=== PATIENT | male | born 1975 | race Caucasian/White ===

== ENCOUNTER → 2020-02-21 13:20 | Outpatient (BNVA) | payer SELFPAY | PROVIDERS: Family Provider Family Medicine; PCP Family Medicine; Visit Provider Nurse Practitioner Family | DX: J36 Peritonsillar abscess (principal); J02.9 Acute pharyngitis, unspecified; M79.10 Myalgia, unspecified site | CPT/HCPCS: 87071; 87400; 87880 ==

== ENCOUNTER → 2020-03-24 13:27 | Outpatient (BNVA) | payer SELFPAY | PROVIDERS: Family Provider Family Medicine; PCP Family Medicine; Visit Provider Nurse Practitioner Family | DX: L03.116 Cellulitis of left lower limb (principal); Z86.39 Personal history of other endocrine, nutritional and metabolic disease | CPT/HCPCS: 80053; 83036; 85025 ==

== ENCOUNTER 2020-03-29 05:48 | Inpatient (IN) | payer SELFPAY ==
[2020-03-29] VITALS (8 sets, daily range): BP systolic 144–188; BP diastolic 60–95; PULSE 56–95; RESP 16–22; TEMP 36.4–36.9; O2SAT 96–100; BMI 23.1
--- NOTE | 2020-03-29 06:32 | XR_ITS ---
WS: [id number] EXAM: LEFT FOOT: 3 VIEWS DATE OF EXAMINATION: 03/29/2020, 0703 hours COMPARISON: None. HISTORY: 44 years old with left foot pain. Blister to the top of the foot. Assess for abscess. FINDINGS: Bone density is normal in appearance. There are findings of hallux valgus deformity of the first ray with arthritis first metatarsal phalangeal joint and bunion formation off the medial first metatarsal head. Second through fifth metatarsophalangeal joints are normal in appearance. No fracture, lytic o r blastic process is seen. There is soft tissue prominence noted over the dorsal foot in the area of the second and third metatarsal phalangeal joints felt to represent the area of visible blister. A fo reign body within this blister is not seen. If there is concern for deep-seated abscess follow-up MRI of the foot with and without contrast would be recommended. Heel spur plantar aponeurosis insertion. XR/XR foot LT min 3V* [id number] IMPRESSION: Degenerative changes in the bones as described. Soft tissue prominence over the dorsal foot at the second and third metatarsal phalangeal joint region correlating with the site of reported blister. No forei gn body seen.
--- NOTE | 2020-03-29 06:32 | CTR_ITS ---
PROCEDURE INFORMATION: Exam: CT Left Lower Extremity With Contrast, Foot Exam date and time: 03/29/2020 6:52 AM Age: 44 years old Clinical indication: Other: Blister; Additional info: Pain/abscess foot TECHNIQUE: Imaging protocol: CT of the Left lower extremity with intravenous contrast was performed. Exam focused on the foot. Radiation optimization: All CT scans at this facility use at least one of these dose optimization techniques: automated exposure control; mA and/or kV adjustment per patient size (includes targeted exams where dose is matched to clinical indication); or iterative reconstruction. Contrast material: OMNI 300; Contrast volume: 95 ml; Contrast route: INTRAVENOUS (IV); COMPARISON: No relevant prior studies available. RADIATION DOSE METRICS: Total DLP (mGy-cm): 162.76 FINDINGS: Bones/joints: Fracture deformity of proximal phalanx 4th digit. No definite osseous bone destruction. 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 Calcaneal spur. Soft tissues: Superficial cutaneous curvilinear fluid collection at the superficial skin margin of the distal forefoot dorsally measures 2.9 by 1.1 cm. Diffuse soft tissue edema of the plantar subcutaneous soft tissues. Deep compartment and likely muscular soft tissue edema and ill-defined fluid. There is expansion and possible complex fluid and partial enhancement involving and surrounding medial muscular compartments of the hindfoot and midfoot involving abductor hallucis and flexor hallucis brevis muscular compartment and myotendinous junction which could reflect myositis/tenosynovitis which could be edema,, infectious or inflammatory. No evidence of soft tissue gas. Achilles tendon insertion site calcification. CT/CT foot LT w con [id number] IMPRESSION: 1. Superficial and deep compartment soft tissue and muscular edema or cellulitis. Exclusion of any component of necrotizing fasciitis requires clinical confirmation or exclusion. 2. Questionable enhancement hallucis brevis and abductor hallucis myotendinous compartment which could reflect more focal infectious myositis and tenosynovitis. Limited delineation of muscular compartment versus early phlegmonous formation. Consider MRI with gadolinium which would yield a higher level of diagnostic specificity and sensitivity for abscess. 3. Fracture proximal phalanx 4th digit with callus formation likely subacute or early chronic. 4. Focal loculated cutaneous complex fluid dorsum of the foot which could reflect complex fluid with no discrete enhancement to reflect thick-walled abscess. Infectious versus noninfectious etiology of fluid would be limited in distinction. Radiation Dose CTDIVOL = (mGy): DLP = 162.76 (mGy-cm)
--- NOTE | 2020-03-29 06:34 | ECG_ITS ---
[facility] Test Date: 2020-03-29 Pat Name: Stan Romero Department: Room: 277 Gender: Male [employer] Director: : 1975 Requested By: Thomas Cho Order Number: [id number] Johanna MD: Heath Wellington M.D. Measurements Intervals [place] Rate: 87 P: 34 MD: 143 QRS: 64 QRSD: 93 T: 62 QT: 325 QTc: 392 Interpretive Statements SINUS RHYTHM ST ELEVATION, PROBABLY EARLY REPOLARIZATION [ST ELEVATION WITH NORMALLY INFLECTED T WAVE] No previous ECG available for comparison Electronically Signed On 03-29-2020 19:20:56 CDT by Heath Wellington M.D. [email or web address] List/store/NU/[id number] f
--- NOTE | 2020-03-29 06:37 | USCV_ITS ---
Stan Romero Age: 44 Gender: M : 1975 Exam Date: 03/29/2020 07:37 Ordering Phys: Thomas Pena DO Technologist: Brinda Sidhu [place] [facility] [place]: Foot abscess Risk Factors: Previous Vascular Surgery: RIGHT LEFT BP: / BP: 148.0/ 0 Waveform Velocity (cm/s) Velocity (cm/s) Waveform Iliac Prox 95.9 Triphasic Iliac Mid 84.9 Triphasic Iliac Distal 88.2 Triphasic SOLDERER ASSEMBLER 81.6 Triphasic SFA Prox 83.8 Triphasic SFA Mid 113.1 Triphasic SFA Dist 94.7 Triphasic POP 74.9 Triphasic RAMP SERVICE EMPLOYEE 88.0 Triphasic DPA 96.3 Monophasic ANNITA 1.3 FINDINGS See measurements listed above. CONCLUSIONS Triphasic Doppler flow pattern is noted throughout the left lower extremity except there is monophasic waveform in the dorsalis pedis artery with spectral braodening and diastolic flow. Suggests some degree of narrowing /slight stenosis in the anterior tibial artery. Slight spectral braodening begins in the distal left superficial femoral artery and continues caudally suggesting slight plaque but without stenosis otherwise seen in the remaining arteries studied. Luiz Alfred (Electronically Signed) Final Date: 29 March 2020 08:16 S
--- NOTE | 2020-03-29 06:40 | W.ED.SKABFB ---
HPI - Skin/Abscess/Foreign Bdy General: Chief complaint: Skin/Abscess/Foreign Body Stated complaint: foot swollen/ abcess Time Seen by Provider: 03/29/20 06:08 History of Present Illness: HPI narrative: 44-year-old male presents the emergency room with a swelling of his left foot. 1 week ago after mowing he had a small cut on the plantar surface of the second toe. After several days it had become increasingly swollen he seen the nurse practitioner who started him on Bactrim he had noted at that point what sounds like both popliteal and inguinal lymphadenopathy he states both of these lumps have resolved or improved since he started the Bactrim. He is not had a fever. He is not had any drainage. He has been soaking the foot in Epsom salts. He has had increasing in swelling over the last week. Reviewing the old records in [facility], [place] his last hemoglobin A1c was 10.1 on 817 his last creatinine was 1.3. MD complaint: laceration and abscess/boil Onset (ago): week(s) (1) Tetanus up to date: yes Location: L foot Severity: severe Quality: aching Pain Consistency: constant Relieving factors: rest Exacerbating factors: movement Context: recent antibiotic Associated symptoms: Reports arthralgias and myalgias; Deny chills, cough, fever(s), nausea, short of breath or vomiting Treatments prior to arrival: antibiotic Review of Systems Const: Denies: fever(s) or chills ENMT: Denies: throat pain, ear or mastoid pain, nasal discharge or nasal congestion Card: Denies: chest pain, edema, dyspnea on exertion or orthopnea Resp: Denies: dyspnea, productive cough or non-productive cough GI: Denies: nausea or vomiting : Denies: flank pain, dysuria, urinary frequency or urinary urgency Skin/Breast: Denies: rash or pruritus PFSH ED PFSH: Medical History (Updated 03/29/20 @ 10:24 by Thomas Pena DO) Diabetes mellitus type 2, uncontrolled HTN (hypertension) Surgical History (Updated 03/29/20 @ 06:46 by Thomas Pena DO) No history of previous surgery Social History (Updated 03/29/20 @ 06:45 by Thomas Pena DO) Smoking and tobacco status: current every day smoker cigarettes Packs smoked per day: 1 Years cigarettes smoked: 30 Alcohol intake: current Alcohol intake frequency: few times a month Physical Exam Const: COMMON NORMALS: no acute distress GENERAL APPEARANCE: cooperative and comfortable ORIENTATION/CONSCIOUSNESS: Yes awake, Yes oriented to person, Yes oriented to place and Yes oriented to time HENMT: COMMON NORMALS: normocephalic, atraumatic and hearing grossly normal bilaterally HEAD & SCALP: normocephalic and atraumatic Eye: COMMON NORMALS: Equal, round and reactive pupils present, EOMs intact bilaterally, conjunctivae normal and no scleral icterus CONJUNCTIVA: Yes conjunctivae normal PUPIL: Yes Equal, round and reactive pupils present Neck/C-Spine: COMMON NORMALS: full ROM, no lymphadenopathy, supple and no JVD Lymph: LYMPHATIC: no lymphadenopathy noted and no lymphedema noted Resp: COMMON NORMALS: normal respiratory effort, No retractions, No use of accessory muscles and clear to auscultation bilaterally AUSCULTATION: clear to auscultation bilaterally Cardio: COMMON NORMALS: no JVD, regular rate, regular rhythm and No murmurs present (Cardio) RATE: regular rate RHYTHM: regular rhythm GI: COMMON NORMALS: Soft to palpation and No hepatosplenomegaly present AUSCULTATION: Yes normoactive bowel sounds PALPATION: Yes Soft to palpation, No Tenderness to palpation present (GI), No Guarding due to palpation present (GI) and Yes No hepatosplenomegaly present Extremity: NARRATIVE EXTREMITY EXAM: Left foot appears to have an abscess. It involves the first through fourth MP joints. There is a fluid bolus on the surface of the foot between the second and third metatarsals there is a 2 inch fluid bulla that is nondraining. Dorsalis pedis pulses easily palpable. There is no open draining wounds. There is a laceration on the plantar surface of the second digit on the level of the interphalangeal joint. The sole of the foot to the calcaneus is fluctuant to palpation with significant swelling. The swelling extends care home up the first through fourth metatarsals. There is a healing cut on the tip of the right great toe, there are no signs of infection at this point on the right foot. Neuro: SENSORIUM/ORIENTATION: Yes oriented to person, Yes oriented to place and Yes oriented to time Skin: COMMON NORMALS: no rashes or lesions noted GENERAL SKIN EXAM: no rashes or lesions noted Course Vital Signs: Vital signs: Vital Signs Temperature 98.0 F 03/29/20 10:14 Pulse Rate 83 03/29/20 10:14 Respiratory Rate 22 H 03/29/20 10:14 Blood Pressure 188/95 03/29/20 10:14 Pulse Oximetry 99 03/29/20 10:14 MDM - Skin/Abscess/Foreign Bdy MDM Narrative: Medical decision making narrative: Discussed with Dr. Tee. Dr. John consulted on surgery. Reviewed the CT findings and labs with the patient as well as a history. We will give him calcium gluconate and Kayexalate as well as fluids for his hyponatremia and hyperkalemia. He has been started on Zosyn and vancomycin surgical consult. Lab Data: Labs: Lab Results 03/29/20 03/29/20 03/29/20 Range/Units 07:05 07:05 07:05 WBC 17.2 H (4.0-10.0) 10^3/ uL RBC 3.68 L (4.1-5.3) 10^6/u L Hgb 11.4 L (11.7-16.6) g/dL Hct 34.4 L (42.0-52.0) % MCV 93.5 (80-94) fL MCH 31.0 (28.0-34.0) pg MCHC 33.1 (30.0-36.0) g/dL RDW 11.3 L (12.1-15.1) % Plt Count 193 (130-400) 10^3/c mm MPV 10.0 (7.4-10.4) fL Neut % (Auto) 76.9 % Lymph % (Auto) 15.9 % Russell % (Auto) 5.2 % Eos % (Auto) 0.9 % Baso % (Auto) 0.3 % Neut # (Auto) 13.20 H (1.8-7.7) 10^3/u L Lymph # (Auto) 2.7 (0.8-4.8) 10^3/u L Russell # (Auto) 0.9 (0.2-0.9) 10^3/u L Eos # (Auto) 0.2 (0.0-0.8) 10^3/u L Baso # (Auto) 0.1 (0.0-0.1) 10^3/u L Nucleated RBC % (a uto) 0 % Nucleated RBCs # 0.0 /100WBC ESR 115 H (0-10) mm/hr Sodium 128 L (136-145) mmol/L Potassium 5.6 H (3.5-5.1) mmol/L Chloride 93 L (98-107) mmol/L Carbon Dioxide 26 (22-29) mmol/L Anion Gap 14.6 (5-19) BUN 30 H (6-20) mg/dL Creatinine 1.4 H (0.7-1.2) mg/dL GFR Calculation 55.1 L (90-130) mL/min Glucose 421 H (65-115) mg/dL Calculated Osmolal ity 281 L (285-295) mOsm/k g Lactic Acid (0.5-2.2) mmol/L Calcium 9.2 (8.5-10.5) mg/dL Magnesium 2.0 (1.7-2.3) mg/dL Total Bilirubin 0.3 (0.15-1.2) mg/dL AST 9 (0-40) U/L ALT 23 (0-41) U/L Alkaline Phosphata se 164 H (40-130) IU/L Creatine Kinase 52 (39-308) U/L C-Reactive Protein 106.8 H (0.0-4.9) mg/L Total Protein 8.7 (6.6-8.7) g/dL Albumin 3.4 L (3.5-5.2) g/dL Globulin 5.3 H (1.3-4.6) g/dL TSH (0.27-4.20) uIU/ mL Urine Color (Yellow) Urine Appearance (CLEAR) Urine pH (5-7) Ur Specific Gravit y (1.005-1.030) Urine Protein (Negative) Urine Glucose (UA) (Normal) Urine Ketones (Negative) Urine Blood (Negative) Urine Nitrate (Negative) Urine Bilirubin (NEGATIVE) Urine Urobilinogen (Negative) mg/dL Ur Leukocyte Nita ase (Negative) Urine RBC (0-2) /hpf Urine WBC (0-5) /hpf Ur Squamous Epith Cells (0-5) Amorphous Sediment Urine Bacteria (NONE) 08/22/20 08/22/20 08/22/20 Range/Units 07:05 07:05 07:34 WBC (4.0-10.0) 10^3/ uL RBC (4.1-5.3) 10^6/u L Hgb (11.7-16.6) g/dL Hct (42.0-52.0) % MCV (80-94) fL MCH (28.0-34.0) pg MCHC (30.0-36.0) g/dL RDW (12.1-15.1) % Plt Count (130-400) 10^3/c mm MPV (7.4-10.4) fL Neut % (Auto) % Lymph % (Auto) % Russell % (Auto) % Eos % (Auto) % Baso % (Auto) % Neut # (Auto) (1.8-7.7) 10^3/u L Lymph # (Auto) (0.8-4.8) 10^3/u L Russell # (Auto) (0.2-0.9) 10^3/u L Eos # (Auto) (0.0-0.8) 10^3/u L Baso # (Auto) (0.0-0.1) 10^3/u L Nucleated RBC % (a uto) % Nucleated RBCs # /100WBC ESR (0-10) mm/hr Sodium (136-145) mmol/L Potassium (3.5-5.1) mmol/L Chloride (98-107) mmol/L Carbon Dioxide (22-29) mmol/L Anion Gap (5-19) BUN (6-20) mg/dL Creatinine (0.7-1.2) mg/dL GFR Calculation (90-130) mL/min Glucose (65-115) mg/dL Calculated Osmolal ity (285-295) mOsm/k g Lactic Acid 0.8 (0.5-2.2) mmol/L Calcium (8.5-10.5) mg/dL Magnesium (1.7-2.3) mg/dL Total Bilirubin (0.15-1.2) mg/dL AST (0-40) U/L ALT (0-41) U/L Alkaline Phosphata se (40-130) IU/L Creatine Kinase (39-308) U/L C-Reactive Protein (0.0-4.9) mg/L Total Protein (6.6-8.7) g/dL Albumin (3.5-5.2) g/dL Globulin (1.3-4.6) g/dL TSH 1.01 (0.27-4.20) uIU/ mL Urine Color Straw (Yellow) Urine Appearance Clear (CLEAR) Urine pH 5 (5-7) Ur Specific Gravit y 1.015 (1.005-1.030) Urine Protein 3+ H (Negative) Urine Glucose (UA) 4+ H (Normal) Urine Ketones Negative (Negative) Urine Blood 3+ H (Negative) Urine Nitrate Negative (Negative) Urine Bilirubin Neg (NEGATIVE) Urine Urobilinogen Norm (Negative) mg/dL Ur Leukocyte Nita ase Negative (Negative) Urine RBC 15-25 H (0-2) /hpf Urine WBC Rare (0-5) /hpf Ur Squamous Epith Cells None (0-5) Amorphous Sediment Not Reportable Urine Bacteria Trace (NONE) Discharge Plan Discharge Admit Provider: Cory Tee Clinical Impression: Cellulitis of left foot, Diabetes mellitus type 2, uncontrolled, Hyponatremia, Hyperkalemia, Acute kidney injury Condition: Stable Coding Level of Care Code ED Clinical Office Technician for Silviag Fwd Exam Comprehensive
[2020-03-29 07:20] LABS: Basophils # 0.1 10^3/uL (0.0-0.1); Basophils % 0.3 %; Eosinophils # 0.2 10^3/uL (0.0-0.8); Eosinophils % 0.9 %; Hematocrit 34.4 % (42.0-52.0); Hemoglobin 11.4 g/dL (11.7-16.6); Lymphocytes # 2.7 10^3/uL (0.8-4.8); Lymphocytes % 15.9 %; Mean Corpuscular HGB Conc 33.1 g/dL (30.0-36.0); Mean Corpuscular Volume 93.5 fL (80-94); Monocytes # 0.9 10^3/uL (0.2-0.9); Monocytes % 5.2 %; Neutrophils % 76.9 %; Nucleated Red Blood Cells % 0 %; Platelet Count 193 10^3/cmm (130-400); Red Blood Count 3.68 10^6/uL (4.1-5.3); Red Cell Distribution Width 11.3 % (12.1-15.1); White Blood Count 17.2 10^3/uL (4.0-10.0)
[2020-03-29] MEDS: iohexol 300 mg/mL 100 mL Btl IV (07:27)
[2020-03-29] MEDS: vancomycin 1,000 MG in sodium chloride 0.9% 250 ML 250 MG IV (07:33)
[2020-03-29 07:45] LABS: Lactic Sepsis W/Reflex 0.8 mmol/L (0.5-2.2)
[2020-03-29 07:46] LABS: Alanine Aminotransferase 23 U/L (0-41); Albumin Level 3.4 g/dL (3.5-5.2); Alkaline Phosphatase 164 IU/L (40-130); Anion Gap 14.6 (5-19); Aspartate Amino Transferase 9 U/L (0-40); Blood Urea Nitrogen 30 mg/dL (6-20); C Reactive Protein 106.8 mg/L (0.0-4.9); Calcium 9.2 mg/dL (8.5-10.5); Carbon Dioxide 26 mmol/L (22-29); Chloride 93 mmol/L (98-107); Creatine Phosphokinase 52 U/L (39-308); Globulin 5.3 g/dL (1.3-4.6); Glomerular Filtration Rate 55.1 mL/min (90-130); Glucose 421 mg/dL (65-115); Osmolality Calculated 281 mOsm/kg (285-295); Potassium 5.6 mmol/L (3.5-5.1); Sodium 128 mmol/L (136-145); Total Bilirubin 0.3 mg/dL (0.15-1.2); Total Protein 8.7 g/dL (6.6-8.7)
--- NOTE | 2020-03-29 08:45 | PC.NURSE ---
Taken to surgery via stretcher and mineral technologist
[2020-03-29 09:10] LABS: Erythrocyte Sedimentation Rate 115 mm/hr (0-10)
[2020-03-29] MEDS: sodium polystyrene sulfonate 15 gm/60 mL Btl PO (09:18)
[2020-03-29] MEDS: piperacillin-tazobactam 3.375 GM in sodium chloride 0.9% (plus) 50 ML IV (09:18)
[2020-03-29] MEDS: sodium chloride 0.9% 1,000 ML 999 ML IV (09:18)
[2020-03-29 09:40] LABS: Urine Appearance Clear (CLEAR); Urine Color Straw (Yellow)
[2020-03-29 09:41] LABS: Add Urine Microscopic? YES; Bilirubin Urine Neg (NEGATIVE); Blood Urine 3+ (Negative); Glucose Urine UA 4+ (Normal); Ketones Urine Negative (Negative); Leukocyte Esterase Urine Negative (Negative); Nitrate Urine Negative (Negative); Protein Urine 3+ (Negative); Specific Gravity, Urine 1.015 (1.005-1.030); Urobilinogen Urine Norm (Negative); pH Urine 5 (5-7)
[2020-03-29 09:42] LABS: Glucose Point of Care 368 mg/dL (70-110)
[2020-03-29 09:43] LABS: Add Urine Culture? Yes; Bacteria Urine TRACE; RBC Urine 15-25 /hpf (0-2); WBC Urine RARE /hpf (0-5)
[2020-03-29 09:48] LABS: Thyroid Stimulating Hormone 1.01 uIU/mL (0.27-4.20)
[2020-03-29] MEDS: sodium chloride 0.9% 1,000 ML 150 ML IV (10:44)
--- NOTE | 2020-03-29 11:25 | P.CONIM_ITS ---
Providers/Reason For Consult Consulting Physican/Specialty*: Blaze John MD Reason for Consult*: Diabetic foot infection Attending Physician: Cory Tee MD Primary Care Provider: Jeb Delgado DO History of Present Illness History of Present Illness Chief Complaint: My foot has a swelling History of present illness: Mr. Stan Romero is a 44 year old male with known history of type 2 diabetes presents to the emergency department with history of cut wound on the plantar aspect that he did experience last [place], apparently the patient started to develop swelling the following day and he was started on Bactrim by his primary care provider also the patient had noticed some swollen lymph nodes at the left groin but he did not have any fevers or chills that he is aware of. He reports a previous sore of the left great toe that did not heal. Patient reports that the swelling of the groin is better and gone away yet he did develop a blister this morning and he did come to the emergency department for further evaluation X-ray of the left foot showed: FINDINGS: Bone density is normal in appearance. There are findings of hallux valgus deformity of the first ray with arthritis first metatarsal phalangeal joint and bunion formation off the medial first metatarsal head. Second through fifth metatarsophalangeal joints are normal in appearance. No fracture, lytic or blastic process is seen. There is soft tissue prominence noted over the dorsal foot in the area of the second and third metatarsal phalangeal joints felt to represent the area of visible blister. A foreign body within this blister is not seen. If there is concern for deep-seated abscess follow-up MRI of the foot with and without contrast would be recommended. Heel spur plantar aponeurosis insertion. XR/XR foot LT min 3V* [id number] IMPRESSION: Degenerative changes in the bones as described. Soft tissue prominence over the dorsal foot at the second and third metatarsal phalangeal joint region correlating with the site of reported blister. No foreign body seen. CT scan of the foot FINDINGS: Bones/joints: Fracture deformity of proximal phalanx 4th digit. No definite osseous bone destruction. 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 Calcaneal spur. Soft tissues: Superficial cutaneous curvilinear fluid collection at the superficial skin margin of the distal forefoot dorsally measures 2.9 by 1.1 cm. Diffuse soft tissue edema of the plantar subcutaneous soft tissues. Deep compartment and likely muscular soft tissue edema and ill-defined fluid. There is expansion and possible complex fluid and partial enhancement involving and surrounding medial muscular compartments of the hindfoot and midfoot involving abductor hallucis and flexor hallucis brevis muscular compartment and myotendinous junction which could reflect myositis/tenosynovitis which could be edema,, infectious or inflammatory. No evidence of soft tissue gas. Achilles tendon insertion site calcification. CT/CT foot LT w con [id number] IMPRESSION: 1. Superficial and deep compartment soft tissue and muscular edema or cellulitis. Exclusion of any component of necrotizing fasciitis requires clinical confirmation or exclusion. 2. Questionable enhancement hallucis brevis and abductor hallucis myotendinous compartment which could reflect more focal infectious myositis and tenosynovitis. Limited delineation of muscular compartment versus early phlegmonous formation. Consider MRI with gadolinium which would yield a higher level of diagnostic specificity and sensitivity for abscess. 3. Fracture proximal phalanx 4th digit with callus formation likely subacute or early chronic. 4. Focal loculated cutaneous complex fluid dorsum of the foot which could reflect complex fluid with no discrete enhancement to reflect thick-walled abscess. Infectious versus noninfectious etiology of fluid would be limited in distinction. General surgery was consulted for further evaluation and potential intervention Review of Systems General: Reports: 10 or more systems reviewed and unremarkable except in HPI and below Meds/Allergies Home Medications and Allergies Home Medications Medication Instructions Recorded Confirmed Last Taken Type sulfamethoxazole 800 1 tab PO BID 10 Days #20 tab 03/24/20 03/29/20 03/28/20 Rx mg-trimethoprim 160 mg tablet Allergies Allergy/AdvReac Type Severity Reaction Status Date / Time acetaminophen Allergy ADR/ALGY-Pa Verified 03/29/20 13:39 lpitations Current Medications Current Medications Generic Name Dose Route Start Last Admin Trade Name Freq PRN Reason Stop Dose Admin Sodium Chloride 1,000 mls @ 150 mls/hr 03/29/20 10:10 03/29/20 10:44 Sodium Chloride 0.9% IV 150 mls/hr .[id number] [place] Administration PFSH Acute PFSH: Medical History Diabetes mellitus type 2, uncontrolled HTN (hypertension) Surgical History No history of previous surgery Family History Other Diabetes Hypertension Social History Smoking and tobacco status: current every day smoker cigarettes Packs smoked per day: 1 Years cigarettes smoked: 30 Alcohol intake: current Alcohol intake frequency: few times a month Substance/Drug Use: never Vitals/I&O/Wt Last Vital Signs Temp 97.6 F 03/29/20 10:23 Pulse 76 03/29/20 10:23 Resp 16 03/29/20 10:23 BP 152/60 03/29/20 10:23 Pulse Ox 96 03/29/20 10:23 Weight last 48 hrs Weight 175 lb Physical Exam Narrative: EXAM NARRATIVE: Patient is conscious alert oriented X3 BMI 23 Head and neck examination PERRLA no masses no cervical lymphadenopathy no jaundice Cardiac examination audible S1-S2 no murmurs no gallops no arrhythmias Chest is clear bilateral,abscence of Rhonchi or wheezes,no surgical emphysema Abdomen nontender nondistended soft no organomegaly guarding or rigidity/no signs of peritonitis Extremities no cyanosis no clubbing no edema except for swelling noticed on the dorsal aspect of the left foot with a blister like swelling showing 4 x 3 cm on the dorsal aspect of the junction of the left big toe and second toe. Fluctuant not much tenderness appreciated yet concerning for abscess formation. With surrounding cellulitic changes of the foot. Palpable left groin lymphadenopathy non-tender yet firm Cracks appreciated at the plantar aspect at the bases of the left big and second toes Data 2 Micro: Micro: Microbiology 03/29/20 09:08 Blood Culture - Pr eliminary Blood SPECIMEN [facility] DANIELLA 03/29/20 07:05 Blood Culture - Pr eliminary Blood SPECIMEN [facility] A&P Assessment and plan (1) Cellulitis of left foot: After history taking physical examination and reviewing the chart and images with my percent repetition I do recommend for an I&D of left diabetic foot infection including swelling likely concerning for an abscess formation. We will plan to perform surgery tomorrow in the OR after medical optimization Recommend to keep the patient n.p.o. after midnight for surgery tomorrow Further discussion with the patient did reveal that the patient is interested to be discharged today and come tomorrow for surgery and I did explain for him unfortunately he will require to have IV fluids and appropriate antimicrobial therapy with medical optimization and surgical intervention tomorrow. Also I did discuss with the patient about the potential complication of suboptimally treated diabetic foot infection may end up by amputation and limb loss. Discussed with the patient his options in the presence of his caring nurse Pinky Thank you for consulting general surgery to participate taking care Mr. Romero Status: Acute Consult Attestations Medical Necessity Statement: Per hospitalist service Time Spent in Patient Care: (>than 50% of time spent in counselling and/or direct pt care on unit) . Coding Level of Care Code Acute Cleaning Custodian for Donta Leigh Diagnoses Cellulitis of left foot L03.116
--- NOTE | 2020-03-29 12:33 | PM.HP ---
Providers/Chief Complaint Admitting Physician: Cory Tee MD Primary Care Provider: Jeb Delgado DO Chief Complaint: foot swollen/ abcess History of Present Illness Stan Romero is a 44 year old male who presents from home with concerns of infected left foot. He reports the problem is been going on for about 1 week. [place] and noticed some's foot swelling, pain. He felt as if he had swollen lymph nodes in his left groin. He did not have any fever or chills. He had had previously had a sore in his left great toe that had not healed. He went to his primary care provider's office 5 to 6 days ago and got a prescription of Bactrim. Since that time swelling in the groin is gone away. Foot improved some but then a significant blister appeared this morning. Again, he has had no fever and chills. He denies any past history of significant foot ulcerations. He denies taking any medication for his diabetes, or his hypertension which she reports he knows he has. Review of Systems General: Reports: 10 or more systems reviewed and unremarkable except in HPI and below Const: Denies: fever(s) or chills Eyes: Denies: change in vision ENMT: Denies: throat pain Card: Denies: chest pain Resp: Denies: dyspnea GI: Denies: abdominal pain : Denies: flank pain Musc: Reports: extremity pain and extremity swelling Skin/Breast: Denies: rash Neuro: Denies: headache(s) Psych: Denies: anxiety Endo: Denies: polyuria Rudy/Lymph: Denies: easy bruising All/Imm: Denies: urticaria Medications/Allergies Home Medications Medication Instructions Recorded Confirmed Last Taken Type sulfamethoxazole 800 1 tab PO BID 10 Days #20 tab 03/24/20 03/29/20 03/28/20 Rx mg-trimethoprim 160 mg tablet Allergies Allergy/AdvReac Type Severity Reaction Status Date / Time acetaminophen Allergy ADR/ALGY-Pa Verified 03/24/20 13:07 lpitations PFSH Acute PFSH: Medical History Diabetes mellitus type 2, uncontrolled HTN (hypertension) Surgical History (Updated 03/29/20 @ 06:46 by Thomas Pena DO) No history of previous surgery Family History (Updated 03/29/20 @ 12:35 by Cory Tee MD) Other Diabetes Hypertension Social History (Updated 03/29/20 @ 12:35 by Cory Tee MD) Smoking and tobacco status: current every day smoker cigarettes Packs smoked per day: 1 Years cigarettes smoked: 30 Alcohol intake: current Alcohol intake frequency: few times a month Substance/Drug Use: never Supplemental [facility] Information: Reports he uses marijuana for medicinal purposes and has a card. Vitals/I&O/Wt Last Vital Signs Temp 98.0 F 03/29/20 11:47 Pulse 76 03/29/20 11:47 Resp 18 03/29/20 11:47 BP 180/88 03/29/20 11:47 Pulse Ox 99 03/29/20 11:47 Weight last 48 hrs Weight 79.379 kg Physical Exam Narrative: EXAM NARRATIVE: General exam is a white male, in no apparent distress HEENT: Pupils equally round. Oropharynx clear. Neck is supple no lymphadenopathy or thyromegaly Cardiovascular regular rate and rhythm without murmur. No S3 or S4 Lungs clear no wheezing or crackles Abdomen is soft nontender with positive bowel sounds. No obvious organomegaly was deferred Extremities no cyanosis clubbing. Left foot with edema. Blister is present dorsal surface between great toe and second toe. It is hard to tell if this is fluctuant. Some edema, and blanching is noted on the plantar surface with bogginess. Cap refill is intact. Data : 03/29/20 07:05 03/29/20 07:05 Micro: Microbiology 03/29/20 09:08 Blood Culture - Preliminary Blood SPECIMEN COLLECTED 03/29/20 07:05 Blood Culture - Preliminary Blood SPECIMEN COLLECTED Other data: Sedimentation rate is 115. Alk phos slightly elevated at 164. CRP 106 Urinalysis 15-25 red 0 whites Arterial duplex indicates probable peripheral vascular disease, mild anterior tibial artery, dorsalis pedis artery CT foot demonstrates some loculated fluid dorsum, question early phlegmon Hemoglobin A1c 10.1 A&P Assessment and plan (1) Cellulitis of left foot: Continue vancomycin, Zosyn initiated in the emergency department Surgical consultation Blood culture Body fluid culture if obtained by surgery Status: Acute (2) Leukocytosis: Secondary to above Status: Acute (3) Hyperkalemia: Hydration Kayexalate Recheck Status: Acute (4) Hyponatremia: Secondary in part to significant hyperglycemia Status: Acute (5) Diabetes mellitus type 2, uncontrolled: Sliding scale insulin Check TSH blood in lab We will have to review what his home medicine regimen should be on discharge Diabetic diet Status: Acute (6) HTN (hypertension): Hydralazine as needed When renal function improves initiate lisinopril likely tomorrow Status: Acute (7) Acute kidney injury: Hydration, recheck tomorrow Status: Acute (8) Peripheral vascular disease: Check lipid profile Status: Acute Additional A&P Information Full code Heparin for DVT prophylaxis Attestations Medical Necessity Statement*: Will need greater than 2 midnight stay for treatment of cellulitis with IV antibiotics Coding Level of Care Code Acute Vp Cardiovascular Service Line for [facility] Fwd Diagnoses Cellulitis of left foot L03.116 Leukocytosis D72.829 Hyperkalemia E87.5 Hyponatremia E87.1 Diabetes mellitus type 2, uncontrolled E11.65 HTN (hypertension) I10 Acute kidney injury N17.9 Peripheral vascular disease I73.9
--- NOTE | 2020-03-29 13:54 | PC.NURSE ---
This nurse called to room to talk with pt because he was upset that his ex- is unable to visit. This nurse explained to pt our policy on visiting hours. Pt said he understood but that he needed to see her because he was having surgery. Dr. Tee and Dr. Gore explained to pt that he would not be having surgery today. Pt was explained his options by Dr. Gore at bedside at 1330. Pt approached pt care nurse Emeli and told her he was going down stairs pt was angry, he left the floor and went down stairs. Security was notified to stop pt because he still had IV access in place. This nurse met with pt at the ED entrance and explained to him risk of leaving against medical advice pt stated he didn't care and that he understands his options AMA paper was obtained and signed by pt, witnessed by this nurse and [facility] application security engineer. IV was discontinued and patient left with female who he stated to be his ex-. Dr. Tee and Dr. Gore notified.
--- NOTE | 2020-03-31 16:18 | PC.RESP ---
SMOKING CESSATION INFORMATION SENT TO PATIENT.
--- NOTE | 2020-03-31 16:33 | PC.RESP ---
SMOKING CESSATION INFORMATION SENT TO PATIENT.
== END 2020-03-29 13:44 | disposition left against medical advice (07) | DRG 638 ==
LOC: ER 06:58 → MEDSURG 09:34
PROVIDERS: Admitting Provider Internal Medicine; Emergency Provider Family Medicine; PCP Family Medicine; Visit Provider Internal Medicine
DX: E11.628 Type 2 diabetes mellitus with other skin complications (principal); L03.116 Cellulitis of left lower limb; E87.1 Hypo-osmolality and hyponatremia; E11.65 Type 2 diabetes mellitus with hyperglycemia; E11.51 Type 2 diabetes mellitus with diabetic peripheral angiopathy without gangrene; Z53.29 Procedure and treatment not carried out because of patient's decision for other reasons; I10 Essential (primary) hypertension; F17.210 Nicotine dependence, cigarettes, uncomplicated; Z79.899 Other long term (current) drug therapy; E87.5 Hyperkalemia; N17.9 Acute kidney failure, unspecified
CPT/HCPCS: 12345; 36416; 73630; 73701; 80053; 81001; 82550; 82962; 83605; 83735; 84443; 85025; 85651; 86140; 87040; 87086; 93005; 93926; 99283; J0610; J2543; J3370; J7030; J7050; Q9967

== ENCOUNTER → 2021-07-20 09:27 | Outpatient (BNVA) | payer MEDICAID, SELFPAY | PROVIDERS: PCP Family Medicine; Visit Provider Nurse Practitioner Family | DX: E87.5 Hyperkalemia (principal); D64.9 Anemia, unspecified; I10 Essential (primary) hypertension | CPT/HCPCS: 80048; 80061; 85025 ==

== ENCOUNTER → 2021-08-12 08:50 | Outpatient (BNVA) | payer MEDICAID, SELFPAY | PROVIDERS: PCP Family Medicine; Visit Provider Internal Medicine Nephrology | DX: N18.5 Chronic kidney disease, stage 5 (principal) | CPT/HCPCS: 80069; 83550; 85025 ==

== ENCOUNTER → 2021-10-09 17:09 | Outpatient (BNVA) | payer MEDICAID, SELFPAY | PROVIDERS: PCP Family Medicine; Visit Provider Nurse Practitioner Family | DX: E11.65 Type 2 diabetes mellitus with hyperglycemia (principal); R79.89 Other specified abnormal findings of blood chemistry | CPT/HCPCS: 80053; 83036 ==

== ENCOUNTER → 2021-11-13 10:04 | Outpatient (BNVA) | payer MEDICAID, SELFPAY | PROVIDERS: PCP Family Medicine; Visit Provider Internal Medicine Nephrology | DX: N18.5 Chronic kidney disease, stage 5 (principal); R79.9 Abnormal finding of blood chemistry, unspecified | CPT/HCPCS: 80053; 80069; 82043; 85025; 86705; 86706; 86803; 87340 ==

== ENCOUNTER → 2021-11-17 09:58 | Outpatient (BNVA) | payer MEDICAID, SELFPAY | PROVIDERS: PCP Family Medicine; Visit Provider Surgery | DX: N19 Unspecified kidney failure (principal); D64.9 Anemia, unspecified; F17.210 Nicotine dependence, cigarettes, uncomplicated | CPT/HCPCS: 99204 ==

== ENCOUNTER 2021-11-18 06:36 | Emergency (ER) | payer MEDICAID, SELFPAY ==
[2021-11-18 06:47] VITALS: BP 180/92; PULSE 84; RESP 18; TEMP 36.7; O2SAT 100; BMI 25.0
--- NOTE | 2021-11-18 07:14 | W.ED.GENADLT ---
HPI - General Adult General: Chief complaint: General Medical Stated complaint: blood transfusion per Dr. Koehler Time Seen by Provider: 11/18/21 06:45 Source: patient Mode of arrival: ambulatory Limitations: no limitations History of Present Illness: 46-year-old male presents emergency room complaining of anemia. He states he was advised by Dr. Koehler to come in for blood transfusion yesterday but was not able to make it so he came in this morning. He has evidently some lower GI bleed end-stage renal disease and cardiomyopathy. He reports his ejection fraction is down to 15%. He is not having any overt congestive heart failure now he is not noticed any recent hematochezia. He tells me that they are planning to get his hemoglobin up and then get a dialysis catheter on him and then proceed with colonoscopy and evaluation further evaluation of his heart with angiography. He has been very tired lately and more short of breath with exertion but has not had any chest pain. Relieving factors: rest Exacerbating factors: other (Activity/exertion) Associated symptoms: Deny chest pain, confusion, cough, diaphoresis, decreased appetite, dyspnea, fevers/chills, headache(s), malaise, nausea, rash, palpitations, seizures, short of breath, syncope, vomiting, weakness or other Review of Systems Const: Denies: malaise or diaphoresis Card: Denies: chest pain, palpitations or syncope Resp: Denies: dyspnea GI: Denies: nausea or vomiting Skin/Breast: Denies: rash Neuro: Denies: headache(s) or confusion [facility] ED PFSH: Medical History (Updated 11/18/21 @ 07:47 by Thomas Pena DO) Diabetes mellitus type 2, uncontrolled HTN (hypertension) Surgical History No history of previous surgery Family History Other Diabetes Hypertension Social History Smoking and tobacco status: current every day smoker cigarettes Packs smoked per day: 1 Years cigarettes smoked: 30 Quit status (tobacco): considering quitting Alcohol intake: current Alcohol intake frequency: few times a month Course Vital Signs: Vital signs: Vital Signs Temperature 98.1 F 11/18/21 06:47 Pulse Rate 84 11/18/21 06:47 Respiratory Rate 18 11/18/21 06:47 Blood Pressure 180/92 11/18/21 06:47 Pulse Oximetry 100 11/18/21 06:47 MDM - General Adult Medical Decision Making Patient is anemic but can be transfusion outpatients. I called Dr. Kilo Koehler he had been planning for him to be transfused there but he was not able to come yesterday. They were planning on him to come until next week but Dr. Koehler would like him to go home and go ahead and get some blood today. We will discharge her from the ER to outpatients Dr. Koehler's written orders for transfusion there. He is not taking his a.m. blood pressure medications. He wants to eat something before he does otherwise he will usually upset his stomach. We will give him a little something to eat here have him take his regular blood pressure medicines from home he has them with him. He will be discharged from the ER and brought to the GI lab for the transfusion Medical Records I reviewed the patient's medical records. Lab Data I reviewed the patient's lab results. : 11/18/21 06:55 11/18/21 06:55 Laboratory Results WBC 10.5 10^3/uL (4.0-10.0) H 11/18/21 06:55 RBC 2.23 10^6/uL (4.1-5.3) L 11/18/21 06:55 Hgb 6.8 g/dL (11.7-16.6) L 11/18/21 06:55 Hct 20.8 % (42.0-52.0) L* 11/18/21 06:55 MCV 93.3 fl (80-94) 11/18/21 06:55 MCH 30.5 pg (28.0-34.0) 11/18/21 06:55 MCHC 32.7 g/dL (30.0-36.0) 11/18/21 06:55 RDW 13.2 % (12.1-15.1) 11/18/21 06:55 Plt Count 162 10^3/cmm (130-400) 11/18/21 06:55 MPV 10.1 fL (7.4-10.4) 11/18/21 06:55 Neut % (Auto) 56.7 % 11/18/21 06:55 Lymph % (Auto) 32.1 % 11/18/21 06:55 [place] % (Auto) 5.3 % 11/18/21 06:55 Eos % (Auto) 4.7 % 11/18/21 06:55 Baso % (Auto) 0.9 % 11/18/21 06:55 Neut # (Auto) 5.95 10^3/uL (1.8-7.7) 11/18/21 06:55 Lymph # (Auto) 3.4 10^3/uL (0.8-4.8) 11/18/21 06:55 [place] # (Auto) 0.6 10^3/uL (0.2-0.9) 11/18/21 06:55 Eos # (Auto) 0.5 10^3/uL (0.0-0.8) 11/18/21 06:55 Baso # (Auto) 0.1 10^3/uL (0.0-0.1) 11/18/21 06:55 Nucleated RBC % (auto) 0 % 11/18/21 06:55 Nucleated RBCs # 0.0 /100WBC 11/18/21 06:55 Sodium 141 mmol/L (136-145) 11/18/21 06:55 Potassium 4.3 mmol/L (3.5-5.1) 11/18/21 06:55 Chloride 106 mmol/L (98-107) 11/18/21 06:55 Carbon Dioxide 19 mmol/L (22-29) L 11/18/21 06:55 Anion Gap 20.3 (5-19) H 11/18/21 06:55 BUN 75 mg/dL (6-20) H 11/18/21 06:55 Creatinine 6.0 mg/dL (0.7-1.2) H* 11/18/21 06:55 GFR Calculation 10.2 mL/min (90-130) L 11/18/21 06:55 Glucose 123 mg/dL (65-115) H 11/18/21 06:55 Calculated Osmolality 316 mOsm/kg (285-295) H 11/18/21 06:55 Calcium 8.4 mg/dL (8.5-10.5) L 11/18/21 06:55 Blood Type O Positive 11/18/21 06:55 Rho(D) Type Positive 11/18/21 06:55 Discharge Plan Discharge Patient Disposition: Home Clinical Impression: Anemia, HTN (hypertension), ESRD (end stage renal disease) Condition: Stable Prescriptions: No Action aspirin [Adult Aspirin Regimen] 81 mg tablet,delayed release (DR/EC) 81 mg PO DAILY 0RF metolazone 5 mg tablet 5 mg PO DAILY 0RF Rx Instructions: take 1 tab every other day. (DME) blood-glucose meter Misc See Rx Instructions .ROUTE .MEDSUPPLY Qty: 1 0RF Rx Instructions: As directed to test blood sugar BID (DME) Blood Glucose Test Strip See Rx Instructions .Route Qty: 200 3RF Rx Instructions: As directed to test blood sugar BID (DME) lancets [BD Microtainer Lancet] 30 gauge misc See Rx Instructions .Route Qty: 200 3RF Rx Instructions: As directed to test blood sugar BID carvedilol 25 mg tablet See Rx Instructions .ROUTE .COMPLEX Qty: 60 0RF Dose Instruction: TAKE ONE TABLET BY MOUTH TWICE A DAY WITH FOOD/MEALS Rx Instructions: TAKE ONE TABLET BY MOUTH TWICE A DAY WITH FOOD/MEALS isosorbide dinitrate 20 mg tablet See Rx Instructions .ROUTE .COMPLEX Qty: 90 0RF Dose Instruction: TAKE ONE TABLET BY MOUTH THREE (3) TIMES DAILY ALLOW NITRATE-FREE INTERVAL OF 12-14 HOURS PER 24 HOURS Rx Instructions: TAKE ONE TABLET BY MOUTH THREE (3) TIMES DAILY ALLOW NITRATE-FREE INTERVAL OF 12-14 HOURS PER 24 HOURS hydralazine 50 mg tablet See Rx Instructions .ROUTE .COMPLEX Qty: 90 0RF Dose Instruction: TAKE ONE TABLET BY MOUTH THREE (3) TIMES DAILY Rx Instructions: TAKE ONE TABLET BY MOUTH THREE (3) TIMES DAILY Discharge Orders: Discharge ED (Routine); Ordered 11/18/21 Ordered By: Thomas Pena Referrals: Jeb Delgado DO [Primary Care Provider] - Patient Instructions: Opioid Safety Activity Restrictions/Additional Instructions: Discharge from the ER to outpatients for blood transfusions. Dr. Koehler has ordered transfusion in the outpatient/GI lab. Coding Level of Care Code ED Imcu Nurse for Donta Leigh
[2021-11-18 07:20] LABS: Eosinophils # 0.5 10^3/uL (0.0-0.8); Eosinophils % 4.7 %; Nucleated Red Blood Cells % 0 %; Red Cell Distribution Width 13.2 % (12.1-15.1)
[2021-11-18 07:23] LABS: Basophils # 0.1 10^3/uL (0.0-0.1); Basophils % 0.9 %; Hemoglobin 6.8 g/dL (11.7-16.6); Lymphocytes # 3.4 10^3/uL (0.8-4.8); Lymphocytes % 32.1 %; Mean Corpuscular HGB Conc 32.7 g/dL (30.0-36.0); Mean Corpuscular Hemoglobin 30.5 pg (28.0-34.0); Mean Corpuscular Volume 93.3 fl (80-94); Mean Platelet Volume 10.1 fL (7.4-10.4); Monocytes # 0.6 10^3/uL (0.2-0.9); Monocytes % 5.3 %; Neutrophils # 5.95 10^3/uL (1.8-7.7); Neutrophils % 56.7 %; Platelet Count 162 10^3/cmm (130-400); Red Blood Count 2.23 10^6/uL (4.1-5.3); White Blood Count 10.5 10^3/uL (4.0-10.0)
[2021-11-18 07:33] LABS: Hematocrit 20.8 % (42.0-52.0)
--- NOTE | 2021-11-18 07:35 | PC.NURSE ---
Notified by lab of critical values: Hemoglobin 6.[address] Pena notified.
[2021-11-18 07:36] LABS: Anion Gap 20.3 (5-19); Blood Urea Nitrogen 75 mg/dL (6-20); Calcium 8.4 mg/dL (8.5-10.5); Carbon Dioxide 19 mmol/L (22-29); Chloride 106 mmol/L (98-107); Glomerular Filtration Rate 10.2 mL/min (90-130); Glucose 123 mg/dL (65-115); Osmolality Calculated 316 mOsm/kg (285-295); Potassium 4.3 mmol/L (3.5-5.1); Sodium 141 mmol/L (136-145)
[2021-11-18 07:52] VITALS: BP 180/88; PULSE 83; RESP 13; O2SAT 99
[2021-11-18 08:10] VITALS: BP 170/95; PULSE 98; RESP 13; O2SAT 98
== END 2021-11-18 08:01 | disposition home or self-care (01) ==
PROVIDERS: Emergency Provider Family Medicine; PCP Family Medicine
DX: D64.9 Anemia, unspecified (principal); K92.2 Gastrointestinal hemorrhage, unspecified; N18.6 End stage renal disease; I42.9 Cardiomyopathy, unspecified; E11.22 Type 2 diabetes mellitus with diabetic chronic kidney disease; I12.0 Hypertensive chronic kidney disease with stage 5 chronic kidney disease or end stage renal disease; F17.210 Nicotine dependence, cigarettes, uncomplicated; Z79.82 Long term (current) use of aspirin
CPT/HCPCS: 80048; 85025; 99283

== ENCOUNTER → 2021-11-18 08:06 | Day surgery (SDC) | payer MEDICAID, SELFPAY ==
[2021-11-18 08:29] VITALS: BP 153/45; PULSE 86; RESP 18; TEMP 36.7; O2SAT 99
[2021-11-18 08:34] VITALS: BP 153/95; PULSE 86; RESP 18; TEMP 36.7; O2SAT 99
[2021-11-18] MEDS: sodium chloride 0.9% (100 ml) 100 ML 10 ML (08:42)
[2021-11-18 08:50] VITALS: BP 148/80; PULSE 87; RESP 18; TEMP 36.9; O2SAT 98
[2021-11-18 09:05] VITALS: BP 139/82; PULSE 86; RESP 18; TEMP 36.9; O2SAT 99
[2021-11-18 10:00] VITALS: BP 159/88; PULSE 86; RESP 18; TEMP 36.8; O2SAT 98
== END ==
PROVIDERS: PCP Family Medicine; Visit Provider Surgery
DX: D64.9 Anemia, unspecified (principal)
CPT/HCPCS: 36430; 86850; 86900; 86920; P9016

== ENCOUNTER 2022-10-09 17:45 | Inpatient (IN) | payer MEDICAID, SELFPAY ==
[2022-10-09] VITALS (15 sets, daily range): BP systolic 114–170; BP diastolic 60–88; PULSE 75–83; RESP 9–18; TEMP 36.6–36.9; O2SAT 99–100; BMI 21.9
--- NOTE | 2022-10-09 18:41 | CTR_ITS ---
PROCEDURE INFORMATION: Exam: CT Abdomen And Pelvis Without Contrast Exam date and time: 10/09/2022 6:52 PM Age: 47 years old Clinical indication: Abdominal pain; Other: Upper abd pain w/n/v; Additional info: Abd pain, vomiting, weight loss TECHNIQUE: Imaging protocol: Computed tomography of the abdomen and pelvis without contrast. Axial, coronal and sagittal reformatted images were created and reviewed. Radiation optimization: All CT scans at this facility use at least one of these dose optimization techniques: automated exposure control; mA and/or kV adjustment per patient size (includes targeted exams where dose is matched to clinical indication); or iterative reconstruction. REPORTING DATA: Count of CT and Cardiac NM exams in prior 12 months: This patient has received 0 known CTs and 0 known cardiac nuclear medicine studies in the 12 months prior to the current study. COMPARISON: No relevant prior studies available. RADIATION DOSE METRICS: Total DLP (mGy-cm): 481.33 FINDINGS: Heart: Moderate pericardial effusion. Liver: Mild hepatomegaly. Gallbladder and bile ducts: No radiodense gallstones. No biliary ductal dilatation. Pancreas: Unremarkable. Spleen: Unremarkable. Adrenal glands: Normal. No mass. Kidneys and ureters: Nonspecific bilateral perinephric stranding, likely related to renal insufficiency.. No radiodense calculi. No hydronephrosis. Stomach and bowel: Questionable mild, diffuse small bowel wall thickening. No obstruction. No pneumatosis. Appendix: Normal. Intraperitoneal space: No free fluid. No organized fluid collection. No free air. Vasculature: Mild to moderate atherosclerotic disease. No aneurysm. Lymph nodes: No pathologically enlarged lymph nodes. Urinary bladder: Unremarkable as visualized. Reproductive: Unremarkable. Bones/joints: No acute osseous abnormality. Osteopenia. Mild degenerative changes. Soft tissues: Unremarkable. CT/CT abdomen pelvis wo con [id number] IMPRESSION: 1. Limited noncontrast examination. 2. Questionable mild, diffuse small bowel wall thickening, possibly secondary to nonspecific enteritis. 3. Moderate pericardial effusion. 4. Additional findings, as above.
--- NOTE | 2022-10-09 18:42 | ECG_ITS ---
[facility] Test Date: 2022-10-09 Pat Name: Stan Romero Department: Room: Gender: Male Die Keeper: : 1975 Requested By: Delmar Brito Order Number: [id number] Johanna MD: Heath Wellington M.D. Measurements Intervals Council Rate: 75 P: 34 AR: 165 QRS: 52 QRSD: 105 T: 105 QT: 435 QTc: 487 Interpretive Statements SINUS RHYTHM NONSPECIFIC ST & T-WAVE ABNORMALITY PROLONGED QT INTERVAL Compared to ECG 03/29/2020 08:10:46 T-wave abnormality now present Prolonged QT interval now present ST (T wave) deviation no longer present Early repolarization no longer present Electronically Signed On 10-09-2022 21:10:53 [employer] TE[employer] by Heath Wellington M.D. [email or web address]
--- NOTE | 2022-10-09 19:18 | W.ED.ABDPA2 ---
HPI - Abdominal Pain General: Chief Complaint: Abdominal Pain Stated Complaint: N/V, Time Seen by Provider: 10/09/22 18:19 Source: patient History of Present Illness: 47-year-old male. He complains of chronic weight loss since May. He has a history of heart failure and renal failure. He was told at 1 point he needed dialysis. He presents with generalized belly pain, vomiting, and decreased appetite for the last couple of weeks at least. He has vomited multiple times per day. He is vomiting most of the solid food he eats essentially. He is making urine to some degree. MD elicited complaint: abdominal pain and other Pertinent past history: other Onset (ago): week(s) Location: Diffuse Severity: moderate Quality: aching Radiation: none Migration to: no migration Exacerbating factors: nothing Associated Symptoms: Reports anorexia, change in bowel habits, chills, loose stools, nausea, poor appetite and vomiting; Denies bloating, fever(s), hematochezia, hematemesis and melena Review of Systems Const: Reports: chills; Denies: fever(s) ENMT: Denies: throat pain Card: Denies: chest pain or palpitations Resp: Reports: dyspnea; Denies: productive cough or non-productive cough GI: Reports: abdominal pain, nausea, vomiting and change in bowel habits; Denies: hematemesis, bloating, hematochezia or melena Neuro: Denies: headache(s) [facility] ED PFSH: Medical History (Updated 10/10/22 @ 00:04 by Uriel Osorio MD) Anemia Diabetes mellitus type 2, uncontrolled Diabetic ulcer of left foot HFrEF (heart failure with reduced ejection fraction) HTN (hypertension) Peripheral vascular disease Peritonsillar cellulitis Vitamin D deficiency Surgical History No history of previous surgery Family History Other Diabetes Hypertension Social History (Updated 10/10/22 @ 00:04 by Uriel Osorio MD) Smoking and tobacco status: current every day smoker cigarettes Packs smoked per day: 1 Years cigarettes smoked: 30 Quit status (tobacco): considering quitting Alcohol intake: current Alcohol intake frequency: few times a month Substance/Drug Use: never Lives independently: Yes Household members: none Housing: House Physical Exam Const: GENERAL APPEARANCE: cooperative, ill appearing and frail appearing NUTRITIONAL APPEARANCE: thin HENMT: COMMON NORMALS: normocephalic, atraumatic and Normal external nose present HEAD & SCALP: normocephalic and atraumatic FACE & SINUS: normal facial exam NOSE: Normal external nose present Eye: COMMON NORMALS: Equal, round and reactive pupils present and EOMs intact bilaterally CONJUNCTIVA: Yes conjunctival abnormal positive bilateral pallor PUPIL: Yes Equal, round and reactive pupils present Neck/C-Spine: GENERAL: Yes trachea midline Chest: CHEST: Yes Symmetrical chest wall rise Resp: COMMON NORMALS: normal respiratory effort, No use of accessory muscles and clear to auscultation bilaterally AUSCULTATION: clear to auscultation bilaterally Cardio: COMMON NORMALS: regular rate and regular rhythm RATE: regular rate RHYTHM: regular rhythm GI: COMMON NORMALS: Normal to inspection, nondistended, normoactive bowel sounds present and Soft to palpation PALPATION: Yes Soft to palpation and Yes Tenderness to palpation present (GI) (Generalized) Extremity: GENERAL: No edema Neuro: MICHAEL COMA SCALE: document GCS findings Michael coma scale eye opening: Spontaneous Michael coma scale verbal response: Orientated Pearson coma scale motor response: Obey commands Pearson coma scale total score: 15 Course Vital Signs: Vital signs: Vital Signs Temperature 97.9 F 10/10/22 00:14 Pulse Rate 79 10/10/22 00:14 Respiratory Rate 12 10/10/22 00:14 Blood Pressure 161/95 10/10/22 00:14 Pulse Oximetry 99 10/10/22 00:14 Oxygen Delivery Id thod 10/09/22 23:06 MDM - Abdominal Pain Medical Decision Making The patient's vital signs are stable at this point. He is nontachycardic. Blood pressure is 153/67, saturations 99% on room air. However, his hemoglobin is 5. Platelet count of 76. BUN is 200 creatinine is 23, phosphorus was quite high, bicarbonate is 12. Somehow with a BUN, the patient is still awake and talking. Abdominal CT shows some mild diffuse bowel thickening of the small bowel. He has a moderate pericardial effusion as well possibly related to the anemia. We have a call out to the hospitalist... Spoke with our hospitalist. The patient is amenable to dialysis. Nephrology will be consulted from the ER. Patient will need dialysis catheter placement, as well as packed red cell transfusion. He will be admitted. Lab Data 10/09/22 19:10 10/09/22 19:10 Labs/Radiology: Radiology Impressions Abdomen/Pelvis CT 10/09/22 18:41 IMPRESSION: 1. Limited noncontrast examination. 2. Questionable mild, diffuse small bowel wall thickening, possibly secondary to nonspecific enteritis. 3. Moderate pericardial effusion. 4. Additional findings, as above. Laboratory Results WBC 5.1 10^3/uL (4.0-10.0) 10/09/22 19:10 RBC 1.64 10^6/uL (4.1-5.3) L 10/09/22 19:10 Hgb 5.2 g/dL (11.7-16.6) L* 10/09/22 19:10 Hct 15.5 % (42.0-52.0) L* 10/09/22 19:10 MCV 94.5 fl (80-94) H 10/09/22 19:10 MCH 31.7 pg (28.0-34.0) 10/09/22 19:10 MCHC 33.5 g/dL (30.0-36.0) 10/09/22 19:10 RDW 14.0 % (12.1-15.1) 10/09/22 19:10 Plt Count 76 10^3/cmm (130-400) L 10/09/22 19:10 MPV 12.8 fL (7.4-10.4) H 10/09/22 19:10 Neut % (Auto) 72.5 % 10/09/22 19:10 Lymph % (Auto) 17.7 % 10/09/22 19:10 [place] % (Auto) 5.3 % 10/09/22 19:10 Eos % (Auto) 3.7 % 10/09/22 19:10 Baso % (Auto) 0.4 % 10/09/22 19:10 Neut # (Auto) 3.69 10^3/uL (1.8-7.7) 10/09/22 19:10 Lymph # (Auto) 0.9 10^3/uL (0.8-4.8) 10/09/22 19:10 [place] # (Auto) 0.3 10^3/uL (0.2-0.9) 10/09/22 19:10 Eos # (Auto) 0.2 10^3/uL (0.0-0.8) 10/09/22 19:10 Baso # (Auto) 0.0 10^3/uL (0.0-0.1) 10/09/22 19:10 Nucleated RBC % (auto) 0 % 10/09/22 19:10 Nucleated RBCs # 0.0 /100WBC 10/09/22 19:10 PT 14.40 SECONDS (12.1-14.9) 10/09/22 19:10 INR 1.09 (0.8-1.2) 10/09/22 19:10 APTT 28.2 SECONDS (23.9-36.7) 10/09/22 19:10 Sodium 139 mmol/L (136-145) 10/09/22 19:10 Potassium 4.5 mmol/L (3.5-5.1) 10/09/22 19:10 Chloride 97 mmol/L (98-107) L 10/09/22 19:10 Carbon Dioxide 12 mmol/L (22-29) L 10/09/22 19:10 Anion Gap 34.5 (5-19) H 10/09/22 19:10 BUN 200 mg/dL (6-20) H* D 10/09/22 19:10 Creatinine 23.0 mg/dL (0.7-1.2) H* 10/09/22 19:10 GFR Calculation 2.1 mL/min (90-130) L 10/09/22 19:10 Glucose 123 mg/dL (65-115) H 10/09/22 19:10 Calculated Osmolality 356 mOsm/kg (285-295) H 10/09/22 19:10 Lactate 0.9 mmol/L (0.5-2.2) 10/09/22 19:10 Calcium 7.1 mg/dL (8.5-10.5) L 10/09/22 19:10 Phosphorus 13.7 mg/dL (2.5-4.5) H* 10/09/22 19:10 Magnesium 2.4 mg/dL (1.7-2.3) H 10/09/22 19:10 Total Bilirubin 0.4 mg/dL (0.15-1.2) 10/09/22 19:10 AST 6 U/L (0-40) 10/09/22 19:10 ALT < 5 U/L (0-41) 10/09/22 19:10 Alkaline Phosphatase 60 U/L (40-130) 10/09/22 19:10 C-Reactive Protein 3.0 mg/L (0.0-4.9) 10/09/22 19:10 Total Protein 6.3 g/dL (6.6-8.7) L 10/09/22 19:10 Albumin 3.5 g/dL (3.5-5.2) 10/09/22 19:10 Globulin 2.8 g/dL (1.3-4.6) 10/09/22 19:10 Blood Type O Positive 10/09/22 19:10 Rho(D) Type Positive 10/09/22 19:10 Antibody Screen Negative 10/09/22 19:10 Crossmatch See Detail 10/09/22 19:10 Discharge Plan Discharge Patient Disposition: Admitted As Inpatient Admit Provider: Uriel Osorio Clinical Impression: Renal failure, Severe anemia, Thrombocytopenia Condition: Stable Coding Level of Care Code ED Solutions Development Analyst for Donta Leigh
[2022-10-09 19:26] LABS: Basophils % 0.4 %; Eosinophils # 0.2 10^3/uL (0.0-0.8); Eosinophils % 3.7 %; Lymphocytes # 0.9 10^3/uL (0.8-4.8); Lymphocytes % 17.7 %; Mean Corpuscular HGB Conc 33.5 g/dL (30.0-36.0); Mean Corpuscular Hemoglobin 31.7 pg (28.0-34.0); Mean Corpuscular Volume 94.5 fl (80-94); Mean Platelet Volume 12.8 fL (7.4-10.4); Monocytes # 0.3 10^3/uL (0.2-0.9); Monocytes % 5.3 %; Neutrophils # 3.69 10^3/uL (1.8-7.7); Neutrophils % 72.5 %; Nucleated Red Blood Cells % 0 %; Platelet Count 76 10^3/cmm (130-400); Red Blood Count 1.64 10^6/uL (4.1-5.3); White Blood Count 5.1 10^3/uL (4.0-10.0)
[2022-10-09 19:58] LABS: Alanine Aminotransferase < 5 U/L (0-41); Albumin Level 3.5 g/dL (3.5-5.2); Alkaline Phosphatase 60 U/L (40-130); Anion Gap 34.5 (5-19); Aspartate Amino Transferase 6 U/L (0-40); Calcium 7.1 mg/dL (8.5-10.5); Carbon Dioxide 12 mmol/L (22-29); Chloride 97 mmol/L (98-107); Globulin 2.8 g/dL (1.3-4.6); Glomerular Filtration Rate 2.1 mL/min (90-130); Glucose 123 mg/dL (65-115); Magnesium 2.4 mg/dL (1.7-2.3); Potassium 4.5 mmol/L (3.5-5.1); Sodium 139 mmol/L (136-145); Total Bilirubin 0.4 mg/dL (0.15-1.2); Total Protein 6.3 g/dL (6.6-8.7)
[2022-10-09 20:00] LABS: Hemoglobin 5.2 g/dL (11.7-16.6)
[2022-10-09 20:01] LABS: Hematocrit 15.5 % (42.0-52.0)
[2022-10-09 20:07] LABS: INR 1.09 (0.8-1.2); Partial Thromboplastin Time 28.2 SECONDS (23.9-36.7)
[2022-10-09 20:08] LABS: Osmolality Calculated 356 mOsm/kg (285-295)
[2022-10-09 20:11] LABS: Blood Urea Nitrogen 200 mg/dL (6-20); Phosphorus 13.7 mg/dL (2.5-4.5)
[2022-10-09 20:43] LABS: Lactate (Lactic Acid level) 0.9 mmol/L (0.5-2.2)
--- NOTE | 2022-10-09 21:50 | P.HP_ITS ---
Providers/Chief Complaint Admitting Physician: Uriel Osorio MD Primary Care Provider: Jeb Delgado DO Chief Complaint: N/V, History of Present Illness Stan Romero is a 47 year old male with past medical history of CKD stage V related to dialysis in the past, congestive heart failure with EF of around 15%, anemia, type 2 diabetes mellitus with history of diabetic foot ulcer in the past presented to the ER today because of worsening difficulty in breathing both at rest and exertion more acutely for last 2 to 3 weeks along with nausea and vomiting, multiple episodes of diarrhea, decreased oral intake which has been gradually worsening since May 2022 but more acutely within last 2 to 3 weeks. States he checks his blood sugar daily at home and within last 48 hours has been ranging from 110s to 130. Checks blood pressure randomly and has mostly been stable. Takes medications regularly. States in past has been reluctant to go for dialysis as he lives by himself and will be difficult for him to travel frequently to dialysis center but is open to dialysis both short-term and long- term now. Blood work in the ER showed a white blood 5, hemoglobin of 5.2, platelet count of 76, chemistry showing a sodium 139, potassium of 4.5, bicarb of 12, BUN of 200, creatinine of 23, anion gap of 30, calcium 7.1, phosphorus 13.7, magnesium of 2.4. Review of Systems General: Reports: 10 or more systems reviewed and unremarkable except in HPI and below Const: Denies: fever(s), chills, body aches, change in appetite, change in weight, malaise, night sweats, diaphoresis, change in sleep pattern, daytime sleepiness or snoring Eyes: Denies: change in vision, blurry vision, photophobia, eye discomfort or eye discharge ENMT: Denies: throat pain, enlarged tonsils, hoarseness, mouth pain, oral sores, dry mouth, tinnitus, nasal congestion or post nasal drip Card: Denies: chest pain, palpitations, irregular heart rhythm, edema, swelling of feet/ankles, lightheadedness, syncope, pre-syncope, dyspnea on exertion, orthopnea, leg pain with exertion or acrocyanosis Resp: Denies: dyspnea, productive cough, non-productive cough, wheezing, stridor, pain on inspiration, change in phlegm color, hemoptysis or chest congestion GI: Denies: abdominal pain, nausea, vomiting, hematemesis, coffee ground emesis, dysphagia, heartburn, diarrhea, constipation, bloating, GI cramping, change in bowel habits, pain on defecation, hematochezia or melena : Denies: flank pain, difficulty urinating, dysuria, urinary frequency, urinary urgency, urinary hesitancy, urinary dribbling, difficulty starting urination, change in urine stream, nocturia or hematuria Musc: Denies: neck pain, back pain, extremity pain, joint pain, joint swelling, joint redness, joint stiffness or limited range of motion Neuro: Denies: headache(s), numbness in extremities, weakness in extremities, sensory changes, lack of coordination, difficulty walking, frequent falls, dizziness, vertigo, confusion, Slurred speech present, difficulty communicating thoughts or seizure-like activity Psych: Denies: anxiety, depression, mood swings, panic attacks, hopelessness or irritability Endo: Denies: polyuria, polydipsia, tired all the time, cold intolerance, excessive sweating, flushing or heat intolerance Rudy/Lymph: Denies: easy bruising or easy bleeding All/Imm: Denies: tongue swelling, facial swelling or acute wheezing Medications/Allergies Home Medications Medication Instructions Recorded Confirmed Last Taken Type blood-glucose meter #1 ea 07/16/21 06/01/22 Unknown Rx aspirin 81 mg tablet,delayed 81 mg PO DAILY 07/20/21 06/01/22 11/18/21 History release (Adult Aspirin Regimen) metolazone 5 mg tablet 5 mg PO DAILY 08/05/21 06/01/22 11/18/21 History blood sugar diagnostic (Blood #200 ea 11/24/21 06/01/22 Unknown Rx Glucose Test strips) bumetanide 2 mg tablet 2 mg PO BID #180 tabs 06/01/22 06/01/22 Unknown Rx carvedilol 25 mg tablet 25 mg PO BID #180 tabs 06/01/22 06/01/22 Unknown Rx hydralazine 50 mg tablet See Rx Instructions .Route 06/01/22 06/01/22 Unknown Rx .COMPLEX #270 tabs isosorbide dinitrate 20 mg tablet See Rx Instructions .Route 06/01/22 06/01/22 Unknown Rx .COMPLEX #270 tabs lancets 30 gauge (enMarkitTouch Delica ##200 10/05/22 Unknown Rx Plus Lancet) Allergies Allergy/AdvReac Type Severity Reaction Status Date / Time acetaminophen Allergy ADR/ALGY-Pa Verified 10/09/22 17:53 lpitations PFSH Acute PFSH: Medical History (Updated 10/10/22 @ 00:04 by Uriel Osorio MD) Anemia Diabetes mellitus type 2, uncontrolled Diabetic ulcer of left foot HFrEF (heart failure with reduced ejection fraction) HTN (hypertension) Peripheral vascular disease Peritonsillar cellulitis Vitamin D deficiency Surgical History No history of previous surgery Family History Other Diabetes Hypertension Social History (Updated 10/10/22 @ 00:04 by Uriel Osorio MD) Smoking and tobacco status: current every day smoker cigarettes Packs smoked per day: 1 Years cigarettes smoked: 30 Quit status (tobacco): considering quitting Alcohol intake: current Alcohol intake frequency: few times a month Substance/Drug Use: never Lives independently: Yes Household members: none Housing: House Vitals/I&O/Wt Last Vital Signs Temp 98.5 F 10/09/22 17:48 Pulse 77 10/09/22 21:10 Resp 14 10/09/22 17:48 BP 158/79 10/09/22 21:10 Pulse Ox 99 10/09/22 21:10 O2 Del Method 10/09/22 21:10 Weight last 48 hrs Weight 77.111 kg Physical Exam Narrative: General: No acute distress, AO x3, chronically sick appearing, sev ere pallor, pleasant HEENT: PERRLA, pupils bilaterally equal and reactive Chest: Normal vesicular breath sounds, no added sounds, equal good air entry bilaterally CVS: S1-S2 regular, no murmurs, no tachycardia, no gallops, no rubs Abdomen: Soft, nontender, no organomegaly, bowel sounds present Neuro: No focal deficits, no facial deformity, AO x3, power 5/5 in all limbs Data 10/09/22 19:10 10/09/22 19:10 Other Labs: Radiology Impressions Abdomen/Pelvis CT 10/09/22 18:41 IMPRESSION: 1. Limited noncontrast examination. 2. Questionable mild, diffuse small bowel wall thickening, possibly secondary to nonspecific enteritis. 3. Moderate pericardial effusion. 4. Additional findings, as above. Laboratory Results WBC 5.1 10^3/uL (4.0-10.0) 10/09/22 19:10 RBC 1.64 10^6/uL (4.1-5.3) L 10/09/22 19:10 Hgb 5.2 g/dL (11.7-16.6) L* 10/09/22 19:10 Hct 15.5 % (42.0-52.0) L* 10/09/22 19:10 MCV 94.5 fl (80-94) H 10/09/22 19:10 MCH 31.7 pg (28.0-34.0) 10/09/22 19:10 MCHC 33.5 g/dL (30.0-36.0) 10/09/22 19:10 RDW 14.0 % (12.1-15.1) 10/09/22 19:10 Plt Count 76 10^3/cmm (130-400) L 10/09/22 19:10 MPV 12.8 fL (7.4-10.4) H 10/09/22 19:10 Neut % (Auto) 72.5 % 10/09/22 19:10 Lymph % (Auto) 17.7 % 10/09/22 19:10 [place] % (Auto) 5.3 % 10/09/22 19:10 Eos % (Auto) 3.7 % 10/09/22 19:10 Baso % (Auto) 0.4 % 10/09/22 19:10 Neut # (Auto) 3.69 10^3/uL (1.8-7.7) 10/09/22 19:10 Lymph # (Auto) 0.9 10^3/uL (0.8-4.8) 10/09/22 19:10 [place] # (Auto) 0.3 10^3/uL (0.2-0.9) 10/09/22 19:10 Eos # (Auto) 0.2 10^3/uL (0.0-0.8) 10/09/22 19:10 Baso # (Auto) 0.0 10^3/uL (0.0-0.1) 10/09/22 19:10 Nucleated RBC % (auto) 0 % 10/09/22 19:10 Nucleated RBCs # 0.0 /100WBC 10/09/22 19:10 PT 14.40 SECONDS (12.1-14.9) 10/09/22 19:10 INR 1.09 (0.8-1.2) 10/09/22 19:10 APTT 28.2 SECONDS (23.9-36.7) 10/09/22 19:10 Sodium 139 mmol/L (136-145) 10/09/22 19:10 Potassium 4.5 mmol/L (3.5-5.1) 10/09/22 19:10 Chloride 97 mmol/L (98-107) L 10/09/22 19:10 Carbon Dioxide 12 mmol/L (22-29) L 10/09/22 19:10 Anion Gap 34.5 (5-19) H 10/09/22 19:10 BUN 200 mg/dL (6-20) H* D 10/09/22 19:10 Creatinine 23.0 mg/dL (0.7-1.2) H* 10/09/22 19:10 GFR Calculation 2.1 mL/min (90-130) L 10/09/22 19:10 Glucose 123 mg/dL (65-115) H 10/09/22 19:10 Calculated Osmolality 356 mOsm/kg (285-295) H 10/09/22 19:10 Lactate 0.9 mmol/L (0.5-2.2) 10/09/22 19:10 Calcium 7.1 mg/dL (8.5-10.5) L 10/09/22 19:10 Phosphorus 13.7 mg/dL (2.5-4.5) H* 10/09/22 19:10 Magnesium 2.4 mg/dL (1.7-2.3) H 10/09/22 19:10 Iron 65 ug/dL (59-158) 10/09/22 22:20 TIBC 196 mcg/dl 10/09/22 22:20 % Saturation 33.1 % (20-50) 10/09/22 22:20 Unsat Iron Binding 131 ug/dL (112-347) 10/09/22 22:20 Total Bilirubin 0.4 mg/dL (0.15-1.2) 10/09/22 19:10 AST 6 U/L (0-40) 10/09/22 19:10 ALT < 5 U/L (0-41) 10/09/22 19:10 Alkaline Phosphatase 60 U/L (40-130) 10/09/22 19:10 C-Reactive Protein 3.0 mg/L (0.0-4.9) 10/09/22 19:10 NT-Pro-B Natriuret Pep > 18850 pg/mL (0-125) H 10/09/22 22:20 Total Protein 6.3 g/dL (6.6-8.7) L 10/09/22 19:10 Albumin 3.5 g/dL (3.5-5.2) 10/09/22 19:10 Globulin 2.8 g/dL (1.3-4.6) 10/09/22 19:10 Vitamin B12 807 pg/mL (232-1245) 10/09/22 22:20 Folate 5.5 ng/mL (4.5-32.2) 10/09/22 22:20 TSH 1.44 uIU/mL (0.27-4.20) 10/09/22 22:20 Ur Random Sodium 55 mmol/L 10/09/22 23:25 Ur Random Potassium 19 mmol/L 10/09/22 23:25 Ur Random Chloride 43 mmol/L 10/09/22 23:25 Urine Creatinine 107 mg/dL (39-259) 10/09/22 23:25 Blood Type O Positive 10/09/22 19:10 Rho(D) Type Positive 10/09/22 19:10 Antibody Screen Negative 10/09/22 19:10 Crossmatch See Detail 10/09/22 19:10 A&P Assessment and plan (1) Kidney failure: (2) High anion gap metabolic acidosis: (3) Severe anemia: (4) Thrombocytopenia: (5) HFrEF (heart failure with reduced ejection fraction): (6) HTN (hypertension): (7) Diabetes mellitus type 2, uncontrolled: (8) Elevated BUN: (9) Pericardial effusion: Plan 47-year-old male with past medical history of congestive heart failure with reduced ejection fraction of 15%, CKD stage V, anemia presented to the ER with complaints of worsening symptoms for last 4 months acutely for last 2 to 3 weeks of nausea, vomiting, decreased oral intake, difficulty in breathing both at rest and exertion found to be in acute renal failure with severe anemia. Renal failure: History of CKD stage V. Currently on high anion gap metabolic acidosis. Electrolytes within normal limits. Severely elevated BUN and creatinine. CT abdomen pelvis negative for obstructive nephropathy. Patient in no acute need for dialysis currently. But will need dialysis during this hospitalization. Patient is agreeable for both short-term and long-term dialysis. Nixon catheterization. Check urine lites, urine creatinine, urine eosinophils. Hepatitis panel in past negative. Check urine drug screen, HIV. We will consult nephrology. And if patient agreeable for dialysis we will consult surgery for temporary dialysis catheter placement. Sodium bicarbonate 150 mg stat followed by start on Bicitra 60 mg twice daily. PhosLo 3 times daily. Monitor BMP, magnesium, phosphorus daily. Anemia: Most likely secondary to renal failure. Cannot rule out slow GI bleed secondary to platelet dysfunction in setting of severe uremia. Transfused 2 unit of PRBC. Check iron panel, vitamin B12, folate level. Check erythropoietin level. Pericardial effusion: Could be secondary to severe uremia. Check echocardiogram. No concerns for tamponade hemodynamically currently. History of congestive heart failure. Check echocardiogram. No concerns for severe congestive heart failure currently. Monitor for fluid overload. Hypertension: Goal blood pressure less than 140 over 90 mmHg. For now continue with home dose of hydralazine and carvedilol along with Imdur. Will uptitrate as per goal blood pressures. CODE STATUS: Discussed in detail. Full code. Patient is agreeable for short- term and long-term dialysis going forward. We discussed given the worsening of renal functions now she would need to be on dialysis long-term for prolonged life. Patient is agreeable for the same. Protonix 40 mg twice daily. SCDs for DVT prophylaxis. Hold off on therapeutic prophylaxis given severe anemia and possible platelet dysfunction in setting of severe uremia. Admit to ICU. Attestations Medical Necessity Statement*: Admission for more than 2 midnights for management of acute renal failure, high anion gap metabolic acidosis and severe anemia in a patient requiring new hemodialysis Coding Level of Care Code Critical Care >/= 30 minutes Critical care time (in minutes): 80 The high probability of a clinically significant, sudden or life threatening deterioration, as referenced in this documentation, required my full and direct attention, intervention and personal management. The critical care time shown is in addition to time spent performing any reported separately billable procedures and includes the following: [x] Data and vital sign review and interpretation [x ] Patient assessment, examination and intervention [x] Medication orders and management [x] Patient/Family updates as able [x] Care Coordination and Documentation. Diagnoses Kidney failure N19 High anion gap metabolic acidosis E87.29 Severe anemia D64.9 Thrombocytopenia D69.6 HFrEF (heart failure with reduced ejection fraction) I50.20 HTN (hypertension) I10 Diabetes mellitus type 2, uncontrolled E11.65 Elevated BUN R79.9 Pericardial effusion I31.39
[2022-10-09] MEDS: famotidine 20 mg/2 mL INJ IVP (22:50)
[2022-10-09] MEDS: ondansetron 2 mg/ML SDV 2 mL 4 MG IVP (22:52)
[2022-10-09] MEDS: sodium bicarbonate 8.4% 1 mEq/mL 50mL Syr 150 MEQ IVP (22:53)
[2022-10-09] MEDS: calcium acetate 667 mg Capsule 1334 MG PO (22:53)
[2022-10-09] MEDS: diphenhydrAMINE 50 mg/mL SDV 1mL 12.5 MG IVP (22:59)
[2022-10-09 23:06] LABS: Iron 65 ug/dL (59-158); Percent Saturation 33.1 % (20-50); Total Iron Binding Capacity 196 mcg/dl; Unsaturated Iron Binding 131 ug/dL (112-347)
[2022-10-09 23:14] LABS: Thyroid Stimulating Hormone 1.44 uIU/mL (0.27-4.20); Vitamin B12 807 pg/mL (232-1245)
[2022-10-09 23:24] LABS: Folate Level 5.5 ng/mL (4.5-32.2)
[2022-10-10] VITALS (108 sets, daily range): BP systolic 149–193; BP diastolic 57–110; PULSE 72–84; RESP 9–20; TEMP 36.5–37.3; O2SAT 91–100; BMI 21.9
[2022-10-10 00:08] LABS: Potassium, Radom Urine 19 mmol/L; Urine Creatinine 107 mg/dL (39-259); Urine Random Chloride 43 mmol/L; Urine Random Sodium 55 mmol/L
[2022-10-10 00:08] LABS: NT Pro B Type Natriuretic Pept > 70000 pg/mL (0-125)
[2022-10-10 00:50] LABS: Add Urine Microscopic? YES; Bilirubin Urine Neg (Negative); Blood Urine Neg (Negative); Glucose Urine UA Trace (Normal); Ketones Urine Negative (Negative); Leukocyte Esterase Urine Negative (Negative); Nitrate Urine Negative (Negative); Protein Urine 3+ (Negative); Urine Appearance Clear (CLEAR); Urine Color Yellow (Yellow); Urobilinogen Urine Neg (Negative); pH Urine 5 (5-7)
[2022-10-10 00:51] LABS: Add Urine Culture? No; Amorphous Sediment Urine 2+ /hpf; Bacteria Urine TRACE /hpf; Mucus Urine 1+ /hpf; RBC Urine 0-4 /hpf (0-2); Squamous Epithelial Cell Urine 0-4 /hpf (0-5); WBC Urine 0-4 /hpf (0-5)
--- NOTE | 2022-10-10 01:23 | PC.NURSE ---
Patient arrived on unit from ED @ 2234. He is AOx4 and well mannered. Nixon was inserted with 100mls output upon insertion. Patient had one loose bowel movement. Zofran admin to help with nausea and assist in oral medications. Patient's significant other is staying the night with him. Hospitalist spoke with patient about possible dialysis cath tomorrow. 2 units of packed RBCs admin now. Patient has tolerated all interventions well.
[2022-10-10 02:10] LABS: Amphetamines Screen Urine Negative (Negative); Barbiturates Screen Urine Negative (Negative); Benzodiazepines Screen Urine Negative (Negative); Cocaine Screen Urine Negative (Negative); Opiate Screen Urine Negative (Negative); PCP Screen Urine Negative (Negative); THC Screen Urine Negative (Negative)
[2022-10-10 03:37] LABS: Eosinophil Urine No Eosinophils Seen; Urine Eosinophil Count 0 (0-0)
[2022-10-10 05:35] LABS: Alanine Aminotransferase < 5 U/L (0-41); Albumin Level 3.1 g/dL (3.5-5.2); Alkaline Phosphatase 48 U/L (40-130); Aspartate Amino Transferase 5 U/L (0-40); Calcium 6.9 mg/dL (8.5-10.5); Carbon Dioxide 13 mmol/L (22-29); Chloride 96 mmol/L (98-107); Cholesterol 126 mg/dL (0-200); Globulin 2.6 g/dL (1.3-4.6); Glomerular Filtration Rate 2.1 mL/min (90-130); Glucose 88 mg/dL (65-115); HDL Cholesterol 28 mg/dL (60-100); LDL Cholesterol Calculated 66 mg/dL (50-129); Magnesium 2.3 mg/dL (1.7-2.3); Sodium 138 mmol/L (136-145); Total Bilirubin 0.6 mg/dL (0.15-1.2); Total Protein 5.7 g/dL (6.6-8.7); Triglycerides 161 mg/dL (0-150); VLDL Cholestrol Calculation 32 mg/dL (0-30)
[2022-10-10 05:37] LABS: Complement C3 80 mg/dL (90-180)
[2022-10-10 05:58] LABS: HIV 1 & 2 Antibody Non-Reactive (Non-Reactiv); HIV 1 & 2 Antigen Non-Reactive (Non-Reactiv)
--- NOTE | 2022-10-10 06:54 | PM.CONSULT ---
Providers/Reason For Consult Consulting Physician/Specialty*: kommana/Nephrology Reason for Consult*: esrd Attending Physician: Uriel Osorio MD Primary Care Provider: Jeb Delgado DO History of Present Illness History of Present Illness Stan Romero is a 47 year old male with past medical history of CKD stage V, CHF with low EF of around 15%, diabetes, hypertension, chronic anemia presented with shortness of breath and generalized weakness along with nausea vomiting decreased appetite. Patient has lost follow-up with his nurse informatics educator recently. Patient aware of having advanced renal failure and ended to start dialysis in the past but patient was reluctant due to transportation issues. In the emergency department noted to have hemoglobin of 5.2, low platelets of 6, bicarb was low at BUN was 200 and creatinine was 23. Patient received 2 units of blood transfusion. Review of Systems Narrative: Other ROS negative Medications/Allergies Home Medications Medication Instructions Recorded Confirmed Last Taken Type blood-glucose meter #1 ea 07/16/21 06/01/22 Unknown Rx aspirin 81 mg tablet,delayed 81 mg PO DAILY 07/20/21 06/01/22 11/18/21 History release (Adult Aspirin Regimen) metolazone 5 mg tablet 5 mg PO DAILY 08/05/21 06/01/22 11/18/21 History blood sugar diagnostic (Blood #200 ea 11/24/21 06/01/22 Unknown Rx Glucose Test strips) bumetanide 2 mg tablet 2 mg PO BID #180 tabs 06/01/22 06/01/22 Unknown Rx carvedilol 25 mg tablet 25 mg PO BID #180 tabs 06/01/22 06/01/22 Unknown Rx hydralazine 50 mg tablet See Rx Instructions .Route 06/01/22 06/01/22 Unknown Rx .COMPLEX #270 tabs isosorbide dinitrate 20 mg tablet See Rx Instructions .Route 06/01/22 06/01/22 Unknown Rx .COMPLEX #270 tabs lancets 30 gauge (OneTouch Delica ##200 10/05/22 Unknown Rx Plus Lancet) Allergies Allergy/AdvReac Type Severity Reaction Status Date / Time acetaminophen Allergy ADR/ALGY-Pa Verified 10/09/22 17:53 lpitations Current Medications Generic Name Dose Route Start Last Admin Trade Name Freq PRN Reason Stop Dose Admin Calcium Acetate 1,334 mg 10/09/22 21:49 10/09/22 22:53 Calcium Acetate 667 Mg Capsule PO 1,334 mg TIDWM [place] Administration Famotidine 20 mg 10/09/22 22:32 10/09/22 22:50 Famotidine 20 Mg/2 Ml Inj IVP 20 mg Q12H [place] Administration Ondansetron HCl 4 mg 10/09/22 22:32 10/09/22 22:52 Ondansetron 2 Mg/Ml Sdv 2 Ml IVP 4 mg Q8H PRN Administration vomiting, or N/V if npo PFSH Acute PFSH: Medical History (Updated 10/10/22 @ 07:22 by Samreen Us MD) Anemia Diabetes mellitus type 2, uncontrolled Diabetic ulcer of left foot HFrEF (heart failure with reduced ejection fraction) HTN (hypertension) Peripheral vascular disease Peritonsillar cellulitis Vitamin D deficiency Surgical History No history of previous surgery Family History Other Diabetes Hypertension Social History (Updated 10/10/22 @ 00:04 by Uriel Osorio MD) Smoking and tobacco status: current every day smoker cigarettes Packs smoked per day: 1 Years cigarettes smoked: 30 Quit status (tobacco): considering quitting Alcohol intake: current Alcohol intake frequency: few times a month Substance/Drug Use: never Lives independently: Yes Household members: none Housing: House Vitals/I&O/Wt Last Vital Signs Temp 97.7 F 10/10/22 04:19 Pulse 78 10/10/22 06:00 Resp 13 10/10/22 04:19 BP 174/91 10/10/22 04:25 Pulse Ox 98 10/10/22 04:25 O2 Del Method 10/09/22 23:06 10/09/22 10/09/22 10/10/22 14:59 22:59 06:59 Intake Total 1310 / 1310 Output Total 550 / 550 Balance 760 / 760 Weight last 48 hrs Weight 75.296 kg Weight 75.478 kg Weight 77.111 kg Physical Exam Narrative: awake , alert , no new complaints PEERLA S1 S2 RRR per eport Clear leila per report No edema Urinary Catheter Management: Nixon: Cath Placed During This Visit: yes Reason for Continuing Indwelling Catheter: Accurate Measurement of Urinary Output in Critically Ill Patients Urinary Catheter Date of Insertion: 10/09/22 Urinary Catheter Time of Insertion: 23:00 Data 10/09/22 19:10 10/10/22 04:27 Micro: Microbiology 10/09/22 22:20 Blood Culture - Preliminary Blood SPECIMEN COLLECTED 10/09/22 22:20 Blood Culture - Preliminary Blood SPECIMEN COLLECTED A&P Assessment and plan (1) ESRD (end stage renal disease): Plan 1. ESRD : CKD 5 likely from Diabetic Nephropathy and Hypertensive Nephrosclerosis . Pt aware of having CKD and has lost follow with Nephrology and had been reluctant to start dialysis in the past. Patient now presents with volume overload, severe metabolic acidosis, uremic symptoms. -Patient agreeable for initiating dialysis now, requested tunneled catheter placement by general surgery and plan to initiate dialysis today. -2 g sodium restriction and 1500 mill fluid restriction -home health care social worker to arrange outpatient HD 2. Hypertension: Blood pressure elevated on presentation, so likely from advanced CKD with volume overload, should improve after dialysis 3. Severe anemia: Secondary to advanced renal failure, status post blood transfusion, will start Epogen, 4. MBD: Noted high phosphorus. Will check PTH and vitamin D levels 5. CHF: With low ejection fraction, 6. Moderate pericardial effusion: Secondary to uremia likely, monitor closely with dialysis Patient evaluated using audiovisual cart. Time spent 45 minutes. Consult Attestations Medical Necessity Statement: Per hospitalist service Coding Level of Care Code Acute Code for Chg Fwd Diagnoses ESRD (end stage renal disease) N18.6
[2022-10-10 07:14] LABS: Osmolality Calculated 348 mOsm/kg (285-295)
[2022-10-10 07:16] LABS: Blood Urea Nitrogen 187 mg/dL (6-20); Phosphorus 12.7 mg/dL (2.5-4.5)
[2022-10-10 07:42] LABS: Glucose Point of Care 94 mg/dL (70-110)
[2022-10-10 07:53] LABS: Basophils % 0.7 %; Eosinophils # 0.4 10^3/uL (0.0-0.8); Eosinophils % 6.4 %; Lymphocytes # 0.9 10^3/uL (0.8-4.8); Lymphocytes % 14.9 %; Mean Corpuscular Hemoglobin 30.4 pg (28.0-34.0); Mean Corpuscular Volume 92.1 fl (80-94); Mean Platelet Volume 12.5 fL (7.4-10.4); Monocytes # 0.3 10^3/uL (0.2-0.9); Monocytes % 5.5 %; Neutrophils # 4.38 10^3/uL (1.8-7.7); Neutrophils % 72.3 %; Nucleated Red Blood Cells % 0 %; Platelet Count 62 10^3/cmm (130-400); Red Blood Count 2.14 10^6/uL (4.1-5.3); Red Cell Distribution Width 13.9 % (12.1-15.1); White Blood Count 6.1 10^3/uL (4.0-10.0)
[2022-10-10] MEDS: carvedilol 25 mg Tablet PO ×2 (08:09→18:02)
[2022-10-10] MEDS: ferrous gluconate 324 mg Tablet PO ×2 (08:09→18:03)
[2022-10-10] MEDS: aspirin 81 mg EC Tablet PO (08:09)
[2022-10-10] MEDS: calcium acetate 667 mg Capsule 1334 MG PO ×3 (08:09→18:03)
[2022-10-10] MEDS: hyDRALAzine 50 mg Tablet PO ×3 (08:10→21:34)
[2022-10-10] MEDS: citric acid-sodium citrate 30 mL UDC 60 ML PO ×2 (08:11→18:03)
[2022-10-10] MEDS: isosorbide dinitrate 20 mg Tablet PO ×3 (08:36→21:34)
[2022-10-10 08:52] LABS: Estmated Average Glucose 108; Hemoglobin A1C 5.4 % (4.0-6.0)
[2022-10-10 09:04] LABS: Hematocrit 19.7 % (42.0-52.0); Hemoglobin 6.5 g/dL (11.7-16.6)
--- NOTE | 2022-10-10 09:30 | PC.NURSE ---
Dr. Romano notified of the h/h levels. orders given to administer blood. Will wait until confirming with dr grant possible dialysis catheter insertion plans prior to administering blood. will closely monitor.
[2022-10-10] MEDS: famotidine 20 mg/2 mL INJ IVP ×2 (10:30→22:38)
[2022-10-10 10:52] LABS: Glucose Point of Care 146 mg/dL (70-110)
--- NOTE | 2022-10-10 11:41 | PM.PN ---
Subjective Subjective: seen this am will be getting dialyzed today awaiting dialysis catheter placement Vitals/I&O/Wt Last Vital Signs Temp 98.7 F 10/10/22 08:00 Pulse 78 10/10/22 10:19 Resp 18 10/10/22 10:19 BP 181/96 10/10/22 08:30 Pulse Ox 99 10/10/22 10:19 O2 Del Method 10/10/22 10:19 10/09/22 10/10/22 10/10/22 22:59 06:59 14:59 Intake Total 1660 / 1660 240 / 240 Output Total 550 / 550 Balance 1110 / 1110 240 / 240 Weight last 48 hrs Weight 75.296 kg Weight 75.478 kg Weight 77.111 kg Physical Exam Narrative: General: No acute distress, AO x3, chronically sick appearing, severe pallor, pleasant HEENT: EOMI, pupils bilaterally equal and reactive Chest: Normal vesicular breath sounds, no added sounds, equal good air entry bilaterally CVS: S1-S2 regular, no murmurs, no tachycardia, no gallops, no rubs Abdomen: Soft, nontender, no organomegaly, bowel sounds present Neuro: No focal deficits, no facial deformity, AO x3, Urinary Catheter Management: Flanagan: Cath Placed During This Visit: yes Reason for Continuing Indwelling Catheter: Accurate Measurement of Urinary Output in Critically Ill Patients Urinary Catheter Date of Insertion: 10/09/22 Urinary Catheter Time of Insertion: 23:00 Data 10/10/22 07:45 10/10/22 04:27 Micro: Microbiology 10/09/22 22:20 Blood Culture - Preliminary Blood SPECIMEN COLLECTED 10/09/22 22:20 Blood Culture - Preliminary Blood SPECIMEN COLLECTED A&P Assessment and plan (1) Kidney failure: (2) High anion gap metabolic acidosis: (3) Severe anemia: (4) Thrombocytopenia: (5) HFrEF (heart failure with reduced ejection fraction): (6) HTN (hypertension): (7) Diabetes mellitus type 2, uncontrolled: (8) Elevated BUN: (9) Pericardial effusion: Plan 47-year-old male with past medical history of congestive heart failure with reduced ejection fraction of 15%, CKD stage V, anemia presented to the ER with complaints of worsening symptoms for last 4 months acutely for last 2 to 3 weeks of nausea, vomiting, decreased oral intake, difficulty in breathing both at rest and exertion found to be in acute renal failure with severe anemia. Renal failure: History of CKD stage V. Currently on high anion gap metabolic acidosis. Electrolytes within normal limits. Severely elevated BUN and creatinine. CT abdomen pelvis negative for obstructive nephropathy. Nephrology consulted. Continue flangaan. Check urine lites, urine creatinine, urine eosinophils. Hepatitis panel in past negative. Check urine drug screen, HIV. Continue on Bicitra 60 mg twice daily. PhosLo 3 times daily. Monitor BMP, magnesium, phosphorus daily. Anemia: Most likely secondary to renal failure. Cannot rule out slow GI bleed secondary to platelet dysfunction in setting of severe uremia. Transfused 2 unit of PRBC. Check iron panel, vitamin B12, folate level. Check erythropoietin level. Pericardial effusion: Could be secondary to severe uremia. Check echocardiogram. No concerns for tamponade hemodynamically currently. History of congestive heart failure. Check echocardiogram. No concerns for severe congestive heart failure currently. Monitor for fluid overload. Hypertension: Goal blood pressure less than 140 over 90 mmHg. For now continue with home dose of hydralazine and carvedilol along with Imdur. Will uptitrate as per goal blood pressures. CODE STATUS: Full Code Protonix 40 mg twice daily. SCDs for DVT prophylaxis. Hold off on therapeutic prophylaxis given severe anemia and possible platelet dysfunction in setting of severe uremia. He would like to have dialysis setup at [facility] but has [place] medicaid. We will discuss with case management Attestations Medical Necessity Statement*: Admission for more than 2 midnights for management of acute renal failure, high anion gap metabolic acidosis and severe anemia in a patient requiring new hemodialysis Diagnoses Kidney failure N19 High anion gap metabolic acidosis E87.29 Severe anemia D64.9 Thrombocytopenia D69.6 HFrEF (heart failure with reduced ejection fraction) I50.20 HTN (hypertension) I10 Diabetes mellitus type 2, uncontrolled E11.65 Elevated BUN R79.9 Pericardial effusion I31.39
[2022-10-10] MEDS: insulin lispro 100 unit/1 mL SUBCUT ×2 (12:23→21:47)
--- NOTE | 2022-10-10 16:00 | PC.NURSE ---
no confirmation of dialysis catheter insertion time or plan from dr. grant at this time after discussion with dr. field the decision was made to administer the blood
[2022-10-10 16:50] LABS: Glucose Point of Care 110 mg/dL (70-110)
--- NOTE | 2022-10-10 17:01 | PC.NURSE ---
dr grant at bedside for dialysis catheter insertion.
--- NOTE | 2022-10-10 18:13 | PM.CONSULT ---
Providers/Reason For Consult Consulting Physician/Specialty*: Dr. Castro Martinez DO Reason for Consult*: Hemodialysis access Attending Physician: Meeta Romano MD Primary Care Provider: Jeb Delgado DO History of Present Illness History of Present Illness Stan Romero is a 47 year old male with end-stage renal disease who presented to the hospital with weakness and shortness of breath. Nephrology has requested dialysis access placement. Review of Systems General: Reports: 10 or more systems reviewed and unremarkable except in HPI and below Medications/Allergies Home Medications Medication Instructions Recorded Confirmed Last Taken Type blood-glucose meter #1 ea 07/16/21 10/10/22 Unknown Rx aspirin 81 mg tablet,delayed 81 mg PO DAILY 07/20/21 10/10/22 11/18/21 History release (Adult Aspirin Regimen) blood sugar diagnostic (Blood #200 ea 11/24/21 10/10/22 Unknown Rx Glucose Test strips) bumetanide 2 mg tablet 2 mg PO BID #180 tabs 06/01/22 10/10/22 Unknown Rx carvedilol 25 mg tablet 25 mg PO BID #180 tabs 06/01/22 10/10/22 Unknown Rx hydralazine 50 mg tablet See Rx Instructions .Route 06/01/22 10/10/22 Unknown Rx .COMPLEX #270 tabs isosorbide dinitrate 20 mg tablet See Rx Instructions .Route 06/01/22 10/10/22 Unknown Rx .COMPLEX #270 tabs lancets 30 gauge (OneTouch Delica ##200 10/05/22 10/10/22 Unknown Rx Plus Lancet) Allergies Allergy/AdvReac Type Severity Reaction Status Date / Time acetaminophen Allergy ADR/ALGY-Pa Verified 10/09/22 17:53 lpitations Current Medications Generic Name Dose Route Start Last Admin Trade Name Freq PRN Reason Stop Dose Admin Aspirin 81 mg 10/10/22 09:00 10/10/22 08:09 Aspirin 81 Mg Ec Tablet PO 81 mg DAILY [place] Administration Calcium Acetate 1,334 mg 10/09/22 21:49 10/10/22 18:03 Calcium Acetate 667 Mg Capsule PO 1,334 mg TIDWM [place] Administration Carvedilol 25 mg 10/10/22 09:00 10/10/22 18:02 Carvedilol 25 Mg Tablet PO 25 mg BID [place] Administration Citric Acid/Sodium Citrate 60 ml 10/10/22 09:00 10/10/22 18:03 Citric Acid-Sodium Citrate 30 Ml Udc PO 60 ml BID [place] Administration Docusate Sodium 100 mg 10/10/22 09:00 10/10/22 17:51 Docusate Sodium 100 Mg Capsule PO Not Given BID [facility]INA Famotidine 20 mg 10/09/22 22:32 10/10/22 10:30 Famotidine 20 Mg/2 Ml Inj IVP 20 mg Q12H [place] Administration Ferrous Gluconate 324 mg 10/10/22 08:00 10/10/22 18:03 Ferrous Gluconate 324 Mg Tablet PO 324 mg BIDWM [place] Administration Hydralazine HCl 50 mg 10/10/22 09:00 10/10/22 16:28 Hydralazine 50 Mg Tablet PO 50 mg TID [place] Administration Insulin Human Lispro 0 unit 10/10/22 08:00 10/10/22 17:50 Insulin Lispro 100 Unit/1 Ml SUBCUT Not Given WM&BEDTIME [place] Protocol Isosorbide Dinitrate 20 mg 10/10/22 09:00 10/10/22 16:28 Isosorbide Dinitrate 20 Mg Tablet PO 20 mg TID [place] Administration Ondansetron HCl 4 mg 10/09/22 22:32 10/09/22 22:52 Ondansetron 2 Mg/Ml Sdv 2 Ml IVP 4 mg Q8H PRN Administration vomiting, or N/V if npo PFSH Acute PFSH: Medical History Anemia Diabetes mellitus type 2, uncontrolled Diabetic ulcer of left foot HFrEF (heart failure with reduced ejection fraction) HTN (hypertension) Peripheral vascular disease Peritonsillar cellulitis Vitamin D deficiency Surgical History No history of previous surgery Family History Other Diabetes Hypertension Social History Smoking and tobacco status: current every day smoker cigarettes Packs smoked per day: 1 Years cigarettes smoked: 30 Quit status (tobacco): considering quitting Alcohol intake: current Alcohol intake frequency: few times a month Substance/Drug Use: never Lives independently: Yes Household members: none Housing: House Vitals/I&O/Wt Last Vital Signs Temp 98.3 F 10/10/22 16:16 Pulse 78 10/10/22 16:33 Resp 16 10/10/22 16:33 BP 158/97 10/10/22 16:33 Pulse Ox 99 10/10/22 16:33 O2 Del Method 10/10/22 16:33 10/10/22 10/10/22 10/10/22 06:59 14:59 22:59 Intake Total 1660 / 1660 240 / 240 0 / 240 Output Total 550 / 550 Balance 1110 / 1110 240 / 240 0 / 240 Weight last 48 hrs Weight 166 lb Weight 166 lb 6.4 oz Weight 170 lb Physical Exam Narrative: General : Patient is well developed , no acute distress, oriented x3 Head : Normal cephalic, a-traumatic. Ears : Pinnae and external canal are normal. Hearing is normal. Eyes : PERRLA, Sclera and injection are normal. No conjunctival discharge. Nose : Mucous membranes are without erythema. Throat : buccal mucosa is normal, gums are without significant recession or hypertrophy. Lungs : Equal chest rise bilaterally, no use of accessory muscles, trachea is midline. Cor : Rate and rhythm are normal. Abdomen : Soft, ND, NT, no g/r/m Extremities : No edema, no cyanosis or clubbing, dorsalis pedis pulses are present bilaterally, non-tender to palpation of calves. Upper extremities are normal bilaterally. Back : non-tender to palpation, no CVA tenderness. Neuro : CN II - XII intact, Upper and lower extremities have equal and full strength Urinary Catheter Management: Nixon: Cath Placed During This Visit: yes Reason for Continuing Indwelling Catheter: Accurate Measurement of Urinary Output in Critically Ill Patients Urinary Catheter Date of Insertion: 10/09/22 Urinary Catheter Time of Insertion: 23:00 Data 10/10/22 07:45 10/10/22 04:27 Micro: Microbiology 10/09/22 22:20 Blood Culture - Preliminary Blood SPECIMEN COLLECTED 10/09/22 22:20 Blood Culture - Preliminary Blood SPECIMEN COLLECTED A&P Assessment and plan (1) ESRD (end stage renal disease): (2) Thrombocytopenia: Plan Temporary hemodialysis catheter placement today followed by permacath placement tomorrow as long as platelets are at least 50,000 The risks and benefits of the procedure, including but not limited to, bleeding, infection, infection requiring Mediport removal antibiotic therapy and repeat surgery, damage to surrounding structures, scar, numbness, pain, pneumothorax requiring thoracostomy tube, were explained to the patient. He/She is understanding of the risks and wishes to proceed. Coding Level of Care Code Acute Code for Chg Fwd Diagnoses ESRD (end stage renal disease) N18.6 Thrombocytopenia D69.6
--- NOTE | 2022-10-10 18:14 | PM.DIACAT ---
Procedure Note: Date of procedure: 10/10/22 Pre-op diagnosis: End-stage renal disease Post-op diagnosis: same Procedure Performed: femoral dialysis catheter Procedure: Preoperative diagnosis: Acute renal failure requiring emergent dialysis Postoperative diagnosis: Same Procedure: Placement of Mahurkar catheter in the right femoral vein Surgeon: Dr. Castro Martinez DO Anesthesia: Local Description of procedure: The patient's right groin was prepped and draped in a sterile manner. 5 mL of 1% lidocaine was infiltrated at the site of planned entry, an introducer needle was used to access the right femoral vein. Guidewire was passed through the introducer needle and the introducer needle was removed. Serial dilators were passed over the guidewire after the skin incision was extended using 11 blade and Mahurkar catheter was then passed over the guidewire and the guidewire was removed. The catheter was sutured to the skin using 2-0 Ethilon suture. Sterile dressings were applied. Coding Level of Care Code Acute Code for Chg Fwd
[2022-10-10] MEDS: heparin, porcine 1,000 unit/mL INJ 10 mL 10000 UNIT HE (19:56)
[2022-10-10] MEDS: ondansetron 2 mg/ML SDV 2 mL 4 MG IVP (21:47)
--- NOTE | 2022-10-10 21:50 | USCV_ITS ---
Stan Romero Age: 47 Gender: M : 1975 Exam Date: 10/10/2022 10:16 Ordering Phys: Uriel Osorio MD Technologist: MAMTA [place] [facility] [place]: pericardial effusion BP: / HR: 77 Rhythm: Sinus Technical Quality: Adequate MEASUREMENTS (Male / Female) Normal Values 2D ECHO LV Diastolic Diameter PLAX 6.2 cm 4.2 - 5.9 / 3.9 - 5.3 cm LV Systolic Diameter PLAX 4.6 cm IVS Diastolic Thickness 0.9 cm 0.6 - 1.0 / 0.6 - 0.9 cm IVS Systolic Thickness 1.3 cm LVPW Diastolic Thickness 1.1 cm 0.6 - 1.0 / 0.6 - 0.9 cm LVPW Systolic Thickness 1.8 cm LVOT Diameter 2.0 cm LV Ejection Fraction 2D Teich 47.8 % LV Ejection Fraction MOD 2C 54.1 % LV Ejection Fraction 2C AL 53.3 % LA Diameter 5.2 cm IVC Diameter 3.1 cm M-MODE Aortic Annulus Diameter 3.1 cm LA Ao Ratio MM 1.6 MV E Point Septal Separation 0.9 cm DOPPLER AV Peak Velocity 136.0 cm/s LVOT Peak Velocity 126.0 cm/s AV Area Cont Eq vti 2.5 cm squared AV Area Cont Eq pk 2.8 cm squared MV Area PHT 5.0 cm squared Mitral E to A Ratio 1.9 MV E' Velocity 74.5 cm/s Mitral E to MV E' Ratio 17.2 Mitral E to LV E' Lateral Ratio 14.3 Mitral E to LV E' Septal Ratio 21.4 TR Peak Velocity 248.0 cm/s TR Peak Gradient 24.6 mmHg TV Peak E Velocity 64.0 cm/s Right Atrial Pressure 3.0 mmHg Pulmonary Artery Systolic Pressu 27.6 mmHg PV Peak Velocity 104.0 cm/s FINDINGS Left Ventricle Left ventricle is dilated. LV systolic function is normal with EF of 55 to 60%. No regional wall motion abnormalities are seen. Right Ventricle Normal in size and function Right Atrium Dilated Left Atrium Dilated Mitral Valve Structurally normal mitral valve. Mild mitral regurgitation. Aortic Valve Sturcturally normal aortic valve. No significant stenosis or regurgitation. Tricuspid Valve Mild tricuspid regurgitation. Pulmonary artery systolic pressure is normal Pulmonic Valve Not well visualized. Trace pulmonic regurgitation. Pericardium Small sized pericardial effusion noted Aorta Normal in size IVC Dilated CONCLUSIONS Left ventricle is dilated. LV systolic function is normal with EF of 55 to 60% Biatrial dilation Mild mitral regurgitation Mild tricuspid regurgitation Trace pulmonic regurgitation Small sized pericardial effusion is seen. IVC is dilated No comparison studies are available. Heath Wellington MD (Electronically Signed) Final Date: 10 October 2022 13:01 S
[2022-10-10 21:57] LABS: Glucose Point of Care 157 mg/dL (70-110)
[2022-10-10 22:34] LABS: Hepatitis A Antibody IgM Non-Reactive (Nonreactive); Hepatitis B Core AB, Total Non-Reactive (Nonreactive); Hepatitis B Surface AB 3.5 (11.5-1000); Hepatitis C Virus Antibody Non-Reactive (Nonreactive)
--- NOTE | 2022-10-10 22:39 | PC.HD ---
Pt had right femoral cath inserted at bedside this afternoon. Occlusive dressing intact with gauze to site, small amt ss olvin noted, ports not capped. Cleaned ports well with alcohol before use. Ports draw and flush easily. BUN 187 prior to treatment. Tx duration 2 hours with BFR 250, dialysate rate 500. Pt tolerated initial treatment well. Hypertension through treatment in spite of increased machine temp. Post treatment pt c/o occipital headache, rates 3 to 4/10. Dr Abeba gilmore via text. Report given to Steven RASHEED with discussion of disequilibrium syndrome.
[2022-10-10 23:15] LABS: Hepatitis B Surface Antigen Non-Reactive (Nonreactive)
--- NOTE | 2022-10-10 23:42 | PC.NURSE ---
Bedside shift report obtained from KATHYA Harris. Assumed care. Patient resting quietly. Alert, oriented, and able to participate in care.
[2022-10-11] VITALS (58 sets, daily range): BP systolic 137–189; BP diastolic 78–114; PULSE 69–85; RESP 0–22; TEMP 36.6–37.6; O2SAT 95–99
[2022-10-11] MEDS: hyDRALAzine 20 mg/mL INJ 1 mL 5 MG IVP (02:51)
[2022-10-11 05:12] LABS: Basophils % 0.4 %; Eosinophils # 0.2 10^3/uL (0.0-0.8); Eosinophils % 2.9 %; Hemoglobin 7.1 g/dL (11.7-16.6); Lymphocytes # 0.6 10^3/uL (0.8-4.8); Lymphocytes % 12.4 %; Mean Corpuscular HGB Conc 34.5 g/dL (30.0-36.0); Mean Corpuscular Hemoglobin 30.6 pg (28.0-34.0); Mean Corpuscular Volume 88.8 fl (80-94); Mean Platelet Volume 11.3 fL (7.4-10.4); Monocytes # 0.3 10^3/uL (0.2-0.9); Monocytes % 6.4 %; Neutrophils # 4.01 10^3/uL (1.8-7.7); Neutrophils % 77.3 %; Nucleated Red Blood Cells % 0 %; Platelet Count 50 10^3/cmm (130-400); Red Blood Count 2.32 10^6/uL (4.1-5.3); Red Cell Distribution Width 14.4 % (12.1-15.1); White Blood Count 5.2 10^3/uL (4.0-10.0)
[2022-10-11 05:25] LABS: Hematocrit 20.6 % (42.0-52.0)
[2022-10-11 05:27] LABS: Alanine Aminotransferase < 5 U/L (0-41); Alkaline Phosphatase 50 U/L (40-130); Anion Gap 22.3 (5-19); Aspartate Amino Transferase 6 U/L (0-40); Calcium 7.2 mg/dL (8.5-10.5); Carbon Dioxide 20 mmol/L (22-29); Chloride 97 mmol/L (98-107); Globulin 2.5 g/dL (1.3-4.6); Glomerular Filtration Rate 3.2 mL/min (90-130); Glucose 108 mg/dL (65-115); Magnesium 2.1 mg/dL (1.7-2.3); Potassium 3.3 mmol/L (3.5-5.1); Sodium 136 mmol/L (136-145); Total Bilirubin 0.7 mg/dL (0.15-1.2); Total Protein 5.5 g/dL (6.6-8.7)
[2022-10-11 05:43] LABS: Blood Urea Nitrogen 136 mg/dL (6-20); Osmolality Calculated 327 mOsm/kg (285-295)
--- NOTE | 2022-10-11 06:06 | PM.PN ---
Subjective Subjective: s/p HD YESTERDAY Medications: Reviewed: Yes Vitals/I&O/Wt Last Vital Signs Temp 98.3 F 10/11/22 04:00 Pulse 77 10/11/22 04:00 Resp 14 10/11/22 04:00 BP 176/85 10/11/22 04:00 Pulse Ox 96 10/11/22 04:00 O2 Del Method 10/11/22 04:00 10/10/22 10/10/22 10/11/22 14:59 22:59 06:59 Intake Total 240 / 240 1330 / 1570 Output Total 1967 250 / 2218 Balance 240 / 240 -638 / -398 -250 / -648 Weight last 48 hrs Weight 84.1 kg Weight 75.296 kg Weight 75.478 kg Weight 77.111 kg Physical Exam Narrative: awake , alert , no new complaints PEERLA S1 S2 RRR per eport Clear leila per report No edema Urinary Catheter Management: Nixon: Cath Placed During This Visit: yes Reason for Continuing Indwelling Catheter: Accurate Measurement of Urinary Output in Critically Ill Patients Urinary Catheter Date of Insertion: 10/09/22 Urinary Catheter Time of Insertion: 23:00 Data 10/11/22 04:53 10/11/22 04:53 Micro: Microbiology 10/09/22 22:20 Blood Culture - Preliminary Blood NEGATIVE TO DATE 10/09/22 22:20 Blood Culture - Preliminary Blood NEGATIVE TO DATE A&P Assessment and plan (1) ESRD (end stage renal disease): Plan 1. ESRD : CKD 5 likely from Diabetic Nephropathy and Hypertensive Nephrosclerosis . Pt aware of having CKD and has lost follow with Nephrology and had been reluctant to start dialysis in the past. Patient now presents with volume overload, severe metabolic acidosis, uremic symptoms. -Patient agreeable for initiating dialysis now, s/p tunneled catheter placement by general surgery and initiated dialysis , HD # 2 today -2 g sodium restriction and 1500 mill fluid restriction -dope maintenance worker to arrange outpatient HD 2. Hypertension: Blood pressure elevated on presentation, so likely from advanced CKD with volume overload, should improve after dialysis 3. Severe anemia: Secondary to advanced renal failure, status post blood transfusion, will start Epogen, 4. MBD: Noted high phosphorus. Will check PTH and vitamin D levels 5. CHF 6. Small pericardial effusion: Secondary to uremia likely, monitor closely with dialysis Patient evaluated using audiovisual cart. Time spent 45 minutes. Attestations Medical Necessity Statement*: Admission for more than 2 midnights for management of acute renal failure, high anion gap metabolic acidosis and severe anemia in a patient requiring new hemodialysis Coding Level of Care Code Acute Code for Chg Fwd Diagnoses ESRD (end stage renal disease) N18.6
[2022-10-11 07:00] LABS: Glucose Point of Care 134 mg/dL (70-110)
--- NOTE | 2022-10-11 07:04 | W.PM.OPSUD ---
Surgery/Procedure H&P Update DATE OF PROCEDURE: October 11, 2022 DATE H&P PERFORMED: 10/10/22 H&P UPDATE INFORMATION: I have reviewed H&P completed within last 30 days, I have examined patient prior to procedure and No changes to prior documentation PLANNED PROCEDURE: Operation Date: 10/11/22 07:20 Proposed Procedures p Dialysis Catheter Insertion(Not Applicable) - Castro Martinez DO
--- NOTE | 2022-10-11 07:07 | SC_ITS ---
WS: [id number] INTRAOPERATIVE TECHNIQUE: 1 Spot fluoroscopic images for intraoperative purposes. FLUOROSCOPY TIME: 6.7 seconds CLINICAL INFORMATION: Permacath placement COMPARISON: None. FINDINGS: Partially visualized RIGHT dual-lumen central venous catheter with tips in the distal SVC SC/C-arm FL for CVA [id number] IMPRESSION: Images obtained for intraoperative purposes.
[2022-10-11] MEDS: ceFAZolin 2,000 MG in sodium chloride 0.9% (plus) 50 ML 100 MG IV (07:32)
[2022-10-11] MEDS: heparin, porcine 1,000 unit/mL INJ 10 mL 10000 UNIT IRRIGATION (07:42)
[2022-10-11] MEDS: lidocaine-epi 2% 20 mL INJ INJECTION (07:42)
--- NOTE | 2022-10-11 07:47 | ANES.PREANE2 ---
Pre-Anesthetic Assessment Height/Weight: Height 1.85 m Weight 75.75 kg Temp Pulse Resp BP Pulse Ox O2 Del Method 98.3 F 77 14 176/85 96 10/11/22 04:00 10/11/22 06:00 10/11/22 04:00 10/11/22 04:00 10/11/22 04:00 10/11/22 04:00 Operation Date: 10/11/22 07:20 Proposed Procedures p Dialysis Catheter Insertion(Not Applicable) - Castro Martinez DO Familial anesthetic complications: None Was Beta Sherita taken within 24 hours: Yes Was Clonidine taken within 24 hours: N/A Last intake: > 8 hrs, but vomiting yellow stomach acid and nauseated Social No alcohol and No tobacco Exam alert, oriented x 3, clear to auscultation bilaterally and regular rate & rhythm Airway Mallampati: Class II Dentition: chipped CV/HEM Anemia and Hypertension hx CHF with ? [place] last year, EF now 55% Chronic Renal Failure Metabolic Diabetes Mellitus Anesthetic Plan ASA status: 4 Anesthesia: General Other: Nausea and vomiting Risk of > 500 ml blood loss (7ml/kg in children): No Medications/Allergies Home Medications Medication Instructions Recorded Confirmed Last Taken Type blood-glucose meter #1 ea 07/16/21 10/10/22 Unknown Rx aspirin 81 mg tablet,delayed 81 mg PO DAILY 07/20/21 10/10/22 11/18/21 History release (Adult Aspirin Regimen) blood sugar diagnostic (Blood #200 ea 11/24/21 10/10/22 Unknown Rx Glucose Test strips) bumetanide 2 mg tablet 2 mg PO BID #180 tabs 06/01/22 10/10/22 Unknown Rx carvedilol 25 mg tablet 25 mg PO BID #180 tabs 06/01/22 10/10/22 Unknown Rx hydralazine 50 mg tablet See Rx Instructions .Route 06/01/22 10/10/22 Unknown Rx .COMPLEX #270 tabs isosorbide dinitrate 20 mg tablet See Rx Instructions .Route 06/01/22 10/10/22 Unknown Rx .COMPLEX #270 tabs lancets 30 gauge (OneTouch Delica ##200 10/05/22 10/10/22 Unknown Rx Plus Lancet) Allergies Allergy/AdvReac Type Severity Reaction Status Date / Time acetaminophen Allergy ADR/ALGY-Pa Verified 10/09/22 17:53 lpitations Current Medications Generic Name Dose Route Start Last Admin Trade Name Freq PRN Reason Stop Dose Admin Aspirin 81 mg 10/10/22 09:00 10/10/22 08:09 Aspirin 81 Mg Ec Tablet PO 81 mg DAILY [place] Administration Calcium Acetate 1,334 mg 10/09/22 21:49 10/10/22 18:03 Calcium Acetate 667 Mg Capsule PO 1,334 mg TIDWM [place] Administration Carvedilol 25 mg 10/10/22 09:00 10/10/22 18:02 Carvedilol 25 Mg Tablet PO 25 mg BID [place] Administration Citric Acid/Sodium Citrate 60 ml 10/10/22 09:00 10/10/22 18:03 Citric Acid-Sodium Citrate 30 Ml Udc PO 60 ml BID [facility] Administration Docusate Sodium 100 mg 10/10/22 09:00 10/10/22 17:51 Docusate Sodium 100 Mg Capsule PO Not Given BID [facility] Famotidine 20 mg 10/09/22 22:32 10/10/22 22:38 Famotidine 20 Mg/2 Ml Inj IVP 20 mg Q12H [place] Administration Ferrous Gluconate 324 mg 10/10/22 08:00 10/10/22 18:03 Ferrous Gluconate 324 Mg Tablet PO 324 mg BIDWM [place] Administration Heparin Sodium (Porcine) 10,000 unit 10/10/22 19:13 10/10/22 19:56 Heparin, Porcine 1,000 Unit/Ml Inj 10 Ml HE 10,000 unit PRN PRN Administration Dialysis Hydralazine HCl 50 mg 10/10/22 09:00 10/10/22 21:34 Hydralazine 50 Mg Tablet PO 50 mg TID [place] Administration Hydralazine HCl 5 mg 10/11/22 02:42 10/11/22 02:51 Hydralazine 20 Mg/Ml Inj 1 Ml IVP 5 mg Q6H PRN Administration SYSTOLIC BLOOD PRESSURE Insulin Human Lispro 0 unit 10/10/22 08:00 10/10/22 21:47 Insulin Lispro 100 Unit/1 Ml SUBCUT 2 unit WM&BEDTIME [place] Administration Protocol Isosorbide Dinitrate 20 mg 10/10/22 09:00 10/10/22 21:34 Isosorbide Dinitrate 20 Mg Tablet PO 20 mg TID [place] Administration Ondansetron HCl 4 mg 10/09/22 22:32 10/10/22 21:47 Ondansetron 2 Mg/Ml Sdv 2 Ml IVP 4 mg Q8H PRN Administration vomiting, or N/V if npo PFSH Anesthesia Medical History Anemia Diabetes mellitus type 2, uncontrolled Diabetic ulcer of left foot HFrEF (heart failure with reduced ejection fraction) HTN (hypertension) Peripheral vascular disease Peritonsillar cellulitis Vitamin D deficiency Surgical History No history of previous surgery Family History Other Diabetes Hypertension Social History Smoking and tobacco status: current every day smoker cigarettes Packs smoked per day: 1 Years cigarettes smoked: 30 Quit status (tobacco): considering quitting Alcohol intake: current Alcohol intake frequency: few times a month Substance/Drug Use: never Lives independently: Yes Household members: none Housing: House Data Anesthesia 10/11/22 04:53 10/11/22 04:53 Short CBC 10/09/22 10/10/22 10/11/22 Range/Units 19:10 07:45 04:53 WBC 5.1 6.1 5.2 (4.0-10.0) 10^3/uL Hgb 5.2 L* 6.5 L* 7.1 L (11.7-16.6) g/dL Hct 15.5 L* 19.7 L* 20.6 L* (42.0-52.0) % MCV 94.5 H 92.1 88.8 (80-94) fl Plt Count 76 L 62 L 50 L (130-400) 10^3/cmm Neut % (Auto) 72.5 72.3 77.3 % Neut # (Auto) 3.69 4.38 4.01 (1.8-7.7) 10^3/uL BMP 10/09/22 10/10/22 10/11/22 19:10 04:27 04:53 Sodium 139 138 136 Potassium 4.5 4.0 3.3 L Chloride 97 L 96 L 97 L Carbon Dioxide 12 L 13 L 20 L BUN 200 H* D 187 H* 136 H* Creatinine 23.0 H* 23.3 H* 16.5 H* Glucose 123 H 88 108 Calcium 7.1 L 6.9 L 7.2 L Cardiac Enzymes 10/09/22 Range/Units 22:20 NT-Pro-B Natriuret Pep > 28529 H (0-125) pg/mL Liver Function 10/09/22 10/10/22 10/11/22 Range/Units 19:10 04:27 04:53 Total Bilirubin 0.4 0.6 0.7 (0.15-1.2) mg/dL AST 6 5 6 (0-40) U/L ALT < 5 < 5 < 5 (0-41) U/L Alkaline Phosphatase 60 48 50 (40-130) U/L Albumin 3.5 3.1 L 3.0 L (3.5-5.2) g/dL Urine 10/09/22 Range/Units 23:25 Urine Color Yellow (Yellow) Urine Appearance Clear (CLEAR) Urine pH 5 (5-7) Ur Specific [place] 1.020 (1.005-1.030) Urine Protein 3+ H (Negative) Urine Glucose (UA) Trace H (Normal) Urine Ketones Negative (Negative) Urine Nitrate Negative (Negative) Urine Bilirubin Neg (Negative) Ur Leukocyte Esterase Negative (Negative) Urine RBC 0-4 H (0-2) /hpf Urine WBC 0-4 H (0-5) /hpf Blood Bank 10/09/22 19:10 Blood Type O Positive Rho(D) Type Positive Antibody Screen Negative Coags 10/09/22 10/09/22 10/09/22 19:10 19:10 22:20 PT 14.40 15.50 H INR 1.09 1.20 APTT 28.2 C-Reactive Protein 3.0 Microbiology 10/09/22 22:20 Blood Culture - Preliminary Blood NEGATIVE TO DATE 10/09/22 22:20 Blood Culture - Preliminary Blood NEGATIVE TO DATE Cardiac Studies: Echocardiogram 10/10/22
--- NOTE | 2022-10-11 08:18 | PM.OP ---
Operative Report Date of procedure: October 11, 2022 Pre-op diagnosis: End-stage renal disease Post-op diagnosis: same Procedure done: Permacath insertion Implants: Permacath Surgeon: Dr. Castro Martinez DO Anesthesia: General Estimated blood loss (mL): 5 Complications: None apparent Brief History: This is a 47-year-old gentleman with end-stage renal disease. PermCath insertion is indicated for hemodialysis access. The risk and benefits were explained and documented. Procedure: Patient was taken to the operating room and placed supine on the operating room table. All bony prominences were padded. General endotracheal intubation was achieved, and he was monitored throughout the case by the anesthesia personnel. SCDs were placed and turned on. The arms were tucked to the side. Patient received Ancef preoperatively IV. The bilateral chest wall was prepped and draped in usual sterile fashion using chlorhexidine base prep. Sterile drapes were applied. We did procedure pause prior to beginning. An 18 gauge needle was placed in the right internal jugular vein under ultrasound guidance. Dark, nonpulsatile blood was aspirated. A guidewire was placed through the needle centrally toward the atrial/vena caval junction. Fluoroscopy visualized good placement. The needle was removed and the guidewire was clipped to the drape with a hemostat. Further local anesthetic was infiltrated in the soft tissues of the right chest wall and a #15 blade was used to make a vertical skin incision. A #15 blade was used to make a small skin ivis around the guidewire insertion area. The permacath tubing was tunneled through the subcutaneous tissues up to the needle insertion location. Serial dilators were used to serially dilate over the guidewire . A dilator with a peel-away sheath was placed over the guidewire and placed centrally. The guidewire was removed as well as the dilator and the permacath was fed into the split sheath. The split sheath was removed. Both ports were aspirated to reveal dark blood and were flushed with saline only as the patient has a heparin allergy. final fluoroscopy visualization showed no kink in the catheter and the tip of the permacath tubing near the atrial/vena caval junction. Both skin incisions were thoroughly irrigated and suctioned dry. Meticulous hemostasis noted. The incision at the permacath insertion site was closed at the dermis with 3-0 Vicryl in an interrupted fashion. The internal jugular access site was closed with Dermabond. The skin overlying the permacath was closed in a similar manner. The permacath was then sutured into place using 2-0 nylon in a simple interrupted fashion. Patient was awakened from anesthesia and transferred via her cart to the recovery room in stable condition. All needle, sponge, and instrument counts were correct per the operating personnel x2 counts.
[2022-10-11] MEDS: ondansetron 2 mg/ML SDV 2 mL 4 MG IVP (08:57)
[2022-10-11] MEDS: calcium acetate 667 mg Capsule 1334 MG PO ×3 (09:07→17:26)
[2022-10-11] MEDS: aspirin 81 mg EC Tablet PO (09:07)
[2022-10-11] MEDS: carvedilol 25 mg Tablet PO ×2 (09:08→17:18)
[2022-10-11] MEDS: ferrous gluconate 324 mg Tablet PO ×2 (09:08→17:18)
[2022-10-11] MEDS: hyDRALAzine 50 mg Tablet PO ×3 (09:10→20:30)
[2022-10-11] MEDS: citric acid-sodium citrate 30 mL UDC 60 ML PO ×2 (09:10→17:26)
[2022-10-11] MEDS: isosorbide dinitrate 20 mg Tablet PO ×3 (09:18→20:30)
[2022-10-11 10:57] LABS: Glucose Point of Care 186 mg/dL (70-110)
[2022-10-11] MEDS: insulin lispro 100 unit/1 mL SUBCUT ×3 (10:58→20:39)
[2022-10-11] MEDS: famotidine 20 mg/2 mL INJ IVP ×2 (11:00→21:36)
--- NOTE | 2022-10-11 13:03 | ANE.PACU2 ---
Inpatient post-anesthesia follow up: Airway intact: Yes Vital signs: Temperature 98.3 F Pulse Rate 72 Respiratory Rate 14 Blood Pressure 171/89 Pulse Oximetry 98 Oxygen Delivery Me thod Room Air Oxygen Flow Rate Fraction of Inspir ed Oxygen Hydration adequate: Yes Nausea and vomiting: No Pain level: 1 Mental status: Baseline
--- NOTE | 2022-10-11 13:53 | P.PN_ITS ---
Subjective Subjective: This morning patient is complaining of recurrent nausea vomiting He has enteritis diagnosed on fourth when he came in Tunnel catheter placed by Dr. Martinez today Patient lives alone, there is a friend who is visiting him today I will let him have bland diet Once blood pressure slightly better we can transfer him out of ICU Patient will need chair time before we discharge him from the hospital He will need a new PCP, chair time Vitals/I&O/Wt Last Vital Signs Temp 98.2 F 10/11/22 13:49 Pulse 76 10/11/22 13:30 Resp 16 10/11/22 13:30 BP 181/99 10/11/22 13:30 Pulse Ox 99 10/11/22 13:30 O2 Del Method 10/11/22 04:00 10/10/22 10/11/22 10/11/22 22:59 06:59 14:59 Intake Total 1330 / 1570 0 / 1570 50 / 50 Output Total 1967 / 1967 250 / 2218 Balance -638 / -398 -250 / -648 50 / 50 Weight last 48 hrs Weight 75.75 kg Weight 84.1 kg Weight 75.296 kg Weight 75.478 kg Weight 77.111 kg Physical Exam Narrative: Euvolemic Temporary dialysis catheter right groin, tunneled catheter right Abdomen soft Euvolemic Abdomen soft S1, S2 Hypertensive On room air Afebrile Urinary Catheter Management: Nixon: Cath Placed During This Visit: yes Reason for Continuing Indwelling Catheter: Accurate Measurement of Urinary Output in Critically Ill Patients Urinary Catheter Date of Insertion: 10/09/22 Urinary Catheter Time of Insertion: 23:00 Data 10/11/22 04:53 10/11/22 04:53 Micro: Microbiology 10/09/22 22:20 Blood Culture - Preliminary Blood NEGATIVE TO DATE 10/09/22 22:20 Blood Culture - Preliminary Blood NEGATIVE TO DATE A&P Assessment and plan (1) ESRD (end stage renal disease): (2) Anemia: (3) HFrEF (heart failure with reduced ejection fraction): (4) Severe anemia: (5) Thrombocytopenia: (6) Kidney failure: (7) History of diabetes mellitus: Plan Enteritis related cyclical vomiting Will request C. difficile panel [place] diet Check drug screen Type 2 diabetes hemoglobin A1c 5.4 does not need insulin at discharge Tunnel catheter placed by Dr. Martinez 10/11 Hypertension urgency: Added losartan, currently on Coreg, hydralazine, amlodipine Patient will need PCP, chair time Full code He will need renal dialysis diet once he is able to tolerate Hematemesis:-Likely after endotracheal tube removal from mild mucosal injury, gabo lópez note he has been having recurrent emesis, watch for any worsening of signs that would indicate EGD I would hold off on DVT prophylaxis for now Full code Can be transferred out of ICU once blood pressure is stable Attestations Medical Necessity Statement*: Can be transferred out of ICU today Diagnoses ESRD (end stage renal disease) N18.6 Anemia D64.9 HFrEF (heart failure with reduced ejection fraction) I50.20 Severe anemia D64.9 Thrombocytopenia D69.6 Kidney failure N19 History of diabetes mellitus Z86.39
[2022-10-11] MEDS: losartan 50 mg Tablet 100 MG PO (14:50)
[2022-10-11] MEDS: scopolamine 1.5 Patch 1 PATCH TRANSDERMA (14:51)
--- NOTE | 2022-10-11 15:00 | XRR_ITS ---
PROCEDURE INFORMATION: Exam: XR Chest Exam date and time: 10/12/2022 3:15 AM Age: 47 years old Clinical indication: Device placement; Other: Mediport placement; Prior surgery; Surgery date: Post-operative (0-2 days); Additional info: Postop cxr was never done TECHNIQUE: Imaging protocol: Radiologic exam of the chest. Views: 1 view. COMPARISON: CT abdomen pelvis wo con [id number] 10/09/2022 6:52 PM FINDINGS: Tubes, catheters and devices: Right-sided central venous catheter tip over the right atrium. Lungs: See Heart/Mediastinum finding. Pleural spaces: Unremarkable. No pleural effusion. No pneumothorax. Heart/Mediastinum: Cardiomegaly and pulmonary vascular congestion. Bones/joints: Unremarkable. XR/XR chest 1V portable [id number] IMPRESSION: 1. Right-sided central venous catheter tip over the right atrium. 2. Cardiomegaly and pulmonary vascular congestion.
[2022-10-11] MEDS: piperacillin-tazobactam 3.375 GM in sodium chloride 0.9% (plus) 50 ML IV (15:02)
[2022-10-11 17:18] LABS: Glucose Point of Care 155 mg/dL (70-110)
[2022-10-11 18:00] LABS: Hepatitis B Core AB, Total Non-Reactive (Nonreactive); Hepatitis B Surface AB 3.5 (11.5-1000); Hepatitis B Surface Antigen Non-Reactive (Nonreactive)
[2022-10-11 21:09] LABS: Amphetamines Screen Urine Negative (Negative); Barbiturates Screen Urine Negative (Negative); Benzodiazepines Screen Urine Negative (Negative); Cocaine Screen Urine Negative (Negative); Opiate Screen Urine Negative (Negative); PCP Screen Urine Negative (Negative); THC Screen Urine Negative (Negative)
[2022-10-11 21:09] LABS: Glucose Point of Care 142 mg/dL (70-110)
[2022-10-11] MEDS: heparin, porcine 1,000 unit/mL INJ 10 mL 10000 UNIT HE (21:35)
[2022-10-11] MEDS: metoclopramide 5 mg/mL SDV 2 mL IVP (21:37)
--- NOTE | 2022-10-11 22:54 | PC.HD ---
Pt had RIJ tunneled cath inserted this morning per Dr Martinez. Upon pre HD assessment, cath site was noted to be uncovered, no dressing applied post insertion. Dried blood noted to insertion site as well as a small scab appx 1.5cm above insertion site, no overt redness visible beyond dried blood though area is pink and tender, no active drainage. Site cleaned thoroughly with CHG, scabs left intact (don't want to cause bleeding, pt with worsening thrombocytopenia) and VERONIKA /Covaderm dressing applied. Pt's 2nd dialysis treatment completed without complications, patient tolerated very well. Pt hypertensive throughout treatment with BP increasing as next dose of BP meds randall nearer, no other issues.
[2022-10-12] VITALS (39 sets, daily range): BP systolic 115–183; BP diastolic 72–111; PULSE 74–81; RESP 0–24; TEMP 36.6–37.3; O2SAT 98–99; BMI 22.6
[2022-10-12] MEDS: hyDRALAzine 20 mg/mL INJ 1 mL 5 MG IVP (00:04)
[2022-10-12] MEDS: piperacillin-tazobactam 3.375 GM in sodium chloride 0.9% (plus) 50 ML IV ×2 (02:24→19:07)
[2022-10-12 04:14] LABS: Basophils % 0.2 %; Eosinophils % 0.4 %; Hematocrit 22.2 % (42.0-52.0); Hemoglobin 7.6 g/dL (11.7-16.6); Lymphocytes # 0.7 10^3/uL (0.8-4.8); Lymphocytes % 13.1 %; Mean Corpuscular HGB Conc 34.2 g/dL (30.0-36.0); Mean Corpuscular Hemoglobin 30.9 pg (28.0-34.0); Mean Corpuscular Volume 90.2 fl (80-94); Mean Platelet Volume 12.1 fL (7.4-10.4); Monocytes # 0.5 10^3/uL (0.2-0.9); Monocytes % 8.6 %; Neutrophils # 4.12 10^3/uL (1.8-7.7); Neutrophils % 77.3 %; Nucleated Red Blood Cells % 0 %; Platelet Count 52 10^3/cmm (130-400); Red Blood Count 2.46 10^6/uL (4.1-5.3); Red Cell Distribution Width 14.2 % (12.1-15.1); White Blood Count 5.3 10^3/uL (4.0-10.0)
[2022-10-12 04:29] LABS: Anion Gap 16.5 (5-19); Blood Urea Nitrogen 63 mg/dL (6-20); Calcium 7.5 mg/dL (8.5-10.5); Carbon Dioxide 25 mmol/L (22-29); Chloride 97 mmol/L (98-107); Glomerular Filtration Rate 5.5 mL/min (90-130); Glucose 124 mg/dL (65-115); Magnesium 1.8 mg/dL (1.7-2.3); Osmolality Calculated 299 mOsm/kg (285-295); Phosphorus 4.7 mg/dL (2.5-4.5); Potassium 3.5 mmol/L (3.5-5.1); Sodium 135 mmol/L (136-145)
--- NOTE | 2022-10-12 08:03 | P.PN_ITS ---
Subjective Subjective: no new complaints Medications: Reviewed: Yes Vitals/I&O/Wt Last Vital Signs Temp 98.3 F 10/12/22 04:00 Pulse 77 10/12/22 06:00 Resp 13 10/12/22 06:00 BP 159/84 10/12/22 06:00 Pulse Ox 99 10/12/22 04:00 O2 Del Method 10/12/22 04:00 10/11/22 10/12/22 10/12/22 22:59 06:59 14:59 Intake Total 830 / 880 400 / 1280 Output Total 3320 / 3320 200 / 3520 Balance -2490 / -2440 200 / -2240 Weight last 48 hrs Weight 77.819 kg Weight 79.6 kg Weight 75.75 kg Weight 84.1 kg Physical Exam Narrative: awake , alert , no new complaints PEERLA S1 S2 RRR per eport Clear leila per report No edema Urinary Catheter Management: Nixon: Cath Placed During This Visit: yes Reason for Continuing Indwelling Catheter: Accurate Measurement of Urinary Output in Critically Ill Patients Urinary Catheter Date of Insertion: 10/09/22 Urinary Catheter Time of Insertion: 23:00 Data 10/12/22 03:39 10/12/22 03:39 A&P Assessment and plan (1) ESRD (end stage renal disease): Plan 1. ESRD : CKD 5 likely from Diabetic Nephropathy and Hypertensive Nephrosclerosis . Pt aware of having CKD and has lost follow with Nephrology and had been reluctant to start dialysis in the past. Patient now presents with volume overload, severe metabolic acidosis, uremic symptoms. -Patient agreeable for initiating dialysis now, s/p tunneled catheter placement by general surgery and initiated dialysis , HD # 3 today -2 g sodium restriction and 1500 ml fluid restriction -case management social worker to arrange outpatient HD 2. Hypertension: Blood pressure elevated on presentation, so likely from advanced CKD with volume overload, should improve after dialysis 3. Severe anemia: Secondary to advanced renal failure, status post blood transfusion, will start Epogen, 4. MBD: Noted high phosphorus. Will check PTH and vitamin D levels 5. CHF 6. Small pericardial effusion: Secondary to uremia likely, monitor closely with dialysis Patient evaluated using audiovisual cart. Time spent 45 minutes. Attestations Medical Necessity Statement*: can be discharged once out pt HD arranged Coding Level of Care Code Acute Code for Chg Fwd Diagnoses ESRD (end stage renal disease) N18.6
[2022-10-12] MEDS: calcium acetate 667 mg Capsule 1334 MG PO ×3 (09:51→17:14)
[2022-10-12] MEDS: ferrous gluconate 324 mg Tablet PO ×2 (09:51→17:15)
[2022-10-12] MEDS: hyDRALAzine 50 mg Tablet PO ×3 (09:52→20:18)
[2022-10-12] MEDS: carvedilol 25 mg Tablet PO ×2 (09:52→17:14)
[2022-10-12] MEDS: losartan 50 mg Tablet 100 MG PO (09:53)
[2022-10-12] MEDS: isosorbide dinitrate 20 mg Tablet PO ×3 (09:53→20:18)
--- NOTE | 2022-10-12 10:00 | PC.NURSE ---
New Orders Received Received telephone orders from Dr. Arnold to remove flanagan catheter and temporary dialysis catheter in right groin.
[2022-10-12 10:55] LABS: Glucose Point of Care 133 mg/dL (70-110)
--- NOTE | 2022-10-12 11:51 | P.PN_ITS ---
Subjective Subjective: We can remove his Nixon catheter and temporary dialysis catheter ICU nurse updated He can be transferred out of ICU consulting services project manager updated we are looking for chair time Blood pressure is still high, nausea vomiting improved with brat diet Vitals/I&O/Wt Last Vital Signs Temp 99.1 F 10/12/22 10:00 Pulse 81 10/12/22 10:00 Resp 14 10/12/22 10:00 BP 183/106 10/12/22 10:00 Pulse Ox 99 10/12/22 04:00 O2 Del Method 10/12/22 04:00 10/11/22 10/12/22 10/12/22 22:59 06:59 14:59 Intake Total 830 / 880 400 / 1280 340 / 340 Output Total 3320 / 3320 200 / 3520 Balance -2490 / -2440 200 / -2240 340 / 340 Weight last 48 hrs Weight 77.819 kg Weight 79.6 kg Weight 75.75 kg Weight 84.1 kg Physical Exam Narrative: Patient clinically is euvolemic Tunneled catheter Nixon catheter in place Abdomen soft Awake and alert Energy has improved Nonfocal neuro exam S1, S2 Currently on room air Urinary Catheter Management: Nixon: Cath Placed During This Visit: yes, but has since been removed by the nurse Reason for Continuing Indwelling Catheter: Accurate Measurement of Urinary Output in Critically Ill Patients Urinary Catheter Date of Insertion: 10/09/22 Urinary Catheter Time of Insertion: 23:00 Date Urinary Catheter Removed: 10/12/22 Time Urinary Catheter Discontinued: 10:15 Data 10/12/22 03:39 10/12/22 03:39 A&P Assessment and plan (1) ESRD (end stage renal disease): (2) Pericardial effusion: (3) Anemia: (4) HFrEF (heart failure with reduced ejection fraction): (5) Diabetes mellitus type 2, uncontrolled: (6) Enteritis: (7) Recurrent vomiting: Plan End-stage renal disease patient is awaiting chair time Patient has a tunneled catheter Temporary dialysis catheter will be removed today Remove Nixon catheter Transfer out of ICU to [facility] [place] [place] Hypertensive: He has been getting hydralazine, Coreg losartan, will add amlodipine Recurrent vomiting: Improved Enteritis currently on Zosyn Patient is awaiting chair time Once blood pressure is improved and patient not vomiting will be able to discharge him home with outpatient nephro follow-up consulting services project manager updated Spoke with ICU nurse Electrolyte abnormality: Improved Weakness and fatigue improving Patient lives alone, Attestations Medical Necessity Statement*: Transfer out of ICU Diagnoses ESRD (end stage renal disease) N18.6 Pericardial effusion I31.39 Anemia D64.9 HFrEF (heart failure with reduced ejection fraction) I50.20 Diabetes mellitus type 2, uncontrolled E11.65 Enteritis K52.9 Recurrent vomiting R11.10
--- NOTE | 2022-10-12 11:55 | PC.NURSE ---
Remove Temp. Dialysis Catheter Removed temporary right groin dialysis catheter per Dr. Arnold order. No bleeding/bruising noted to right groin, catheter tip intact upon removal. Transparent dressing with gauze applied over insertion site.
[2022-10-12 11:58] LABS: Glucose Point of Care 184 mg/dL (70-110)
[2022-10-12] MEDS: insulin lispro 100 unit/1 mL SUBCUT ×2 (12:19→20:22)
[2022-10-12 16:26] LABS: Erythropoietin 5.6 mIU/mL (2.6-18.5)
[2022-10-12 17:22] LABS: Glucose Point of Care 116 mg/dL (70-110)
[2022-10-12] MEDS: amlodipine 10 mg Tablet PO (19:52)
[2022-10-12 20:24] LABS: Glucose Point of Care 158 mg/dL (70-110)
[2022-10-12] MEDS: famotidine 20 mg/2 mL INJ IVP (22:47)
[2022-10-13] VITALS: BP 134/84; PULSE 78; RESP 12; TEMP 37.8
[2022-10-13 03:50] LABS: Basophils % 0.5 %; Eosinophils # 0.3 10^3/uL (0.0-0.8); Eosinophils % 4.3 %; Hematocrit 21.5 % (42.0-52.0); Hemoglobin 7.1 g/dL (11.7-16.6); Lymphocytes # 1.2 10^3/uL (0.8-4.8); Mean Corpuscular Hemoglobin 30.2 pg (28.0-34.0); Mean Corpuscular Volume 91.5 fl (80-94); Mean Platelet Volume 11.7 fL (7.4-10.4); Monocytes # 0.4 10^3/uL (0.2-0.9); Nucleated Red Blood Cells % 0 %; Platelet Count 53 10^3/cmm (130-400); Red Blood Count 2.35 10^6/uL (4.1-5.3); Red Cell Distribution Width 14.2 % (12.1-15.1); White Blood Count 5.8 10^3/uL (4.0-10.0)
[2022-10-13 04:00] VITALS: BP 140/80; PULSE 78; RESP 17; TEMP 36.9
[2022-10-13 04:05] LABS: Anion Gap 11.1 (5-19); Blood Urea Nitrogen 39 mg/dL (6-20); Calcium 7.4 mg/dL (8.5-10.5); Carbon Dioxide 29 mmol/L (22-29); Chloride 98 mmol/L (98-107); Glomerular Filtration Rate 8.3 mL/min (90-130); Glucose 144 mg/dL (65-115); Osmolality Calculated 290 mOsm/kg (285-295); Potassium 4.1 mmol/L (3.5-5.1); Sodium 134 mmol/L (136-145)
[2022-10-13 05:56] VITALS: PULSE 77
[2022-10-13] MEDS: piperacillin-tazobactam 3.375 GM in sodium chloride 0.9% (plus) 50 ML IV (06:36)
--- NOTE | 2022-10-13 06:36 | PC.NURSE ---
Report given to Sanjana, transferred to [facility] - 2 via wheelchair.
[2022-10-13 08:00] VITALS: BP 167/88; PULSE 76; RESP 18; TEMP 36.7; O2SAT 99
[2022-10-13 08:09] VITALS: BP 166/74
[2022-10-13] MEDS: losartan 50 mg Tablet 100 MG PO (08:09)
[2022-10-13] MEDS: hyDRALAzine 50 mg Tablet PO (08:09)
[2022-10-13] MEDS: amlodipine 10 mg Tablet PO (08:09)
[2022-10-13] MEDS: docusate sodium 100 mg Capsule PO (08:09)
[2022-10-13] MEDS: isosorbide dinitrate 20 mg Tablet PO (08:09)
[2022-10-13] MEDS: ferrous gluconate 324 mg Tablet PO (08:09)
[2022-10-13] MEDS: carvedilol 25 mg Tablet PO (08:10)
[2022-10-13] MEDS: citric acid-sodium citrate 30 mL UDC 60 ML PO (08:11)
[2022-10-13] MEDS: calcium acetate 667 mg Capsule 1334 MG PO ×2 (08:11→12:28)
[2022-10-13 08:19] LABS: Glucose Point of Care 131 mg/dL (70-110)
[2022-10-13 10:13] VITALS: BP 166/74; PULSE 75; RESP 18; TEMP 36.6; O2SAT 98
--- NOTE | 2022-10-13 10:14 | P.DS_ITS ---
Discharge Providers Date of Admission: 10/09/22 21:01 Date of Discharge: October 13, 2022 Attending Provider at Admission: Uriel Osorio MD Attending Provider at Discharge: Danica Arnold MD Primary Care Provider: Jeb Delgado DO Diagnoses at Discharge Discharge Diagnosis (1) ESRD (end stage renal disease): Status: Acute Reason for Visit Reason for Visit: N/V, Hospital Course Hospital Course 47-year-old male with past medical history of congestive heart failure with reduced ejection fraction of 15% in the past, CKD stage V, anemia presented to the ER with complaints of worsening symptoms for last 4 months acutely for last 2 to 3 weeks of nausea, vomiting, decreased oral intake, difficulty in breathing both at rest and exertion found to be in acute renal failure with severe anemia. He was diagnosed with end-stage renal disease, tunneled dialysis catheter was placed by Dr. Martinez, his antihypertensive regimen was optimized before discharge, he has anemia of chronic disease, 2 session of dialysis completed during hospitalization, he will continue dialysis Tuesday//Tuesday with bicarb tablets, iron tablets, antihypertensive regimen. He was experiencing cyclical vomiting as well related to enteritis which improved with use of anti emetics and Zosyn. Cultures remain negative. He remained afebrile. He is able to tolerate diet. Echo during this visit showed EF 55 to 60% with biatrial enlargement left ventricle is dilated as well he seems to have component of diastolic heart failure, his EF has improved significantly. He has not undergone coronary angiogram because of his worsening of kidney function follows up with Dr. Wellington outpatient. bar examiner have however asked to establish care type with [facility] Physical Exam Narrative: Patient clinicall y is euvolemic Wilmer neled catheter rig ht IJ Abdomen soft Awake and alert E nergy has improved Nonfocal neuro ex am S1, S2 Currentl y on room ai Urinary Catheter Management: Nixon: Cath Placed During This Visit: yes, but has since been removed by the nurse Reason for Continuing Indwelling Catheter: Accurate Measurement of Urinary Output in Critically Ill Patients Urinary Catheter Date of Insertion: 10/09/22 Urinary Catheter Time of Insertion: 23:00 Date Urinary Catheter Removed: 10/12/22 Time Urinary Catheter Discontinued: 10:15 Discharge Data Studies Completed and Pending Completed Studies During Hospitalization Category Date Time Status CT abdomen pelvis wo con [id number] Stat Cat Scan 10/09/22 18:41 Completed CXRP [XR chest 1V portable [id number]] Routine Exams 10/11/22 15:00 Completed CV. echo complete* [id number] Routine Ultrasound 10/10/22 21:50 Completed Pending at discharge Category Date Time Status Blood Culture Stat Lab 10/09/22 22:20 Results CDIFF [Clostridioides Difficile PCR] Routine Lab 10/11/22 14:15 Uncollected Stool Culture, Bacterial [Enteric Bacterial Panel by Lab 10/11/22 14:15 Uncollected PCR] Routine Stool WBC [Lactoferrin] Routine Lab 10/11/22 14:15 Uncollected stool Ova and Parasite [Enteric Parasite Panel by PCR] Lab 10/11/22 14:15 Uncollected Routine Radiology Impressions Abdomen/Pelvis CT 10/09/22 18:41 IMPRESSION: 1. Limited noncontrast examination. 2. Questionable mild, diffuse small bowel wall thickening, possibly secondary to nonspecific enteritis. 3. Moderate pericardial effusion. 4. Additional findings, as above. C-Arm Fluoroscopy 10/11/22 07:07 IMPRESSION: Images obtained for intraoperative purposes. Chest X-Ray 10/11/22 15:00 IMPRESSION: 1. Right-sided central venous catheter tip over the right atrium. 2. Cardiomegaly and pulmonary vascular congestion. Laboratory Results WBC 5.8 10^3/uL (4.0-10.0) 10/13/22 03:27 RBC 2.35 10^6/uL (4.1-5.3) L 10/13/22 03:27 Hgb 7.1 g/dL (11.7-16.6) L 10/13/22 03:27 Hct 21.5 % (42.0-52.0) L 10/13/22 03:27 MCV 91.5 fl (80-94) 10/13/22 03:27 MCH 30.2 pg (28.0-34.0) 10/13/22 03:27 MCHC 33.0 g/dL (30.0-36.0) 10/13/22 03:27 RDW 14.2 % (12.1-15.1) 10/13/22 03:27 Plt Count 53 10^3/cmm (130-400) L 10/13/22 03:27 MPV 11.7 fL (7.4-10.4) H 10/13/22 03:27 Neut % (Auto) 67.0 % 10/13/22 03:27 Lymph % (Auto) 21.0 % 10/13/22 03:27 [place] % (Auto) 7.0 % 10/13/22 03:27 Eos % (Auto) 4.3 % 10/13/22 03:27 Baso % (Auto) 0.5 % 10/13/22 03:27 Neut # (Auto) 3.90 10^3/uL (1.8-7.7) 10/13/22 03:27 Lymph # (Auto) 1.2 10^3/uL (0.8-4.8) 10/13/22 03:27 [place] # (Auto) 0.4 10^3/uL (0.2-0.9) 10/13/22 03:27 Eos # (Auto) 0.3 10^3/uL (0.0-0.8) 10/13/22 03: Baso # (Auto) 0.0 10^3/uL (0.0-0.1) 10/13/22 03:27 Nucleated RBC % (auto) 0 % 10/13/22 03: Nucleated RBCs # 0.0 /100WBC 10/13/22 03: PT 15.50 SECONDS (12.1-14.9) H 10/09/22 22:20 INR 1.20 (0.8-1.2) 10/09/22 22:20 APTT 28.2 SECONDS (23.9-36.7) 10/09/22 19:10 Sodium 134 mmol/L (136-145) L 10/13/22 03:27 Potassium 4.1 mmol/L (3.5-5.1) 10/13/22 03: Chloride 98 mmol/L (98-107) 10/13/22 03:27 Carbon Dioxide 29 mmol/L (22-29) 10/13/22 03:27 Anion Gap 11.1 (5-19) 10/13/22 03:27 BUN 39 mg/dL (6-20) H 10/13/22 03:27 Creatinine 7.1 mg/dL (0.7-1.2) H* 10/13/22 03:27 GFR Calculation 8.3 mL/min (90-130) L 10/13/22 03:27 Glucose 144 mg/dL (65-115) H 10/13/22 03:27 POC Glucose 131 mg/dL (70-110) H 10/13/22 08:15 Estimat Average Glucose 108 10/10/22 07:45 Hemoglobin A1c 5.4 % (4.0-6.0) 10/10/22 07:45 Calculated Osmolality 290 mOsm/kg (285-295) 10/13/22 03:27 Lactate 0.9 mmol/L (0.5-2.2) 10/09/22 19:10 Calcium 7.4 mg/dL (8.5-10.5) L 10/13/22 03:27 Phosphorus 4.7 mg/dL (2.5-4.5) H 10/12/22 03:39 Magnesium 1.8 mg/dL (1.7-2.3) 10/12/22 03:39 Iron 65 ug/dL (59-158) 10/09/22 22:20 TIBC 196 mcg/dl 10/09/22 22:20 % Saturation 33.1 % (20-50) 10/09/22 22:20 Unsat Iron Binding 131 ug/dL (112-347) 10/09/22 22:20 Erythropoietin 5.6 mIU/mL (2.6-18.5) 10/09/22 22:20 Total Bilirubin 0.7 mg/dL (0.15-1.2) 10/11/22 04:53 AST 6 U/L (0-40) 10/11/22 04:53 ALT < 5 U/L (0-41) 10/11/22 04:53 Alkaline Phosphatase 50 U/L (40-130) 10/11/22 04:53 C-Reactive Protein 3.0 mg/L (0.0-4.9) 10/09/22 19:10 NT-Pro-B Natriuret Pep > 35157 pg/mL (0-125) H 10/09/22 22:20 Total Protein 5.5 g/dL (6.6-8.7) L 10/11/22 04:53 Albumin 3.0 g/dL (3.5-5.2) L 10/11/22 04:53 Globulin 2.5 g/dL (1.3-4.6) 10/11/22 04:53 Triglycerides 161 mg/dL (0-150) H 10/10/22 04:27 Cholesterol 126 mg/dL (0-200) 10/10/22 04:27 LDL Cholesterol, Calc 66 mg/dL (50-129) 10/10/22 04:27 Total VLDL Cholesterol 32 mg/dL (0-30) H 10/10/22 04:27 HDL Cholesterol 28 mg/dL (60-100) L 10/10/22 04:27 Cholesterol/HDL Ratio 4.50 mg/dL (1.0-5.00) 10/10/22 04: Vitamin B12 807 pg/mL (232-1245) 10/09/22 22:20 Folate 5.5 ng/mL (4.5-32.2) 10/09/22 22:20 TSH 1.44 uIU/mL (0.27-4.20) 10/09/22 22:20 Urine Color Yellow (Yellow) 10/09/22 23:25 Urine Appearance Clear (CLEAR) 10/09/22 23:25 Urine pH 5 (5-7) 10/09/22 23:25 Ur Specific [place] 1.020 (1.005-1.030) 10/09/22 23:25 Urine Protein 3+ (Negative) H 10/09/22 23:25 Urine Glucose (UA) Trace (Normal) H 10/09/22 23:25 Urine Ketones Negative (Negative) 10/09/22 23:25 Urine Blood Neg (Negative) 10/09/22 23:25 Urine Nitrate Negative (Negative) 10/09/22 23:25 Urine Bilirubin Neg (Negative) 10/09/22 23:25 Urine Urobilinogen Neg mg/dL (Negative) 10/09/22 23:25 Ur Leukocyte Esterase Negative (Negative) 10/09/22 23:25 Urine RBC 0-4 /hpf (0-2) H 10/09/22 23:25 Urine WBC 0-4 /hpf (0-5) H 10/09/22 23:25 Ur Eosinophil Smear 0 (0-0) 10/09/22 23:25 Ur Squamous Epith Cells 0-4 /hpf (0-5) H 10/09/22 23:25 Amorphous Sediment 2+ /hpf 10/09/22 23:25 Urine Bacteria Trace /hpf (NONE) 10/09/22 23:25 Urine Mucus 1+ /hpf 10/09/22 23:25 Urine Eosinophils No eosinophils seen 10/09/22 23:25 Ur Random Sodium 55 mmol/L 10/09/22 23:25 Ur Random Potassium 19 mmol/L 10/09/22 23:25 Ur Random Chloride 43 mmol/L 10/09/22 23:25 Urine Creatinine 107 mg/dL (39-259) 10/09/22 23:25 Urine Opiates Screen Negative ng/mL (Negative) 10/11/22 20:52 Ur Barbiturates Screen Negative ng/mL (Negative) 10/11/22 20:52 Ur Phencyclidine Scrn Negative ng/mL (Negative) 10/11/22 20:52 Ur Amphetamines Screen Negative ng/mL (Negative) 10/11/22 20:52 U Benzodiazepines Scrn Negative ng/mL (Negative) 10/11/22 20:52 Urine Cocaine Screen Negative ng/mL (Negative) 10/11/22 20:52 U Marijuana (THC) Screen Negative ng/mL (Negative) 10/11/22 20:52 Complement C3 80 mg/dL (90-180) L 10/10/22 04:27 Complement C4 29 mg/dL (10-40) 10/10/22 04:27 Hepatitis A IgM Ab Non-reactive (Nonreactive) 10/09/22 22:20 Hep Bs Antigen Non-reactive (Nonreactive) 10/11/22 16:56 Hep Bs Antibody 3.5 (11.5-1000) L 10/11/22 16:56 Hep B Core Total Ab Non-reactive (Nonreactive) 10/11/22 16:56 Hepatitis C Antibody Non-reactive (Nonreactive) 10/09/22 22:20 HIV 1&2 Ab & HIV 1 Ag Non-reactive (Non-Reactiv) 10/10/22 04:27 HIV 1&2 Antibody Non-reactive (Non-Reactiv) 10/10/22 04:27 Blood Type O Positive 10/09/22 19:10 Rho(D) Type Positive 10/09/22 19:10 Antibody Screen Negative 10/09/22 19:10 Crossmatch See Detail 10/09/22 19:10 Vitals Last Vital Signs Temp 98.0 F 10/13/22 08:00 Pulse 76 10/13/22 08:00 Resp 18 10/13/22 08:00 BP 166/74 10/13/22 08:09 Pulse Ox 99 10/13/22 08:00 O2 Del Method 10/13/22 08:00 Discharge Plan Discharge Patient Disposition: Home Condition: Stable Prescriptions: New amlodipine 10 mg Tablet 10 mg PO DAILY Qty: 60 1RF sodium bicarbonate 325 mg tablet 325 mg PO BID Qty: 60 0RF hydralazine 100 mg tablet 100 mg PO TID Qty: 90 2RF calcium acetate [Calphron] 667 mg Tablet 1,334 mg PO TIDWM Qty: 90 1RF ferrous gluconate 324 mg (37.5 mg iron) Tablet 324 mg PO BEDTIME Qty: 90 0RF losartan 50 mg Tablet 100 mg PO DAILY Qty: 60 1RF amoxicillin-pot clavulanate 875-125 mg tablet 1 tab PO BID Qty: 6 0RF Continued aspirin [Adult Aspirin Regimen] 81 mg tablet,delayed release (DR/EC) 81 mg PO DAILY (DME) Blood Glucose Test Strip See Rx Instructions .Route Qty: 200 3RF Rx Instructions: As directed to test blood sugar BID isosorbide dinitrate 20 mg tablet See Rx Instructions .ROUTE .COMPLEX Qty: 270 0RF Dose Instruction: TAKE ONE TABLET BY MOUTH 3 TIMES DAILY ALLOW NITRATE-FREE INTERVAL OF 12 TO 14 HOURS PER 24 HOURS Rx Instructions: TAKE ONE TABLET BY MOUTH 3 TIMES DAILY ALLOW NITRATE-FREE INTERVAL OF 12 TO 14 HOURS PER 24 HOURS (DME) blood-glucose meter [facility] [place] See Rx Instructions .ROUTE .MEDSUPPLY Qty: 1 0RF Rx Instructions: As directed to test blood sugar BID (DME) lancets [OneTouch Delica Plus Lancet] 30 gauge [facility] See Rx Instructions .ROUTE .COMPLEX Qty: 200 3RF Dose Instruction: USE TO TEST BLOOD SUGAR TWICE A DAY Rx Instructions: USE TO TEST BLOOD SUGAR TWICE A DAY carvedilol 25 mg tablet 25 mg PO BID Qty: 60 0RF Discontinued bumetanide 2 mg tablet 2 mg PO BID Qty: 180 0RF hydralazine 50 mg tablet See Rx Instructions .ROUTE .COMPLEX Qty: 270 0RF Dose Instruction: TAKE ONE TABLET BY MOUTH 3 TIMES DAILY Rx Instructions: TAKE ONE TABLET BY MOUTH 3 TIMES DAILY Discharge Orders: Discharge Order (Routine); Ordered 10/13/22 Ordered By: Danica Arnold Referrals: Jeb Delgado DO [Primary Care Provider] - 10/18/22 11:20 am Discharge Diet: Low Salt Discharge Activity: Limit activity as instructed Patient Instructions: Opioid Safety Discharge Attestations Time Spent in Discharge Care*: less than 30 min Quality Metrics Clinical Quality Measures [ No reported AMI, CVA or VTE this stay] Coding Level of Care Code Acute Code for Chg Fwd Diagnoses ESRD (end stage renal disease) N18.6
--- NOTE | 2022-10-13 11:44 | PC.NURSE ---
Addendum entered by Nupur Avalos RN 10/13/22 13:26: Patient awaiting meds to beds for additional medication and equipment. Addendum entered by Nupur Avalos RN 10/13/22 12:35: Patient requesting doctor for to get his diabetes meds they discussed ordered. Just sent message to Dr. Arnold. Original Note: Patient waiting on meds to beds and ride. Discharge plan reviewed with patient and no questions at this time.
[2022-10-13] MEDS: insulin lispro 100 unit/1 mL SUBCUT (12:30)
[2022-10-13 12:31] LABS: Glucose Point of Care 173 mg/dL (70-110)
== END 2022-10-13 15:02 | disposition home or self-care (01) | DRG 674 ==
LOC: ER 20:20 → MEDSURG 21:17 → ICU 21:35 → MEDSURG 10-13 06:53
PROVIDERS: Hospitalist; Internal Medicine; Surgery; Admitting Provider Student in an Organized Health Care Education/Training Program; Emergency Provider Emergency Medicine; PCP Family Medicine; Visit Provider Internal Medicine
PROC: 02H633Z Insertion of Infusion Device into Right Atrium, Percutaneous Approach (ICD-10-PCS; principal; 2022-10-11 07:00)
DX: N17.9 Acute kidney failure, unspecified (principal); E87.20 Acidosis, unspecified; I13.2 Hypertensive heart and chronic kidney disease with heart failure and with stage 5 chronic kidney disease, or end stage renal disease; I50.22 Chronic systolic (congestive) heart failure; I31.39 Other pericardial effusion (noninflammatory); E11.22 Type 2 diabetes mellitus with diabetic chronic kidney disease; E11.65 Type 2 diabetes mellitus with hyperglycemia; N18.6 End stage renal disease; E11.51 Type 2 diabetes mellitus with diabetic peripheral angiopathy without gangrene; D63.1 Anemia in chronic kidney disease; Z79.82 Long term (current) use of aspirin; F17.210 Nicotine dependence, cigarettes, uncomplicated; I16.0 Hypertensive urgency; K52.9 Noninfective gastroenteritis and colitis, unspecified; D69.6 Thrombocytopenia, unspecified
CPT/HCPCS: 12345; 36415; 36416; 36430; 51702; 71045; 74176; 77001; 80048; 80053; 80061; 80306; 81001; 81003; 82436; 82570; 82607; 82668; 82746; 82962; 83036; 83540; 83550; 83605; 83735; 83880; 84100; 84133; 84300; 84443; 85025; 85610; 85730; 85999; 86140; 86160; 86705; 86706; 86709; 86803; 86850; 86900; 86920; 87040; 87340; 87806; 90935; 93005; 93306; 94664; 96372; 99285; C1750; J0360; J0690; J1100; J1200; J1644; J1815; J2370; J2405; J2543; J2704; J2710; J2765; J3010; J3490; P9016; Q3014

== ENCOUNTER 2022-10-24 10:40 | Emergency (ER) | payer MEDICAID, SELFPAY ==
[2022-10-24 10:57] VITALS: BP 137/53; PULSE 98; RESP 17; TEMP 36.9; O2SAT 98; BMI 24.0
--- NOTE | 2022-10-24 11:24 | W.ED.RECABL ---
HPI - Recheck/Abnormal Lab/Rx General: Chief Complaint: Recheck/Abnormal Lab/Rx Stated Complaint: Abnormal Labs Time Seen by Provider: 10/24/22 11:24 History of Present Illness: Mr. Romero is a 47-year-old gentleman with complex past medical history including heart failure with reduced ejection fraction, diabetes, end-stage renal disease on hemodialysis with recent hospitalization and tunneled dialysis catheter placement presenting to the emergency department for abnormal lab. He reports seeing PCP recently and having a two-point drop in hemoglobin over the short period of time. He himself feels well without signs of hypovolemia or acute blood loss, denies hematuria, bruising, blood in stool or dark black stool. No other specific changes in health, exacerbating, or alleviating factors identified. Initial visit (ago): day(s) Initial visit for: other Description of abnormal result: Low hemoglobin Review of Systems General: Reports: 10 or more systems reviewed and unremarkable except in HPI and below PFSH ED PFSH: Medical History Anemia Diabetes mellitus type 2, uncontrolled Diabetic ulcer of left foot Elevated BUN HFrEF (heart failure with reduced ejection fraction) History of diabetes mellitus HTN (hypertension) Kidney failure Pericardial effusion Peripheral vascular disease Peritonsillar cellulitis Severe anemia Thrombocytopenia Vitamin D deficiency Surgical History No history of previous surgery Family History Other CAD (coronary artery disease) Diabetes Hypertension Lung disease Denies family history of Clotting disorder Dementia Hyperlipidemia Psychiatric illness Chronic kidney disease (CKD) Anesthesia complication Bleeding disorder Cancer Stroke Social History Smoking and tobacco status: current every day smoker cigarettes Packs smoked per day: 1 Years cigarettes smoked: 30 Quit status (tobacco): considering quitting Alcohol intake: former Lives independently: Yes Household members: none Housing: House Current occupational status: unemployed Special manuel needs: No Agree to transfusion: Yes Physical Exam Const: COMMON NORMALS: alert GENERAL APPEARANCE: cooperative and well developed HENMT: COMMON NORMALS: normocephalic and atraumatic HEAD & SCALP: normocephalic and atraumatic Eye: COMMON NORMALS: conjunctivae normal CONJUNCTIVA: Yes conjunctivae normal SCLERA: sclerae normal Neck/C-Spine: COMMON NORMALS: supple GENERAL: Yes trachea midline Chest: OTHER: Tunnel catheter appears appropriate, clean dry without evidence of infection Resp: COMMON NORMALS: clear to auscultation bilaterally EFFORT & INSPECTION: Yes able to speak in complete sentences AUSCULTATION: clear to auscultation bilaterally Cardio: COMMON NORMALS: regular rate and regular rhythm RATE: regular rate RHYTHM: regular rhythm GI: COMMON NORMALS: Soft to palpation PALPATION: Yes Soft to palpation and No Tenderness to palpation present (GI) RECTAL EXAM: Yes heme negative stool Extremity: GENERAL: Yes normal exam except as noted and No edema Neuro: COMMON NORMALS: moves all extremities SENSORIUM/ORIENTATION: Yes alert and No Orientation impaired Psych: COMMON NORMALS: mental status grossly normal and Normal thought process present THOUGHT PROCESS: Normal thought process present Course Vital Signs: Vital signs: Vital Signs Temperature 98.4 F 10/24/22 10:57 Pulse Rate 74 10/24/22 12:50 Respiratory Rate 16 10/24/22 12:50 Blood Pressure 182/90 10/24/22 12:50 Pulse Oximetry 98 10/24/22 12:50 Oxygen Delivery Me thod 10/24/22 10:57 MDM - Recheck/Abnormal Lab/Rx Medical Decision Making 47-year-old gentleman presenting to the emergency department for abnormal labs. The patient himself feels well. He is nontoxic on clinical exam. Exam otherwise as above. No evidence of active bleeding. Labs with no leukocytosis, hemoglobin of 8.2, thrombocytopenia is actually improved from prior. On metabolic panel there is no immediate indication for dialysis. Based on clinical history provided as well as exam of repeat blood labs patient does not require transfusion at this time. Most likely etiology of laboratory findings is anemia of chronic disease. The results of ED evaluation were discussed with the patient including prescriptions and/or symptomatic cares (if applicable) including appropriate and responsible use, followup plan, and return precautions. The patient verbalized understanding and felt safe for discharge. Medical Records I reviewed the patient's medical records. Lab Data I reviewed the patient's lab results. 10/24/22 11:30 10/24/22 11:30 Laboratory Results WBC 4.8 10^3/uL (4.0-10.0) 10/24/22 11:30 RBC 2.70 10^6/uL (4.1-5.3) L 10/24/22 11:30 Hgb 8.2 g/dL (11.7-16.6) L 10/24/22 11:30 Hct 26.8 % (42.0-52.0) L 10/24/22 11:30 MCV 99.3 fl (80-94) H 10/24/22 11: MCH 30.4 pg (28.0-34.0) 10/24/22 11: MCHC 30.6 g/dL (30.0-36.0) 10/24/22 11:30 RDW 13.6 % (12.1-15.1) 10/24/22 11:30 Plt Count 125 10^3/cmm (130-400) L 10/24/22 11:30 MPV 9.6 fL (7.4-10.4) 10/24/22 11:30 Neut % (Auto) 59.3 % 10/24/22 11:30 Lymph % (Auto) 29.6 % 10/24/22 11:30 Power % (Auto) 6.4 % 10/24/22 11:30 Eos % (Auto) 3.5 % 10/24/22 11:30 Baso % (Auto) 1.0 % 10/24/22 11: Neut # (Auto) 2.86 10^3/uL (1.8-7.7) 10/24/22 11:30 Lymph # (Auto) 1.4 10^3/uL (0.8-4.8) 10/24/22 11:30 Power # (Auto) 0.3 10^3/uL (0.2-0.9) 10/24/22 11:30 Eos # (Auto) 0.2 10^3/uL (0.0-0.8) 10/24/22 11:30 Baso # (Auto) 0.1 10^3/uL (0.0-0.1) 10/24/22 11:30 Nucleated RBC % (auto) 0 % 10/24/22 11:30 Nucleated RBCs # 0.0 /100WBC 10/24/22 11:30 Sodium 140 mmol/L (136-145) 10/24/22 11:30 Potassium 4.9 mmol/L (3.5-5.1) 10/24/22 11:30 Chloride 97 mmol/L (98-107) L 10/24/22 11:30 Carbon Dioxide 34 mmol/L (22-29) H 10/24/22 11:30 Anion Gap 13.9 (5-19) 10/24/22 11:30 BUN 27 mg/dL (6-20) H 10/24/22 11:30 Creatinine 4.9 mg/dL (0.7-1.2) H 10/24/22 11:30 GFR Calculation 12.8 mL/min (90-130) L 10/24/22 11:30 Glucose 139 mg/dL (65-115) H 10/24/22 11:30 Calculated Osmolality 297 mOsm/kg (285-295) H 10/24/22 11:30 Calcium 9.5 mg/dL (8.5-10.5) 10/24/22 11:30 Total Bilirubin 0.3 mg/dL (0.15-1.2) 10/24/22 11:30 AST 15 U/L (0-40) 10/24/22 11:30 ALT 10 U/L (0-41) 10/24/22 11:30 Alkaline Phosphatase 102 U/L (40-130) 10/24/22 11:30 Total Protein 7.9 g/dL (6.6-8.7) 10/24/22 11:30 Albumin 4.2 g/dL (3.5-5.2) 10/24/22 11:30 Globulin 3.7 g/dL (1.3-4.6) 10/24/22 11:30 Discharge Plan Discharge Patient Disposition: Home Clinical Impression: Anemia in chronic kidney disease, ESRD on dialysis, Thrombocytopenia Condition: Stable Prescriptions: No Action (DME) Blood Glucose Test Strip See Rx Instructions .Route Qty: 200 3RF Rx Instructions: As directed to test blood sugar BID carvedilol 25 mg tablet 25 mg PO BID Qty: 180 1RF (DME) blood-glucose meter Misc See Rx Instructions .ROUTE .MEDSUPPLY Qty: 1 0RF Rx Instructions: As directed to test blood sugar BID (DME) lancets [OneTouch Delica Plus Lancet] 30 gauge misc See Rx Instructions .ROUTE .COMPLEX Qty: 200 3RF Dose Instruction: USE TO TEST BLOOD SUGAR TWICE A DAY Rx Instructions: USE TO TEST BLOOD SUGAR TWICE A DAY losartan 50 mg Tablet 100 mg PO DAILY Qty: 60 1RF amlodipine 10 mg Tablet 10 mg PO DAILY Qty: 60 1RF ferrous gluconate 324 mg (37.5 mg iron) Tablet 324 mg PO BEDTIME Qty: 90 0RF Calphron 667 mg Tablet 1,334 mg PO TIDWM Qty: 90 1RF sodium bicarbonate 325 mg tablet 325 mg PO BID Qty: 60 0RF hydralazine 100 mg tablet 100 mg PO TID Qty: 90 2RF Discharge Orders: Discharge ED (Routine); Ordered 10/24/22 Ordered By: Caleb Diane Referrals: Enoch Borrero MD [Primary Care Provider] - Discharge Diet: As Directed Discharge Activity: Limit activity as instructed Patient Instructions: Chronic Kidney Disease Diet (DC), Anemia (ED), End Stage Kidney Disease (ED), Opioid Safety, Pain Management Activity Restrictions/Additional Instructions: Thank you for visiting the emergency department. You are seen appropriate for reassessment of abnormal labs. Your repeated hemoglobin here was 8.2 and you do not require transfusion. There is some variability throughout the day as well as lab testing variability which likely explains the change. Please continue your previously given instructions and medications. Please continue your dialysis regimen. Follow-up with your primary care provider. Return to the emergency department for bleeding, lightheaded or dizziness, chest pain, shortness of breath, or anything else that you are concerned about and feel needs emergency department evaluation. Coding Level of Care Code ED Production Maintenance Technician for Donta Leigh
[2022-10-24 11:48] LABS: Basophils # 0.1 10^3/uL (0.0-0.1); Eosinophils # 0.2 10^3/uL (0.0-0.8); Eosinophils % 3.5 %; Hematocrit 26.8 % (42.0-52.0); Hemoglobin 8.2 g/dL (11.7-16.6); Lymphocytes # 1.4 10^3/uL (0.8-4.8); Lymphocytes % 29.6 %; Mean Corpuscular HGB Conc 30.6 g/dL (30.0-36.0); Mean Corpuscular Hemoglobin 30.4 pg (28.0-34.0); Mean Corpuscular Volume 99.3 fl (80-94); Mean Platelet Volume 9.6 fL (7.4-10.4); Monocytes # 0.3 10^3/uL (0.2-0.9); Monocytes % 6.4 %; Neutrophils # 2.86 10^3/uL (1.8-7.7); Neutrophils % 59.3 %; Nucleated Red Blood Cells % 0 %; Platelet Count 125 10^3/cmm (130-400); Red Cell Distribution Width 13.6 % (12.1-15.1); White Blood Count 4.8 10^3/uL (4.0-10.0)
[2022-10-24 12:26] LABS: Alanine Aminotransferase 10 U/L (0-41); Albumin Level 4.2 g/dL (3.5-5.2); Alkaline Phosphatase 102 U/L (40-130); Anion Gap 13.9 (5-19); Aspartate Amino Transferase 15 U/L (0-40); Blood Urea Nitrogen 27 mg/dL (6-20); Calcium 9.5 mg/dL (8.5-10.5); Carbon Dioxide 34 mmol/L (22-29); Chloride 97 mmol/L (98-107); Globulin 3.7 g/dL (1.3-4.6); Glomerular Filtration Rate 12.8 mL/min (90-130); Glucose 139 mg/dL (65-115); Osmolality Calculated 297 mOsm/kg (285-295); Potassium 4.9 mmol/L (3.5-5.1); Sodium 140 mmol/L (136-145); Total Bilirubin 0.3 mg/dL (0.15-1.2); Total Protein 7.9 g/dL (6.6-8.7)
[2022-10-24 12:50] VITALS: BP 182/90; PULSE 74; RESP 16; O2SAT 98
== END 2022-10-24 12:51 | disposition home or self-care (01) ==
PROVIDERS: Emergency Medicine; Emergency Provider Emergency Medicine; PCP Family Medicine
DX: E11.22 Type 2 diabetes mellitus with diabetic chronic kidney disease (principal); I13.2 Hypertensive heart and chronic kidney disease with heart failure and with stage 5 chronic kidney disease, or end stage renal disease; N18.6 End stage renal disease; I50.20 Unspecified systolic (congestive) heart failure; D63.1 Anemia in chronic kidney disease; Z99.2 Dependence on renal dialysis; F17.210 Nicotine dependence, cigarettes, uncomplicated
CPT/HCPCS: 80053; 85025; 99283

== ENCOUNTER 2022-12-22 13:14 | Emergency (ER) | payer MEDICAID, SELFPAY ==
[2022-12-22 13:22] VITALS: BP 195/95; PULSE 80; RESP 16; TEMP 36.7; O2SAT 99; BMI 25.3
--- NOTE | 2022-12-22 13:50 | ED_ITS ---
HPI - Skin/Abscess/Foreign Bdy General: Chief complaint: Skin/Abscess/Foreign Body Stated complaint: lump on right side of back, pain Time Seen by Provider: 12/22/22 13:35 History of Present Illness: Patient is a 47-year-old male who comes to the ED with back pain. Patient states that for the past several days he has been having back muscle pain. Pain is located in specific spot of muscular tenderness on the right side of thoracic back region just between shoulder blades. Denies any injury or trauma to cause pain. Patient says pain radiates up and down his back. He has been taking Tylenol at home and that has not been helping his pain. Associated symptoms: Deny chills, fever(s), nausea or vomiting Review of Systems Const: Denies: fever(s), chills or fatigue Eyes: Denies: change in vision or eye discomfort ENMT: Denies: throat pain, odynophagia, nasal discharge or nasal congestion Card: Denies: chest pain, palpitations, edema, swelling of feet/ankles, dyspnea on exertion or orthopnea Resp: Denies: dyspnea, productive cough or non-productive cough GI: Denies: abdominal pain, nausea, vomiting, diarrhea, constipation or hematochezia : Denies: flank pain, difficulty urinating, dysuria or hematuria Musc: Reports: back pain; Denies: neck pain or extremity swelling Skin/Breast: Denies: rash or new lesions Neuro: Denies: headache(s), numbness in extremities or weakness in extremities PFS ED PFSH: Medical History Anemia Diabetes mellitus type 2, uncontrolled Diabetic ulcer of left foot Elevated BUN HFrEF (heart failure with reduced ejection fraction) History of diabetes mellitus HTN (hypertension) Kidney failure Pericardial effusion Peripheral vascular disease Peritonsillar cellulitis Severe anemia Thrombocytopenia Vitamin D deficiency Surgical History No history of previous surgery Family History Other CAD (coronary artery disease) Diabetes Hypertension Lung disease Denies family history of Clotting disorder Dementia Hyperlipidemia Psychiatric illness Chronic kidney disease (CKD) Anesthesia complication Bleeding disorder Cancer Stroke Social History (Updated 11/19/22 @ 11:22 by FORTINO Mukherjee Smoking and tobacco status: current every day smoker cigarettes Years cigarettes smoked: 30 Quit status (tobacco): considering quitting Alcohol intake: former Substance/Drug Use: never Lives independently: Yes Household members: none Housing: House Current occupational status: unemployed Special manuel needs: No Agree to transfusion: Yes Physical Exam Const: COMMON NORMALS: patient oriented x3 HENMT: COMMON NORMALS: normocephalic HEAD & SCALP: normocephalic MOUTH: Normal oral and palatal mucosa present THROAT: posterior oropharynx normal and uvula midline Neck/C-Spine: COMMON NORMALS: supple GENERAL: Yes normal visual inspection Resp: COMMON NORMALS: normal respiratory effort, No retractions, No use of accessory muscles and clear to auscultation bilaterally AUSCULTATION: clear to auscultation bilaterally Cardio: COMMON NORMALS: regular rate, regular rhythm, S1 normal heart sound present, S2 normal heart sound present, No gallops present (Cardio), No clicks present (Cardio), No murmurs present (Cardio) and Peripheral pulses 2+ throughout RATE: regular rate RHYTHM: regular rhythm HEART SOUNDS: S1 normal heart sound present and S2 normal heart sound present PERIPHERAL PULSES: Peripheral pulses 2+ throughout GI: COMMON NORMALS: Normal to inspection, nondistended, normoactive bowel sounds present, Soft to palpation, non-tender and no masses PALPATION: Yes Soft to palpation : COMMON NORMALS: Yes no CVA tenderness BLADDER/KIDNEY EXAM: Yes no CVA tenderness Back/Pelvis: COMMON NORMALS: no CVA tenderness THORACIC SPINE/UPPER BACK: Yes normal to inspection, Yes thoracic ROM normal, No thoracic spinal tenderness and Yes paraspinal muscle tenderness Thoracic paraspinal muscle tenderness: right Extremity: COMMON NORMALS: normal to inspection Neuro: COMMON NORMALS: patient oriented x3 GAIT: Yes Normal gait present Skin: GENERAL SKIN EXAM: dry skin Course Vital Signs: Vital signs: Vital Signs Temperature 98.1 F 12/22/22 13:22 Pulse Rate 80 12/22/22 13:22 Respiratory Rate 16 12/22/22 13:22 Blood Pressure 195/95 12/22/22 13:22 Pulse Oximetry 99 12/22/22 13:22 Oxygen Delivery Me thod Room Air 12/22/22 13:22 MDM - Skin/Abscess/Foreign Bdy Medicial Decision Making Patient is a 47-year-old male who comes to the ED with back pain. Patient states that for the past several days he has been having back muscle pain. Pain is located in specific spot of muscular tenderness on the right side of thoracic back region just between shoulder blades. Denies any injury or trauma to cause pain. Patient says pain radiates up and down his back. He has been taking Tylenol at home and that has not been helping his pain. Vitals are stable. Patient has some right thoracic paraspinal muscle tenderness but no spinal tenderness upon exam. Rest of exam is benign. Patient was given a dose of ibuprofen and a muscle relaxer here in the ED. He was stable for discharge home and diagnosed with right-sided thoracic back pain and discharged home with a prescription for muscle relaxer. Follow-up with PCP in the next week for reevaluation. Return to ED precautions given. Patient understood and agreed with plan. Discharge Plan Discharge Patient Disposition: Home Clinical Impression: Right-sided thoracic back pain Qualifiers: Chronicity: acute Qualified Code(s): M54.6 - Pain in thoracic spine Condition: Stable Prescriptions: New methocarbamol 750 mg tablet 750 mg PO Q8H Qty: 20 0RF No Action RenaPlex 800 mcg- 12.5 mg tablet 1 tab PO DAILY ergocalciferol (vitamin D2) 50,000 unit tablet 50,000 unit PO .weekly Rx Instructions: Take once weekly for 12 weeks Originally prescribed on 10/19/22 isosorbide dinitrate 20 mg tablet 20 mg PO TID Qty: 270 1RF Rx Instructions: allow nitrate-free interval of 12-14 hrs per 24-hr period hydralazine 100 mg tablet 100 mg PO TID Qty: 270 1RF carvedilol 25 mg tablet 25 mg PO BID Qty: 180 1RF amlodipine 10 mg tablet 10 mg PO DAILY Qty: 90 1RF Calphron 667 mg tablet 1,334 mg PO TIDWM 90 Days Qty: 540 1RF sodium bicarbonate 325 mg tablet 325 mg PO BID Qty: 180 1RF (DME) lancets [OneTouch Delica Plus Lancet] 30 gauge misc See Rx Instructions .ROUTE .COMPLEX Qty: 200 3RF Dose Instruction: USE TO TEST BLOOD SUGAR TWICE A DAY Rx Instructions: USE TO TEST BLOOD SUGAR TWICE A DAY (DME) Blood Glucose Test Strip See Rx Instructions .Route Qty: 200 3RF Rx Instructions: As directed to test blood sugar BID (DME) blood-glucose meter Mis See Rx Instructions .ROUTE .MEDSUPPLY Qty: 1 0RF Rx Instructions: As directed to test blood sugar BID losartan 50 mg tablet 100 mg PO DAILY Qty: 90 0RF Discharge Orders: Discharge ED (Routine); Ordered 12/22/22 Ordered By: Daryl Urbina Referrals: Enoch Borrero MD [Primary Care Provider] - Discharge Diet: Regular Discharge Activity: Increase activity as tolerated Patient Instructions: Back Pain (ED), Opioid Safety Activity Restrictions/Additional Instructions: Follow-up with medical provider as directed. Take medications as prescribed. Return to the ER or your medical provider if condition worsens. Please read and understand discharge instructions. Thank you for choosing [facility] for your healthcare needs today. Please realize this is an emergency room and that we are providing you with a medical screening exam and this may not be complete and all inclusive of all the testing and or work up that you may need to determine your ailment or severity of your illness. It is very important that you follow up as instructed or that you return to the Emergency Department should you have concerns or if your condition changes or worsens in any way. Coding Level of Care Code ED Feeder Catcher for Donta Leigh
[2022-12-22] MEDS: orphenadrine 30 mg/mL Inj 2 mL 60 MG IM (14:02)
== END 2022-12-22 14:10 | disposition home or self-care (01) ==
PROVIDERS: Emergency Provider Physician Assistant; PCP Family Medicine
DX: M54.6 Pain in thoracic spine (principal)
CPT/HCPCS: 96372; 99284; J2360

== ENCOUNTER 2022-12-22 23:59 | Emergency (ER) | payer MEDICAID, SELFPAY ==
[2022-12-23 00:03] VITALS: BP 196/86; PULSE 76; RESP 16; TEMP 36.8; O2SAT 98; BMI 26.4
--- NOTE | 2022-12-23 00:10 | ED_ITS ---
HPI - Back Pain/Injury General: Chief Complaint: Back Pain/Injury Stated Complaint: back pain Time Seen by Provider: 12/23/22 00:04 History of Present Illness: 47-year-old male patient comes in today for complaints of mid back pain. On exam patient appears nontoxic. Patient denies any injury. Patient reports point tenderness to the right thoracic paraspinous region. Patient has a history of dialysis with port in place. Patient reports no fever. Patient was unable to get comfortable in bed. Patient was seen today it started on muscle relaxer and hydrocodone for discomfort. Associated symptoms: Deny fever(s) or vomiting Review of Systems General: Reports: 10 or more systems reviewed and unremarkable except in HPI and below Const: Denies: fever(s) Eyes: Denies: change in vision ENMT: Denies: throat pain Card: Denies: chest pain Resp: Denies: dyspnea GI: Denies: vomiting : Denies: difficulty urinating Musc: Reports: back pain Skin/Breast: Denies: rash Neuro: Denies: headache(s) Psych: Denies: depression PFSH ED PFSH: Medical History Anemia Diabetes mellitus type 2, uncontrolled Diabetic ulcer of left foot Elevated BUN HFrEF (heart failure with reduced ejection fraction) History of diabetes mellitus HTN (hypertension) Kidney failure Pericardial effusion Peripheral vascular disease Peritonsillar cellulitis Severe anemia Thrombocytopenia Vitamin D deficiency Surgical History No history of previous surgery Family History Other CAD (coronary artery disease) Diabetes Hypertension Lung disease Denies family history of Clotting disorder Dementia Hyperlipidemia Psychiatric illness Chronic kidney disease (CKD) Anesthesia complication Bleeding disorder Cancer Stroke Social History (Updated 11/19/22 @ 11:22 by Ashwini Kerns LPN) Smoking and tobacco status: current every day smoker cigarettes Years cigarettes smoked: 30 Quit status (tobacco): considering quitting Alcohol intake: former Substance/Drug Use: never Lives independently: Yes Household members: none Housing: House Current occupational status: unemployed Special manuel needs: No Agree to transfusion: Yes Physical Exam Const: COMMON NORMALS: alert HENMT: COMMON NORMALS: normocephalic HEAD & SCALP: normocephalic Neck/C-Spine: COMMON NORMALS: full ROM Chest: CHEST: No tenderness Resp: COMMON NORMALS: normal respiratory effort Cardio: COMMON NORMALS: regular rate RATE: regular rate GI: COMMON NORMALS: non-tender Back/Pelvis: COMMON NORMALS: thoracic and lumbar spine normal to inspection BACK IMAGE (MALE): 1. Point tenderness Neuro: SENSORIUM/ORIENTATION: Yes alert Skin: COMMON NORMALS: turgor normal GENERAL SKIN EXAM: turgor normal Course Vital Signs: Vital signs: Vital Signs Temperature 98.3 F 12/23/22 00:03 Pulse Rate 76 12/23/22 00:03 Respiratory Rate 16 12/23/22 00:19 Blood Pressure 196/86 12/23/22 00:03 Pulse Oximetry 98 12/23/22 00:19 Oxygen Delivery Me thod Room Air 12/23/22 00:03 MDM - Back Pain/Injury Medical Decision Making 47-year-old male patient comes in today for complaints of point tenderness to the mid right side of his back. On exam there is a area of tenderness just medial to the scapula. Normal range of motion of extremities. Distal pulses are intact. Respirations are even lungs are clear to auscultation. Differential diagnosis includes but not limited to muscle strain, intervertebral disc disease, facet arthritis, neuralgia. X-ray of the thoracic spine and chest x-ray was unremarkable. Patient was given 4 mg of morphine and 15 mg of ketorolac for his pain with good results. I also performed a trigger point injection into the rhomboid muscle of the right shoulder with further relief of pain and discomfort. Trigger point consisted of for mL of lidocaine and 4 mg of dexamethasone. Patient reported understanding of care plan and need for follow- up or return to the ER. Discharge Plan Discharge Patient Disposition: Home Clinical Impression: Interscapular pain Condition: Stable Prescriptions: No Action RenaPlex 800 mcg- 12.5 mg tablet 1 tab PO DAILY ergocalciferol (vitamin D2) 50,000 unit tablet 50,000 unit PO .weekly Rx Instructions: Take once weekly for 12 weeks Originally prescribed on 10/19/22 isosorbide dinitrate 20 mg tablet 20 mg PO TID Qty: 270 1RF Rx Instructions: allow nitrate-free interval of 12-14 hrs per 24-hr period hydralazine 100 mg tablet 100 mg PO TID Qty: 270 1RF carvedilol 25 mg tablet 25 mg PO BID Qty: 180 1RF amlodipine 10 mg tablet 10 mg PO DAILY Qty: 90 1RF Calphron 667 mg tablet 1,334 mg PO TIDWM 90 Days Qty: 540 1RF sodium bicarbonate 325 mg tablet 325 mg PO BID Qty: 180 1RF (DME) lancets [OneTouch Delica Plus Lancet] 30 gauge misc See Rx Instructions .ROUTE .COMPLEX Qty: 200 3RF Dose Instruction: USE TO TEST BLOOD SUGAR TWICE A DAY Rx Instructions: USE TO TEST BLOOD SUGAR TWICE A DAY (DME) Blood Glucose Test Strip See Rx Instructions .Route Qty: 200 3RF Rx Instructions: As directed to test blood sugar BID (DME) blood-glucose meter Misc See Rx Instructions .ROUTE .MEDSUPPLY Qty: 1 0RF Rx Instructions: As directed to test blood sugar BID losartan 50 mg tablet 100 mg PO DAILY Qty: 90 0RF methocarbamol 750 mg tablet 750 mg PO Q8H Qty: 20 0RF Discharge Orders: Discharge ED (Routine); Ordered 12/23/22 Ordered By: Brett Parks Referrals: Enoch Borrero MD [Primary Care Provider] - Discharge Diet: Usual diet Discharge Activity: Resume usual activity Patient Instructions: Opioid Safety, Pain Management Activity Restrictions/Additional Instructions: Activity as tolerated. Use ice or heat for further pain relief. Drink plenty of water with medications. Follow-up with primary care. Coding Level of Care Code ED Social Sciences Research Scientist for Donta Leigh
[2022-12-23 00:19] VITALS: RESP 16; O2SAT 98
[2022-12-23] MEDS: morphine 4 mg/mL SDV 1 mL IM (00:19)
[2022-12-23] MEDS: ketorolac 30 mg/mL INJ IM (00:22)
--- NOTE | 2022-12-23 00:37 | XRR_ITS ---
PROCEDURE INFORMATION: Exam: XR Thoracic Spine Exam date and time: 12/23/2022 12:40 AM Age: 47 years old Clinical indication: Pain in thoracic spine; Prior surgery; Surgery date: 6+ months; Surgery type: Dialysis cath; Patient HX: C/O RT sided upper back pain. No recent injury. TECHNIQUE: Imaging protocol: Radiologic exam of the thoracic spine. Views: 3 views. COMPARISON: CR XR chest 1V portable [id number] 10/12/2022 3:15 AM FINDINGS: Tubes, catheters and devices: Dialysis catheter terminates at the cavoatrial junction. Bones/joints: Mild thoracic kyphosis. Negative for malalignment. No fracture. Soft tissues: Unremarkable. XR/XR thoracic spine 3V* [id number] IMPRESSION: Negative for acute thoracic spine abnormality.
--- NOTE | 2022-12-23 00:38 | XRR_ITS ---
PROCEDURE INFORMATION: Exam: XR Chest Exam date and time: 12/23/2022 12:40 AM Age: 47 years old Clinical indication: Prior surgery; Surgery date: 6+ months; Surgery type: Dialysis cath; Patient HX: C/O RT sided upper back pain. No recent injury. ; Additional info: Posterior back pain TECHNIQUE: Imaging protocol: Radiologic exam of the chest. Views: 1 view. COMPARISON: CR XR chest 1V portable [id number] 10/12/2022 3:15 AM FINDINGS: Tubes, catheters and devices: Dialysis catheter terminates near cavoatrial junction unchanged in position from comparison imaging. Lungs: Unremarkable. No consolidation. Pleural spaces: Unremarkable. No pleural effusion. No pneumothorax. Heart/Mediastinum: Moderate cardiac enlargement. Bones/joints: Unremarkable. XR/XR chest 1V portable [id number] IMPRESSION: Negative for acute chest abnormality.
[2022-12-23] MEDS: dexamethasone 10 mg/mL INJ 4 MG IM (01:27)
[2022-12-23] MEDS: lidocaine 1% INJ 10 mL (per mL) INJECTION (01:28)
[2022-12-23 01:47] VITALS: BP 192/104; PULSE 79; RESP 16; O2SAT 96
== END 2022-12-23 01:50 | disposition home or self-care (01) ==
PROVIDERS: Emergency Provider Nurse Practitioner Family; PCP Family Medicine
DX: M54.6 Pain in thoracic spine (principal); F17.210 Nicotine dependence, cigarettes, uncomplicated; E11.9 Type 2 diabetes mellitus without complications; I11.0 Hypertensive heart disease with heart failure; I50.9 Heart failure, unspecified
CPT/HCPCS: 71045; 72072; 96372; 99284; J1100; J1885; J2270

== ENCOUNTER 2023-01-06 17:27 | Emergency (ER) | payer MEDICARE, MEDICAID, SELFPAY ==
[2023-01-06 17:43] VITALS: BP 169/84; PULSE 84; RESP 16; TEMP 36.8; O2SAT 98
--- NOTE | 2023-01-06 18:03 | USR_ITS ---
PROCEDURE INFORMATION: Exam: US Duplex Left Lower Extremity Veins, Limited Exam date and time: 01/06/2023 6:59 PM Age: 47 years old Clinical indication: Other: Left posterior calf and distal thigh knotting and itching x 3 days. No history of dvt per patient. ; Additional info: Pain, complains of knotting TECHNIQUE: Imaging protocol: Real-time duplex ultrasound of the left extremity with 2-D suarez scale, color Doppler flow and spectral waveform analysis including responses to compression and other maneuvers (when performed) with image documentation. Limited exam focused on the left lower extremity veins. COMPARISON: No relevant prior studies available. FINDINGS: Left deep veins: Unremarkable. The common femoral, femoral, proximal profunda femoral and popliteal veins are patent without thrombus. Normal Doppler waveforms. Normal compressibility and/or augmentation response. Left superficial veins: Unremarkable. Saphenofemoral junction is patent without thrombus. Right deep veins: Unremarkable. The common femoral, femoral, proximal profunda femoral, popliteal, and visualized calf veins are patent without thrombus. Normal Doppler waveforms. Normal compressibility and/or augmentation response. Soft tissues: Moderate subcutaneous edema at the left calf. US/[place] [id number] IMPRESSION: 1. No evidence for deep venous thrombosis in the left lower extremity. 2. Moderate subcutaneous edema at the left calf.
--- NOTE | 2023-01-06 18:03 | ED_ITS ---
HPI - Skin/Abscess/Foreign Bdy General: Chief complaint: Skin/Abscess/Foreign Body Stated complaint: Spot on Left Leg and itching everywhere Time Seen by Provider: 01/06/23 17:43 Source: patient Mode of arrival: ambulatory Limitations: no limitations History of Present Illness: Patient is a 47-year-old male with a history of end-stage renal disease on peritoneal dialysis here for complaints of generalized pruritus as well as a complaint of left leg pain. He states pruritus has been present over the past several days. He states he noticed a small lesion to the lateral aspect of his left leg and then feels like there is a knot to his posterior thigh. Patient has not noticed any notable rash to explain the itchiness. He has not had any recent outdoor exposures. MD complaint: other (itching, lesion to L lateral leg) Onset (ago): day(s) Tetanus up to date: yes Location: generalized and LLE Severity: moderate Relieving factors: none Exacerbating factors: none Context: none and other (dialysis patient) Associated symptoms: Reports no associated symptoms; Deny chills, fever(s), nausea or vomiting Treatments prior to arrival: none Review of Systems Const: Denies: fever(s), chills, body aches, fatigue or malaise Eyes: Denies: change in vision or blurry vision Card: Denies: chest pain, palpitations, irregular heart rhythm, lightheadedness, syncope or dyspnea on exertion Resp: Denies: dyspnea, productive cough or pain on inspiration GI: Denies: abdominal pain, nausea, vomiting, heartburn or diarrhea : Denies: difficulty urinating or dysuria Musc: Reports: extremity pain; Denies: neck pain, back pain, extremity swelling, joint pain, joint swelling, joint redness, joint warmth, joint stiffness or limited range of motion Skin/Breast: Reports: pruritus; Denies: rash, erythema, sores or changes in skin color Neuro: Denies: headache(s), numbness in extremities, weakness in extremities, sensory changes or dizziness PFSH ED PFSH: Medical History Anemia Diabetes mellitus type 2, uncontrolled Diabetic ulcer of left foot Elevated BUN HFrEF (heart failure with reduced ejection fraction) History of diabetes mellitus HTN (hypertension) Kidney failure Pericardial effusion Peripheral vascular disease Peritonsillar cellulitis Severe anemia Thrombocytopenia Vitamin D deficiency Surgical History No history of previous surgery Family History Other CAD (coronary artery disease) Diabetes Hypertension Lung disease Denies family history of Clotting disorder Dementia Hyperlipidemia Psychiatric illness Chronic kidney disease (CKD) Anesthesia complication Bleeding disorder Cancer Stroke Social History Smoking and tobacco status: current every day smoker cigarettes Years cigarettes smoked: 30 Quit status (tobacco): considering quitting Alcohol intake: former Substance/Drug Use: never Lives independently: Yes Household members: none Housing: House Current occupational status: unemployed Special manuel needs: No Agree to transfusion: Yes Physical Exam Const: COMMON NORMALS: no acute distress, average body habitus, patient oriented x3, no limitations, healthy appearing, alert and well nourished ORIENTATION/CONSCIOUSNESS: Yes awake, Yes oriented to person, Yes oriented to place and Yes oriented to time HENMT: COMMON NORMALS: normocephalic and atraumatic HEAD & SCALP: normal to inspection, normocephalic and atraumatic Resp: COMMON NORMALS: normal respiratory effort and clear to auscultation bilaterally AUSCULTATION: clear to auscultation bilaterally Cardio: COMMON NORMALS: regular rate and regular rhythm RATE: regular rate RHYTHM: regular rhythm Extremity: COMMON NORMALS: normal to inspection, full ROM, capillary refill normal, no joint enlargement, no clubbing, cyanosis or edema, no calf tenderness and no pedal edema GENERAL: Yes normal exam except as noted OTHER: small lesion that appears slightly hemorrhagic located to left lateral lower leg; there appears to be a small bite-like center; there is no underlying fluctuance or skin necrosis; no drainage; no surrounding redness/warmth Neuro: COMMON NORMALS: patient oriented x3, moves all extremities, no focal motor deficits, no sensory deficits noted and gait normal SENSORIUM/O RIENTATION: Yes alert, Yes oriented to person, Yes oriented to place and Yes oriented to time Skin: COMMON NORMALS: no rashes or lesions noted GENERAL SKIN EXAM: no rashes or lesions noted Course Vital Signs: Vital signs: Vital Signs Temperature 98.3 F 01/06/23 17:43 Pulse Rate 84 01/06/23 17:43 Respiratory Rate 16 01/06/23 17:43 Blood Pressure 169/84 01/06/23 17:43 Pulse Oximetry 98 01/06/23 17:43 Oxygen Delivery Me thod Room Air 01/06/23 17:43 MDM - Skin/Abscess/Foreign Bdy Medicial Decision Making Patient's generalized pruritus in the absence of abnormal skin findings/rash most likely secondary to uremic pruritus given his history of ESRD. Labs were checked and patient's magnesium and phosphorus are normal. His BUN/Cr seem to be at baseline. He received dialysis yesterday and scheduled for dialysis on Tuesday. We discussed symptomatic treatment for this starting with topical emollient/ointments. We also discussed antihistamine such as Benadryl. If these are unsuccessful he can speak to his traffic controller cable/PCP for other treatment options. Left leg was ultrasounded due to the complaint of pain and feeling like there was a knot behind his posterior thigh. This was negative for DVT. They did see some edema surrounding his presumed bite. Discussed conservative therapies at home for this. Monitor for secondary infection. Return ED precautions given. Lab Data 01/06/23 18:15 01/06/23 18:15 Radiology Impressions Venous Duplex 01/06/23 18:03 IMPRESSION: 1. No evidence for deep venous thrombosis in the left lower extremity. 2. Moderate subcutaneous edema at the left calf. Laboratory Results WBC 12.9 10^3/uL (4.0-10.0) H 01/06/23 18:15 RBC 3.29 10^6/uL (4.1-5.3) L 01/06/23 18:15 Hgb 11.1 g/dL (11.7-16.6) L 01/06/23 18:15 Hct 33.8 % (42.0-52.0) L 01/06/23 18:15 MCV 102.7 fl (80-94) H 01/06/23 18:15 MCH 33.7 pg (28.0-34.0) 01/06/23 18:15 MCHC 32.8 g/dL (30.0-36.0) 01/06/23 18:15 RDW 14.9 % (12.1-15.1) 01/06/23 18:15 Plt Count 121 10^3/cmm (130-400) L 01/06/23 18:15 MPV 9.1 fL (7.4-10.4) 01/06/23 18:15 Neut % (Auto) 76.0 % 01/06/23 18:15 Lymph % (Auto) 11.7 % 01/06/23 18:15 Ware % (Auto) 5.5 % 01/06/23 18:15 Eos % (Auto) 6.1 % 01/06/23 18:15 Baso % (Auto) 0.3 % 01/06/23 18:15 Neut # (Auto) 9.78 10^3/uL (1.8-7.7) H 01/06/23 18:15 Lymph # (Auto) 1.5 10^3/uL (0.8-4.8) 01/06/23 18:15 Ware # (Auto) 0.7 10^3/uL (0.2-0.9) 01/06/23 18:15 Eos # (Auto) 0.8 10^3/uL (0.0-0.8) 01/06/23 18:15 Baso # (Auto) 0.0 10^3/uL (0.0-0.1) 01/06/23 18:15 Nucleated RBC % (auto) 0 % 01/06/23 18:15 Nucleated RBCs # 0.0 /100WBC 01/06/23 18:15 Sodium 138 mmol/L (136-145) 01/06/23 18:15 Potassium 4.2 mmol/L (3.5-5.1) 01/06/23 18:15 Chloride 94 mmol/L (98-107) L 01/06/23 18:15 Carbon Dioxide 32 mmol/L (22-29) H 01/06/23 18:15 Anion Gap 16.2 (5-19) 01/06/23 18:15 BUN 26 mg/dL (6-20) H 01/06/23 18:15 Creatinine 6.4 mg/dL (0.7-1.2) H* 01/06/23 18:15 GFR Calculation 9.4 mL/min (90-130) L 01/06/23 18:15 Glucose 128 mg/dL (65-115) H 01/06/23 18:15 Calculated Osmolality 292 mOsm/kg (285-295) 01/06/23 18:15 Calcium 9.7 mg/dL (8.5-10.5) 01/06/23 18:15 Phosphorus 4.0 mg/dL (2.5-4.5) 01/06/23 18:15 Magnesium 2.3 mg/dL (1.7-2.3) 01/06/23 18:15 Total Bilirubin 0.6 mg/dL (0.15-1.2) 01/06/23 18:15 AST 14 U/L (0-40) 01/06/23 18:15 ALT 11 U/L (0-41) 01/06/23 18:15 Alkaline Phosphatase 89 U/L (40-130) 01/06/23 18:15 Total Protein 8.3 g/dL (6.6-8.7) 01/06/23 18:15 Albumin 4.8 g/dL (3.5-5.2) 01/06/23 18:15 Globulin 3.5 g/dL (1.3-4.6) 01/06/23 18:15 Discharge Plan Discharge Patient Disposition: Home Clinical Impression: Uremic pruritus Condition: Stable Prescriptions: No Action RenaPlex 800 mcg- 12.5 mg tablet 1 tab PO DAILY ergocalciferol (vitamin D2) 50,000 unit tablet 50,000 unit PO .weekly Rx Instructions: Take once weekly for 12 weeks Originally prescribed on 10/19/22 isosorbide dinitrate 20 mg tablet 20 mg PO TID Qty: 270 1RF Rx Instructions: allow nitrate-free interval of 12-14 hrs per 24-hr period hydralazine 100 mg tablet 100 mg PO TID Qty: 270 1RF carvedilol 25 mg tablet 25 mg PO BID Qty: 180 1RF amlodipine 10 mg tablet 10 mg PO DAILY Qty: 90 1RF Calphron 667 mg tablet 1,334 mg PO TIDWM 90 Days Qty: 540 1RF sodium bicarbonate 325 mg tablet 325 mg PO BID Qty: 180 1RF (DME) lancets [OneTouch Delica Plus Lancet] 30 gauge misc See Rx Instructions .ROUTE .COMPLEX Qty: 200 3RF Dose Instruction: USE TO TEST BLOOD SUGAR TWICE A DAY Rx Instructions: USE TO TEST BLOOD SUGAR TWICE A DAY (DME) Blood Glucose Test Strip See Rx Instructions .Route Qty: 200 3RF Rx Instructions: As directed to test blood sugar BID (DME) blood-glucose meter Misc See Rx Instructions .ROUTE .MEDSUPPLY Qty: 1 0RF Rx Instructions: As directed to test blood sugar BID losartan 50 mg tablet 100 mg PO DAILY Qty: 90 0RF methocarbamol 750 mg tablet 750 mg PO Q8H Qty: 20 0RF Discharge Orders: Discharge ED (Routine); Ordered 01/06/23 Ordered By: Zoila Sparks Referrals: Enoch Borrero MD [Primary Care Provider] - Activity Restrictions/Additional Instructions: As we discussed I would begin applying a lotion/emollient to your skin to try to help with your itching. We also discussed possibly taking antihistamines such as Benadryl. Some [id number] options include Calaclear, Caldyphen, or Cerave Itch Relief. Coding Level of Care Code ED Binder Stripper Hand for Donta Leigh
[2023-01-06 18:30] LABS: Basophils % 0.3 %; Eosinophils # 0.8 10^3/uL (0.0-0.8); Eosinophils % 6.1 %; Hematocrit 33.8 % (42.0-52.0); Hemoglobin 11.1 g/dL (11.7-16.6); Lymphocytes # 1.5 10^3/uL (0.8-4.8); Lymphocytes % 11.7 %; Mean Corpuscular HGB Conc 32.8 g/dL (30.0-36.0); Mean Corpuscular Hemoglobin 33.7 pg (28.0-34.0); Mean Corpuscular Volume 102.7 fl (80-94); Mean Platelet Volume 9.1 fL (7.4-10.4); Monocytes # 0.7 10^3/uL (0.2-0.9); Monocytes % 5.5 %; Neutrophils # 9.78 10^3/uL (1.8-7.7); Nucleated Red Blood Cells % 0 %; Platelet Count 121 10^3/cmm (130-400); Red Blood Count 3.29 10^6/uL (4.1-5.3); Red Cell Distribution Width 14.9 % (12.1-15.1); White Blood Count 12.9 10^3/uL (4.0-10.0)
[2023-01-06 18:50] LABS: Alanine Aminotransferase 11 U/L (0-41); Albumin Level 4.8 g/dL (3.5-5.2); Alkaline Phosphatase 89 U/L (40-130); Anion Gap 16.2 (5-19); Aspartate Amino Transferase 14 U/L (0-40); Blood Urea Nitrogen 26 mg/dL (6-20); Calcium 9.7 mg/dL (8.5-10.5); Carbon Dioxide 32 mmol/L (22-29); Chloride 94 mmol/L (98-107); Globulin 3.5 g/dL (1.3-4.6); Glomerular Filtration Rate 9.4 mL/min (90-130); Glucose 128 mg/dL (65-115); Magnesium 2.3 mg/dL (1.7-2.3); Osmolality Calculated 292 mOsm/kg (285-295); Potassium 4.2 mmol/L (3.5-5.1); Sodium 138 mmol/L (136-145); Total Bilirubin 0.6 mg/dL (0.15-1.2); Total Protein 8.3 g/dL (6.6-8.7)
== END 2023-01-06 19:52 | disposition home or self-care (01) ==
PROVIDERS: Emergency Provider Physician Assistant; PCP Family Medicine
DX: L29.8 Other pruritus (principal); N19 Unspecified kidney failure; F17.210 Nicotine dependence, cigarettes, uncomplicated; E11.9 Type 2 diabetes mellitus without complications; I11.0 Hypertensive heart disease with heart failure; I50.9 Heart failure, unspecified
CPT/HCPCS: 36415; 80053; 83735; 84100; 85025; 93971; 99284

== ENCOUNTER 2023-01-24 14:20 | Emergency (ER) | payer MEDICARE, MEDICAID, SELFPAY ==
[2023-01-24 14:33] VITALS: BP 172/91; PULSE 81; RESP 14; TEMP 36.6; O2SAT 94; BMI 25.4
--- NOTE | 2023-01-24 15:53 | ED_ITS ---
HPI - Headache General: Chief Complaint: Headache Stated Complaint: Pain in head with brusing and blurry vision Time Seen by Provider: 01/24/23 15:53 History of Present Illness: Mr. Romero is a 47-year-old gentleman with significant past medical history of diabetes, heart failure, end-stage renal disease on hemodialysis through right tunneled catheter presenting to the emergency department for evaluation of blood pressure and headache with blurry vision. He notes being on dialysis for approximately 4 months and typically has had issues with extreme hypertension, systolic blood pressure 220s if not higher, postdialysis. He has seen PCP multiple times and is on numerous antihypertensives and despite this this continues. He reports lately having increased headache and also noticed a bruise on his head. He notes associated blurred vision. Denies other focal neurologic symptoms. No chest pain or shortness of breath. Intensity symptoms is moderate. Course has persisted. No other specific changes in health, exacerbating, or alleviating factors identified. Onset (ago): day(s) Quality & Timing: aching and throbbing Exacerbating factors: other Relieving factors: nothing Associated symptoms: Reports other Review of Systems General: Reports: 10 or more systems reviewed and unremarkable except in HPI and below PFSH ED PFSH: Medical History Anemia Diabetes mellitus type 2, uncontrolled Diabetic ulcer of left foot Elevated BUN HFrEF (heart failure with reduced ejection fraction) History of diabetes mellitus HTN (hypertension) Kidney failure Pericardial effusion Peripheral vascular disease Peritonsillar cellulitis Severe anemia Thrombocytopenia Vitamin D deficiency Surgical History No history of previous surgery Family History Other CAD (coronary artery disease) Diabetes Hypertension Lung disease Denies family history of Clotting disorder Dementia Hyperlipidemia Psychiatric illness Chronic kidney disease (CKD) Anesthesia complication Bleeding disorder Cancer Stroke Social History Smoking and tobacco status: current every day smoker cigarettes Packs smoked per day: 0.5 Years cigarettes smoked: 30 Quit status (tobacco): considering quitting Alcohol intake: former Substance/Drug Use: never Lives independently: Yes Household members: none Housing: House Current occupational status: unemployed Special manuel needs: No Agree to transfusion: Yes Physical Exam Const: COMMON NORMALS: alert GENERAL APPEARANCE: cooperative and well developed HENMT: COMMON NORMALS: normocephalic and atraumatic HEAD & SCALP: normocephalic and atraumatic Eye: COMMON NORMALS: conjunctivae normal CONJUNCTIVA: Yes conjunctivae nor mal SCLERA: sclerae normal Neck/C-Spine: COMMON NORMALS: supple GENERAL: Yes trachea midline Chest: OTHER: Right tunneled catheter clean dry and intact Resp: COMMON NORMALS: clear to auscultation bilaterally EFFORT & INSPECTION: Yes able to speak in complete sentences AUSCULTATION: clear to auscultation bilaterally Cardio: COMMON NORMALS: regular rate and regular rhythm RATE: regular rate RHYTHM: regular rhythm GI: COMMON NORMALS: Soft to palpation PALPATION: Yes Soft to palpation and No Tenderness to palpation present (GI) Extremity: GENERAL: Yes normal exam except as noted and No edema Neuro: COMMON NORMALS: moves all extremities SENSORIUM/ORIENTATION: Yes alert and No Orientation impaired Psych: COMMON NORMALS: mental status grossly normal and Normal thought process present THOUGHT PROCESS: Normal thought process present Course Vital Signs: Vital signs: Vital Signs Temperature 97.8 F 01/24/23 14:33 Pulse Rate 84 01/24/23 17:19 Respiratory Rate 16 01/24/23 17:19 Blood Pressure 179/87 01/24/23 18:51 Pulse Oximetry 97 01/24/23 17:19 Oxygen Delivery Me thod Room Air 01/24/23 17:19 MDM - Headache Medical Decision Making 47-year-old gentleman presenting with hypotension after dialysis. No focal neurologic deficits. Labs with no leukocytosis, mild anemia and thrombocytopenia which are similar to prior. Electrolyte panel with no emergent need for inpatient dialysis. Head CT negative for acute intracranial hemorrhage or mass. Patient feels improved with blood pressure control and analgesia. Likely contin ues to have adverse effects of dialysis. He has been prescribed additional medications in the outpatient setting which she has just picked up and has not been on for multiple days. As such I believe continued outpatient plan is appropriate. The results of ED evaluation were discussed with the patient including prescriptions and/or symptomatic cares (if applicable) including appropriate and responsible use, followup plan, and return precautions. The patient verbalized understanding and felt safe for discharge. Medical Records I reviewed the patient's medical records. Lab Data I reviewed the patient's lab results. 01/24/23 16:04 01/24/23 16:[address] 01/24/23 16:00 IMPRESSION: No acute intracranial abnormality. Laboratory Results WBC 9.5 10^3/uL (4.0-10.0) 01/24/23 16:04 RBC 3.54 10^6/uL (4.1-5.3) L 01/24/23 16:04 Hgb 11.6 g/dL (11.7-16.6) L 01/24/23 16:04 Hct 35.7 % (42.0-52.0) L 01/24/23 16:04 MCV 100.8 fl (80-94) H 01/24/23 16:04 MCH 32.8 pg (28.0-34.0) 01/24/23 16:04 MCHC 32.5 g/dL (30.0-36.0) 01/24/23 16:04 RDW 14.6 % (12.1-15.1) 01/24/23 16:04 Plt Count 112 10^3/cmm (130-400) L 01/24/23 16:04 MPV 9.0 fL (7.4-10.4) 01/24/23 16:04 Neut % (Auto) 61.8 % 01/24/23 16:04 Lymph % (Auto) 22.1 % 01/24/23 16:04 Vil[place] % (Auto) 6.1 % 01/24/23 16:04 Eos % (Auto) 8.8 % 01/24/23 16:04 Baso % (Auto) 0.9 % 01/24/23 16:04 Neut # (Auto) 5.88 10^3/uL (1.8-7.7) 01/24/23 16:04 Lymph # (Auto) 2.1 10^3/uL (0.8-4.8) 01/24/23 16:04 [place] # (Auto) 0.6 10^3/uL (0.2-0.9) 01/24/23 16:04 Eos # (Auto) 0.8 10^3/uL (0.0-0.8) 01/24/23 16:04 Baso # (Auto) 0.1 10^3/uL (0.0-0.1) 01/24/23 16:04 Nucleated RBC % (auto) 0 % 01/24/23 16:04 Nucleated RBCs # 0.0 /100WBC 01/24/23 16:04 Sodium 140 mmol/L (136-145) 01/24/23 16:04 Potassium 5.1 mmol/L (3.5-5.1) 01/24/23 16:04 Chloride 98 mmol/L (98-107) 01/24/23 16:04 Carbon Dioxide 28 mmol/L (22-29) 01/24/23 16:04 Anion Gap 19.1 (5-19) H 01/24/23 16:04 BUN 45 mg/dL (6-20) H 01/24/23 16:04 Creatinine 9.7 mg/dL (0.7-1.2) H* 01/24/23 16:04 GFR Calculation 5.8 mL/min (90-130) L 01/24/23 16:04 Glucose 90 mg/dL (65-115) 01/24/23 16:04 Calculated Osmolality 301 mOsm/kg (285-295) H 01/24/23 16:04 Calcium 9.6 mg/dL (8.5-10.5) 01/24/23 16:04 Discharge Plan Discharge Patient Disposition: Home Clinical Impression: Headache, HTN (hypertension), ESRD (end stage renal disease) Condition: Stable Prescriptions: No Action RenaPlex 800 mcg- 12.5 mg tablet 1 tab PO DAILY ergocalciferol (vitamin D2) 50,000 unit tablet 50,000 unit PO .weekly Rx Instructions: Take once weekly for 12 weeks Originally prescribed on 10/19/22 isosorbide dinitrate 20 mg tablet 20 mg PO TID Qty: 270 1RF Rx Instructions: allow nitrate-free interval of 12-14 hrs per 24-hr period hydralazine 100 mg tablet 100 mg PO TID Qty: 270 1RF carvedilol 25 mg tablet 25 mg PO BID Qty: 180 1RF amlodipine 10 mg tablet 10 mg PO DAILY Qty: 90 1RF Calphron 667 mg tablet 1,334 mg PO TIDWM 90 Days Qty: 540 1RF (DME) lancets [OneTouch Delica Plus Lancet] 30 gauge misc See Rx Instructions .ROUTE .COMPLEX Qty: 200 3RF Dose Instruction: USE TO TEST BLOOD SUGAR TWICE A DAY Rx Instructions: USE TO TEST BLOOD SUGAR TWICE A DAY (DME) Blood Glucose Test Strip See Rx Instructions .Route Qty: 200 3RF Rx Instructions: As directed to test blood sugar BID hydrochlorothiazide 12.5 mg tablet 12.5 mg PO QAM Qty: 30 1RF (DME) blood-glucose meter Misc See Rx Instructions .ROUTE .MEDSUPPLY Qty: 1 0RF Rx Instructions: As directed to test blood sugar BID losartan 50 mg tablet 100 mg PO DAILY Qty: 90 0RF sodium bicarbonate 325 mg tablet 325 mg PO BID Qty: 180 1RF clonidine HCl 0.1 mg tablet 0.1 mg PO TID Qty: 90 0RF methocarbamol 750 mg tablet 750 mg PO Q8H Qty: 20 0RF Discharge Orders: Discharge ED (Routine); Ordered 01/24/23 Ordered By: Caleb Diane Referrals: Enoch Borrero MD [Primary Care Provider] - Discharge Diet: Usual diet Discharge Activity: Resume usual activity Patient Instructions: Acute Headache (ED), Hypertension (ED) Activity Restrictions/Additional Instructions: Thank you for visiting the emergency department. You were seen and evaluated for headache and high blood pressure. The exact cause of your symptoms is unclear. As discussed I recommend continued follow-up and following the plan given by primary care with regards to addition of new blood pressure medications. Return to the emergency department for uncontrolled symptoms, any new neurologic symptoms, or anything else that you are concerned about and feel needs emergency department evaluation. Coding Level of Care Code ED Heating And Refrigeration Inspector for Donta Leigh
--- NOTE | 2023-01-24 15:59 | PC.NURSE ---
ASSUMED CARE AT 1559
--- NOTE | 2023-01-24 16:00 | CTR_ITS ---
PROCEDURE INFORMATION: Exam: CT Head Without Contrast Exam date and time: 01/24/2023 4:24 PM Age: 47 years old Clinical indication: Pain; Visual disturbance; Headache; Additional info: Headache, blurry vision, HTN TECHNIQUE: Imaging protocol: Computed tomography of the head without contrast. Radiation optimization: All CT scans at this facility use at least one of these dose optimization techniques: automated exposure control; mA and/or kV adjustment per patient size (includes targeted exams where dose is matched to clinical indication); or iterative reconstruction. REPORTING DATA: Count of CT and Cardiac NM exams in prior 12 months: This patient has received [address] and 0 known cardiac nuclear medicine studies in the 12 months prior to the current study. COMPARISON: No relevant prior studies available. RADIATION DOSE METRICS: Total DLP (mGy-cm): 1115.94 FINDINGS: Brain: Normal. No hemorrhage. Unremarkable white matter. No mass effect. Cerebral ventricles: No ventriculomegaly. Paranasal sinuses: Visualized sinuses are unremarkable. No fluid levels. Mastoid air cells: Visualized mastoid air cells are well aerated. Bones/joints: Bone windows of the skull show no acute skull abnormality. Soft tissues: Unremarkable. Vasculature: Mild calcification of the cavernous internal carotid arteries and vertebrobasilar system at the base of the brain. CT/CT head wo con* [id number] IMPRESSION: No acute intracranial abnormality.
[2023-01-24 16:15] LABS: Basophils # 0.1 10^3/uL (0.0-0.1); Basophils % 0.9 %; Eosinophils # 0.8 10^3/uL (0.0-0.8); Eosinophils % 8.8 %; Hematocrit 35.7 % (42.0-52.0); Hemoglobin 11.6 g/dL (11.7-16.6); Lymphocytes # 2.1 10^3/uL (0.8-4.8); Lymphocytes % 22.1 %; Mean Corpuscular HGB Conc 32.5 g/dL (30.0-36.0); Mean Corpuscular Hemoglobin 32.8 pg (28.0-34.0); Mean Corpuscular Volume 100.8 fl (80-94); Monocytes # 0.6 10^3/uL (0.2-0.9); Monocytes % 6.1 %; Neutrophils # 5.88 10^3/uL (1.8-7.7); Neutrophils % 61.8 %; Nucleated Red Blood Cells % 0 %; Platelet Count 112 10^3/cmm (130-400); Red Blood Count 3.54 10^6/uL (4.1-5.3); Red Cell Distribution Width 14.6 % (12.1-15.1); White Blood Count 9.5 10^3/uL (4.0-10.0)
[2023-01-24 16:33] LABS: Anion Gap 19.1 (5-19); Blood Urea Nitrogen 45 mg/dL (6-20); Calcium 9.6 mg/dL (8.5-10.5); Carbon Dioxide 28 mmol/L (22-29); Chloride 98 mmol/L (98-107); Glomerular Filtration Rate 5.8 mL/min (90-130); Glucose 90 mg/dL (65-115); Osmolality Calculated 301 mOsm/kg (285-295); Potassium 5.1 mmol/L (3.5-5.1); Sodium 140 mmol/L (136-145)
[2023-01-24 16:40] VITALS: BP 214/102; PULSE 80; RESP 16; O2SAT 97
[2023-01-24 16:43] VITALS: RESP 16; O2SAT 97
[2023-01-24] MEDS: morphine 4 mg/mL SDV 1 mL IVP (16:43)
[2023-01-24] MEDS: hyDRALAzine 25 mg Tablet PO (16:43)
[2023-01-24 17:19] VITALS: BP 200/101; PULSE 84; RESP 16; O2SAT 97
[2023-01-24 17:28] VITALS: BP 201/101
[2023-01-24] MEDS: cloNIDine 0.1 mg Tablet PO (17:28)
[2023-01-24 18:51] VITALS: BP 179/87
== END 2023-01-24 18:53 | disposition home or self-care (01) ==
PROVIDERS: Emergency Provider Emergency Medicine; PCP Family Medicine
DX: I13.2 Hypertensive heart and chronic kidney disease with heart failure and with stage 5 chronic kidney disease, or end stage renal disease (principal); E11.22 Type 2 diabetes mellitus with diabetic chronic kidney disease; N18.6 End stage renal disease; I50.22 Chronic systolic (congestive) heart failure; Z99.2 Dependence on renal dialysis; F17.210 Nicotine dependence, cigarettes, uncomplicated
CPT/HCPCS: 36415; 70450; 80048; 85025; 99284; J2270

== ENCOUNTER 2023-02-10 10:37 | Emergency (ER) | payer MEDICARE, MEDICAID, SELFPAY ==
[2023-02-10] VITALS (7 sets, daily range): BP systolic 176–196; BP diastolic 83–105; PULSE 85–87; RESP 18; TEMP 36.7; O2SAT 91–96; BMI 25.4
[2023-02-10] MEDS: morphine 4 mg/mL SDV 1 mL IVP ×2 (11:19→14:52)
[2023-02-10] MEDS: ondansetron 2 mg/ML SDV 2 mL 4 MG IVP (11:19)
--- NOTE | 2023-02-10 11:41 | W.ED.HA ---
HPI - Headache General: Chief Complaint: Headache Stated Complaint: headache x 2 days Time Seen by Provider: 02/10/23 11:03 History of Present Illness: This patient is a 47 year old presenting with headache and elevated BP. He has been on dialysis for about 5 months due to hypertension and diabetes. He says that every time he gets dialysis his BP skyrockets and he develops a severe headache. He takes his BP medicine in the mornings before he goes, and then takes his noon dose at about 9:30 due to the onset of the headache. His BP will get up to 250 or more sometimes. The headaches have been getting worse and lasting longer after dialysis with each treatment. Today he was unable to tolerate it and dialysis was stopped early and he was sent here. He has a dialysis catheter in the right upper chest - and this has been his access throughout his dialysis journey. He has been in the ED for this before and says that they gave him morphine which helped. There has been some discussion regarding peritoneal dialysis but the patient is not sure he could manage on his own. He also notes that he is no longer on anything for his diabetes, and that he gets drenshed in sweat every time he eats. That started since being on dialysis as well. [facility] ED PFSH: Medical History Anemia Diabetes mellitus type 2, uncontrolled Diabetic ulcer of left foot Elevated BUN HFrEF (heart failure with reduced ejection fraction) History of diabetes mellitus HTN (hypertension) Kidney failure Pericardial effusion Peripheral vascular disease Peritonsillar cellulitis Severe anemia Thrombocytopenia Vitamin D deficiency Surgical History No history of previous surgery Family History Other CAD (coronary artery disease) Diabetes Hypertension Lung disease Denies family history of Clotting disorder Dementia Hyperlipidemia Psychiatric illness Chronic kidney disease (CKD) Anesthesia complication Bleeding disorder Cancer Stroke Social History Smoking and tobacco status: current every day smoker cigarettes Packs smoked per day: 0.5 Years cigarettes smoked: 30 Quit status (tobacco): considering quitting Alcohol intake: former Substance/Drug Use: never Lives independently: Yes Household members: none Housing: House Current occupational status: unemployed Special manuel needs: No Agree to transfusion: Yes Physical Exam Const: COMMON NORMALS: no acute distress, patient oriented x3, no limitations and alert GENERAL APPEARANCE: cooperative and comfortable HENMT: HEAD & SCALP: normal to inspection FACE & SINUS: normal facial exam Eye: GENERAL EYE: appearance normal, both eyes and all related structures Neck/C-Spine: COMMON NORMALS: supple, no meningeal signs and no JVD Chest: COMMONS NORMALS: normal inspection of the chest OTHER: dialysis catheter in the right upper chest Resp: COMMON NORMALS: normal respiratory effort, No use of accessory muscles and clear to auscultation bilaterally AUSCULTATION: clear to auscultation bilaterally Cardio: COMMON NORMALS: no JVD, regular rate, regular rhythm and No murmurs present (Cardio) RATE: regular rate RHYTHM: regular rhythm GI: COMMON NORMALS: Normal to inspection, nondistended, normoactive bowel sounds present, Soft to palpation and non-tender INSPECTION: Yes normal to inspection AUSCULTATION: Yes normoactive bowel sounds PALPATION: Yes Soft to palpation Back/Pelvis: COMMON NORMALS: thoracic and lumbar spine normal to inspection Extremity: COMMON NORMALS: normal to inspection Neuro: COMMON NORMALS: patient oriented x3, moves all extremities, no focal motor deficits and no sensory deficits noted SENSORIUM/ORIENTATION: Yes alert MENINGEAL SIGNS: Yes no meningeal signs Psych: COMMON NORMALS: mental status grossly normal, cooperative and normal affect Skin: COMMON NORMALS: no rashes or lesions noted and turgor normal GENERAL SKIN EXAM: no rashes or lesions noted and turgor normal Course Vital Signs: Vital signs: Vital Signs Temperature 98.1 F 02/10/23 10:41 Pulse Rate 85 02/10/23 11:12 Respiratory Rate 18 02/10/23 11:12 Blood Pressure 181/89 02/10/23 14:52 Pulse Oximetry 96 02/10/23 11:12 Oxygen Delivery Me thod Room Air 02/10/23 11:12 MDM - Headache Medical Decision Making Elevated BP and severe headaches during dialysis - consistently since starting dialysis 5 months ago. No acute issues today other than pain control - but I did encourage him to discuss this further with his manager power and to consider peritoneal dialysis as this might be better tolerated, if it is even an option for him. Lab Data 02/10/23 11:05 02/10/23 11:05 Laboratory Results WBC 8.3 10^3/uL (4.0-10.0) 02/10/23 11:05 RBC 3.53 10^6/uL (4.1-5.3) L 02/10/23 11:05 Hgb 11.2 g/dL (11.7-16.6) L 02/10/23 11:05 Hct 35.1 % (42.0-52.0) L 02/10/23 11:05 MCV 99.4 fl (80-94) H 02/10/23 11:05 MCH 31.7 pg (28.0-34.0) 02/10/23 11:05 MCHC 31.9 g/dL (30.0-36.0) 02/10/23 11:05 RDW 15.1 % (12.1-15.1) 02/10/23 11:05 Plt Count 72 10^3/cmm (130-400) L 02/10/23 11:05 MPV 10.5 fL (7.4-10.4) H 02/10/23 11:05 Neut % (Auto) 67.5 % 02/10/23 11:05 Lymph % (Auto) 20.7 % 02/10/23 11:05 Collin % (Auto) 5.9 % 02/10/23 11:05 Eos % (Auto) 4.8 % 02/10/23 11:05 Baso % (Auto) 0.6 % 02/10/23 11:05 Neut # (Auto) 5.59 10^3/uL (1.8-7.7) 02/10/23 11:05 Lymph # (Auto) 1.7 10^3/uL (0.8-4.8) 02/10/23 11:05 Collin # (Auto) 0.5 10^3/uL (0.2-0.9) 02/10/23 11:05 Eos # (Auto) 0.4 10^3/uL (0.0-0.8) 02/10/23 11:05 Baso # (Auto) 0.1 10^3/uL (0.0-0.1) 02/10/23 11:05 Nucleated RBC % (auto) 0 % 02/10/23 11:05 Nucleated RBCs # 0.0 /100WBC 02/10/23 11:05 ESR 13 mm/hr (0-10) H 02/10/23 11:05 Sodium 138 mmol/L (136-145) 02/10/23 11:05 Potassium 4.2 mmol/L (3.5-5.1) 02/10/23 11:05 Chloride 98 mmol/L (98-107) 02/10/23 11:05 Carbon Dioxide 29 mmol/L (22-29) 02/10/23 11:05 Anion Gap 15.2 (5-19) 02/10/23 11:05 BUN 13 mg/dL (6-20) 02/10/23 11:05 Creatinine 5.2 mg/dL (0.7-1.2) H 02/10/23 11:05 GFR Calculation 11.9 mL/min (90-130) L 02/10/23 11:05 Glucose 94 mg/dL (65-115) 02/10/23 11:05 Calculated Osmolality 286 mOsm/kg (285-295) 02/10/23 11:05 Calcium 9.0 mg/dL (8.5-10.5) 02/10/23 11:05 Magnesium 1.9 mg/dL (1.7-2.3) 02/10/23 11:05 Total Bilirubin 1.0 mg/dL (0.15-1.2) 02/10/23 11:05 AST 10 U/L (0-40) 02/10/23 11:05 ALT 8 U/L (0-41) 02/10/23 11:05 Alkaline Phosphatase 65 U/L (40-130) 02/10/23 11:05 C-Reactive Protein 8.1 mg/L (0.0-4.9) H 02/10/23 11:05 NT-Pro-B Natriuret Pep > 69049 pg/mL (0-125) H 02/10/23 11:05 Total Protein 6.6 g/dL (6.6-8.7) 02/10/23 11:05 Albumin 3.8 g/dL (3.5-5.2) 02/10/23 11:05 Globulin 2.8 g/dL (1.3-4.6) 02/10/23 11:05 Discharge Plan Discharge Patient Disposition: Home Clinical Impression: HTN (hypertension), Headache, ESRD (end stage renal disease) Condition: Stable Prescriptions: No Action RenaPlex 800 mcg- 12.5 mg tablet 1 tab PO DAILY ergocalciferol (vitamin D2) 50,000 unit tablet 50,000 unit PO .weekly Rx Instructions: Take once weekly for 12 weeks Originally prescribed on 10/19/22 isosorbide dinitrate 20 mg tablet 20 mg PO TID Qty: 270 1RF Rx Instructions: allow nitrate-free interval of 12-14 hrs per 24-hr period hydralazine 100 mg tablet 100 mg PO TID Qty: 270 1RF carvedilol 25 mg tablet 25 mg PO BID Qty: 180 1RF amlodipine 10 mg tablet 10 mg PO DAILY Qty: 90 1RF Calphron 667 mg tablet 1,334 mg PO TIDWM 90 Days Qty: 540 1RF (DME) lancets [OneTouch Delica Plus Lancet] 30 gauge misc See Rx Instructions .ROUTE .COMPLEX Qty: 200 3RF Dose Instruction: USE TO TEST BLOOD SUGAR TWICE A DAY Rx Instructions: USE TO TEST BLOOD SUGAR TWICE A DAY (DME) Blood Glucose Test Strip See Rx Instructions .Route Qty: 200 3RF Rx Instructions: As directed to test blood sugar BID hydrochlorothiazide 12.5 mg tablet 12.5 mg PO QAM Qty: 30 1RF (DME) blood-glucose meter Misc See Rx Instructions .ROUTE .MEDSUPPLY Qty: 1 0RF Rx Instructions: As directed to test blood sugar BID losartan 50 mg tablet 100 mg PO DAILY Qty: 90 0RF sodium bicarbonate 325 mg tablet 325 mg PO BID Qty: 180 1RF clonidine HCl 0.1 mg tablet 0.1 mg PO TID Qty: 90 0RF methocarbamol 750 mg tablet 750 mg PO Q8H Qty: 20 0RF Iron (ferrous sulfate) 325 mg (65 mg iron) Tablet 325 mg PO DAILY diltiazem HCl 180 mg capsule,extended release 24 hr 180 mg PO DAILY hydrocodone-acetaminophen 5-325 mg tablet 1 tab PO Q6H PRN (Reason: Pain) Discharge Orders: Discharge ED (Routine); Ordered 02/10/23 Ordered By: Mariana Conteh Referrals: Enoch Borrero MD [Primary Care Provider] - Patient Instructions: Opioid Safety, Pain Management Activity Restrictions/Additional Instructions: Follow up with your manager power to discuss the severity of your symptoms associated with dialysis and to discuss option including peritoneal dialysis. Coding Level of Care Code ED Fiberglass Laminator for Donta Leigh
[2023-02-10 11:44] LABS: Basophils # 0.1 10^3/uL (0.0-0.1); Basophils % 0.6 %; Eosinophils # 0.4 10^3/uL (0.0-0.8); Eosinophils % 4.8 %; Hematocrit 35.1 % (42.0-52.0); Hemoglobin 11.2 g/dL (11.7-16.6); Lymphocytes # 1.7 10^3/uL (0.8-4.8); Lymphocytes % 20.7 %; Mean Corpuscular HGB Conc 31.9 g/dL (30.0-36.0); Mean Corpuscular Hemoglobin 31.7 pg (28.0-34.0); Mean Corpuscular Volume 99.4 fl (80-94); Mean Platelet Volume 10.5 fL (7.4-10.4); Monocytes # 0.5 10^3/uL (0.2-0.9); Monocytes % 5.9 %; Neutrophils # 5.59 10^3/uL (1.8-7.7); Neutrophils % 67.5 %; Nucleated Red Blood Cells % 0 %; Platelet Count 72 10^3/cmm (130-400); Red Blood Count 3.53 10^6/uL (4.1-5.3); Red Cell Distribution Width 15.1 % (12.1-15.1); White Blood Count 8.3 10^3/uL (4.0-10.0)
[2023-02-10 12:00] LABS: Erythrocyte Sedimentation Rate 13 mm/hr (0-10)
[2023-02-10 12:08] LABS: Alanine Aminotransferase 8 U/L (0-41); Albumin Level 3.8 g/dL (3.5-5.2); Alkaline Phosphatase 65 U/L (40-130); Anion Gap 15.2 (5-19); Aspartate Amino Transferase 10 U/L (0-40); Blood Urea Nitrogen 13 mg/dL (6-20); C Reactive Protein 8.1 mg/L (0.0-4.9); Carbon Dioxide 29 mmol/L (22-29); Chloride 98 mmol/L (98-107); Globulin 2.8 g/dL (1.3-4.6); Glomerular Filtration Rate 11.9 mL/min (90-130); Glucose 94 mg/dL (65-115); Magnesium 1.9 mg/dL (1.7-2.3); Osmolality Calculated 286 mOsm/kg (285-295); Potassium 4.2 mmol/L (3.5-5.1); Sodium 138 mmol/L (136-145); Total Protein 6.6 g/dL (6.6-8.7)
[2023-02-10 12:16] LABS: Creatinine Clr Calc Pharmacy 20.6064
[2023-02-10 12:30] LABS: NT Pro B Type Natriuretic Pept > 70000 pg/mL (0-125)
[2023-02-10] MEDS: cloNIDine 0.1 mg Tablet PO (14:52)
== END 2023-02-10 15:41 | disposition home or self-care (01) ==
PROVIDERS: Emergency Provider Emergency Medicine; PCP Family Medicine
DX: R51.9 Headache, unspecified (principal); I13.2 Hypertensive heart and chronic kidney disease with heart failure and with stage 5 chronic kidney disease, or end stage renal disease; E11.22 Type 2 diabetes mellitus with diabetic chronic kidney disease; N18.6 End stage renal disease; I50.9 Heart failure, unspecified; Z99.2 Dependence on renal dialysis; F17.210 Nicotine dependence, cigarettes, uncomplicated
CPT/HCPCS: 80053; 83735; 83880; 85025; 85651; 86140; 96374; 96375; 96376; 99284; J2270; J2405

== ENCOUNTER 2023-02-12 20:00 | Emergency (ER) | payer MEDICARE, MEDICAID, SELFPAY ==
[2023-02-12 20:02] VITALS: BP 217/94; PULSE 83; RESP 18; TEMP 28.3; O2SAT 96
--- NOTE | 2023-02-12 20:10 | ECG_ITS ---
[facility] Test Date: 2023-02-12 Pat Name: Stan Romero Department: Room: Gender: Male [employer] Developer: : 1975 Requested By: Delmar Brito Order Number: [id number] Johanna MD: Berny Trevino M.D. Measurements Intervals [place] Rate: 81 P: 40 KS: 146 QRS: 62 QRSD: 97 T: 86 QT: 386 QTc: 449 Interpretive Statements SINUS RHYTHM LEFT VENTRICULAR HYPERTROPHY AND ST-T CHANGE [VOLTAGE CRITERIA PLUS ST/T ABNORMALITY] Compared to ECG 10/09/2022 19:16:07 Left ventricular hypertrophy now present ST (T wave) deviation now present T-wave abnormality no longer present Prolonged QT interval no longer present Electronically Signed On 02-13-2023 9:43:20 CDT by Berny Trevino M.D. [email or web address]
--- NOTE | 2023-02-12 20:57 | XRR_ITS ---
PROCEDURE INFORMATION: Exam: XR Chest Exam date and time: 02/12/2023 9:14 PM Age: 47 years old Clinical indication: Dyspnea TECHNIQUE: Imaging protocol: Radiologic exam of the chest. Views: 2 views. COMPARISON: CR XR chest 1V portable [id number] 12/23/2022 12:40 AM FINDINGS: Tubes, catheters and devices: Right central dialysis line noted terminating in the right atrium. Lungs: Linear left basilar scarring noted. No consolidation. Pleural spaces: Unremarkable. No pleural effusion. No pneumothorax. Heart/Mediastinum: Similar cardiomegaly. Bones/joints: Unremarkable. XR/XR chest 2V* [id number] IMPRESSION: No acute findings.
--- NOTE | 2023-02-12 20:58 | ED_ITS ---
HPI - SOB/Dyspnea General: Chief Complaint: Shortness of Breath/Dyspnea Stated Complaint: sob/chest pain Time Seen by Provider: 02/12/23 20:57 History of Present Illness: HPI Narrative: 47-year-old male patient comes in today with complaints of shortness of breath when lying flat. Patient appears nontoxic. Patient appears in no acute distress. Patient feels like he is breathing through fluid as he reports. Patient appears nontoxic. Patient appears in no acute distress. Review of Systems General: Reports: 10 or more systems reviewed and unremarkable except in HPI a nd below Resp: Reports: dyspnea PFSH ED PFSH: Medical History Anemia Diabetes mellitus type 2, uncontrolled Diabetic ulcer of left foot Elevated BUN HFrEF (heart failure with reduced ejection fraction) History of diabetes mellitus HTN (hypertension) Kidney failure Pericardial effusion Peripheral vascular disease Peritonsillar cellulitis Severe anemia Thrombocytopenia Vitamin D deficiency Surgical History No history of previous surgery Family History Other CAD (coronary artery disease) Diabetes Hypertension Lung disease Denies family history of Clotting disorder Dementia Hyperlipidemia Psychiatric illness Chronic kidney disease (CKD) Anesthesia complication Bleeding disorder Cancer Stroke Social History Smoking and tobacco status: current every day smoker cigarettes Packs smoked per day: 0.5 Years cigarettes smoked: 30 Quit status (tobacco): considering quitting Alcohol intake: former Substance/Drug Use: never Lives independently: Yes Household members: none Housing: House Current occupational status: unemployed Special manuel needs: No Agree to transfusion: Yes Physical Exam Const: COMMON NORMALS: alert HENMT: COMMON NORMALS: normocephalic HEAD & SCALP: normocephalic THROAT: posterior oropharynx normal Neck/C-Spine: COMMON NORMALS: full ROM Resp: COMMON NORMALS: normal respiratory effort and clear to auscultation bilaterally AUSCULTATION: clear to auscultation bilaterally Cardio: COMMON NORMALS: regular rate and regular rhythm RATE: regular rate RHYTHM: regular rhythm GI: COMMON NORMALS: non-tender Extremity: COMMON NORMALS: no pedal edema Neuro: SENSORIUM/ORIENTATION: Yes alert Skin: COMMON NORMALS: turgor normal GENERAL SKIN EXAM: turgor normal Course Vital Signs: Vital signs: Vital Signs Temperature 83 F L 02/12/23 20:02 Pulse Rate 86 02/12/23 21:04 Respiratory Rate 18 02/12/23 20:02 Blood Pressure 208/107 02/12/23 21:04 Pulse Oximetry 97 02/12/23 21:04 Oxygen Delivery Me thod Room Air 02/12/23 21:04 MDM - SOB/Dyspnea Medical Decision Making 47-year-old male patient comes in today for complaints of shortness of breath when lying flat. Patient is a dialysis patient with chronic kidney disease. Patient appears nontoxic. Patient appears in no acute distress. Differential diagnosis includes congestive heart failure, anxiety about health, pneumonia, chronic kidney disease. Electrolytes were unremarkable for patient. Chest x- ray noted no acute findings. Reviewed exam and labs with patient with recommendations for further follow-up and treatment. Patient reported understanding and agreed to plan. Lab Data 02/12/23 21:00 02/12/23 21:00 Labs/Radiology: Radiology Impressions Chest X-Ray 02/12/23 20:57 IMPRESSION: No acute findings. Laboratory Results WBC 8.4 10^3/uL (4.0-10.0) 02/12/23 21:00 RBC 3.60 10^6/uL (4.1-5.3) L 02/12/23 21:00 Hgb 11.5 g/dL (11.7-16.6) L 02/12/23 21:00 Hct 35.1 % (42.0-52.0) L 02/12/23 21:00 MCV 97.5 fl (80-94) H 02/12/23 21:00 MCH 31.9 pg (28.0-34.0) 02/12/23 21:00 MCHC 32.8 g/dL (30.0-36.0) 02/12/23 21:00 RDW 14.6 % (12.1-15.1) 02/12/23 21:00 Plt Count 70 10^3/cmm (130-400) L 02/12/23 21:00 MPV 10.7 fL (7.4-10.4) H 02/12/23 21:00 Neut % (Auto) 66.0 % 02/12/23 21:00 Lymph % (Auto) 20.5 % 02/12/23 21:00 Alexander % (Auto) 7.6 % 02/12/23 21:00 Eos % (Auto) 4.8 % 02/12/23 21:00 Baso % (Auto) 0.7 % 02/12/23 21:00 Neut # (Auto) 5.54 10^3/uL (1.8-7.7) 02/12/23 21:00 Lymph # (Auto) 1.7 10^3/uL (0.8-4.8) 02/12/23 21:00 Alexander # (Auto) 0.6 10^3/uL (0.2-0.9) 02/12/23 21:00 Eos # (Auto) 0.4 10^3/uL (0.0-0.8) 02/12/23 21:00 Baso # (Auto) 0.1 10^3/uL (0.0-0.1) 02/12/23 21:00 Nucleated RBC % (auto) 0 % 02/12/23 21:00 Nucleated RBCs # 0.0 /100WBC 02/12/23 21:00 Sodium 132 mmol/L (136-145) L 02/12/23 21:00 Potassium 4.1 mmol/L (3.5-5.1) 02/12/23 21:00 Chloride 90 mmol/L (98-107) L 02/12/23 21:00 Carbon Dioxide 32 mmol/L (22-29) H 02/12/23 21:00 Anion Gap 14.1 (5-19) 02/12/23 21:00 BUN 13 mg/dL (6-20) 02/12/23 21:00 Creatinine 5.9 mg/dL (0.7-1.2) H* 02/12/23 21:00 GFR Calculation 10.3 mL/min (90-130) L 02/12/23 21:00 Glucose 103 mg/dL (65-115) 02/12/23 21:00 Calculated Osmolality 274 mOsm/kg (285-295) L 02/12/23 21:00 Calcium 9.2 mg/dL (8.5-10.5) 02/12/23 21:00 Total Bilirubin 1.2 mg/dL (0.15-1.2) 02/12/23 21:00 AST 13 U/L (0-40) 02/12/23 21:00 ALT 9 U/L (0-41) 02/12/23 21:00 Alkaline Phosphatase 68 U/L (40-130) 02/12/23 21:00 Total Protein 7.0 g/dL (6.6-8.7) 02/12/23 21:00 Albumin 4.1 g/dL (3.5-5.2) 02/12/23 21:00 Globulin 2.9 g/dL (1.3-4.6) 02/12/23 21:00 Discharge Plan Discharge Patient Disposition: Home Clinical Impression: ESRD (end stage renal disease), COLLINS (dyspnea on exertion) Condition: Stable Prescriptions: No Action RenaPlex 800 mcg- 12.5 mg tablet 1 tab PO DAILY ergocalciferol (vitamin D2) 50,000 unit tablet 50,000 unit PO .weekly Rx Instructions: Take once weekly for 12 weeks Originally prescribed on 10/19/22 isosorbide dinitrate 20 mg tablet 20 mg PO TID Qty: 270 1RF Rx Instructions: allow nitrate-free interval of 12-14 hrs per 24-hr period hydralazine 100 mg tablet 100 mg PO TID Qty: 270 1RF carvedilol 25 mg tablet 25 mg PO BID Qty: 180 1RF amlodipine 10 mg tablet 10 mg PO DAILY Qty: 90 1RF (DME) lancets [OneTouch Delica Plus Lancet] 30 gauge misc See Rx Instructions .ROUTE .COMPLEX Qty: 200 3RF Dose Instruction: USE TO TEST BLOOD SUGAR TWICE A DAY Rx Instructions: USE TO TEST BLOOD SUGAR TWICE A DAY (DME) Blood Glucose Test Strip See Rx Instructions .Route Qty: 200 3RF Rx Instructions: As directed to test blood sugar BID hydrochlorothiazide 12.5 mg tablet 12.5 mg PO QAM Qty: 30 1RF (DME) blood-glucose meter Misc See Rx Instructions .ROUTE .MEDSUPPLY Qty: 1 0RF Rx Instructions: As directed to test blood sugar BID losartan 50 mg tablet 100 mg PO DAILY Qty: 90 0RF sodium bicarbonate 325 mg tablet 325 mg PO BID Qty: 180 1RF clonidine HCl 0.1 mg tablet 0.1 mg PO TID Qty: 90 0RF Calphron 667 mg tablet 1,334 mg PO TIDWM 90 Days Qty: 540 1RF methocarbamol 750 mg tablet 750 mg PO Q8H Qty: 20 0RF Iron (ferrous sulfate) 325 mg (65 mg iron) Tablet 325 mg PO DAILY diltiazem HCl 180 mg capsule,extended release 24 hr 180 mg PO DAILY hydrocodone-acetaminophen 5-325 mg tablet 1 tab PO Q6H PRN (Reason: Pain) Discharge Orders: Discharge ED (Routine); Ordered 02/12/23 Ordered By: Brett Parks Referrals: Enoch Borrero MD [Primary Care Provider] - Discharge Diet: Usual diet Discharge Activity: Increase activity as tolerated Patient Instructions: Dyspnea (ED) Activity Restrictions/Additional Instructions: Maintain normal activity. Continue routine medications as directed. Follow-up with primary care or specialist for further treatment and consideration. Coding Level of Care Code ED Management Department Chair for Donta Leigh
[2023-02-12 21:04] VITALS: BP 208/107; PULSE 86; O2SAT 97
[2023-02-12 21:05] LABS: Basophils # 0.1 10^3/uL (0.0-0.1); Basophils % 0.7 %; Eosinophils # 0.4 10^3/uL (0.0-0.8); Eosinophils % 4.8 %; Hematocrit 35.1 % (42.0-52.0); Hemoglobin 11.5 g/dL (11.7-16.6); Lymphocytes # 1.7 10^3/uL (0.8-4.8); Lymphocytes % 20.5 %; Mean Corpuscular HGB Conc 32.8 g/dL (30.0-36.0); Mean Corpuscular Hemoglobin 31.9 pg (28.0-34.0); Mean Corpuscular Volume 97.5 fl (80-94); Mean Platelet Volume 10.7 fL (7.4-10.4); Monocytes # 0.6 10^3/uL (0.2-0.9); Monocytes % 7.6 %; Neutrophils # 5.54 10^3/uL (1.8-7.7); Nucleated Red Blood Cells % 0 %; Platelet Count 70 10^3/cmm (130-400); Red Cell Distribution Width 14.6 % (12.1-15.1); White Blood Count 8.4 10^3/uL (4.0-10.0)
[2023-02-12 21:26] LABS: Alanine Aminotransferase 9 U/L (0-41); Albumin Level 4.1 g/dL (3.5-5.2); Alkaline Phosphatase 68 U/L (40-130); Anion Gap 14.1 (5-19); Aspartate Amino Transferase 13 U/L (0-40); Blood Urea Nitrogen 13 mg/dL (6-20); Calcium 9.2 mg/dL (8.5-10.5); Carbon Dioxide 32 mmol/L (22-29); Chloride 90 mmol/L (98-107); Globulin 2.9 g/dL (1.3-4.6); Glomerular Filtration Rate 10.3 mL/min (90-130); Glucose 103 mg/dL (65-115); Osmolality Calculated 274 mOsm/kg (285-295); Potassium 4.1 mmol/L (3.5-5.1); Sodium 132 mmol/L (136-145); Total Bilirubin 1.2 mg/dL (0.15-1.2)
[2023-02-12 22:00] VITALS: BP 201/108; PULSE 82; O2SAT 94
[2023-02-12 22:39] VITALS: BP 211/108; PULSE 82; RESP 18; O2SAT 94
== END 2023-02-12 22:41 | disposition home or self-care (01) ==
PROVIDERS: Emergency Provider Nurse Practitioner Family; PCP Family Medicine
DX: R06.00 Dyspnea, unspecified (principal); E11.22 Type 2 diabetes mellitus with diabetic chronic kidney disease; I13.2 Hypertensive heart and chronic kidney disease with heart failure and with stage 5 chronic kidney disease, or end stage renal disease; I50.9 Heart failure, unspecified; N18.6 End stage renal disease; F17.210 Nicotine dependence, cigarettes, uncomplicated
CPT/HCPCS: 71046; 80053; 85025; 93005; 99285

== ENCOUNTER 2023-02-15 22:25 | Emergency (ER) | payer MEDICARE, MEDICAID, SELFPAY ==
[2023-02-15 22:29] VITALS: BMI 29.1
--- NOTE | 2023-02-15 22:29 | XRR_ITS ---
PROCEDURE INFORMATION: Exam: XR Chest Exam date and time: 02/15/2023 10:59 PM Age: 47 years old Clinical indication: Shortness of breath; Prior surgery; Surgery date: 6+ months; Surgery type: Dialysis catheter; Patient HX: PT here from home for eval of diarrhea and SOB that has been ongoing since this weekend. PT reports he is on dialysis and feels like he needs help breathing. PT reports sever nausea with diarrhea anytime he consumes anything. TECHNIQUE: Imaging protocol: Radiologic exam of the chest. Views: 1 view. COMPARISON: CR (CHEST, ) 02/12/2023 9:14 PM FINDINGS: Tubes, catheters and devices: Right dialysis catheter is stable in position with the distal tip in the right atrium. Lungs: Interval development of fullness in the pulmonary vasculature suggesting volume overload in the lungs. Pleural spaces: No pleural effusion. No pneumothorax. Heart/Mediastinum: Stable moderate enlargement of the cardiac silhouette. Mediastinal contours are unremarkable. Bones/joints: Unremarkable for age. XR/XR chest 1V portable [id number] IMPRESSION: 1. Interval development of fullness in the pulmonary vasculature suggesting volume overload in the lungs. 2. Incidental/nonacute findings are listed in the report.
[2023-02-15 22:32] VITALS: BP 218/113; PULSE 83; RESP 17; TEMP 37.2; O2SAT 97
--- NOTE | 2023-02-15 22:37 | W.ED.NAVMDI ---
HPI - Nausea/Vomiting/Diarrhea General: Chief complaint: Nausea/Vomiting/Diarrhea Stated complaint: N/D, SOB Time Seen by Provider: 02/15/23 22:28 Source: patient Mode of arrival: ambulatory Limitations: no limitations History of Present Illness: 47-year-old male who has history of end-stage renal disease he is on dialysis he receives dialysis Tuesday states that over the last 6 days been having nausea along with diarrhea along with some dyspnea is been seen here this is the third time he states he continues to have severe diarrhea denies any pain he is in no distress here denies any cough or fever. Associated nausea: Yes Associated symtoms: Reports nausea; Denies chest pain, dysuria or headache(s) Review of Systems Const: Denies: fever(s), chills, body aches or change in appetite Eyes: Denies: eye discomfort ENMT: Denies: throat pain or dental pain Card: Denies: chest pain Resp: Reports: dyspnea GI: Reports: nausea, vomiting and diarrhea; Denies: abdominal pain : Denies: dysuria Musc: Denies: neck pain or back pain Skin/Breast: Denies: rash Neuro: Denies: headache(s) PFSH ED PFSH: Medical History Anemia Diabetes mellitus type 2, uncontrolled Diabetic ulcer of left foot Elevated BUN HFrEF (heart failure with reduced ejection fraction) History of diabetes mellitus HTN (hypertension) Kidney failure Pericardial effusion Peripheral vascular disease Peritonsillar cellulitis Severe anemia Thrombocytopenia Vitamin D deficiency Surgical History No history of previous surgery Family History Other CAD (coronary artery disease) Diabetes Hypertension Lung disease Denies family history of Clotting disorder Dementia Hyperlipidemia Psychiatric illness Chronic kidney disease (CKD) Anesthesia complication Bleeding disorder Cancer Stroke Social History Smoking and tobacco status: current every day smoker cigarettes Packs smoked per day: 0.5 Years cigarettes smoked: 30 Quit status (tobacco): considering quitting Alcohol intake: former Substance/Drug Use: never Lives independently: Yes Household members: none Housing: House Current occupational status: unemployed Special manuel needs: No Agree to transfusion: Yes Physical Exam Const: COMMON NORMALS: no acute distress, patient oriented x3 and healthy appearing HENMT: COMMON NORMALS: normocephalic and atraumatic HEAD & SCALP: normocephalic and atraumatic Eye: COMMON NORMALS: Equal, round and reactive pupils present and EOMs intact bilaterally PUPIL: Yes Equal, round and reactive pupils present Neck/C-Spine: COMMON NORMALS: full ROM and supple Chest: COMMONS NORMALS: normal inspection of the chest and normal palpation of entire chest wall Resp: COMMON NORMALS: normal respiratory effort, No retractions, No use of accessory muscles and clear to auscultation bilaterally AUSCULTATION: clear to auscultation bilaterally Cardio: COMMON NORMALS: regular rate, regular rhythm and No murmurs present (Cardio) RATE: regular rate RHYTHM: regular rhythm GI: COMMON NORMALS: Normal to inspection, nondistended, normoactive bowel sounds present, Soft to palpation, non-tender and no masses PALPATION: Yes Soft to palpation Extremity: COMMON NORMALS: normal to inspection and full ROM Neuro: COMMON NORMALS: patient oriented x3, moves all extremities and no focal motor deficits Psych: COMMON NORMALS: mental status grossly normal, Normal thought process present and cooperative THOUGHT PROCESS: Normal thought process present Skin: COMMON NORMALS: no rashes or lesions noted and no wounds GENERAL SKIN EXAM: no rashes or lesions noted Course Vital Signs: Vital signs: Vital Signs Temperature 98.9 F 02/15/23 22:32 Pulse Rate 85 02/16/23 00:02 Respiratory Rate 18 02/16/23 00:02 Blood Pressure 204/102 02/16/23 00:02 Pulse Oximetry 95 02/16/23 00:02 Oxygen Delivery Me thod Room Air 02/15/23 22:32 MDM - Nausea/Vomiting/Diarrhea Medical Decision Making Patient presents with diarrhea I did give him Lomotil he is felt improved he is not able to give a stool sample here blood work here is all normal had some slight dyspnea he does have a history end-stage renal disease he had some slight congestion on his x-ray he is in no respiratory distress here his pulse ox 96% on room air I feel he stable for discharge she is to follow-up his PCP he is to get dialysis scheduled return if worsening understands agrees to plan. Lab Data 02/15/23 22:36 07/11/23 22:36 Radiology Impressions Chest X-Ray 02/15/23 22:29 IMPRESSION: 1. Interval development of fullness in the pulmonary vasculature suggesting volume overload in the lungs. 2. Incidental/nonacute findings are listed in the report. Laboratory Results WBC 9.5 10^3/uL (4.0-10.0) 02/15/23 22:36 RBC 3.53 10^6/uL (4.1-5.3) L 02/15/23 22:36 Hgb 11.1 g/dL (11.7-16.6) L 02/15/23 22:36 Hct 34.1 % (42.0-52.0) L 02/15/23 22:36 MCV 96.6 fl (80-94) H 02/15/23 22:36 MCH 31.4 pg (28.0-34.0) 02/15/23 22:36 MCHC 32.6 g/dL (30.0-36.0) 02/15/23 22:36 RDW 14.6 % (12.1-15.1) 02/15/23 22:36 Plt Count 69 10^3/cmm (130-400) L 02/15/23 22:36 MPV 9.3 fL (7.4-10.4) 02/15/23 22:36 Neut % (Auto) 69.5 % 02/15/23 22:36 Lymph % (Auto) 19.2 % 02/15/23 22:36 [place] % (Auto) 5.9 % 02/15/23 22:36 Eos % (Auto) 4.5 % 02/15/23 22:36 Baso % (Auto) 0.6 % 02/15/23 22:36 Neut # (Auto) 6.62 10^3/uL (1.8-7.7) 02/15/23 22:36 Lymph # (Auto) 1.8 10^3/uL (0.8-4.8) 02/15/23 22:36 [place] # (Auto) 0.6 10^3/uL (0.2-0.9) 02/15/23 22:36 Eos # (Auto) 0.4 10^3/uL (0.0-0.8) 02/15/23 22:36 Baso # (Auto) 0.1 10^3/uL (0.0-0.1) 02/15/23 22:36 Nucleated RBC % (auto) 0 % 02/15/23 22:36 Nucleated RBCs # 0.0 /100WBC 02/15/23 22:36 Sodium 138 mmol/L (136-145) 02/15/23 22:36 Potassium 5.1 mmol/L (3.5-5.1) 02/15/23 22:36 Chloride 97 mmol/L (98-107) L 02/15/23 22:36 Carbon Dioxide 32 mmol/L (22-29) H 02/15/23 22:36 Anion Gap 14.1 (5-19) 02/15/23 22:36 BUN 19 mg/dL (6-20) 02/15/23 22:36 Creatinine 6.6 mg/dL (0.7-1.2) H* 02/15/23 22:36 GFR Calculation 9.1 mL/min (90-130) L 02/15/23 22:36 Glucose 171 mg/dL (65-115) H 02/15/23 22:36 Calculated Osmolality 292 mOsm/kg (285-295) 02/15/23 22:36 Calcium 8.7 mg/dL (8.5-10.5) 02/15/23 22:36 Total Bilirubin 1.1 mg/dL (0.15-1.2) 02/15/23 22:36 AST 18 U/L (0-40) 02/15/23 22:36 ALT 16 U/L (0-41) 02/15/23 22:36 Alkaline Phosphatase 76 U/L (40-130) 02/15/23 22:36 NT-Pro-B Natriuret Pep > 98701 pg/mL (0-125) H 02/15/23 22:36 Total Protein 6.9 g/dL (6.6-8.7) 02/15/23 22:36 Albumin 4.1 g/dL (3.5-5.2) 02/15/23 22:36 Globulin 2.8 g/dL (1.3-4.6) 02/15/23 22:36 Lipase 39 U/L (13-60) 02/15/23 22:36 Discharge Plan Discharge Patient Disposition: Home Clinical Impression: Diarrhea, ESRD (end stage renal disease), Dyspnea Condition: Stable Prescriptions: No Action RenaPlex 800 mcg- 12.5 mg tablet 1 tab PO DAILY ergocalciferol (vitamin D2) 50,000 unit tablet 50,000 unit PO .weekly Rx Instructions: Take once weekly for 12 weeks Originally prescribed on 10/19/22 isosorbide dinitrate 20 mg tablet 20 mg PO TID Qty: 270 1RF Rx Instructions: allow nitrate-free interval of 12-14 hrs per 24-hr period hydralazine 100 mg tablet 100 mg PO TID Qty: 270 1RF carvedilol 25 mg tablet 25 mg PO BID Qty: 180 1RF amlodipine 10 mg tablet 10 mg PO DAILY Qty: 90 1RF (DME) lancets [OneTouch Delica Plus Lancet] 30 gauge misc See Rx Instructions .ROUTE .COMPLEX Qty: 200 3RF Dose Instruction: USE TO TEST BLOOD SUGAR TWICE A DAY Rx Instructions: USE TO TEST BLOOD SUGAR TWICE A DAY (DME) Blood Glucose Test Strip See Rx Instructions .Route Qty: 200 3RF Rx Instructions: As directed to test blood sugar BID hydrochlorothiazide 12.5 mg tablet 12.5 mg PO QAM Qty: 30 1RF (DME) blood-glucose meter Misc See Rx Instructions .ROUTE .MEDSUPPLY Qty: 1 0RF Rx Instructions: As directed to test blood sugar BID losartan 50 mg tablet 100 mg PO DAILY Qty: 90 0RF sodium bicarbonate 325 mg tablet 325 mg PO BID Qty: 180 1RF clonidine HCl 0.1 mg tablet 0.1 mg PO TID Qty: 90 0RF Calphron 667 mg tablet 1,334 mg PO TIDWM 90 Days Qty: 540 1RF methocarbamol 750 mg tablet 750 mg PO Q8H Qty: 20 0RF Iron (ferrous sulfate) 325 mg (65 mg iron) Tablet 325 mg PO DAILY diltiazem HCl 180 mg capsule,extended release 24 hr 180 mg PO DAILY hydrocodone-acetaminophen 5-325 mg tablet 1 tab PO Q6H PRN (Reason: Pain) Discharge Orders: Discharge ED (Routine); Ordered 02/15/23 Ordered By: Odalis Liu Referrals: Enoch Borrero MD [Primary Care Provider] - 1-3 days Discharge Diet: Advance as tolerated Discharge Activity: Resume usual activity Patient Instructions: Diarrhea - Adult, Dyspnea (ED) Coding Level of Care Code ED Manager Mental Health for Donta Leigh
--- NOTE | 2023-02-15 22:38 | ECG_ITS ---
[facility] Test Date: 2023-02-15 Pat Name: Stan Romero Department: Room: Gender: Male [employer] [employer]: : 1975 Requested By: Odalis Liu Order Number: [id number] Johanna MD: Eulogio Hsieh M.D. Measurements Intervals [place] Rate: 82 P: 33 WA: 156 QRS: 27 QRSD: 93 T: 102 QT: 380 QTc: 445 Interpretive Statements SINUS RHYTHM ST DEVIATION AND MODERATE T-WAVE ABNORMALITY, CONSIDER LATERAL ISCHEMIA [-0.1+ mV T-WAVE IN I/aVL/V5/V6] Compared to ECG 02/12/2023 20:17:06 T-wave abnormality now present Possible ischemia now present Left ventricular hypertrophy no longer present ST (T wave) deviation no longer present Electronically Signed On 02-16-2023 16:51:07 CDT by Eulogio Hsieh M.D. [id number]
[2023-02-15 22:42] LABS: Basophils # 0.1 10^3/uL (0.0-0.1); Basophils % 0.6 %; Eosinophils # 0.4 10^3/uL (0.0-0.8); Eosinophils % 4.5 %; Hematocrit 34.1 % (42.0-52.0); Hemoglobin 11.1 g/dL (11.7-16.6); Lymphocytes # 1.8 10^3/uL (0.8-4.8); Lymphocytes % 19.2 %; Mean Corpuscular HGB Conc 32.6 g/dL (30.0-36.0); Mean Corpuscular Hemoglobin 31.4 pg (28.0-34.0); Mean Corpuscular Volume 96.6 fl (80-94); Mean Platelet Volume 9.3 fL (7.4-10.4); Monocytes # 0.6 10^3/uL (0.2-0.9); Monocytes % 5.9 %; Neutrophils # 6.62 10^3/uL (1.8-7.7); Neutrophils % 69.5 %; Nucleated Red Blood Cells % 0 %; Platelet Count 69 10^3/cmm (130-400); Red Blood Count 3.53 10^6/uL (4.1-5.3); Red Cell Distribution Width 14.6 % (12.1-15.1); White Blood Count 9.5 10^3/uL (4.0-10.0)
[2023-02-15] MEDS: diphenoxylate/atropine Tablet 2 TAB PO (22:47)
[2023-02-15 23:00] VITALS: BP 207/109; PULSE 83; RESP 20; O2SAT 94
[2023-02-15 23:10] LABS: Alanine Aminotransferase 16 U/L (0-41); Albumin Level 4.1 g/dL (3.5-5.2); Alkaline Phosphatase 76 U/L (40-130); Anion Gap 14.1 (5-19); Aspartate Amino Transferase 18 U/L (0-40); Blood Urea Nitrogen 19 mg/dL (6-20); Calcium 8.7 mg/dL (8.5-10.5); Carbon Dioxide 32 mmol/L (22-29); Chloride 97 mmol/L (98-107); Globulin 2.8 g/dL (1.3-4.6); Glomerular Filtration Rate 9.1 mL/min (90-130); Glucose 171 mg/dL (65-115); Lipase 39 U/L (13-60); Osmolality Calculated 292 mOsm/kg (285-295); Potassium 5.1 mmol/L (3.5-5.1); Sodium 138 mmol/L (136-145); Total Bilirubin 1.1 mg/dL (0.15-1.2); Total Protein 6.9 g/dL (6.6-8.7)
[2023-02-15 23:30] VITALS: BP 191/94; PULSE 84; RESP 10; O2SAT 94
[2023-02-15 23:56] LABS: NT Pro B Type Natriuretic Pept > 70000 pg/mL (0-125)
[2023-02-16 00:02] VITALS: BP 204/102; PULSE 85; RESP 18; O2SAT 95
== END 2023-02-16 00:12 | disposition home or self-care (01) ==
PROVIDERS: Emergency Provider Emergency Medicine; PCP Family Medicine
DX: I13.2 Hypertensive heart and chronic kidney disease with heart failure and with stage 5 chronic kidney disease, or end stage renal disease (principal); R19.7 Diarrhea, unspecified; R06.00 Dyspnea, unspecified; E11.22 Type 2 diabetes mellitus with diabetic chronic kidney disease; N18.6 End stage renal disease; I50.20 Unspecified systolic (congestive) heart failure; D69.6 Thrombocytopenia, unspecified; F17.210 Nicotine dependence, cigarettes, uncomplicated; Z99.2 Dependence on renal dialysis
CPT/HCPCS: 71045; 80053; 83690; 83880; 85025; 93005; 99285

== ENCOUNTER 2023-05-20 08:07 | Outpatient (CLI) | payer MEDICARE, MEDICAID, SELFPAY ==
--- NOTE | 2023-05-20 08:15 | US_ITS ---
WS: [id number] US pelvic complete* [id number] HISTORY: UPPER LOWER ABDOMINAL PAIN COMPARISON: None available. Male pelvis. Urinary bladder is not distended. Mild bladder wall thickening due to under distention. No focal mass. Prostate is minimally enlarged measuring 2.9 x 3.3 x 2.6 cm. No free fluid in the pelv is. No adnexal masses. IMPRESSION: Mild prostate gland enlargement. Otherwise negative male pelvis.
--- NOTE | 2023-05-20 08:15 | US_ITS ---
WS: [id number] Complete ABDOMINAL ULTRASOUND HISTORY: ABD PAIN COMPARISON: None available. Liver: 19.2 cm in length. Moderately enlarged liver. No mass. No ductal dilatation. Portal Vein: Normal hepatopetal flow with monophasic waveform. Gallbladder: Numerous stones are shadowing in the gallbladder. There is also some sludge and shadowin g from the gallbladder. Comet tail artifacts are noted. CBD: 0.6 cm Pancreas: Normal size pancreas. There is a very tiny hypoechoic area near the pancreatic neck measuri ng 6 x 5 mm. Right kidney: 11.4 cm x 4.7 x 4.6 cm. Cortex:1.2 cm. Normal size and echogenicity. No hydronephrosis or mass. Left kidney: 11.4 cm x 4.7 cm x 6.0 cm. Cortex: 1.1 cm. Normal size and echogenicity. No hydronephrosis or mass. Spleen: Normal. Aorta and IVC: Unremarkable abdominal aorta and IVC. Impression: 1. Cholelithiasis without evidence for acute cholecystitis. 2. No bile duct dilatation. 3. Small hypoechoic 6 x 5 mm nodule in the pancreatic neck. Recommend dedicated pancreatic CT or MRI evaluation. Study will need to be performed with and without contrast. Differential includes IPMN, ps eudocyst or early neoplasm.
== END 2023-05-20 08:08 | disposition home or self-care (01) ==
PROVIDERS: PCP Family Medicine; Visit Provider Internal Medicine Nephrology
DX: R10.30 Lower abdominal pain, unspecified (principal); R10.10 Upper abdominal pain, unspecified; N40.0 Benign prostatic hyperplasia without lower urinary tract symptoms; K80.20 Calculus of gallbladder without cholecystitis without obstruction; K86.9 Disease of pancreas, unspecified
CPT/HCPCS: 76700; 76856

== ENCOUNTER 2023-06-17 15:14 | Outpatient (CLI) | payer MEDICARE, MEDICAID, SELFPAY ==
--- NOTE | 2023-06-17 15:18 | CTR_ITS ---
PROCEDURE INFORMATION: Exam: CT Abdomen Without And With Contrast Exam date and time: 06/17/2023 3:29 PM Age: 47 years old Clinical indication: Abdominal pain; Localized; Upper; Additional info: Abdominal pain. Abnormal US of pancreas done on 05/20. F/u. Pancreatic protocol TECHNIQUE: Imaging protocol: Computed tomography of the abdomen and pelvis without and with contrast. Radiation optimization: All CT scans at this facility use at least one of these dose optimization techniques: automated exposure control; mA and/or kV adjustment per patient size (includes targeted exams where dose is matched to clinical indication); or iterative reconstruction. Contrast material: OMNI 350; Contrast volume: 95 ml; Contrast route: INTRAVENOUS (IV); REPORTING DATA: Count of CT and Cardiac NM exams in prior 12 months: This patient has received 2 known CTs and 0 known cardiac nuclear medicine studies in the 12 months prior to the current study. COMPARISON: CT abdomen pelvis wo con [id number] 10/09/2022 6:52 PM RADIATION DOSE METRICS: Total DLP (mGy-cm): 1156.22 FINDINGS: Heart: Mild pericardial effusion. Liver: Anterior to posterior diameter of the right lobe of the liver is 19.5 cm, suggesting mild hepatomegaly. Liver is otherwise unremarkable. Gallbladder and bile ducts: Small amount of layering hyperdensity within the dependent gallbladder in the gallbladder appears well distended. Gallbladder is otherwise unremarkable. No biliary ductal dilatation. Pancreas: No significant pancreatic enlargement. Small tubular shaped hypodensity is seen within the pancreas consistent with pancreatic duct. This does not appear significantly dilated. Arterial phase axial images demonstrate approximately 6 x 4 mm subtle hypodensity at the distal pancreatic neck appearing eccentric or off midline regarding duct. This is seen on series 6 image 62. This is not readily appreciated on the axial precontrast images and not well seen on the delayed venous phase axial images. There is limited Hounsfield unit evaluation due to small size. Pancreas is otherwise unremarkable. Atherosclerotic vascular disease noted without significant aneurysmal dilatation of the abdominal aorta. Spleen: Normal. No splenomegaly. Adrenal glands: Normal. No mass. Kidneys and ureters: Pre IV contrast images demonstrate small amount of vascular calcification within both kidneys with inability to exclude nonobstructing tiny renal calculus of the kidneys. No findings of hydronephrosis or cyst/mass. Stomach and bowel: Gastric distention may be related to recent ingestion or indicate gastric stasis or gastric outlet abnormality. Visualized bowel within the abdomen is without dilatation otherwise. No focal inflammatory changes. Appendix: No evidence of appendicitis. Intraperitoneal space: No free fluid or ascites is seen within the abdomen. No free air. Vasculature: Minimal vascular crowding within the dependent lung bases, without infiltrate or effusion. Lymph nodes: Unremarkable. No enlarged lymph nodes. Urinary bladder: Unremarkable as visualized. Reproductive: Unremarkable as visualized. Bones/joints: No acute osseous abnormality. Soft tissues: Unremarkable. CT/CT abdomen wo/w con [id number] IMPRESSION: 1. Mild hepatomegaly. 2. Small amount of layering hyperdensity within the dependent gallbladder which appears well distended. Recent ultrasound demonstrated cholelithiasis without cholecystitis. 3. Pancreas shows no significant enlargement or peripancreatic stranding. The pancreatic duct is partially visualized and without dilatation. The arterial phase axial images demonstrates small 6 x 4 mm subtle hypodensity eccentric or off midline at the distal pancreatic neck on series 6, image number 62, not appreciated on any of the other images. This could represent small hypoechoic focus that was seen on ultrasound exam. No significant contrast enhancing mass is seen within the pancreas. Given the subtle findings, this can either be further evaluated with follow-up MRI of the pancreas or subsequent follow-up CT in 3 months. 4. Gastric distention which could be related to recent ingestion or indicate gastric stasis or gastric outlet abnormality.
[2023-06-17] MEDS: iohexol 350 mg/mL 500 mL Btl (per mL) IV (15:40)
== END 2023-06-17 15:15 | disposition home or self-care (01) ==
LOC: RAD 15:16
PROVIDERS: PCP Family Medicine; Visit Provider Internal Medicine Nephrology
DX: R10.10 Upper abdominal pain, unspecified (principal); R16.0 Hepatomegaly, not elsewhere classified; K80.20 Calculus of gallbladder without cholecystitis without obstruction
CPT/HCPCS: 74170; Q9967

== ENCOUNTER 2023-08-26 15:04 | Emergency (ER) | payer MEDICARE, MEDICAID, SELFPAY ==
[2023-08-26] VITALS (11 sets, daily range): BP systolic 167–194; BP diastolic 78–100; PULSE 77–89; RESP 12–19; TEMP 36.3–36.8; O2SAT 90–99
[2023-08-26 16:06] LABS: Basophils # 0.1 10^3/uL (0.0-0.1); Basophils % 1.2 %; Eosinophils # 0.5 10^3/uL (0.0-0.8); Eosinophils % 6.2 %; Hematocrit 22.6 % (37-53); Lymphocytes # 1.5 10^3/uL (0.8-4.8); Lymphocytes % 19.3 %; Mean Corpuscular HGB Conc 32.3 g/dL (30-55); Mean Corpuscular Hemoglobin 34.9 pg (27-33); Mean Corpuscular Volume 108.1 fl (82-101); Mean Platelet Volume 9.1 fL (7.4-10.4); Monocytes # 0.6 10^3/uL (0.2-0.9); Monocytes % 7.9 %; Neutrophils # 5.01 10^3/uL (1.8-7.7); Nucleated Red Blood Cells % 0 %; Platelet Count 141 10^3/cmm (157-399); Red Blood Count 2.09 10^6/uL (3.85-5.65); Red Cell Distribution Width 14.4 % (12.1-15.1); White Blood Count 7.71 10^3/uL (3.29-11.43)
[2023-08-26 16:27] LABS: Alanine Aminotransferase 9 U/L (0-41); Albumin Level 4.3 g/dL (3.5-5.2); Alkaline Phosphatase 75 U/L (40-130); Anion Gap 16.5 (5-19); Aspartate Amino Transferase 10 U/L (0-40); Blood Urea Nitrogen 26 mg/dL (6-20); Calcium 10.2 mg/dL (8.5-10.5); Carbon Dioxide 33 mmol/L (22-29); Chloride 95 mmol/L (98-107); Globulin 2.8 g/dL (1.3-4.6); Glomerular Filtration Rate 8.6 mL/min (90-130); Glucose 90 mg/dL (65-115); Osmolality Calculated 294 mOsm/kg (285-295); Potassium 4.5 mmol/L (3.5-5.1); Sodium 140 mmol/L (136-145); Total Bilirubin 0.6 mg/dL (0.15-1.2); Total Protein 7.1 g/dL (6.6-8.7)
--- NOTE | 2023-08-26 18:39 | PC.NURSE ---
CARE TRANSFERRED OVER TO KATHYA GONZALEZ AND PETER HERCULES.
--- NOTE | 2023-08-26 18:46 | W.ED.WEAKNES ---
HPI - Weakness General: Chief complaint: Weakness Stated complaint: sent over for low hemoglobin Time Seen by Provider: 08/26/23 15:41 History of Present Illness: 47-year-old male presents emergency department stating that he was called by his primary care provider and told that his hemoglobin was low at 7.6. He states he was told to come to the emergency department to receive a transfusion of blood. Patient is a hemodialysis patient and has access to his left anterior chest. He states he has been feeling more fatigued and rundown than usual and states that he feels like he is feeling more cold than he usually does. He denies chest pain or shortness of breath dizziness or lightheaded feeling. Review of Systems General: Reports: 10 or more systems reviewed and unremarkable except in HPI and below Const: Reports: fatigue and malaise [facility] ED PFSH: Medical History Pericardial effusion Thrombocytopenia Severe anemia Kidney failure HFrEF (heart failure with reduced ejection fraction) Elevated BUN Vitamin D deficiency Anemia Diabetic ulcer of left foot Peripheral vascular disease HTN (hypertension) Diabetes mellitus type 2, uncontrolled History of diabetes mellitus Peritonsillar cellulitis Surgical History No history of previous surgery Family History Other CAD (coronary artery disease) Diabetes Hypertension Lung disease Denies family history of Clotting disorder Dementia Hyperlipidemia Psychiatric illness Chronic kidney disease (CKD) Anesthesia complication Bleeding disorder Cancer Stroke Social History Smoking and tobacco/nicotine status: current every day tobacco/nicotine user cigarettes Packs smoked per day: 0.5 Years cigarettes smoked: 30 Quit status (tobacco/nicotine): considering quitting Alcohol intake: former Substance/Drug Use: never Lives independently: Yes Household members: none Housing: House Current occupational status: unemployed Special manuel needs: No Agree to transfusion: Yes Physical Exam Narrative: EXAM NARRATIVE: Constitutional: the patient appears well nourished and of normal development. Vital signs as documented. No acute distress at present. Alert and oriented-to person, place, time and situation. Head, eyes, ears, nose, mouth, throat: Normocephalic, atraumatic. Pupils-equal, round, reactive to light. No scleral icterus. Normal-appearing external ears. Normal appearing nasal turbinates, no drainage. No obvious oral lesions, posterior oropharynx without erythema or exudates. Neck: Supple, trachea is midline, no lymphadenopathy, no jugular venous distension, thyromegaly, or carotid bruits. Carotid upstrokes are brisk bilaterally. Lungs: clear to auscultation to all lung alonso. Symmetrical rise and fall of chest, no obvious signs of increased work of breathing at present. Cardiac: Regular rate and rhythm, positive S1, S2. No murmurs, rubs or gallops that I can appreciate Abdomen: Soft, non-tender to palpation, normal active bowel sounds to all quadrants. No palpable masses, no organomegaly and abdominal bruits. Extremities: 2+ pulses in the upper extremities that are equal bilaterally, 2+ pulses in the lower extremities that are equal bilaterally. Non-edematous. Moves all extremities well, sensation to all extremities are noted. Skin: Warm, dry, intact. Course Reevaluation(s): Reevaluation #1: Patient received a unit of packed red blood cells after reevaluation of his lab he states he feels much better and is scheduled for dialysis in the morning at 7 AM. I will discharge the patient home with recommended follow-up as previously noted. Time: 19:19 Vital Signs: Vital signs: Vital Signs Temperature 98.0 F 08/26/23 19:23 Pulse Rate 86 08/26/23 19:23 Respiratory Rate 12 08/26/23 19:23 Blood Pressure 170/88 08/26/23 19:23 Pulse Oximetry 93 08/26/23 19:23 Oxygen Delivery Me thod Room Air 08/26/23 18:00 MDM - Weakness Medical Decision Making Physical exam completed document I will obtain a CBC and CMP for evaluation and transfuse the patient a unit of packed red blood cells and have him follow-up with his primary care and nephrology physician. Medical Records I reviewed the patient's medical records. Lab Data I reviewed the patient's lab results. 08/26/23 15:50 08/26/23 15:50 Laboratory Results WBC 7.71 10^3/uL (3.29-11.43) 08/26/23 15:50 RBC 2.09 10^6/uL (3.85-5.65) L 08/26/23 15:50 Hgb 7.30 g/dL (11.27-16.99) L 08/26/23 15:50 Hct 22.6 % (37-53) L 08/26/23 15:50 MCV 108.1 fl (82-101) H 08/26/23 15:50 MCH 34.9 pg (27-33) H 08/26/23 15:50 MCHC 32.3 g/dL (30-55) 08/26/23 15:50 RDW 14.4 % (12.1-15.1) 08/26/23 15:50 Plt Count 141 10^3/cmm (157-399) L 08/26/23 15:50 MPV 9.1 fL (7.4-10.4) 08/26/23 15:50 Neut % (Auto) 65.0 % 08/26/23 15:50 Lymph % (Auto) 19.3 % 08/26/23 15:50 [place] % (Auto) 7.9 % 08/26/23 15:50 Eos % (Auto) 6.2 % 08/26/23 15:50 Baso % (Auto) 1.2 % 08/26/23 15:50 Neut # (Auto) 5.01 10^3/uL (1.8-7.7) 08/26/23 15:50 Lymph # (Auto) 1.5 10^3/uL (0.8-4.8) 08/26/23 15:50 [place] # (Auto) 0.6 10^3/uL (0.2-0.9) 08/26/23 15:50 Eos # (Auto) 0.5 10^3/uL (0.0-0.8) 08/26/23 15:50 Baso # (Auto) 0.1 10^3/uL (0.0-0.1) 08/26/23 15:50 Nucleated RBC % (auto) 0 % 08/26/23 15:50 Nucleated RBCs # 0.0 /100WBC 08/26/23 15:50 Sodium 140 mmol/L (136-145) 08/26/23 15:50 Potassium 4.5 mmol/L (3.5-5.1) 08/26/23 15:50 Chloride 95 mmol/L (98-107) L 08/26/23 15:50 Carbon Dioxide 33 mmol/L (22-29) H 08/26/23 15:50 Anion Gap 16.5 (5-19) 08/26/23 15:50 BUN 26 mg/dL (6-20) H 08/26/23 15:50 Creatinine 6.9 mg/dL (0.7-1.2) H* 08/26/23 15:50 GFR Calculation 8.6 mL/min (90-130) L 08/26/23 15:50 Glucose 90 mg/dL (65-115) 08/26/23 15:50 Calculated Osmolality 294 mOsm/kg (285-295) 08/26/23 15:50 Calcium 10.2 mg/dL (8.5-10.5) 08/26/23 15:50 Total Bilirubin 0.6 mg/dL (0.15-1.2) 08/26/23 15:50 AST 10 U/L (0-40) 08/26/23 15:50 ALT 9 U/L (0-41) 08/26/23 15:50 Alkaline Phosphatase 75 U/L (40-130) 08/26/23 15:50 Total Protein 7.1 g/dL (6.6-8.7) 08/26/23 15:50 Albumin 4.3 g/dL (3.5-5.2) 08/26/23 15:50 Globulin 2.8 g/dL (1.3-4.6) 08/26/23 15:50 Blood Type O Positive 08/26/23 17:17 Rho(D) Type Rh positive 08/26/23 17:17 Antibody Screen Negative 08/26/23 17:17 Crossmatch See Detail 08/26/23 17:17 No radiology studies performed this visit Discharge Plan Discharge Patient Disposition: Home Clinical Impression: Anemia, Malaise and fatigue Condition: Stable Prescriptions: No Action RenaPlex 800 mcg- 12.5 mg tablet 1 tab PO DAILY ergocalciferol (vitamin D2) 50,000 unit tablet 50,000 unit PO .weekly Rx Instructions: Take once weekly for 12 weeks Originally prescribed on 10/19/22 (DME) lancets [OneTouch Delica Plus Lancet] 30 gauge misc See Rx Instructions .ROUTE .COMPLEX Qty: 200 3RF Dose Instruction: USE TO TEST BLOOD SUGAR TWICE A DAY Rx Instructions: USE TO TEST BLOOD SUGAR TWICE A DAY (DME) Blood Glucose Test Strip See Rx Instructions .Route Qty: 200 3RF Rx Instructions: As directed to test blood sugar BID Veltassa 8.4 gram powder in packet 8.4 g PO .4 days/week doxycycline hyclate 100 mg tablet 100 mg PO BID 7 Days Qty: 14 0RF prednisone 20 mg tablet 40 mg PO DAILY 5 Days Qty: 10 0RF albuterol sulfate [Ventolin HFA] 90 mcg/actuation HFA aerosol inhaler 2 puff inhalation Q4H PRN (Reason: shortness of breath or wheezing) Qty: 8.5 0RF hydralazine 100 mg tablet 100 mg PO TID Qty: 270 1RF hydrochlorothiazide 12.5 mg tablet 12.5 mg PO QAM Qty: 30 1RF isosorbide dinitrate 20 mg tablet 20 mg PO TID Qty: 270 1RF Rx Instructions: allow nitrate-free interval of 12-14 hrs per 24-hr period methocarbamol 750 mg tablet 750 mg PO Q8H Qty: 20 0RF (DME) blood-glucose meter Misc See Rx Instructions .ROUTE .MEDSUPPLY Qty: 1 0RF Rx Instructions: As directed to test blood sugar BID ondansetron 4 mg tablet,disintegrating 4 mg PO Q8H PRN (Reason: nausea and vomiting) Qty: 60 0RF amlodipine 10 mg tablet 10 mg PO DAILY Qty: 90 1RF sodium bicarbonate 325 mg tablet 325 mg PO BID Qty: 180 1RF diltiazem HCl 180 mg capsule,extended release 24 hr See Rx Instructions .ROUTE .COMPLEX Qty: 30 0RF Dose Instruction: TAKE 1 CAPSULE BY MOUTH DAILY Rx Instructions: TAKE 1 CAPSULE BY MOUTH DAILY pantoprazole [Protonix] 40 mg tablet,delayed release (DR/EC) 40 mg PO DAILY Qty: 60 0RF escitalopram oxalate 10 mg tablet See Rx Instructions .ROUTE .COMPLEX Qty: 30 0RF Dose Instruction: TAKE 1 TABLET BY MOUTH DAILY Rx Instructions: TAKE 1 TABLET BY MOUTH DAILY clonidine HCl 0.1 mg tablet See Rx Instructions .ROUTE .COMPLEX Qty: 90 0RF Dose Instruction: TAKE 1 TABLET BY MOUTH THREE TIMES DAILY Rx Instructions: TAKE 1 TABLET BY MOUTH THREE TIMES DAILY losartan 100 mg tablet See Rx Instructions .ROUTE .COMPLEX Qty: 60 0RF Dose Instruction: TAKE 1 TABLET BY MOUTH EVERY DAY Rx Instructions: TAKE 1 TABLET BY MOUTH EVERY DAY carvedilol 25 mg tablet See Rx Instructions .ROUTE .COMPLEX Qty: 120 0RF Dose Instruction: TAKE 1 TABLET BY MOUTH TWICE DAILY Rx Instructions: TAKE 1 TABLET BY MOUTH TWICE DAILY Iron (ferrous sulfate) 325 mg (65 mg iron) Tablet 325 mg PO DAILY hydrocodone-acetaminophen 5-325 mg tablet 1 tab PO Q6H PRN (Reason: Pain) Discharge Orders: Discharge ED (Routine); Ordered 08/26/23 Ordered By: Tye Holloway Referrals: Enoch Borrero MD [Primary Care Provider] - Discharge Diet: Advance as tolerated Discharge Activity: Resume usual activity Patient Instructions: Opioid Safety, Pain Management Activity Restrictions/Additional Instructions: Activity Restrictions/Additional Instructions: Thank you for choosing [facility] for your healthcare needs today. Please realize that you were seen in the Emergency Department and that we are providing you with an emergency medical screening exam and this may not be a complete and all inclusive of all the testing and or medical work-up that you may need to determine your ailment or severity of your illness. It is very important that you follow-up as instructed with your Primary care provider or Specialist for additional evaluation and to discuss your medical treatment plan. You may return to the Emergency Department should you have concerns or if your condition changes or worsens in any way. Coding Level of Care Code ED Sustainability Project Manager for Donta Leigh
--- NOTE | 2023-08-26 19:20 | PC.NURSE ---
discharge delayed d/t pt receiving red blood cell transfusion at this time.
[2023-08-26] MEDS: cloNIDine 0.1 mg Tablet PO (20:38)
== END 2023-08-26 21:51 | disposition home or self-care (01) ==
PROVIDERS: Emergency Provider Internal Medicine; PCP Family Medicine
DX: D64.9 Anemia, unspecified (principal); R53.81 Other malaise; R53.83 Other fatigue; Z72.0 Tobacco use; I11.0 Hypertensive heart disease with heart failure; I50.20 Unspecified systolic (congestive) heart failure; E11.9 Type 2 diabetes mellitus without complications
CPT/HCPCS: 36415; 36430; 80053; 85025; 86850; 86900; 86920; 99284; P9016

== ENCOUNTER 2023-09-01 12:26 | Outpatient (CLI) | payer MEDICARE, MEDICAID, SELFPAY | END 2023-09-01 12:27 | disposition home or self-care (01) | LOC: LAB 12:30 | PROVIDERS: PCP Family Medicine; Visit Provider Registered Nurse | DX: N18.6 End stage renal disease (principal); D63.1 Anemia in chronic kidney disease | CPT/HCPCS: 36415; 85018 ==

== ENCOUNTER → 2023-12-14 13:19 | Outpatient (BNVA) | payer MEDICARE, MEDICAID, SELFPAY | PROVIDERS: PCP Family Medicine; Visit Provider Internal Medicine | DX: Z01.818 Encounter for other preprocedural examination (principal); I13.2 Hypertensive heart and chronic kidney disease with heart failure and with stage 5 chronic kidney disease, or end stage renal disease; E11.22 Type 2 diabetes mellitus with diabetic chronic kidney disease; I50.30 Unspecified diastolic (congestive) heart failure; E11.65 Type 2 diabetes mellitus with hyperglycemia; N18.6 End stage renal disease; F17.210 Nicotine dependence, cigarettes, uncomplicated | CPT/HCPCS: 99214 ==

== ENCOUNTER 2024-02-01 11:56 | Outpatient (CLI) | payer MEDICARE, MEDICAID, SELFPAY | END 2024-02-01 11:57 | disposition home or self-care (01) | LOC: RAD 11:56 | PROVIDERS: PCP Family Medicine; Visit Provider Internal Medicine | DX: R06.02 Shortness of breath (principal) | CPT/HCPCS: 93306 ==

== ENCOUNTER 2024-04-24 04:15 | Inpatient (IN) | payer MEDICARE, MEDICAID, SELFPAY ==
[2024-04-24] VITALS (79 sets, daily range): BP systolic 136–204; BP diastolic 87–120; PULSE 83–109; RESP 12–29; TEMP 35.4–37; O2SAT 82–100; BMI 28.4; BMI 293.5
--- NOTE | 2024-04-24 04:15 | ECG_ITS ---
[facility] Test Date: 2024-04-24 Pat Name: Stan Romero Department: Room: Gender: Male Patient Financial Rep: : 1975 Requested By: Eren Angelo Order Number: [id number] Johanna MD: Heath Wellington M.D. Measurements Intervals [place] Rate: 111 P: 53 MN: 163 QRS: 58 QRSD: 97 T: 73 QT: 330 QTc: 449 Interpretive Statements SINUS TACHYCARDIA MODERATE VOLTAGE CRITERIA FOR LVH, CONSIDER NORMAL VARIANT [MEETS CRITERIA IN ONE OF: R(aVL), S(V1), R(V5), R(V5/V6)+S(V1)] MODERATE ST DEPRESSION [0.05+ mV ST DEPRESSION] Compared to ECG 02/15/2023 22:38:35 ST (T wave) deviation now present Sinus rhythm no longer present T-wave abnormality no longer present Possible ischemia no longer present Electronically Signed On 04-24-2024 7:56:42 CDT by Heath Wellington M.D. [id number]
--- NOTE | 2024-04-24 04:19 | XRR_ITS ---
PROCEDURE INFORMATION: Exam: XR Chest Exam date and time: 04/24/2024 5:00 AM Age: 48 years old Clinical indication: Shortness of breath; Prior surgery; Surgery date: 6+ months; Surgery type: Dialysis cath; Additional info: Dyspnea TECHNIQUE: Imaging protocol: Radiologic exam of the chest. Views: 1 view. COMPARISON: CR (CHEST, ) 02/15/2023 10:59 PM FINDINGS: Tubes, catheters and devices: Dialysis catheter. Lungs: Vascular engorgement, interstitial edema, and consolidative infiltrates in each lower lobe (right greater than left) probably represents congestive heart failure/fluid overload with pulmonary edema. A pneumonia could be present. Pleural spaces: Unremarkable. No pleural effusion. No pneumothorax. Heart/Mediastinum: Mild cardiomegaly. Bones/joints: Unremarkable. XR/XR chest 1V portable [id number] IMPRESSION: CHF/fluid overload with pulmonary edema is probably present.
[2024-04-24] MEDS: albuterol 2.5 mg/3 mL Neb INHALATION ×2 (04:33→05:25)
[2024-04-24 04:47] LABS: Base Excess ABG 2.7 mmol/L (-2.0-2.0); Blood Gas Allen Test Pos; Blood Gas Operator Identificat CL; Blood Gas Sample Type Arterial; Ionized Calcium Level - ABG 1.2 mmol/L (1.1-1.4); Oxygen Device NC
--- NOTE | 2024-04-24 04:51 | ED_ITS ---
Documented by User: Eren Angelo DO 04/24/24 05:18 HPI - SOB/Dyspnea 2 General: Chief Complaint: Shortness of Breath/Dyspnea Stated Complaint: SOB Time Seen by Provider: 04/24/24 06:00 History of Present Illness: HPI Narrative: Patient presents to the ER from home by EMS with complaints of being short of breath. Patient said he felt better earlier today but tonight he started getting short of breath all of a sudden he called EMS his sats was down in the 70s at home on room air. Patient does not have oxygen at home. Patient is a hemodialysis patient receives dialysis on Tuesday and Saturdays and said he has not missed any days. Patient has been having some slight chest pressure on his left side. Patient is diaphoretic and anxious upon arrival. Patient received 1 DuoNeb by EMS. Related Data Home Medications Medication Instructions Recorded Confirmed vitamin B complex with vit C-folic 1 tab PO DAILY 11/19/22 04/24/24 acid 800 mcg-zinc 12.5 mg tablet (RenaPlex) patiromer calcium sorbitex 8.4 8.4 g PO .4 days/week 06/22/23 04/24/24 gram oral powder packet (Veltassa) carvedilol 25 mg tablet 25 mg PO BID 04/24/24 04/24/24 clonidine HCl 0.1 mg tablet 0.1 mg PO TID 04/24/24 04/24/24 diltiazem HCl 180 mg capsule,24 180 mg PO DAILY 04/24/24 04/24/24 hr,extended release ergocalciferol (vitamin D2) 1,250 50,000 unit PO Q7D 04/24/24 04/24/24 mcg (50,000 unit) capsule (Vitamin D2) hydralazine 100 mg tablet 100 mg PO TID 04/24/24 04/24/24 loratadine 10 mg tablet (Claritin) 10 mg PO BID 04/24/24 04/24/24 losartan 100 mg tablet 100 mg PO DAILY 04/24/24 04/24/24 methocarbamol 750 mg tablet 750 mg PO Q8H PRN muscle spasms 04/24/24 04/24/24 pantoprazole 40 mg tablet,delayed 40 mg PO DAILY 04/24/24 04/24/24 release Previous Rx's Medication Instructions Recorded blood-glucose meter #1 ea 12/09/21 blood sugar diagnostic (Blood #200 ea 11/19/22 Glucose Test strips) lancets 30 gauge (Infoniqa GroupTouch Delica ##200 11/19/22 Plus Lancet) isosorbide dinitrate 20 mg tablet 20 mg PO TID #270 tabs 04/18/23 albuterol sulfate 90 mcg/actuation 2 puff inhalation Q4H PRN 07/06/23 aerosol inhaler (Ventolin HFA) shortness of breath or wheezing #8.5 grams escitalopram oxalate 20 mg tablet 20 mg PO DAILY #30 tabs 04/10/24 amlodipine 10 mg tablet 10 mg PO DAILY #90 tabs 04/11/24 Allergies Allergy/AdvReac Type Severity Reaction Status Date / Time No Known Allergies Allergy Verified 01/30/24 08:17 PFSH ED 2 PFSH: Medical History Pericardial effusion Thrombocytopenia Severe anemia Kidney failure HFrEF (heart failure with reduced ejection fraction) Elevated BUN Vitamin D deficiency Anemia Diabetic ulcer of left foot Peripheral vascular disease HTN (hypertension) Diabetes mellitus type 2, uncontrolled History of diabetes mellitus Peritonsillar cellulitis Surgical History No history of previous surgery Family History Other CAD (coronary artery disease) Diabetes Hypertension Lung disease Denies family history of Clotting disorder Dementia Hyperlipidemia Psychiatric illness Chronic kidney disease (CKD) Anesthesia complication Bleeding disorder Cancer Stroke Social History Smoking and tobacco/nicotine status: current every day tobacco/nicotine user cigarettes Packs smoked per day: 0.5 Years cigarettes smoked: 30 Quit status (tobacco/nicotine): considering quitting Alcohol intake: former Substance/Drug Use: never Lives independently: Yes Household members: none Housing: House Current occupational status: unemployed Special manuel needs: No Agree to transfusion: Yes Physical Exam 2 Const: COMMON NORMALS: average body habitus, patient oriented x3, no limitations, alert and well nourished HENMT: COMMON NORMALS: normocephalic, atraumatic, hearing grossly normal bilaterally, external ears normal, Normal external nose present and moist oral mucous membranes HEAD & SCALP: normocephalic and atraumatic NOSE: Normal external nose present EXTERNAL EAR: Yes external ears normal Neck/C-Spine: COMMON NORMALS: full ROM, no lymphadenopathy, supple, no meningeal signs, no JVD and Thyroid normal THYROID: Thyroid normal Chest: COMMONS NORMALS: normal inspection of the chest and normal palpation of entire chest wall Resp: COMMON NORMALS: normal respiratory effort, No retractions and No use of accessory muscles; negative for clear to auscultation bilaterally (Nontender wheezing bilaterally) AUSCULTATION: not clear to auscultation bilaterally (Nontender wheezing bilaterally) Cardio: COMMON NORMALS: no JVD, regular rhythm, S1 normal heart sound present, S2 normal heart sound present, No gallops present (Cardio), No clicks present (Cardio), No murmurs present (Cardio) and No rub (Cardio); negative for regular rate (Mildly tachycardic) RATE: abnormal rate (Mildly tachycardic) RHYTHM: regular rhythm HEART SOUNDS: S1 normal heart sound present and S2 normal heart sound present GI: COMMON NORMALS: Normal to inspection, nondistended, normoactive bowel sounds present, Soft to palpation, non-tender, No hepatosplenomegaly present and no masses PALPATION: Yes Soft to palpation and Yes No hepatosplenomegaly present Neuro: COMMON NORMALS: patient oriented x3 SENSORIUM/ORIENTATION: Yes alert MENINGEAL SIGNS: Yes no meningeal signs Course 2 Vital Signs: Vital signs: Vital Signs Temperature 95.8 F L 04/24/24 04:15 Pulse Rate 91 04/24/24 08:16 Respiratory Rate 12 04/24/24 08:16 Blood Pressure 182/103 04/24/24 08:16 Pulse Oximetry 92 04/24/24 08:16 Oxygen Delivery Me thod Nasal Cannula 04/24/24 08:16 Oxygen Flow Rate 2 04/24/24 08:16 MDM - SOB/Dyspnea Medical Records I reviewed the patient's medical records. Lab Data I reviewed the patient's lab results. 04/24/24 04:57 04/24/24 04:57 Labs/Radiology: Radiology Impressions Chest X-Ray 04/24/24 04:19 IMPRESSION: CHF/fluid overload with pulmonary edema is probably present. Laboratory Results WBC 16.17 10^3/uL (3.29-11.43) H 04/24/24 04:57 RBC 2.26 10^6/uL (3.85-5.65) L 04/24/24 04:57 Hgb 7.70 g/dL (11.27-16.99) L 04/24/24 04:57 Hct 23.9 % (37-53) L 04/24/24 04:57 MCV 105.8 fl (82-101) H 04/24/24 04:57 MCH 34.1 pg (27-33) H 04/24/24 04:57 MCHC 32.2 g/dL (30-55) 04/24/24 04:57 RDW 14.7 % (12.1-15.1) 04/24/24 04:57 Plt Count 127 10^3/cmm (157-399) L 04/24/24 04:57 MPV 9.6 fL (7.4-10.4) 04/24/24 04:57 Neut % (Auto) 86.9 % 04/24/24 04:57 Lymph % (Auto) 5.9 % 04/24/24 04:57 [place] % (Auto) 4.0 % 04/24/24 04:57 Eos % (Auto) 1.9 % 04/24/24 04:57 Baso % (Auto) 0.6 % 04/24/24 04:57 Neut # (Auto) 14.06 10^3/uL (1.8-7.7) H 04/24/24 04:57 Lymph # (Auto) 1.0 10^3/uL (0.8-4.8) 04/24/24 04:57 [place] # (Auto) 0.7 10^3/uL (0.2-0.9) 04/24/24 04:57 Eos # (Auto) 0.3 10^3/uL (0.0-0.8) 04/24/24 04:57 Baso # (Auto) 0.1 10^3/uL (0.0-0.1) 04/24/24 04:57 Nucleated RBC % (auto) 0 % 04/24/24 04:57 Nucleated RBCs # 0.0 /100WBC 04/24/24 04:57 D-Dimer 2.22 ug/mLFEU (0-0.59) H 04/24/24 04:57 Specimen Type Arterial 04/24/24 04:40 Sample Site Radial, left 04/24/24 04:40 ABG pH 7.43 (7.35-7.45) 04/24/24 04:40 ABG pCO2 40.9 mmHg (35-45) 04/24/24 04:40 ABG pO2 54.4 mmHg (80.0-100.0) L 04/24/24 04:40 ABG HCO3 27.2 mmol/L (22-26) H 04/24/24 04:40 ABG O2 Saturation 88.1 04/24/24 04:40 ABG Base Excess 2.7 mmol/L (-2.0-2.0) H 04/24/24 04:40 Shaquille Test Pos 04/24/24 04:40 A-a O2 Gradient 5.9 mmHg (5-10) 04/24/24 04:40 Hematocrit 25.5 % (42-52) L 04/24/24 04:40 Hgb O2 Saturation 83.4 % (95-100) L 04/24/24 04:40 Carboxyhemoglobin 4.4 %THgb (0.4-20.1) 04/24/24 04:40 Methemoglobin 0.9 % (0.4-1.5) 04/24/24 04:40 Total Hemoglobin 8.3 g/dL (14-18) L 04/24/24 04:40 Sodium 140.0 mmol/L (131-143) 04/24/24 04:40 Potassium 5.3 mmol/L (3.5-5.0) H 04/24/24 04:40 Glucose 170.0 mg/dL (70-115) H 04/24/24 04:40 Ionized Calcium 1.2 mmol/L (1.1-1.4) 04/24/24 04:40 O2 Delivery Device Nc 04/24/24 04:40 O2 Liters/Min 8.0 % 04/24/24 04:40 Owner Consulting Engineer ID Cl 04/24/24 04:40 Sodium 139 mmol/L (136-145) 04/24/24 04:57 Potassium 5.5 mmol/L (3.5-5.1) H 04/24/24 04:57 Chloride 96 mmol/L (98-107) L 04/24/24 04:57 Carbon Dioxide 25 mmol/L (22-29) 04/24/24 04:57 Anion Gap 23.5 (5-19) H 04/24/24 04:57 BUN 64 mg/dL (6-20) H 04/24/24 04:57 Creatinine 11.1 mg/dL (0.7-1.2) H* 04/24/24 04:57 GFR Calculation 5.0 mL/min (90-130) L 04/24/24 04:57 Glucose 170 mg/dL (65-115) H 04/24/24 04:57 POC Glucose 174 mg/dL (70-110) H 04/24/24 06:47 Calculated Osmolality 310 mOsm/kg (285-295) H 04/24/24 04:57 Lactic Acid 1.1 mmol/L (0.5-2.2) 04/24/24 04:57 Calcium 9.7 mg/dL (8.5-10.5) 04/24/24 04:57 Phosphorus 4.1 mg/dL (2.5-4.5) 04/24/24 04:57 Magnesium 2.7 mg/dL (1.7-2.3) H 04/24/24 04:57 Total Bilirubin 1.0 mg/dL (0.15-1.2) 04/24/24 04:57 AST 12 U/L (0-40) 04/24/24 04:57 ALT 9 U/L (0-41) 04/24/24 04:57 Alkaline Phosphatase 109 U/L (40-130) 04/24/24 04:57 Troponin T Baseline 357 ng/L (0-15) H* 04/24/24 04:57 Troponin T 120 Minute 333.4 ng/L (0-15) H 04/24/24 06:54 Delta Troponin T -23.6 ABS# (0-10) L 04/24/24 06:54 Total Protein 7.7 g/dL (6.6-8.7) 04/24/24 04:57 Albumin 4.6 g/dL (3.5-5.2) 04/24/24 04:57 Globulin 3.1 g/dL (1.3-4.6) 04/24/24 04:57 Procalcitonin 0.25 ng/mL (0-0.5) 04/24/24 04:57 Coronavirus (PCR) Negative (Negative) 04/24/24 05:55 Influenza A (PCR) Negative (Negative) 04/24/24 05:55 Influenza Type B (PCR) Negative (Negative) 04/24/24 05:55 RSV (PCR) Negative (Negative) 04/24/24 05:55 All radiology interpretation(s) finalized by discharge Discharge Plan Discharge Condition: Stable Prescriptions: No Action RenaPlex 800 mcg- 12.5 mg tablet 1 tab PO DAILY (DME) lancets [OneTouch Delica Plus Lancet] 30 gauge misc See Rx Instructions .ROUTE .COMPLEX Qty: 200 3RF Dose Instruction: USE TO TEST BLOOD SUGAR TWICE A DAY Rx Instructions: USE TO TEST BLOOD SUGAR TWICE A DAY (DME) Blood Glucose Test Strip See Rx Instructions .Route Qty: 200 3RF Rx Instructions: As directed to test blood sugar BID Veltassa 8.4 gram powder in packet 8.4 g PO .4 days/week Rx Instructions: on non dialysis days Tue, Tue, and Tue albuterol sulfate [Ventolin HFA] 90 mcg/actuation HFA aerosol inhaler 2 puff inhalation Q4H PRN (Reason: shortness of breath or wheezing) Qty: 8.5 0RF isosorbide dinitrate 20 mg tablet 20 mg PO TID Qty: 270 1RF Rx Instructions: allow nitrate-free interval of 12-14 hrs per 24-hr period (DME) [facility] See Rx Instructions .ROUTE .MEDSUPPLY Qty: 1 0RF Rx Instructions: As directed to test blood sugar BID escitalopram oxalate 20 mg tablet 20 mg PO DAILY Qty: 30 1RF amlodipine 10 mg tablet 10 mg PO DAILY Qty: 90 1RF Vitamin D2 1,250 mcg (50,000 unit) capsule 50,000 unit PO Q7D Rx Instructions: on Tue. carvedilol 25 mg tablet 25 mg PO BID clonidine HCl 0.1 mg tablet 0.1 mg PO TID diltiazem HCl 180 mg capsule,extended release 24 hr 180 mg PO DAILY methocarbamol 750 mg tablet 750 mg PO Q8H PRN (Reason: muscle spasms) hydralazine 100 mg tablet 100 mg PO TID losartan 100 mg tablet 100 mg PO DAILY Claritin 10 mg Tablet 10 mg PO BID pantoprazole 40 mg tablet,delayed release (DR/EC) 40 mg PO DAILY Referrals: Enoch Borrero MD [Primary Care Provider] - Coding Level of Care Code ED Fire Alarm Operator for Chg Fwd Documented by User: Enid Morel MD 04/24/24 08:27 HPI - SOB/Dyspnea 2 General: Chief Complaint: Shortness of Breath/Dyspnea Stated Complaint: SOB Time Seen by Provider: 04/24/24 06:00 Related Data Home Medications Medication Instructions Recorded Confirmed vitamin B complex with vit C-folic 1 tab PO DAILY 11/19/22 04/24/24 acid 800 mcg-zinc 12.5 mg tablet (RenaPlex) patiromer calcium sorbitex 8.4 8.4 g PO .4 days/week 06/22/23 04/24/24 gram oral powder packet (Veltassa) carvedilol 25 mg tablet 25 mg PO BID 04/24/24 04/24/24 clonidine HCl 0.1 mg tablet 0.1 mg PO TID 04/24/24 04/24/24 diltiazem HCl 180 mg capsule,24 180 mg PO DAILY 04/24/24 04/24/24 hr,extended release ergocalciferol (vitamin D2) 1,250 50,000 unit PO Q7D 04/24/24 04/24/24 mcg (50,000 unit) capsule (Vitamin D2) hydralazine 100 mg tablet 100 mg PO TID 04/24/24 04/24/24 loratadine 10 mg tablet (Claritin) 10 mg PO BID 04/24/24 04/24/24 losartan 100 mg tablet 100 mg PO DAILY 04/24/24 04/24/24 methocarbamol 750 mg tablet 750 mg PO Q8H PRN muscle spasms 04/24/24 04/24/24 pantoprazole 40 mg tablet,delayed 40 mg PO DAILY 04/24/24 04/24/24 release Previous Rx's Medication Instructions Recorded blood-glucose meter #1 ea 07/16/21 blood sugar diagnostic (Blood #200 ea 11/19/22 Glucose Test strips) lancets 30 gauge (Infoniqa GroupTouch Delica ##200 11/19/22 Plus Lancet) isosorbide dinitrate 20 mg tablet 20 mg PO TID #270 tabs 04/18/23 albuterol sulfate 90 mcg/actuation 2 puff inhalation Q4H PRN 07/06/23 aerosol inhaler (Ventolin HFA) shortness of breath or wheezing #8.5 grams escitalopram oxalate 20 mg tablet 20 mg PO DAILY #30 tabs 04/10/24 amlodipine 10 mg tablet 10 mg PO DAILY #90 tabs 04/11/24 Allergies Allergy/AdvReac Type Severity Reaction Status Date / Time No Known Allergies Allergy Verified 01/30/24 08:17 PFS ED 2 PFSH: Medical History Pericardial effusion Thrombocytopenia Severe anemia Kidney failure HFrEF (heart failure with reduced ejection fraction) Elevated BUN Vitamin D deficiency Anemia Diabetic ulcer of left foot Peripheral vascular disease HTN (hypertension) Diabetes mellitus type 2, uncontrolled History of diabetes mellitus Peritonsillar cellulitis Surgical History No history of previous surgery Family History Other CAD (coronary artery disease) Diabetes Hypertension Lung disease Denies family history of Clotting disorder Dementia Hyperlipidemia Psychiatric illness Chronic kidney disease (CKD) Anesthesia complication Bleeding disorder Cancer Stroke Social History Smoking and tobacco/nicotine status: current every day tobacco/nicotine user cigarettes Packs smoked per day: 0.5 Years cigarettes smoked: 30 Quit status (tobacco/nicotine): considering quitting Alcohol intake: former Substance/Drug Use: never Lives independently: Yes Household members: none Housing: House Current occupational status: unemployed Special manuel needs: No Agree to transfusion: Yes Course 2 Vital Signs: Vital signs: Vital Signs Temperature 95.8 F L 04/24/24 04:15 Pulse Rate 91 04/24/24 08:16 Respiratory Rate 12 04/24/24 08:16 Blood Pressure 182/103 04/24/24 08:16 Pulse Oximetry 92 04/24/24 08:16 Oxygen Delivery Me thod Nasal Cannula 04/24/24 08:16 Oxygen Flow Rate 2 04/24/24 08:16 MDM - SOB/Dyspnea Medical Decision Making Patient care was transitioned to id at shift change. Chest x-ray: Fluid overload, pulmonary edema, right-sided dialysis catheter in place. This was reviewed and interpreted by myself the emergency room physician. I also reviewed the radiology report. Lab review: I personally reviewed and interpreted lab work. BUN/creatinine are 64 and 11 which is a bit high for this patient even on dialysis and states he does need dialysis today. Potassium slightly elevated at 5.5. He has a white count of 16,000. Hemoglobin is 7.7 which is a little lower than his usual but is likely delusional. He does not have any pneumonia type symptoms. Symptoms came on fairly rapidly which would indicate this is simple fluid overload in this dialysis patient. Reexamination: Patient is not in any distress at this point but he is still requiring 6 L nasal cannula to keep oxygen sats in the low 90s. At this point I do not think and get him to dialysis particularly given his oxygen requirement so he will need to be admitted for dialysis here and weaned off his oxygen. No altered mental status. No focal motor deficits. I discussed this plan with him and he agrees. Consultation: I spoke with Dr. Kebede who agrees to admission. Consultation: I am consulting nephrology for dialysis. I spoke with Dr. Schmidt nephrology and she will arrange for dialysis. Assessment and plan: Hypoxemic respiratory failure Pulmonary edema Fluid overload End-stage renal disease on dialysis -I discussed the patient with the hospitalist on-call who is admitting the patient. - Discussed findings and plan with patient. Answered any questions. - All laboratory values were reviewed and interpreted personally by myself, the ER physician - All imaging was reviewed and interpreted personally by myself, the ER physician. - Evaluation and treatment of this problem were appropriate in the emergency setting Lab Data 04/24/24 04:57 04/24/24 04:57 Labs/Radiology: Radiology Impressions Chest X-Ray 04/24/24 04:19 IMPRESSION: CHF/fluid overload with pulmonary edema is probably present. Laboratory Results WBC 16.17 10^3/uL (3.29-11.43) H 04/24/24 04:57 RBC 2.26 10^6/uL (3.85-5.65) L 04/24/24 04:57 Hgb 7.70 g/dL (11.27-16.99) L 04/24/24 04:57 Hct 23.9 % (37-53) L 04/24/24 04:57 MCV 105.8 fl (82-101) H 04/24/24 04:57 MCH 34.1 pg (27-33) H 04/24/24 04:57 MCHC 32.2 g/dL (30-55) 04/24/24 04:57 RDW 14.7 % (12.1-15.1) 04/24/24 04:57 Plt Count 127 10^3/cmm (157-399) L 04/24/24 04:57 MPV 9.6 fL (7.4-10.4) 04/24/24 04:57 Neut % (Auto) 86.9 % 04/24/24 04:57 Lymph % (Auto) 5.9 % 04/24/24 04:57 [place] % (Auto) 4.0 % 04/24/24 04:57 Eos % (Auto) 1.9 % 04/24/24 04:57 Baso % (Auto) 0.6 % 04/24/24 04:57 Neut # (Auto) 14.06 10^3/uL (1.8-7.7) H 04/24/24 04:57 Lymph # (Auto) 1.0 10^3/uL (0.8-4.8) 04/24/24 04:57 [place] # (Auto) 0.7 10^3/uL (0.2-0.9) 04/24/24 04:57 Eos # (Auto) 0.3 10^3/uL (0.0-0.8) 04/24/24 04:57 Baso # (Auto) 0.1 10^3/uL (0.0-0.1) 04/24/24 04:57 Nucleated RBC % (auto) 0 % 04/24/24 04:57 Nucleated RBCs # 0.0 /100WBC 04/24/24 04:57 D-Dimer 2.22 ug/mLFEU (0-0.59) H 04/24/24 04:57 Specimen Type Arterial 04/24/24 04:40 Sample Site Radial, left 04/24/24 04:40 ABG pH 7.43 (7.35-7.45) 04/24/24 04:40 ABG pCO2 40.9 mmHg (35-45) 04/24/24 04:40 ABG pO2 54.4 mmHg (80.0-100.0) L 04/24/24 04:40 ABG HCO3 27.2 mmol/L (22-26) H 04/24/24 04:40 ABG O2 Saturation 88.1 04/24/24 04:40 ABG Base Excess 2.7 mmol/L (-2.0-2.0) H 04/24/24 04:40 Shaquille Test Pos 04/24/24 04:40 A-a O2 Gradient 5.9 mmHg (5-10) 04/24/24 04:40 Hematocrit 25.5 % (42-52) L 04/24/24 04:40 Hgb O2 Saturation 83.4 % (95-100) L 04/24/24 04:40 Carboxyhemoglobin 4.4 %THgb (0.4-20.1) 04/24/24 04:40 Methemoglobin 0.9 % (0.4-1.5) 04/24/24 04:40 Total Hemoglobin 8.3 g/dL (14-18) L 04/24/24 04:40 Sodium 140.0 mmol/L (131-143) 04/24/24 04:40 Potassium 5.3 mmol/L (3.5-5.0) H 04/24/24 04:40 Glucose 170.0 mg/dL (70-115) H 04/24/24 04:40 Ionized Calcium 1.2 mmol/L (1.1-1.4) 04/24/24 04:40 O2 Delivery Device Nc 04/24/24 04:40 O2 Liters/Min 8.0 % 04/24/24 04:40 Owner Consulting Engineer ID Cl 04/24/24 04:40 Sodium 139 mmol/L (136-145) 04/24/24 04:57 Potassium 5.5 mmol/L (3.5-5.1) H 04/24/24 04:57 Chloride 96 mmol/L (98-107) L 04/24/24 04:57 Carbon Dioxide 25 mmol/L (22-29) 04/24/24 04:57 Anion Gap 23.5 (5-19) H 04/24/24 04:57 BUN 64 mg/dL (6-20) H 04/24/24 04:57 Creatinine 11.1 mg/dL (0.7-1.2) H* 04/24/24 04:57 GFR Calculation 5.0 mL/min (90-130) L 04/24/24 04:57 Glucose 170 mg/dL (65-115) H 04/24/24 04:57 POC Glucose 174 mg/dL (70-110) H 04/24/24 06:47 Calculated Osmolality 310 mOsm/kg (285-295) H 04/24/24 04:57 Lactic Acid 1.1 mmol/L (0.5-2.2) 04/24/24 04:57 Calcium 9.7 mg/dL (8.5-10.5) 04/24/24 04:57 Phosphorus 4.1 mg/dL (2.5-4.5) 04/24/24 04:57 Magnesium 2.7 mg/dL (1.7-2.3) H 04/24/24 04:57 Total Bilirubin 1.0 mg/dL (0.15-1.2) 04/24/24 04:57 AST 12 U/L (0-40) 04/24/24 04:57 ALT 9 U/L (0-41) 04/24/24 04:57 Alkaline Phosphatase 109 U/L (40-130) 04/24/24 04:57 Troponin T Baseline 357 ng/L (0-15) H* 04/24/24 04:57 Troponin T 120 Minute 333.4 ng/L (0-15) H 04/24/24 06:54 Delta Troponin T -23.6 ABS# (0-10) L 04/24/24 06:54 Total Protein 7.7 g/dL (6.6-8.7) 04/24/24 04:57 Albumin 4.6 g/dL (3.5-5.2) 04/24/24 04:57 Globulin 3.1 g/dL (1.3-4.6) 04/24/24 04:57 Procalcitonin 0.25 ng/mL (0-0.5) 04/24/24 04:57 Coronavirus (PCR) Negative (Negative) 04/24/24 05:55 Influenza A (PCR) Negative (Negative) 04/24/24 05:55 Influenza Type B (PCR) Negative (Negative) 04/24/24 05:55 RSV (PCR) Negative (Negative) 04/24/24 05:55 Discharge Plan Discharge Condition: Stable Prescriptions: No Action RenaPlex 800 mcg- 12.5 mg tablet 1 tab PO DAILY (DME) lancets [OneTouch Delica Plus Lancet] 30 gauge misc See Rx Instructions .ROUTE .COMPLEX Qty: 200 3RF Dose Instruction: USE TO TEST BLOOD SUGAR TWICE A DAY Rx Instructions: USE TO TEST BLOOD SUGAR TWICE A DAY (DME) Blood Glucose Test Strip See Rx Instructions .Route Qty: 200 3RF Rx Instructions: As directed to test blood sugar BID Veltassa 8.4 gram powder in packet 8.4 g PO .4 days/week Rx Instructions: on non dialysis days Mon, Tue, and Tue albuterol sulfate [Ventolin HFA] 90 mcg/actuation HFA aerosol inhaler 2 puff inhalation Q4H PRN (Reason: shortness of breath or wheezing) Qty: 8.5 0RF isosorbide dinitrate 20 mg tablet 20 mg PO TID Qty: 270 1RF Rx Instructions: allow nitrate-free interval of 12-14 hrs per 24-hr period (DME) blood-glucose meter Misc See Rx Instructions .ROUTE .MEDSUPPLY Qty: 1 0RF Rx Instructions: As directed to test blood sugar BID escitalopram oxalate 20 mg tablet 20 mg PO DAILY Qty: 30 1RF amlodipine 10 mg tablet 10 mg PO DAILY Qty: 90 1RF Vitamin D2 1,250 mcg (50,000 unit) capsule 50,000 unit PO Q7D Rx Instructions: on Tue. carvedilol 25 mg tablet 25 mg PO BID clonidine HCl 0.1 mg tablet 0.1 mg PO TID diltiazem HCl 180 mg capsule,extended release 24 hr 180 mg PO DAILY methocarbamol 750 mg tablet 750 mg PO Q8H PRN (Reason: muscle spasms) hydralazine 100 mg tablet 100 mg PO TID losartan 100 mg tablet 100 mg PO DAILY Claritin 10 mg Tablet 10 mg PO BID pantoprazole 40 mg tablet,delayed release (DR/EC) 40 mg PO DAILY Referrals: Enoch Borrero MD [Primary Care Provider] - Coding Level of Care Code ED Fire Alarm Operator for Donta Leigh
[2024-04-24 05:04] LABS: ABG PCO2 40.9 mmHg (35-45); ABG PH Result 7.43 (7.35-7.45); Alveolar-Arterial Oxygen Gradi 5.9 mmHg (5-10); Arterial Blood Gas Hematocrit 25.5 % (42-52); Blood Gas Sample Site Radial, left; Carboxyhemoglobin 4.4 %THgb (0.4-20.1); HCO3 ABG 27.2 mmol/L (22-26); HGB O2 Sat 83.4 % (95-100); Methemoglobin 0.9 % (0.4-1.5); Oxygen Saturation ABG 88.1; PO2 ABG 54.4 mmHg (80.0-100.0); Potassium Level - ABG 5.3 mmol/L (3.5-5.0); Total Hemoglobin 8.3 g/dL (14-18)
[2024-04-24 05:06] LABS: Basophils # 0.1 10^3/uL (0.0-0.1); Basophils % 0.6 %; Eosinophils # 0.3 10^3/uL (0.0-0.8); Eosinophils % 1.9 %; Hematocrit 23.9 % (37-53); Lymphocytes % 5.9 %; Mean Corpuscular HGB Conc 32.2 g/dL (30-55); Mean Corpuscular Hemoglobin 34.1 pg (27-33); Mean Corpuscular Volume 105.8 fl (82-101); Mean Platelet Volume 9.6 fL (7.4-10.4); Monocytes # 0.7 10^3/uL (0.2-0.9); Neutrophils # 14.06 10^3/uL (1.8-7.7); Neutrophils % 86.9 %; Nucleated Red Blood Cells % 0 %; Platelet Count 127 10^3/cmm (157-399); Red Blood Count 2.26 10^6/uL (3.85-5.65); Red Cell Distribution Width 14.7 % (12.1-15.1); White Blood Count 16.17 10^3/uL (3.29-11.43)
[2024-04-24] MEDS: hyDRALAzine 20 mg/mL INJ 1 mL 10 MG IVP (05:11)
[2024-04-24 05:23] LABS: Lactic Sepsis W/Reflex 1.1 mmol/L (0.5-2.2)
[2024-04-24 05:25] LABS: Troponin(5th) Baseline 357 ng/L (0-15)
--- NOTE | 2024-04-24 05:26 | ECG_ITS ---
[facility] Test Date: 2024-04-24 Pat Name: Stan Romero Department: Room: Gender: Male Spareribs Trimmer: : 1975 Requested By: Eren Angelo Order Number: [id number] Johanna MD: Heath Wellington M.D. Measurements Intervals [place] Rate: 103 P: 31 MI: 174 QRS: 16 QRSD: 98 T: 71 QT: 345 QTc: 452 Interpretive Statements SINUS TACHYCARDIA LEFT VENTRICULAR HYPERTROPHY AND ST-T CHANGE [VOLTAGE CRITERIA PLUS ST/T ABNORMALITY] Compared to ECG 04/24/2024 04:15:13 No significant changes Electronically Signed On 04-24-2024 7:58:31 CDT by Heath Wellington M.D. [email or web address]
[2024-04-24 05:28] LABS: Alanine Aminotransferase 9 U/L (0-41); Albumin Level 4.6 g/dL (3.5-5.2); Alkaline Phosphatase 109 U/L (40-130); Anion Gap 23.5 (5-19); Aspartate Amino Transferase 12 U/L (0-40); Blood Urea Nitrogen 64 mg/dL (6-20); Calcium 9.7 mg/dL (8.5-10.5); Carbon Dioxide 25 mmol/L (22-29); Chloride 96 mmol/L (98-107); Creatinine Clr Calc Pharmacy 9.7341; Globulin 3.1 g/dL (1.3-4.6); Glucose 170 mg/dL (65-115); Magnesium 2.7 mg/dL (1.7-2.3); Osmolality Calculated 310 mOsm/kg (285-295); Phosphorus 4.1 mg/dL (2.5-4.5); Potassium 5.5 mmol/L (3.5-5.1); Sodium 139 mmol/L (136-145); Total Protein 7.7 g/dL (6.6-8.7)
[2024-04-24 05:35] LABS: Procalcitonin 0.25 ng/mL (0-0.5)
[2024-04-24] MEDS: insulin regular-human 100 units/1 mL 10 UNIT IVP (05:40)
[2024-04-24] MEDS: ondansetron 2 mg/ML SDV 2 mL 4 MG IVP (05:44)
[2024-04-24] MEDS: morphine 4 mg/mL SDV 1 mL IVP (05:44)
[2024-04-24] MEDS: piperacillin-tazobactam 2.25 GM in sodium chloride 0.9% (plus) 50 ML IV (05:57)
[2024-04-24 06:02] LABS: D Dimer 2.22 ug/mLFEU (0-0.59)
[2024-04-24] MEDS: calcium gluconate 0.1 gm/mL 10% SDV 10mL 1 GM IVP (06:14)
[2024-04-24] MEDS: dextrose 10% 250 ML 1000 ML IV (06:14)
--- NOTE | 2024-04-24 06:19 | ECG_ITS ---
[facility] Test Date: 2024-04-24 Pat Name: Stan Romero Department: Room: 111 Gender: Male Wood Stainer: : 1975 Requested By: Eren Angelo Order Number: [id number] Johanna MD: Heath Wellington M.D. Measurements Intervals [place] Rate: 88 P: 35 MI: 170 QRS: 39 QRSD: 99 T: 79 QT: 365 QTc: 443 Interpretive Statements SINUS RHYTHM NONSPECIFIC T-WAVE ABNORMALITY Compared to ECG 04/24/2024 05:26:47 T-wave abnormality now present Sinus tachycardia no longer present Left ventricular hypertrophy no longer present ST (T wave) deviation no longer present Electronically Signed On 04-24-2024 11:15:16 CDT by Heath Wellington M.D. [id number]
[2024-04-24 06:50] LABS: Glucose Point of Care 174 mg/dL (70-110)
[2024-04-24 07:06] LABS: Covid PCR NEGATIVE (Negative); Influenza A NEGATIVE (Negative); Influenza B NEGATIVE (Negative); Respiratory Syncytial Virus Ce NEGATIVE (Negative)
[2024-04-24 07:29] LABS: Troponin 5 2HR Delta -23.6 ABS# (0-10)
[2024-04-24 07:30] LABS: Troponin 5 2HR 333.4 ng/L (0-15)
--- NOTE | 2024-04-24 08:26 | P.CONIM_ITS ---
Providers/Reason For Consult 2 Consulting Physician/Specialty*: kommana/Nephrology Reason for Consult*: ESRD Primary Care Provider: Enoch Borrero MD History of Present Illness History of Present Illness Stan Romero is a 48 year old male Patient is a 48-year-old male with past medical history of hypertension end-stage renal disease on dialysis per Tuesday schedule, CHF presented to the emergency department due to shortness of breath. Patient was hypoxic in the ED requiring 10 L O2 chest x- ray showed vascular congestion. Other vital signs stable, lab data significant for potassium of 5.5 hemoglobin 7.7 WBC count of 16,000. Review of Systems 2 Narrative: Other ROS negative Medications/Allergies Home Medications Medication Instructions Recorded Confirmed Last Taken Type blood-glucose meter #1 ea 07/16/21 04/24/24 Unknown Rx blood sugar diagnostic (Blood #200 ea 11/19/22 04/24/24 Unknown Rx Glucose Test strips) lancets 30 gauge ([email or web address] ##200 11/19/22 04/24/24 Unknown Rx Plus Lancet) vitamin B complex with vit C-folic 1 tab PO DAILY 11/19/22 04/24/24 04/23/24 History acid 800 mcg-zinc 12.5 mg tablet (RenaPlex) isosorbide dinitrate 20 mg tablet 20 mg PO TID #270 tabs 04/18/23 04/24/24 Unknown Rx patiromer calcium sorbitex 8.4 8.4 g PO .4 days/week 06/22/23 04/24/24 04/23/24 History gram oral powder packet (Veltassa) albuterol sulfate 90 mcg/actuation 2 puff inhalation Q4H PRN 07/06/23 04/24/24 Unknown Rx aerosol inhaler (Ventolin HFA) shortness of breath or wheezing #8.5 grams escitalopram oxalate 20 mg tablet 20 mg PO DAILY #30 tabs 04/10/24 04/24/24 04/23/24 Rx amlodipine 10 mg tablet 10 mg PO DAILY #90 tabs 04/11/24 04/24/24 04/23/24 Rx carvedilol 25 mg tablet 25 mg PO BID 04/24/24 04/24/24 04/23/24 History clonidine HCl 0.1 mg tablet 0.1 mg PO TID 04/24/24 04/24/24 04/23/24 History diltiazem HCl 180 mg capsule,24 180 mg PO DAILY 04/24/24 04/24/24 04/23/24 History hr,extended release ergocalciferol (vitamin D2) 1,250 50,000 unit PO Q7D 04/24/24 04/24/24 04/18/24 History mcg (50,000 unit) capsule (Vitamin D2) hydralazine 100 mg tablet 100 mg PO TID 04/24/24 04/24/24 04/23/24 History loratadine 10 mg tablet (Claritin) 10 mg PO BID 04/24/24 04/24/24 04/23/24 History losartan 100 mg tablet 100 mg PO DAILY 04/24/24 04/24/24 04/23/24 History methocarbamol 750 mg tablet 750 mg PO Q8H PRN muscle spasms 04/24/24 04/24/24 Unknown History pantoprazole 40 mg tablet,delayed 40 mg PO DAILY 04/24/24 04/24/24 04/23/24 History release Allergies Allergy/AdvReac Type Severity Reaction Status Date / Time No Known Allergies Allergy Verified 01/30/24 08:17 Current Medications Generic Name Dose Route Start Last Admin Trade Name Freq PRN Reason Stop Dose Admin Dextrose 250 mls @ 1,000 mls/hr 04/24/24 05:36 04/24/24 06:41 D10w IV Infused PRN PRN Infusion HYPOGLYCEMIA PFSH Acute 2 PFSH: Medical History (Updated 04/24/24 @ 17:35 by Uriel Osorio MD) Pericardial effusion Thrombocytopenia Severe anemia Kidney failure HFrEF (heart failure with reduced ejection fraction) Elevated BUN Vitamin D deficiency Anemia Diabetic ulcer of left foot Peripheral vascular disease HTN (hypertension) Diabetes mellitus type 2, uncontrolled History of diabetes mellitus Peritonsillar cellulitis Surgical History (Updated 04/24/24 @ 17:35 by Uriel Osorio MD) History of insertion of tunneled central venous catheter (CVC) with port H/O vitrectomy No history of previous surgery Family History Other CAD (coronary artery disease) Diabetes Hypertension Lung disease Denies family history of Clotting disorder Dementia Hyperlipidemia Psychiatric illness Chronic kidney disease (CKD) Anesthesia complication Bleeding disorder Cancer Stroke Social History Smoking and tobacco/nicotine status: current every day tobacco/nicotine user cigarettes Packs smoked per day: 0.5 Years cigarettes smoked: 30 Quit status (tobacco/nicotine): considering quitting Alcohol intake: former Substance/Drug Use: never Lives independently: Yes Household members: none Housing: House Current occupational status: unemployed Special manuel needs: No Agree to transfusion: Yes Vitals/I&O/Wt Last Vital Signs Temp 95.8 F L 04/24/24 04:15 Pulse 91 04/24/24 08:16 Resp 12 04/24/24 08:16 BP 182/103 04/24/24 08:16 Pulse Ox 92 04/24/24 08:16 O2 Del Method Nasal Cannula 04/24/24 08:16 O2 Flow Rate 2 04/24/24 08:16 04/23/24 04/24/24 04/24/24 22:59 06:59 14:59 Intake Total 300 / 300 Balance 300 / 300 Weight last 48 hrs Weight 95 kg Physical Exam 2 Narrative: Patient is awake alert, no distress HEENT S1-S2 regular rate and rhythm per report Bilateral crackles per report Abdomen soft nontender per report No pedal edema Data 04/25/24 03:20 04/25/24 03:20 Micro: Microbiology 04/24/24 05:57 Blood Culture - Preliminary Blood SPECIMEN COLLECTED 04/24/24 05:17 Blood Culture - Preliminary Blood SPECIMEN COLLECTED A&P Assessment and plan (1) ESRD (end stage renal disease): Plan 1. End-stage renal disease: Patient now presented with volume overload, plan for HD today and ultrafiltration as tolerated and may require repeat HD tomorrow due to volume overload 2. Hypertensive urgency blood pressures more than 200s on presentation, resume home with patient's and review after HD done 3. Volume overload with history of CHF and flash pulmonary edema, HD as above 4. Anemia: Will order KEVIN 5. Sepsis possible pneumonia, on antibiotics Patient evaluated using audiovisual cart. Time spent 40 minutes. Consult Attestations 2 Medical Necessity Statement: PER STEPHANIE Coding Level of Care Code Acute Code for Chg Fwd Diagnoses ESRD (end stage renal disease) N18.6
[2024-04-24 11:30] LABS: Glucose Point of Care 120 mg/dL (70-110)
[2024-04-24 11:52] LABS: Troponin 5 6HR 377.4 ng/L (0-15)
[2024-04-24 11:53] LABS: Troponin 5 6HR Delta 20.4 ng/L (0-12)
[2024-04-24] MEDS: FUROsemide 10 mg/mL SDV 10mL 100 MG IVP (11:55)
--- NOTE | 2024-04-24 12:03 | PC.NURSE ---
Patient refused flanagan catheter. Dr. Osorio notified.
--- NOTE | 2024-04-24 13:21 | USCV_ITS ---
Stan Romero Age: 48 Gender: M : 1975 Exam Date: 04/24/2024 13:39 Ordering Phys: Uriel Osorio MD Technologist: [place] [facility] [place]: ef BP: 143 / 76 HR: Rhythm: Sinus Technical Quality: Adequate MEASUREMENTS (Male / Female) Normal Values 2D ECHO LV Diastolic Diameter PLAX 5.1 cm 4.2 - 5.9 / 3.9 - 5.3 cm IVS Diastolic Thickness 1.7 cm 0.6 - 1.0 / 0.6 - 0.9 cm IVS Systolic Thickness 2.3 cm LVPW Diastolic Thickness 1.7 cm 0.6 - 1.0 / 0.6 - 0.9 cm LVPW Systolic Thickness 2.1 cm LVOT Diameter 2.4 cm LV Ejection Fraction 2D Teich 11.3 % LV Ejection Fraction MOD 4C 59.4 % LV Ejection Fraction MOD 2C 70.6 % LV Ejection Fraction 2C AL 71.3 % LA Diameter 5.0 cm RA Systolic Volume 4C AL 50.3 ml RA Systolic Volume 4C MOD 46.4 ml Aorta at Sinotubular Diameter 2.8 cm M-MODE LA Ao Ratio MM 1.4 AV Cusp Separation MM 2.5 cm FINDINGS Left Ventricle Right Ventricle Right Atrium Left Atrium Mitral Valve Aortic Valve Tricuspid Valve Pulmonic Valve Pericardium Aorta IVC CONCLUSIONS Left ventricle is normal in size. LV systolic function is normal with EF 55 to 60%. No regional wall motion abnormalities are seen. Small sized pericardial effusion seen. Echogenic stucture seen in the right atrium. Similar to prior echocardiogram from 01/2024. Heath Wellington MD (Electronically Signed) Final Date: 24 April 2024 15:11 S
[2024-04-24] MEDS: heparin drip 25,000 UNIT/500 ML PREMIX 27 UNIT IV (13:46)
[2024-04-24] MEDS: heparin 5,000 unit/mL INJ 1 mL IVP (13:48)
[2024-04-24] MEDS: aspirin 325 mg Tablet PO (13:48)
[2024-04-24 13:56] LABS: Thyroid Stimulating Hormone 2.67 uIU/mL (0.27-4.20)
[2024-04-24] MEDS: carvedilol 25 mg Tablet PO ×2 (14:11→21:02)
[2024-04-24 14:17] LABS: Iron 42 ug/dL (59-158); Percent Saturation 21.4 % (20-50); Total Iron Binding Capacity 196 mcg/dl; Unsaturated Iron Binding 154 ug/dL (112-347)
[2024-04-24 14:33] LABS: Vitamin B12 1235 pg/mL (232-1245)
[2024-04-24] MEDS: isosorbide dinitrate 20 mg Tablet PO ×2 (15:00→21:02)
[2024-04-24] MEDS: hyDRALAzine 50 mg Tablet 100 MG PO ×2 (15:00→21:02)
[2024-04-24] MEDS: cloNIDine 0.1 mg Tablet PO ×2 (15:00→21:01)
--- NOTE | 2024-04-24 16:06 | PC.NURSE ---
to dialysis at this time via bed
--- NOTE | 2024-04-24 17:31 | P.HP_ITS ---
Providers/Chief Complaint 2 Admitting Physician: Uriel Osorio MD Primary Care Provider: Enoch Borrero MD Chief Complaint: SOB History of Present Illness Stan Romero is a 48 year old male with past medical history of hypertension, hypertensive urgency, incisional disease on hemodialysis, diastolic heart failure. As per the patient he was at his baseline till yesterday evening when he felt chest pressure along with difficulty in breathing which continued to get worse and today morning he was not able to maintain his breathing and found himself to be desaturating down to low 70s so presented to the ER. Patient states chronically he has not been able to lie down because of difficulty in breathing but today it was getting worse hence he presented to the ER. In the ER he was found to be requiring up to 6 L of nasal cannula oxygen supplementation to maintain saturation over 90% hence medicine service was consulted. Examination patient is on 10 L of oxygen supplementation saturating in mid 80s and was transition over to heated high flow of 50 L 40% to maintain saturation of 95%. Patient denies any active chest pain and chest pressure but does complain of difficulty in breathing. States he usually gets dialysis Tuesday, and Tuesday and was due for dialysis today. He denies any fever, nausea, vomiting, dysuria, cough, sick contacts. Review of Systems 2 General: Reports: 10 or more systems reviewed and unremarkable except in HPI and below Const: Denies: fever(s), chills, body aches, change in appetite, change in weight, malaise, night sweats, diaphoresis, change in sleep pattern, daytime sleepiness or snoring Eyes: Denies: change in vision, blurry vision, photophobia, eye discomfort or eye discharge ENMT: Denies: throat pain, enlarged tonsils, hoarseness, mouth pain, oral sores, dry mouth, tinnitus, nasal congestion or post nasal drip Card: Denies: chest pain, palpitations, irregular heart rhythm, edema, swelling of feet/ankles, lightheadedness, syncope, pre-syncope, dyspnea on exertion, orthopnea, leg pain with exertion or acrocyanosis Resp: Denies: dyspnea, productive cough, non-productive cough, wheezing, stridor, pain on inspiration, change in phlegm color, hemoptysis or chest congestion GI: Denies: abdominal pain, nausea, vomiting, hematemesis, coffee ground emesis, dysphagia, heartburn, diarrhea, constipation, bloating, GI cramping, change in bowel habits, pain on defecation, hematochezia or melena : Denies: flank pain, difficulty urinating, dysuria, urinary frequency, urinary urgency, urinary hesitancy, urinary dribbling, difficulty starting urination, change in urine stream, nocturia or hematuria Musc: Denies: neck pain, back pain, extremity pain, joint pain, joint swelling, joint redness, joint stiffness or limited range of motion Neuro: Denies: headache(s), numbness in extremities, weakness in extremities, sensory changes, lack of coordination, difficulty walking, frequent falls, dizziness, vertigo, confusion, Slurred speech present, difficulty communicating thoughts or seizure-like activity Psych: Denies: anxiety, depression, mood swings, panic attacks, hopelessness or irritability Endo: Denies: polyuria, polydipsia, tired all the time, cold intolerance, excessive sweating, flushing or heat intolerance Rudy/Lymph: Denies: easy bruising or easy bleeding All/Imm: Denies: tongue swelling, facial swelling or acute wheezing Medications/Allergies Home Medications Medication Instructions Recorded Confirmed Last Taken Type blood-glucose meter #1 ea 07/16/21 04/24/24 Unknown Rx blood sugar diagnostic (Blood #200 ea 11/19/22 04/24/24 Unknown Rx Glucose Test strips) lancets 30 gauge ([employer] ##200 11/19/22 04/24/24 Unknown Rx Plus Lancet) vitamin B complex with vit C-folic 1 tab PO DAILY 11/19/22 04/24/24 04/23/24 History acid 800 mcg-zinc 12.5 mg tablet (RenaPlex) isosorbide dinitrate 20 mg tablet 20 mg PO TID #270 tabs 04/18/23 04/24/24 Unknown Rx patiromer calcium sorbitex 8.4 8.4 g PO .4 days/week 06/22/23 04/24/24 04/23/24 History gram oral powder packet (Veltassa) albuterol sulfate 90 mcg/actuation 2 puff inhalation Q4H PRN 07/06/23 04/24/24 Unknown Rx aerosol inhaler (Ventolin HFA) shortness of breath or wheezing #8.5 grams escitalopram oxalate 20 mg tablet 20 mg PO DAILY #30 tabs 04/10/24 04/24/24 04/23/24 Rx amlodipine 10 mg tablet 10 mg PO DAILY #90 tabs 04/11/24 04/24/24 04/23/24 Rx carvedilol 25 mg tablet 25 mg PO BID 04/24/24 04/24/24 04/23/24 History clonidine HCl 0.1 mg tablet 0.1 mg PO TID 04/24/24 04/24/24 04/23/24 History diltiazem HCl 180 mg capsule,24 180 mg PO DAILY 04/24/24 04/24/24 04/23/24 History hr,extended release ergocalciferol (vitamin D2) 1,250 50,000 unit PO Q7D 04/24/24 04/24/24 04/18/24 History mcg (50,000 unit) capsule (Vitamin D2) hydralazine 100 mg tablet 100 mg PO TID 04/24/24 04/24/24 04/23/24 History loratadine 10 mg tablet (Claritin) 10 mg PO BID 04/24/24 04/24/24 04/23/24 History losartan 100 mg tablet 100 mg PO DAILY 04/24/24 04/24/24 04/23/24 History methocarbamol 750 mg tablet 750 mg PO Q8H PRN muscle spasms 04/24/24 04/24/24 Unknown History pantoprazole 40 mg tablet,delayed 40 mg PO DAILY 04/24/24 04/24/24 04/23/24 History release Allergies Allergy/AdvReac Type Severity Reaction Status Date / Time No Known Allergies Allergy Verified 01/30/24 08:17 PFSH Acute 2 PFSH: Medical History (Updated 04/24/24 @ 17:35 by Uriel Osorio MD) Pericardial effusion Thrombocytopenia Severe anemia Kidney failure HFrEF (heart failure with reduced ejection fraction) Elevated BUN Vitamin D deficiency Anemia Diabetic ulcer of left foot Peripheral vascular disease HTN (hypertension) Diabetes mellitus type 2, uncontrolled History of diabetes mellitus Peritonsillar cellulitis Surgical History (Updated 04/24/24 @ 17:35 by Uriel Osorio MD) History of insertion of tunneled central venous catheter (CVC) with port H/O vitrectomy No history of previous surgery Family History Other CAD (coronary artery disease) Diabetes Hypertension Lung disease Denies family history of Clotting disorder Dementia Hyperlipidemia Psychiatric illness Chronic kidney disease (CKD) Anesthesia complication Bleeding disorder Cancer Stroke Social History Smoking and tobacco/nicotine status: current every day tobacco/nicotine user cigarettes Packs smoked per day: 0.5 Years cigarettes smoked: 30 Quit status (tobacco/nicotine): considering quitting Alcohol intake: former Substance/Drug Use: never Lives independently: Yes Household members: none Housing: House Current occupational status: unemployed Special manuel needs: No Agree to transfusion: Yes Vitals/I&O/Wt Last Vital Signs Temp 95.8 F L 04/24/24 04:15 Pulse 85 04/24/24 15:55 Resp 20 H 04/24/24 15:55 BP 163/87 04/24/24 16:05 Pulse Ox 96 04/24/24 15:55 O2 Del Method High Flow Nasal Cannula 04/24/24 15:33 O2 Flow Rate 50 04/24/24 15:33 FiO2 40 04/24/24 15:33 04/24/24 04/24/24 04/24/24 06:59 14:59 22:59 Intake Total 300 / 300 420 / 420 Balance 300 / 300 420 / 420 Weight last 48 hrs Weight 97.976 kg Weight 981.773 kg Weight 95 kg Data 04/24/24 04:57 04/24/24 04:57 Micro: Microbiology 04/24/24 05:57 Blood Culture - Preliminary Blood SPECIMEN COLLECTED 04/24/24 05:17 Blood Culture - Preliminary Blood SPECIMEN COLLECTED A&P Assessment and plan (1) Hypoxic respiratory failure: Most likely in setting of flash pulmonary edema in setting of hypertensive urgency while pneumonia cannot be ruled out. Oxygen supplementation keeping saturation over 90%. DuoNeb every 6 hour, Pulmicort twice daily. Wean high-grade high flow accordingly. (2) Uncontrolled hypertension: Goal blood pressure less than 140/90 MAG. Currently blood pressure elevated to more than 200. Restart home dose of carvedilol, clonidine, Cardizem, hydralazine, Imdur, losartan. Uptitrate as for goal blood pressures. (3) Flash pulmonary edema: In setting of uncontrolled hypertension. History of end-stage renal disease on hemodialysis. Patient is usually an uric. Nephrology consulted for emergent dialysis. 100 mg of IV Lasix one-time. Nixon catheterization. (4) Pneumonia: SIRS: Tachycardic, Leukocytosis Source: Pneumonia End organ damage: Respiratory failure Lactic acid within normal limits Concerns for pulmonary edema in setting of end-stage renal disease Check blood culture, sputum culture, urine Legionella, bacterial antigen MRSA swab, respiratory viral panel, procalcitonin l. Empirically start on IV ceftriaxone for community-acquired pneumonia. (5) Elevated troponin: Concerns for non-ST elevation [place] versus demand ischemia. Troponin cycle with delta of 20 and 6 hours. Limited echocardiogram. Last echocardiogram from 01/29 showed a normal EF with no regional wall motion abnormality, mild TR with mild pulmonary hypertension with PASP of 35 to 40 mmHg. Start on heparin drip. 300 mg aspirin stat followed by 81 mg daily. Atorvastatin 40 mg nightly. Check A1c, lipid panel. Patient would benefit from further ACS workup though he is chronically not able to lie down because of difficulty breathing. Will see if he can get not negative with daily dialysis and plan for possible stress test. Will discuss with nephrology. (6) ESRD (end stage renal disease): Nephrology consulted for emergent dialysis. Plan Type 2 diabetes mellitus: Last A1c of 5.3. Does have history of uncontrolled type 2 diabetes mellitus. Blood glucose on BMP 170. Recheck A1c. Continue to monitor. Anemia: Most likely in setting of anemia of chronic disease. Hemoglobin is 7.7. Check iron panel, vitamin B12 and folate levels. Check reticulocyte count. Transfuse keeping hemoglobin over 8. Full code Renal dialysis diet Heparin drip will be sufficient for DVT prophylaxis Protonix for PUD prophylaxis. Attestations 2 Medical Necessity Statement*: Admission for more than 2 midnights for management of respiratory failure in setting of flash pulmonary edema, pneumonia in a patient with concerns for non- ST elevation [place] versus demand ischemia in a patient with end-stage renal disease on hemodialysis requiring emergent dialysis currently Diagnoses Hypoxic respiratory failure J96.91 Uncontrolled hypertension I10 Flash pulmonary edema J81.0 Pneumonia J18.9 Elevated troponin R79.89 ESRD (end stage renal disease) N18.6
[2024-04-24 17:51] LABS: Reticulocyte % 2.8 % (0.5-2.0)
[2024-04-24 20:41] LABS: Glucose Point of Care 225 mg/dL (70-110)
[2024-04-24] MEDS: cefTRIAXone 1,000 mg SDV 1000 MG IVP (21:01)
[2024-04-24] MEDS: atorvastatin 40 mg Tablet PO (21:02)
[2024-04-24 21:21] LABS: Partial Thromboplastin Time 91.8 SECONDS (23.9-36.7)
[2024-04-25] VITALS (22 sets, daily range): BP systolic 109–178; BP diastolic 62–95; PULSE 66–86; RESP 14–22; TEMP 36.7–37.5; O2SAT 92–99
[2024-04-25 03:36] LABS: Basophils # 0.1 10^3/uL (0.0-0.1); Basophils % 0.5 %; Eosinophils # 0.4 10^3/uL (0.0-0.8); Eosinophils % 3.9 %; Lymphocytes # 1.4 10^3/uL (0.8-4.8); Lymphocytes % 14.5 %; Mean Corpuscular HGB Conc 31.9 g/dL (30-55); Mean Corpuscular Hemoglobin 33.9 pg (27-33); Mean Corpuscular Volume 106.1 fl (82-101); Mean Platelet Volume 9.3 fL (7.4-10.4); Monocytes # 0.6 10^3/uL (0.2-0.9); Monocytes % 6.1 %; Neutrophils # 7.12 10^3/uL (1.8-7.7); Neutrophils % 74.6 %; Nucleated Red Blood Cells % 0 %; Platelet Count 97 10^3/cmm (157-399); Red Cell Distribution Width 14.3 % (12.1-15.1); White Blood Count 9.54 10^3/uL (3.29-11.43)
[2024-04-25 03:46] LABS: Hematocrit 19.1 % (37-53)
[2024-04-25 03:49] LABS: Partial Thromboplastin Time 55.6 SECONDS (23.9-36.7)
[2024-04-25 03:56] LABS: Alanine Aminotransferase 8 U/L (0-41); Albumin Level 3.8 g/dL (3.5-5.2); Alkaline Phosphatase 82 U/L (40-130); Anion Gap 15.7 (5-19); Aspartate Amino Transferase 10 U/L (0-40); Blood Urea Nitrogen 42 mg/dL (6-20); Calcium 8.9 mg/dL (8.5-10.5); Carbon Dioxide 28 mmol/L (22-29); Chloride 99 mmol/L (98-107); Creatinine Clr Calc Pharmacy 13.3622; Globulin 3.1 g/dL (1.3-4.6); Glucose 98 mg/dL (65-115); Magnesium 2.3 mg/dL (1.7-2.3); Osmolality Calculated 296 mOsm/kg (285-295); Phosphorus 4.5 mg/dL (2.5-4.5); Potassium 4.7 mmol/L (3.5-5.1); Sodium 138 mmol/L (136-145); Total Protein 6.9 g/dL (6.6-8.7)
[2024-04-25 03:57] LABS: Chol HDL Ratio 2.88 mg/dL (1.0-5.00); Cholesterol 138 mg/dL (0-200); HDL Cholesterol 48 mg/dL (60-100); LDL Cholesterol Calculated 73 mg/dL (50-129); LDL HDL Ratio 1.52 RATIO (0.00-3.22); Triglycerides 85 mg/dL (0-150)
[2024-04-25 04:02] LABS: Procalcitonin 0.39 ng/mL (0-0.5)
--- NOTE | 2024-04-25 04:28 | PC.NURSE ---
Notified Dr. Collins of patients Hgb of 6.10, and Hct of 19.1. Given orders to hold Heparin GTT and to transfuse [address] [facility].
[2024-04-25 04:35] LABS: Estmated Average Glucose 103; Hemoglobin A1C 5.2 % (4.0-6.0)
[2024-04-25 04:49] LABS: Hepatitis B Core AB, Total Non-Reactive (Nonreactive); Hepatitis B Surface AB 38.7 (11.5-1000); Hepatitis B Surface Antigen Non-Reactive (Nonreactive)
[2024-04-25] MEDS: pantoprazole 40 mg SDV IVP ×2 (05:16→17:53)
[2024-04-25] MEDS: sucralfate 1 gm/10 mL Oral Liq UDC PO ×3 (05:16→21:35)
[2024-04-25 06:39] LABS: Glucose Point of Care 121 mg/dL (70-110)
[2024-04-25] MEDS: carvedilol 25 mg Tablet PO ×2 (08:49→17:54)
[2024-04-25] MEDS: aspirin 81 mg EC Tablet PO (08:50)
[2024-04-25] MEDS: losartan 50 mg Tablet 100 MG PO (08:50)
[2024-04-25] MEDS: cloNIDine 0.1 mg Tablet PO ×3 (08:50→21:29)
[2024-04-25] MEDS: escitalopram 10 mg Tablet 20 MG PO (08:50)
[2024-04-25] MEDS: hyDRALAzine 50 mg Tablet 100 MG PO ×3 (08:50→21:29)
[2024-04-25] MEDS: dilTIAZem ER (24HR) 180 mg Capsule PO (08:50)
[2024-04-25] MEDS: isosorbide dinitrate 20 mg Tablet PO ×3 (08:50→21:29)
[2024-04-25] MEDS: ipratropium-albuterol 3 mL Neb INHALATION (08:52)
--- NOTE | 2024-04-25 09:16 | PC.CHAP ---
Pastoral Care Encounter/Spiritual Assessment Type of Contact [] Declined upper cutter machine visit [] Patient/Family/Request visit [] Outpatient visit [] Follow-up visit [] Physician referral [] Code/Alert [] Routine visit [] Staff referral [] Actively dying [x] Patient sleeping [] Family support [] [] Out of room [] Palliative care [] [] Receiving care in room [] Pre-surgical visit [] Trauma [] Long length of stay [] ICU visit [] Other: Relational/Emotional Strength [] Patient feels connected with others/family/visitors/staff [] Distress [] Loneliness/isolation [] Abandonment Spirituality of Patient [] Person of Sharron [] Attends Restoration of their Sharron [] Believes in Prayer [] Reads Bible or Protestant materials [] There are Spiritual issues to be addressed Land Agent Interventions [] Prayer [] Active listening [] Non-anxious presence [] Spiritual/emotional support [] Crisis/trauma care [] Spiritual counseling [] Bereavement support [] Provided bereavement packet [] Provided Bible/devotional materials [] Provided toy/stuffed animal, coloring book to patient or family member [] Provided Communion [] Anointing/[place] [] Salvation [] Completed spiritual assessment [] Other: Impact on Illness or Injury [] Angry [] Fearful [] Anxious [] Often cries [] Exhaustion [] Unable to work [] Unable to attend sabianism [] Unable to walk/stand [] Unable to read [] Unable to drive [] Unable to eat/drink [] Unable to sleep [] Unable to be with family [] Patient intubated [] Other: Summary Time spent with patient
[2024-04-25] MEDS: iohexol 350 mg/mL 500 mL Btl (per mL) IV (10:44)
[2024-04-25 11:06] LABS: MRSA PCR OZH (swab) MRSA Detected ` (Negative)
--- NOTE | 2024-04-25 11:52 | PC.NURSE ---
Patient left unit to CT and then to dialysis. at 1030.
[2024-04-25 11:57] LABS: Glucose Point of Care 171 mg/dL (70-110)
--- NOTE | 2024-04-25 12:43 | PC.NURSE ---
Provider has ordered 2 units of blood for this patient. Patient is in dialysis, 2 units of blood (one at a time) are taken to KATHYA Orantes in dialysis - she is running both units of blood, vitals will be scanned into chart.
--- NOTE | 2024-04-25 14:14 | P.PN_ITS ---
Subjective 2 Subjective: No acute events overnight. Patient today morning seen sitting comfortably in bed. States he is feeling a lot better. Down to 4 L of oxygen supplementation saturating more than 90%. Blood pressure is better but still mildly elevated. Denies any nausea, vomiting, headache. Vitals/I&O/Wt Last Vital Signs Temp 98.6 F 04/25/24 12:18 Pulse 76 04/25/24 12:18 Resp 18 04/25/24 12:18 BP 153/85 04/25/24 12:20 Pulse Ox 94 04/25/24 08:53 O2 Del Method Room Air 04/25/24 12:00 O2 Flow Rate 5 04/25/24 08:53 FiO2 40 04/24/24 15:33 04/24/24 04/25/24 04/25/24 22:59 06:59 14:59 Intake Total 459.7 / 879.7 0 / 0 Balance 459.7 / 879.7 0 / 0 Weight last 48 hrs Weight 97.976 kg Weight 97.976 kg Weight 981.773 kg Weight 95 kg Physical Exam 2 Narrative: General: No acute distress, AO x3, chronically sick appearing on nasal cannula, pallor present HEENT: PERRLA, pupils bilaterally equal and reactive Chest: Bilateral bronchial breath sounds with occasional rhonchi, fine Giurgius present on mid chest bilaterally CVS: S1-S2 regular, no murmurs, no tachycardia, no gallops, no rubs Abdomen: Soft, nontender, no organomegaly, bowel sounds present Neuro: No focal deficits, no facial deformity, AO x3, power 5/5 in all limbs Data 04/25/24 03:20 04/25/24 03:20 Micro: Microbiology 04/24/24 05:57 Blood Culture - Preliminary Blood NEGATIVE TO DATE 04/24/24 05:17 Blood Culture - Preliminary Blood NEGATIVE TO DATE A&P Assessment and plan (1) Hypoxic respiratory failure: Most likely in setting of flash pulmonary edema in setting of hypertensive urgency while pneumonia cannot be ruled out. Oxygen supplementation keeping saturation over 90%. DuoNeb every 6 hour, Pulmicort twice daily. Currently down to nasal cannula. Patient would benefit from home O2 evaluation on discharge. (2) Uncontrolled hypertension: Goal blood pressure less than 140/90 mmHg. Currently blood pressure elevated to more than 200. Restart home dose of carvedilol, clonidine, Cardizem, hydralazine, Imdur, losartan. Uptitrate as for goal blood pressures. (3) Flash pulmonary edema: Resolving. In setting of uncontrolled hypertension in a patient with end-stage renal disease on hemodialysis. Continue with aggressive dialysis. Repeat session today. (4) Pneumonia: SIRS: Tachycardic, Leukocytosis Source: Pneumonia End organ damage: Respiratory failure Lactic acid within normal limits Concerns for pulmonary edema in setting of end-stage renal disease Follow-up blood culture, sputum culture pending. Urine Legionella, bacterial antigen as patient is anuric. Respiratory viral panel negative. MRSA positive. For now continue with empiric IV ceftriaxone for community-acquired pneumonia. (5) Elevated troponin: Low concerns for non-ST elevation NM for now. High concerns for demand ischemia. Echocardiogram done shows no regional wall motion abnormality. Patient denies any further chest pain. CTA done shows no PE. Given significant drop in hemoglobin, no concerns for PE [id number] NM for now we will hold off on heparin drip. Appreciate lipid data echocardiogram results. Last echocardiogram from 01/29 showed a normal EF with no regional wall motion abnormality, mild TR with mild pulmonary hypertension with PASP of 35 to 40 mmHg. Continue with baby aspirin 81 mg daily. Atorvastatin 40 mg nightly. Appreciate A1c, lipid panel. Patient would benefit from further ACS workup though he is chronically not able to lie down because of difficulty breathing. Will see if he can get not negative with daily dialysis and plan for possible stress test. Will discuss with nephrology. (6) ESRD (end stage renal disease): Nephrology consulted for emergent dialysis. (7) PND (paroxysmal nocturnal dyspnea): Plan Type 2 diabetes mellitus: Repeat A1c 5.2. Does have history of uncontrolled type 2 diabetes mellitus. Blood glucose on BMP 170. Continue to monitor. Anemia: Most likely in setting of anemia of chronic disease. Anemia down to 6.1. Denies any episodes of melena. Abdomen soft. Does give history of recurrent blood transfusion. Transfused 2 unit of PRBC during hemodialysis. Appreciate iron panel and reticulocyte count. Patient would benefit with EPO daily dialysis. Full code Renal dialysis diet Heparin drip will be sufficient for DVT prophylaxis Protonix for PUD prophylaxis. Attestations 2 Medical Necessity Statement*: Requires further hospitalization for management of anemia requiring blood transfusion in a patient with concerns for hypoxic respiratory failure in setting of pulmonary edema due to uncontrolled hypertension in setting of end- stage renal disease on hemodialysis. Diagnoses Hypoxic respiratory failure J96.91 Uncontrolled hypertension I10 Flash pulmonary edema J81.0 Pneumonia J18.9 Elevated troponin R79.89 ESRD (end stage renal disease) N18.6 PND (paroxysmal nocturnal dyspnea) R06.00
--- NOTE | 2024-04-25 16:54 | PC.NURSE ---
Provider is asked if we can restart patients: He takes Renvela 800mg 3 before meals and 1 before snacks. No answer as of right now.
--- NOTE | 2024-04-25 17:51 | CT_ITS ---
WS: [id number] CTA CHEST WITH CT ABDOMEN AND PELVIS. HISTORY: Short of breath, elevated D-dimer. TECHNIQUE: CT angiogram is performed through the chest. Additional imaging is performed through the a bdomen and pelvis with IV contrast. Sagittal and coronal reformats have been submitted. MIP imaging also reviewed. All CT scans at [facility] use at least one of these dose optimization techniqu es: automated exposure control; mA and/or kV adjustment per patient size (includes targeted exams whe re dose is matched to clinical indication); or iterative reconstruction. Contrast: Omnipaque 350; 95 cc IV. DLP: 1384.51 mGy.cm COMPARISON: CT abdomen 06/17/2023, CT abdomen and pelvis 10/09/2022 Chest CTA: Poor opacification of the pulmonary arteries. No central pulmonary embolism. Beyond the lo bar branches the opacification is suboptimal. Pulmonary artery size is normal. Mild atherosclerosis a celsa. Heart is enlarged with a small to moderate pericardial effusion which has increased in size since 05/2023. No RIGHT heart strain. Small bilateral pleural effusions. Diffuse hazy attenuation throughou t both lungs from fluid overload. There are additional scattered opacifications throughout both lungs with which is probably representing pneumonia. Mediastinal and hilar lymphadenopathy. RIGHT paratrac heal lymph node measures 17 mm. Bilateral hilar prominent soft tissue measures up to 15 mm. These lym ph nodes may be reactive. Abdomen CT: Mild hepatic steatosis. No bile duct dilatation. Very poor contrast opacification of the arteries and veins. Portal vein is not well visualized. Gallbladder is well distended. There is a sma ll amount of sludge or stones within the gallbladder. No adjacent inflammation. No bile duct dilatati on. Limited visualization of the pancreas but no abnormality is noted. Normal spleen. No adrenal mass . Mild bilateral perinephric stranding. No ascites or adenopathy. Stomach is moderately distended with fluid. No small bowel obstruction. Increased fluid in the cecum. Mild constipation. No obstruction. There is very mild stranding in the RIGHT retroperitoneum which m ay be related to the kidney. Aorta is poorly visualized. Mesenteric arteries cannot be evaluated due to the poor bolus of contrast . Extensive atherosclerotic plaque within the aorta. No ischemic changes in the GI tract. Pelvic CT: No free fluid. Nondistended bladder. CT/CT angio chest w abd pel w con IMPRESSION: 1. Moderately enlarged heart. 2. New small to moderate circumferential pericardial effusion. 3. New small bilateral pleural effusions. 4. Interval development of mild pulmonary edema and scattered opacifications. These opacifications may be due to pneumonitis/pneumonia. 5. Mildly reactive mediastinal and hilar adenopathy. 6. Permacath is noted with the tips extending deep into the RIGHT atrium. 7. Mild perinephric stranding. 8. No ascites or free air. 9. Suspected small amount of gallbladder sludge or stones in the dependent gal lbladder. 10. No GI tract ischemia. 11. No central pulmonary emboli.
[2024-04-25] MEDS: cefTRIAXone 1,000 mg SDV 1000 MG IVP (17:53)
--- NOTE | 2024-04-25 19:42 | P.PN_ITS ---
Subjective 2 Subjective: getting HD Medications: Reviewed: Yes Vitals/I&O/Wt Last Vital Signs Temp 98.8 F 04/25/24 16:00 Pulse 74 04/25/24 16:00 Resp 20 H 04/25/24 16:00 BP 154/92 04/25/24 16:00 Pulse Ox 93 04/25/24 16:00 O2 Del Method Room Air 04/25/24 16:00 O2 Flow Rate 5 04/25/24 08:53 FiO2 21 04/25/24 15:13 04/25/24 04/25/24 04/25/24 06:59 14:59 22:59 Intake Total 0 / 0 530.3 / 530.3 Balance 0 / 0 530.3 / 530.3 Weight last 48 hrs Weight 97.976 kg Weight 97.976 kg Weight 981.773 kg Weight 95 kg Physical Exam 2 Narrative: Patient is awake alert, no distress HEENT S1-S2 regular rate and rhythm per report Bilateral crackles per report Abdomen soft nontender per report No pedal edema Data 04/25/24 03:20 04/25/24 03:20 Micro: Microbiology 04/24/24 05:57 Blood Culture - Preliminary Blood NEGATIVE TO DATE 04/24/24 05:17 Blood Culture - Preliminary Blood NEGATIVE TO DATE A&P Assessment and plan (1) ESRD (end stage renal disease): Plan 1. End-stage renal disease: Patient presented with volume overload,s/p HD yesterday and today , and ultrafiltration as tolerated 2. Hypertensive urgency blood pressures more than 200s on presentation, resumed home meds, BP improved 3. Volume overload with history of CHF and flash pulmonary edema, HD as above 4. Anemia: Will order KEVIN 5. Sepsis possible pneumonia, on antibiotics Patient evaluated using audiovisual cart. Time spent 40 minutes. Attestations 2 Medical Necessity Statement*: per medpa Coding Level of Care Code Acute Code for Chg Fwd Diagnoses ESRD (end stage renal disease) N18.6
[2024-04-25] MEDS: atorvastatin 40 mg Tablet PO (21:29)
--- NOTE | 2024-04-25 21:36 | PC.NURSE ---
Patient walked down to end of hallway and back without O2. Sats were 96%
[2024-04-26] VITALS (10 sets, daily range): BP systolic 132–191; BP diastolic 57–100; PULSE 66–80; RESP 15–20; TEMP 36.4–37; O2SAT 97–99
[2024-04-26 04:11] LABS: Basophils # 0.1 10^3/uL (0.0-0.1); Basophils % 0.8 %; Eosinophils # 0.5 10^3/uL (0.0-0.8); Hematocrit 25.5 % (37-53); Lymphocytes # 1.4 10^3/uL (0.8-4.8); Lymphocytes % 16.7 %; Mean Corpuscular HGB Conc 33.3 g/dL (30-55); Mean Corpuscular Hemoglobin 32.6 pg (27-33); Mean Corpuscular Volume 97.7 fl (82-101); Mean Platelet Volume 10.4 fL (7.4-10.4); Monocytes # 0.8 10^3/uL (0.2-0.9); Monocytes % 8.9 %; Neutrophils # 5.81 10^3/uL (1.8-7.7); Neutrophils % 67.3 %; Nucleated Red Blood Cells % 0 %; Platelet Count 141 10^3/cmm (157-399); Red Blood Count 2.61 10^6/uL (3.85-5.65); Red Cell Distribution Width 17.9 % (12.1-15.1); White Blood Count 8.64 10^3/uL (3.29-11.43)
[2024-04-26 04:57] LABS: Anion Gap 17.3 (5-19); Blood Urea Nitrogen 39 mg/dL (6-20); Calcium 9.2 mg/dL (8.5-10.5); Carbon Dioxide 27 mmol/L (22-29); Chloride 100 mmol/L (98-107); Creatinine Clr Calc Pharmacy 16.1132; Glomerular Filtration Rate 8.7 mL/min (90-130); Glucose 113 mg/dL (65-115); Osmolality Calculated 298 mOsm/kg (285-295); Potassium 5.3 mmol/L (3.5-5.1); Sodium 139 mmol/L (136-145)
[2024-04-26] MEDS: pantoprazole 40 mg SDV IVP (05:23)
[2024-04-26] MEDS: sucralfate 1 gm/10 mL Oral Liq UDC PO ×2 (05:23→08:36)
[2024-04-26 05:36] LABS: Glucose Point of Care 128 mg/dL (70-110)
--- NOTE | 2024-04-26 05:54 | PC.NURSE ---
Patient BP is 191/92, Dr chisholm notified and gave orders to give clonidine early.
[2024-04-26] MEDS: cloNIDine 0.1 mg Tablet PO (06:23)
[2024-04-26 06:36] LABS: Glucose Point of Care 135 mg/dL (70-110)
[2024-04-26] MEDS: dilTIAZem ER (24HR) 180 mg Capsule PO (08:35)
[2024-04-26] MEDS: losartan 50 mg Tablet 100 MG PO (08:35)
[2024-04-26] MEDS: escitalopram 10 mg Tablet 20 MG PO (08:35)
[2024-04-26] MEDS: isosorbide dinitrate 20 mg Tablet PO (08:35)
[2024-04-26] MEDS: carvedilol 25 mg Tablet PO (08:35)
[2024-04-26] MEDS: hyDRALAzine 50 mg Tablet 100 MG PO (08:35)
[2024-04-26] MEDS: aspirin 81 mg EC Tablet PO (08:35)
[2024-04-26 09:50] LABS: Troponin T (5th) Once 559 ng/L (0-15)
--- NOTE | 2024-04-26 10:37 | PM.DCS ---
Discharge Providers Date of Admission: 04/24/24 09:41 Date of Discharge: April 26, 2024 Attending Provider at Admission: Uriel Osorio MD Attending Provider at Discharge: Uriel Osorio MD Consults: Telemetry nephrology Primary Care Provider: Enoch Borrero MD Diagnoses at Discharge Discharge Diagnosis (1) ESRD (end stage renal disease): Status: Acute Reason for Visit Reason for Visit: SOB Hospital Course Hospital Course Stan Romero is a 48 year old male with past medical history of hypertension, hypertensive urgency, incisional disease on hemodialysis, diastolic heart failure. As per the patient he was at his baseline till yesterday evening when he felt chest pressure along with difficulty in breathing which continued to get worse and today morning he was not able to maintain his breathing and found himself to be desaturating down to low 70s so presented to the ER. Patient states chronically he has not been able to lie down because of difficulty in breathing but today it was getting worse hence he presented to the ER. In the ER he was found to be requiring up to 6 L of nasal cannula oxygen supplementation to maintain saturation over 90% hence medicine service was consulted. Examination patient is on 10 L of oxygen supplementation saturating in mid 80s and was transition over to heated high flow of 50 L 40% to maintain saturation of 95%. Patient denies any active chest pain and chest pressure but does complain of difficulty in breathing. States he usually gets dialysis Tuesday, and Tuesday and was due for dialysis today. He denies any fever, nausea, vomiting, dysuria, cough, sick contacts. Patient was admitted to the hospital further evaluation and management of hypoxic respiratory failure in setting of flash pulmonary edema due to hypertensive urgency. Nephrology was consulted he underwent emergent dialysis. During hospitalization his antihypertensives have been adjusted. On admission he did have elevated troponins though echocardiogram was done which ruled out any regional wall motion of normality and showed normal EF. Patient remained chest pain-free during hospitalization. Patient does need further workup for ACS with a stress test though chronically has not been able to lie down because of orthopnea because of which he wants to hold off for now. Patient received extra session of dialysis after which she has been on room air for last 24 hours both at rest and exertion though he is needing up to 1 L oxygen supplementation when he sleeping at night. He is been discharged in hemodynamically stable condition on adjusted antihypertensive with advised to follow-up with his primary care provider with a blood pressure diary next 2 weeks. His dose of clonidine has been increased to 0.23 times a day and nifedipine 30 mg oral daily has been added to his medication list. He is advised to have a cardiac stress test as an outpatient. Physical Exam Narrative: General: No acute distress, AO x3, chronically sick appearing on room air, pallor present HEENT: PERRLA, pupils bilaterally equal and reactive Chest: Bilateral bronchial breath sounds with occasional rhonchi, fine Giurgius present on mid chest bilaterally CVS: S1-S2 regular, no murmurs, no tachycardia, no gallops, no rubs Abdomen: Soft, nontender, no organomegaly, bowel sounds present Neuro: No focal deficits, no facial deformity, AO x3, power 5/5 in all limbs Discharge Data Studies Completed and Pending Completed Studies During Hospitalization Category Date Time Status CT angio chest w abd pel w con Routine Cat Scan 04/25/24 17:51 Completed XR chest 1V portable [id number] Stat Exams 04/24/24 04:19 Completed CV. echo limited [id number] Routine Ultrasound 04/24/24 13:21 Completed Pending at discharge Category Date Time Status Bacterial Antigen Stat Lab 04/24/24 17:37 Ordered Blood Culture Stat Lab 04/24/24 05:57 Results Sputum Culture and Gram Stain Stat Lab 04/24/24 17:37 Uncollected Urinalysis Routine Lab 04/24/24 13:18 Uncollected Radiology Impressions Chest X-Ray 04/24/24 04:19 IMPRESSION: CHF/fluid overload with pulmonary edema is probably present. Chest/Abdomen/Pelvis CT 04/25/24 17:51 IMPRESSION: 1. Moderately enlarged heart. 2. New small to moderate circumferential pericardial effusion. 3. New small bilateral pleural effusions. 4. Interval development of mild pulmonary edema and scattered opacifications. These opacifications may be due to pneumonitis/pneumonia. 5. Mildly reactive mediastinal and hilar adenopathy. 6. Permacath is noted with the tips extending deep into the RIGHT atrium. 7. Mild perinephric stranding. 8. No ascites or free air. 9. Suspected small amount of gallbladder sludge or stones in the dependent gallbladder. 10. No GI tract ischemia. 11. No central pulmonary emboli. Laboratory Results WBC 8.64 10^3/uL (3.29-11.43) 04/26/24 03:38 RBC 2.61 10^6/uL (3.85-5.65) L 04/26/24 03:38 Hgb 8.50 g/dL (11.27-16.99) L 04/26/24 03:38 Hct 25.5 % (37-53) L 04/26/24 03:38 MCV 97.7 fl (82-101) 04/26/24 03:38 MCH 32.6 pg (27-33) 04/26/24 03:38 MCHC 33.3 g/dL (30-55) 04/26/24 03:38 RDW 17.9 % (12.1-15.1) H 04/26/24 03:38 Plt Count 141 10^3/cmm (157-399) L D 04/26/24 03:38 MPV 10.4 fL (7.4-10.4) 04/26/24 03:38 Neut % (Auto) 67.3 % 04/26/24 03:38 Lymph % (Auto) 16.7 % 04/26/24 03:38 [place] % (Auto) 8.9 % 04/26/24 03:38 Eos % (Auto) 6.0 % 04/26/24 03:38 Baso % (Auto) 0.8 % 04/26/24 03:38 Reticulocyte % (Auto) 2.8 % (0.5-2.0) H 04/24/24 04:57 Neut # (Auto) 5.81 10^3/uL (1.8-7.7) 04/26/24 03:38 Lymph # (Auto) 1.4 10^3/uL (0.8-4.8) 04/26/24 03:38 [place] # (Auto) 0.8 10^3/uL (0.2-0.9) 04/26/24 03:38 Eos # (Auto) 0.5 10^3/uL (0.0-0.8) 04/26/24 03:38 Baso # (Auto) 0.1 10^3/uL (0.0-0.1) 04/26/24 03:38 Nucleated RBC % (auto) 0 % 04/26/24 03:38 Nucleated RBCs # 0.0 /100WBC 04/26/24 03:38 APTT 55.6 SECONDS (23.9-36.7) H 04/25/24 03:20 D-Dimer 2.22 ug/mLFEU (0-0.59) H 04/24/24 04:57 Specimen Type Arterial 04/24/24 04:40 Sample Site Radial, left 04/24/24 04:40 ABG pH 7.43 (7.35-7.45) 04/24/24 04:40 ABG pCO2 40.9 mmHg (35-45) 04/24/24 04:40 ABG pO2 54.4 mmHg (80.0-100.0) L 04/24/24 04:40 ABG HCO3 27.2 mmol/L (22-26) H 04/24/24 04:40 ABG O2 Saturation 88.1 04/24/24 04:40 ABG Base Excess 2.7 mmol/L (-2.0-2.0) H 04/24/24 04:40 Shaquille Test Pos 04/24/24 04:40 A-a O2 Gradient 5.9 mmHg (5-10) 04/24/24 04:40 Hematocrit 25.5 % (42-52) L 04/24/24 04:40 Hgb O2 Saturation 83.4 % (95-100) L 04/24/24 04:40 Carboxyhemoglobin 4.4 %THgb (0.4-20.1) 04/24/24 04:40 Methemoglobin 0.9 % (0.4-1.5) 04/24/24 04:40 Total Hemoglobin 8.3 g/dL (14-18) L 04/24/24 04:40 Sodium 140.0 mmol/L (131-143) 04/24/24 04:40 Potassium 5.3 mmol/L (3.5-5.0) H 04/24/24 04:40 Glucose 170.0 mg/dL (70-115) H 04/24/24 04:40 Ionized Calcium 1.2 mmol/L (1.1-1.4) 04/24/24 04:40 O2 Delivery Device Nc 04/24/24 04:40 O2 Liters/Min 8.0 % 04/24/24 04:40 Lodging Facilities Manager ID Cl 04/24/24 04:40 Sodium 139 mmol/L (136-145) 04/26/24 03:38 Potassium 5.3 mmol/L (3.5-5.1) H 04/26/24 03:38 Chloride 100 mmol/L (98-107) 04/26/24 03:38 Carbon Dioxide 27 mmol/L (22-29) 04/26/24 03:38 Anion Gap 17.3 (5-19) 04/26/24 03:38 BUN 39 mg/dL (6-20) H 04/26/24 03:38 Creatinine 6.8 mg/dL (0.7-1.2) H* 04/26/24 03:38 GFR Calculation 8.7 mL/min (90-130) L 04/26/24 03:38 Glucose 113 mg/dL (65-115) 04/26/24 03:38 POC Glucose 135 mg/dL (70-110) H 04/26/24 06:31 Estimat Average Glucose 103 04/25/24 03:20 Hemoglobin A1c 5.2 % (4.0-6.0) 04/25/24 03:20 Calculated Osmolality 298 mOsm/kg (285-295) H 04/26/24 03:38 Lactic Acid 1.1 mmol/L (0.5-2.2) 04/24/24 04:57 Calcium 9.2 mg/dL (8.5-10.5) 04/26/24 03:38 Phosphorus 4.5 mg/dL (2.5-4.5) 04/25/24 03:20 Magnesium 2.3 mg/dL (1.7-2.3) 04/25/24 03:20 Iron 42 ug/dL (59-158) L 04/24/24 04:57 TIBC 196 mcg/dl 04/24/24 04:57 % Saturation 21.4 % (20-50) 04/24/24 04:57 Unsat Iron Binding 154 ug/dL (112-347) 04/24/24 04:57 Total Bilirubin 1.0 mg/dL (0.15-1.2) 04/25/24 03:20 AST 10 U/L (0-40) 04/25/24 03:20 ALT 8 U/L (0-41) 04/25/24 03:20 Alkaline Phosphatase 82 U/L (40-130) 04/25/24 03:20 Troponin T 5th Gen ng/L 559 ng/L (0-15) H* 04/26/24 03:38 Troponin T Baseline 357 ng/L (0-15) H* 04/24/24 04:57 Troponin T 120 Minute 333.4 ng/L (0-15) H 04/24/24 06:54 Delta Troponin T -23.6 ABS# (0-10) L 04/24/24 06:54 Troponin T Hi Sens 6Hr 377.4 ng/L (0-15) H 04/24/24 11:20 Troponin T Hi Sens 6Hr Delta 20.4 ng/L (0-12) H* 04/24/24 11:20 Total Protein 6.9 g/dL (6.6-8.7) 04/25/24 03:20 Albumin 3.8 g/dL (3.5-5.2) 04/25/24 03:20 Globulin 3.1 g/dL (1.3-4.6) 04/25/24 03:20 Triglycerides 85 mg/dL (0-150) 04/25/24 03:20 Cholesterol 138 mg/dL (0-200) 04/25/24 03:20 LDL Cholesterol, Calc 73 mg/dL (50-129) 04/25/24 03:20 HDL Cholesterol 48 mg/dL (60-100) L 04/25/24 03:20 LDL/HDL Ratio 1.52 RATIO (0.00-3.22) 04/25/24 03:20 Cholesterol/HDL Ratio 2.88 mg/dL (1.0-5.00) 04/25/24 03:20 Vitamin B12 1235 pg/mL (232-1245) 04/24/24 04:57 Folate 11.0 ng/mL (4.5-32.2) 04/25/24 03:20 Procalcitonin 0.39 ng/mL (0-0.5) 04/25/24 03:20 TSH 2.67 uIU/mL (0.27-4.20) 04/24/24 04:57 Nasal MRSA (PCR) Mrsa detected ` (Negative) A 04/24/24 18:00 Coronavirus (PCR) Negative (Negative) 04/24/24 05:55 Hep Bs Antigen Non-reactive (Nonreactive) 04/25/24 03:20 Hep Bs Antibody 38.7 (11.5-1000) 04/25/24 03:20 Hep B Core Total Ab Non-reactive (Nonreactive) 04/25/24 03:20 Influenza A (PCR) Negative (Negative) 04/24/24 05:55 Influenza Type B (PCR) Negative (Negative) 04/24/24 05:55 RSV (PCR) Negative (Negative) 04/24/24 05:55 MRSA Culture Mrsa detected ` (Negative) A 04/24/24 18:00 MRSA (PCR) Cancelled 04/24/24 18:00 Blood Type O Positive 04/25/24 04:36 Rho(D) Type Rh positive 04/25/24 04:36 Antibody Screen Negative 04/25/24 04:36 Crossmatch See Detail 04/25/24 04:36 Vitals Last Vital Signs Temp 98.4 F 04/26/24 07:50 Pulse 74 04/26/24 08:28 Resp 15 04/26/24 08:28 BP 177/96 04/26/24 08:35 Pulse Ox 97 04/26/24 08:28 O2 Del Method Room Air 04/26/24 08:28 O2 Flow Rate 5 04/25/24 08:53 FiO2 21 04/25/24 15:13 Discharge Plan Discharge Patient Disposition: Home Condition: Stable Prescriptions: New nifedipine 30 mg Tablet Extended Release 24hr 30 mg PO DAILY Qty: 30 0RF aspirin 81 mg Tablet,Delayed Release (Dr/Ec) 81 mg PO DAILY Qty: 30 0RF Continued RenaPlex 800 mcg- 12.5 mg tablet 1 tab PO DAILY (DME) lancets [OneTouch Delica Plus Lancet] 30 gauge misc See Rx Instructions .ROUTE .COMPLEX Qty: 200 3RF Dose Instruction: USE TO TEST BLOOD SUGAR TWICE A DAY Rx Instructions: USE TO TEST BLOOD SUGAR TWICE A DAY (DME) Blood Glucose Test Strip See Rx Instructions .Route Qty: 200 3RF Rx Instructions: As directed to test blood sugar BID Veltassa 8.4 gram powder in packet 8.4 g PO .4 days/week Rx Instructions: on non dialysis days Mon, Wed, and Fri albuterol sulfate [Ventolin HFA] 90 mcg/actuation HFA aerosol inhaler 2 puff inhalation Q4H PRN (Reason: shortness of breath or wheezing) Qty: 8.5 0RF isosorbide dinitrate 20 mg tablet 20 mg PO TID Qty: 270 1RF Rx Instructions: allow nitrate-free interval of 12-14 hrs per 24-hr period (DME) blood-glucose meter Mis See Rx Instructions .ROUTE .MEDSUPPLY Qty: 1 0RF Rx Instructions: As directed to test blood sugar BID escitalopram oxalate 20 mg tablet 20 mg PO DAILY Qty: 30 1RF amlodipine 10 mg tablet 10 mg PO DAILY Qty: 90 1RF Vitamin D2 1,250 mcg (50,000 unit) capsule 50,000 unit PO Q7D Rx Instructions: on Tue. carvedilol 25 mg tablet 25 mg PO BID diltiazem HCl 180 mg capsule,extended release 24 hr 180 mg PO DAILY methocarbamol 750 mg tablet 750 mg PO Q8H PRN (Reason: muscle spasms) hydralazine 100 mg tablet 100 mg PO TID losartan 100 mg tablet 100 mg PO DAILY Claritin 10 mg Tablet 10 mg PO BID pantoprazole 40 mg tablet,delayed release (DR/EC) 40 mg PO DAILY Changed clonidine HCl 0.1 mg tablet 0.2 mg PO TID 30 Days Qty: 180 0RF Discharge Orders: Discharge Order (Routine); Ordered 04/26/24 Ordered By: Uriel Osorio Referrals: Enoch Borrero MD [Primary Care Provider] - 05/09/24 9:30 am (A follow up appointment has been arranged for you on May 09 at 9:[address] Mai. IF this does not work for you please call the clinic to arrange your follow up care. Thank you for Choosing [facility].) Discharge Diet: Usual diet Discharge Activity: Resume usual activity and Increase activity as tolerated Patient Instructions: Nifedipine (By mouth) (Adalat CC, Nifedical XL, Procardia, Procardia XL), Aspirin (By mouth), Heart Failure (DC), Chronic Hypertension (ED), Community Acquired Pneumonia (DC), CHF Stoplight, Opioid Safety, Pneumonia Stoplight Activity Restrictions/Additional Instructions: Your goal blood pressure less than 140/90 mmHg. Dose of clonidine has been changed to 0.23 times a day. Nifedipine 30 mg oral daily has been added to your medication list. Continue follow-up with your outpatient dialysis sessions. You should have a cardiac stress test done as an outpatient for further evaluation of possible ACS. On nondialysis day restrict fluid intake to less than 1500 cc, salt intake to less than 2 g daily. Advised to check his weight daily at home. Is advised that weight today would be the dry weight and if body weight increases by around 5 pounds, patient is to take an extra dose of Lasix daily till body weight comes down to weight today. If not able to come down to dry body weight in 1 week, then is to call nephrology office for further recommendations. Patient was counseled in detail to take medications regularly as prescribed. Discharge Attestations Time Spent in Discharge Care*: greater than 30 min Quality Metrics Clinical Quality Measures [ No reported AMI, CVA or VTE this stay] Coding Level of Care Code 82571 Total time (in minutes) for Discharge: 60 Diagnoses ESRD (end stage renal disease) N18.6
[2024-04-26] MEDS: NIFEdipine ER (24 hr) 30 mg Tablet PO (11:02)
--- NOTE | 2024-04-26 11:43 | PC.NURSE ---
dicharge instructions given and explained.pt verb understanding of instructions.discharged ambulatory to exit.family to drive pt home.
[2024-04-26 12:12] LABS: Glucose Point of Care 175 mg/dL (70-110)
--- NOTE | 2024-04-26 13:39 | P.PN_ITS ---
Subjective 2 Subjective: no new c/o Medications: Reviewed: Yes Vitals/I&O/Wt Last Vital Signs Temp 97.6 F 04/26/24 11:27 Pulse 80 04/26/24 11:27 Resp 20 H 04/26/24 11:27 BP 169/86 04/26/24 11:27 Pulse Ox 99 04/26/24 11:27 O2 Del Method Room Air 04/26/24 11:27 O2 Flow Rate 5 04/25/24 08:53 FiO2 21 04/25/24 15:13 04/25/24 04/26/24 04/26/24 22:59 06:59 14:59 Intake Total 830.3 / 830.3 240 / 240 Balance 830.3 / 830.3 240 / 240 Weight last 48 hrs Weight 97.976 kg Weight 97.976 kg Physical Exam 2 Narrative: Patient is awake alert, no distress HEENT S1-S2 regular rate and rhythm per report Bilateral crackles per report Abdomen soft nontender per report No pedal edema Data 04/26/24 03:38 04/26/24 03:38 A&P Assessment and plan (1) ESRD (end stage renal disease): Plan 1. End-stage renal disease: Patient presented with volume overload,s/p HD yesterday and ultrafiltration as tolerated 2. Hypertensive urgency blood pressures more than 200s on presentation, resumed home meds, BP improved 3. Volume overload with history of CHF and flash pulmonary edema, HD as above 4. Anemia: Will order KEVIN 5. Sepsis possible pneumonia, on antibiotics Patient evaluated using audiovisual cart. Time spent 40 minutes. Attestations 2 Medical Necessity Statement*: per rik Coding Level of Care Code Acute Code for Chg Fwd Diagnoses ESRD (end stage renal disease) N18.6
== END 2024-04-26 11:44 | disposition home or self-care (01) | DRG 871 ==
LOC: ER 06:00 → CSU 10:58
PROVIDERS: Emergency Medicine; Family Medicine; Hospitalist; Admitting Provider Student in an Organized Health Care Education/Training Program; Emergency Provider Emergency Medicine; PCP Family Medicine; Visit Provider Student in an Organized Health Care Education/Training Program
DX: A41.9 Sepsis, unspecified organism (principal); J18.9 Pneumonia, unspecified organism; N18.6 End stage renal disease; J96.91 Respiratory failure, unspecified with hypoxia; I50.32 Chronic diastolic (congestive) heart failure; I13.2 Hypertensive heart and chronic kidney disease with heart failure and with stage 5 chronic kidney disease, or end stage renal disease; I16.0 Hypertensive urgency; E11.22 Type 2 diabetes mellitus with diabetic chronic kidney disease; Z99.2 Dependence on renal dialysis; Z79.899 Other long term (current) drug therapy; F17.210 Nicotine dependence, cigarettes, uncomplicated; D63.1 Anemia in chronic kidney disease; Z22.322 Carrier or suspected carrier of Methicillin resistant Staphylococcus aureus
CPT/HCPCS: 0241U; 36415; 36416; 36430; 36600; 71045; 71275; 74177; 80048; 80051; 80053; 80061; 82330; 82607; 82746; 82805; 82962; 83036; 83540; 83550; 83605; 83735; 84100; 84145; 84443; 84484; 85025; 85045; 85378; 85730; 86705; 86706; 86850; 86900; 86920; 87040; 87340; 87641; 93005; 93308; 94640; 94664; 96365; 96375; 96376; 99285; J0360; J0612; J0696; J1644; J1815; J1940; J2270; J2405; J2470; J2543; J7613; J7799; P9016; Q3014

== ENCOUNTER 2024-06-09 09:21 | Emergency (ER) | payer MEDICARE, MEDICAID, SELFPAY ==
[2024-06-09 09:41] VITALS: BP 158/92; PULSE 88; RESP 16; TEMP 36.8; O2SAT 98; BMI 26.8
--- NOTE | 2024-06-09 09:55 | ED_ITS ---
HPI - Dental/Oral General: Chief complaint: Dental/Oral Stated complaint: bad tooth ache Time Seen by Provider: 06/09/24 09:32 History of Present Illness: 48-year-old male presents emergency room with complaint of right maxillary molar pain. He has several fractured teeth the second molar is inflamed gumline is inflamed he has some swelling and tenderness overlying it. He is scheduled to see the dentist in approximately a month to have several extraction. This pain has been going on for about a week and a half. His eye is red and inflamed from his surgery had for cataract couple of days ago. He denies any fever sweats or chills he has been able to speak and swallow without difficulty the pain radiates up into the cheek and into the sinus area. Related Data Home Medications Medication Instructions Recorded Confirmed vitamin B complex with vit C-folic 1 tab PO DAILY 11/19/22 05/09/24 acid 800 mcg-zinc 12.5 mg tablet (RenaPlex) patiromer calcium sorbitex 8.4 8.4 g PO .4 days/week 06/22/23 05/09/24 gram oral powder packet (Veltassa) carvedilol 25 mg tablet 25 mg PO BID 04/24/24 05/09/24 diltiazem HCl 180 mg capsule,24 180 mg PO DAILY 04/24/24 05/09/24 hr,extended release ergocalciferol (vitamin D2) 1,250 50,000 unit PO Q7D 04/24/24 05/09/24 mcg (50,000 unit) capsule (Vitamin D2) hydralazine 100 mg tablet 100 mg PO TID 04/24/24 05/09/24 loratadine 10 mg tablet (Claritin) 10 mg PO BID 04/24/24 05/09/24 losartan 100 mg tablet 100 mg PO DAILY 04/24/24 05/09/24 methocarbamol 750 mg tablet 750 mg PO Q8H PRN muscle spasms 04/24/24 05/09/24 Previous Rx's Medication Instructions Recorded blood-glucose meter #1 ea 07/16/21 blood sugar diagnostic (Blood #200 ea 11/19/22 Glucose Test strips) lancets 30 gauge (OneTouch Delica ##200 11/19/22 Plus Lancet) isosorbide dinitrate 20 mg tablet 20 mg PO TID #270 tabs 04/18/23 albuterol sulfate 90 mcg/actuation 2 puff inhalation Q4H PRN 07/06/23 aerosol inhaler (Ventolin HFA) shortness of breath or wheezing #8.5 grams amlodipine 10 mg tablet 10 mg PO DAILY #90 tabs 04/11/24 aspirin 81 mg tablet,delayed 81 mg PO DAILY #30 tabs 04/26/24 release clonidine HCl 0.2 mg tablet 0.2 mg PO TID 90 days #270 tabs 05/09/24 nifedipine 30 mg tablet,extended 30 mg PO DAILY #90 tabs 05/09/24 release 24 hr pantoprazole 40 mg tablet,delayed 40 mg PO DAILY #90 tabs 05/23/24 release escitalopram oxalate 20 mg tablet 20 mg PO DAILY #30 tabs 06/06/24 amoxicillin 875 mg-potassium 1 tab PO BID #20 tabs 06/09/24 clavulanate 125 mg tablet hydrocodone 5 mg-acetaminophen 325 1 tab PO Q6H PRN pain #15 tabs 06/09/24 mg tablet Allergies Allergy/AdvReac Type Severity Reaction Status Date / Time No Known Allergies Allergy Verified 06/09/24 09:48 Review of Systems ENMT: Reports: dental pain PFSH ED PFSH: Medical History PND (paroxysmal nocturnal dyspnea) Pericardial effusion Thrombocytopenia Severe anemia Kidney failure HFrEF (heart failure with reduced ejection fraction) Elevated BUN Vitamin D deficiency Anemia Diabetic ulcer of left foot Peripheral vascular disease HTN (hypertension) Diabetes mellitus type 2, uncontrolled History of diabetes mellitus Peritonsillar cellulitis Surgical History History of insertion of tunneled central venous catheter (CVC) with port H/O vitrectomy No history of previous surgery Family History Other CAD (coronary artery disease) Diabetes Hypertension Lung disease Denies family history of Clotting disorder Dementia Hyperlipidemia Psychiatric illness Chronic kidney disease (CKD) Anesthesia complication Bleeding disorder Cancer Stroke Social History Smoking and tobacco/nicotine status: current every day tobacco/nicotine user cigarettes Packs smoked per day: 0.5 Years cigarettes smoked: 30 Quit status (tobacco/nicotine): considering quitting Alcohol intake: former Substance/Drug Use: never Lives independently: Yes Household members: none Housing: House Current occupational status: unemployed Special manuel needs: No Agree to transfusion: Yes Physical Exam HENMT: OTHER: Patient is a Tis patient has poor dentition with for multiple fractured teeth particularly in the right maxillary region there is redness inflammation and some swelling along the gumline tender to palpation. Course Vital Signs: Vital signs: Vital Signs Temperature 98.2 F 06/09/24 09:41 Pulse Rate 74 06/09/24 10:03 Respiratory Rate 16 06/09/24 09:41 Blood Pressure 148/85 06/09/24 10:03 Pulse Oximetry 98 06/09/24 10:03 Oxygen Delivery Me thod Room Air 06/09/24 09:41 MDM - Dental/Oral Medical Decision Making Dental caries without abscess formation start Augmentin 875 twice daily for 10 days gave hydrocodone for pain follow-up with dentist as soon as he is able if symptoms worsen or change return Medical Records I reviewed the patient's medical records. Lab Data I reviewed the patient's lab results. No radiology studies performed this visit Discharge Plan Discharge Patient Disposition: Home Clinical Impression: Dental caries, Dental abscess Condition: Stable Prescriptions: New amoxicillin-pot clavulanate 875-125 mg tablet 1 tab PO BID Qty: 20 0RF hydrocodone-acetaminophen 5-325 mg tablet 1 tab PO Q6H PRN (Reason: pain) Qty: 15 0RF No Action RenaPlex 800 mcg- 12.5 mg tablet 1 tab PO DAILY (DME) lancets [OneTouch Delica Plus Lancet] 30 gauge misc See Rx Instructions .ROUTE .COMPLEX Qty: 200 3RF Dose Instruction: USE TO TEST BLOOD SUGAR TWICE A DAY Rx Instructions: USE TO TEST BLOOD SUGAR TWICE A DAY (DME) Blood Glucose Test Strip See Rx Instructions .Route Qty: 200 3RF Rx Instructions: As directed to test blood sugar BID Veltassa 8.4 gram powder in packet 8.4 g PO .4 days/week Rx Instructions: on non dialysis days Mon, Wed, and Fri albuterol sulfate [Ventolin HFA] 90 mcg/actuation HFA aerosol inhaler 2 puff inhalation Q4H PRN (Reason: shortness of breath or wheezing) Qty: 8.5 0RF isosorbide dinitrate 20 mg tablet 20 mg PO TID Qty: 270 1RF Rx Instructions: allow nitrate-free interval of 12-14 hrs per 24-hr period nifedipine 30 mg tablet extended release 24hr 30 mg PO DAILY Qty: 90 1RF clonidine HCl 0.2 mg tablet 0.2 mg PO TID 90 Days Qty: 270 1RF (DME) blood-glucose meter Misc See Rx Instructions .ROUTE .MEDSUPPLY Qty: 1 0RF Rx Instructions: As directed to test blood sugar BID amlodipine 10 mg tablet 10 mg PO DAILY Qty: 90 1RF pantoprazole 40 mg tablet,delayed release (DR/EC) 40 mg PO DAILY Qty: 90 0RF escitalopram oxalate 20 mg tablet 20 mg PO DAILY Qty: 30 1RF Vitamin D2 1,250 mcg (50,000 unit) capsule 50,000 unit PO Q7D Rx Instructions: on Tue. carvedilol 25 mg tablet 25 mg PO BID diltiazem HCl 180 mg capsule,extended release 24 hr 180 mg PO DAILY methocarbamol 750 mg tablet 750 mg PO Q8H PRN (Reason: muscle spasms) hydralazine 100 mg tablet 100 mg PO TID losartan 100 mg tablet 100 mg PO DAILY Claritin 10 mg Tablet 10 mg PO BID aspirin 81 mg Tablet,Delayed Release (Dr/Ec) 81 mg PO DAILY Qty: 30 0RF Discharge Orders: Discharge ED (Routine); Ordered 06/09/24 Ordered By: Thomas Pena Referrals: Enoch Borrero MD [Primary Care Provider] - Discharge Diet: Soft Mechanical Discharge Activity: Increase activity as tolerated Patient Instructions: Dental Abscess (ED), Opioid Safety, Pain Management Activity Restrictions/Additional Instructions: Thank you for choosing [facility] for your healthcare needs today. It is very important that you follow up as instructed or that you return to the Emergency Department should you have concerns or if your condition changes or worsens in any way. You are seen in the emergency room with a dental infection recommend start oral biotics 1 pill twice a day for 10 days. You should follow-up with your dentist soon as you are able. You are also given pain medications. Coding Level of Care Code ED Proposal Director for Donta Leigh
[2024-06-09 10:03] VITALS: BP 148/85; PULSE 74; O2SAT 98
== END 2024-06-09 10:04 | disposition home or self-care (01) ==
PROVIDERS: Emergency Provider Family Medicine; PCP Family Medicine
DX: K04.7 Periapical abscess without sinus (principal); Z79.82 Long term (current) use of aspirin; F17.210 Nicotine dependence, cigarettes, uncomplicated; E11.621 Type 2 diabetes mellitus with foot ulcer; L97.529 Non-pressure chronic ulcer of other part of left foot with unspecified severity; I10 Essential (primary) hypertension
CPT/HCPCS: 99283

== ENCOUNTER 2024-06-21 03:36 | Emergency (ER) | payer MEDICARE, MEDICAID, SELFPAY ==
[2024-06-21 03:40] VITALS: BP 204/108; PULSE 95; RESP 18; TEMP 37.2; O2SAT 97; BMI 27.1
--- NOTE | 2024-06-21 03:45 | CTR_ITS ---
PROCEDURE INFORMATION: Exam: CT Chest Without Contrast; Diagnostic Exam date and time: 06/21/2024 4:18 AM Age: 48 years old Clinical indication: Abdominal pain; Chest wall pain; Prior surgery; Surgery date: 6+ months; Surgery type: Port a cath; Additional info: Right rib and lateral abd pain TECHNIQUE: Imaging protocol: Diagnostic computed tomography of the chest without contrast. Radiation optimization: All CT scans at this facility use at least one of these dose optimization techniques: automated exposure control; mA and/or kV adjustment per patient size (includes targeted exams where dose is matched to clinical indication); or iterative reconstruction. COMPARISON: CT angio chest w abd pel w con 04/25/2024 10:31 AM RADIATION DOSE METRICS: Total DLP (mGy-cm): 1029.13 FINDINGS: Tubes, catheters and devices: Right internal jugular dual-lumen catheter with the tip in the right atrium. Lungs: Bilateral lobe simple pulmonary cyst. Bilateral upper and lower lobe linear atelectasis. Pleural spaces: Unremarkable. No pneumothorax. No pleural effusion. Heart: Unremarkable. No cardiomegaly. No pericardial effusion. Coronary arteries: Severe coronary artery calcifications. Lymph nodes: Unremarkable. No enlarged lymph nodes. Vasculature: Unremarkable. No aortic aneurysm. Bones/joints: Unremarkable. No acute fracture. Soft tissues: Unremarkable. PROCEDURE INFORMATION: Exam: CT Abdomen And Pelvis Without Contrast Exam date and time: 06/21/2024 4:18 AM Age: 48 years old Clinical indication: Abdominal pain; Chest wall pain; Prior surgery; Surgery date: 6+ months; Surgery type: Port a cath; Additional info: Right rib and lateral abd pain TECHNIQUE: Imaging protocol: Computed tomography of the abdomen and pelvis without contrast. Radiation optimization: All CT scans at this facility use at least one of these dose optimization techniques: automated exposure control; mA and/or kV adjustment per patient size (includes targeted exams where dose is matched to clinical indication); or iterative reconstruction. COMPARISON: CT angio chest w abd pel w con 04/25/2024 10:31 AM RADIATION DOSE METRICS: Total DLP (mGy-cm): 1029.13 FINDINGS: Liver: Unremarkable. Gallbladder and biliary ducts: 3.4 x 1.3 cm hyperdense nondependent material within the gallbladder (series 11, image 48) not present on prior exam and may represent biliary sludge attached to the gallbladder wall or microlithiasis floating on biliary sludge. Pancreas: Unremarkable. Spleen: Unremarkable. Adrenal glands: Unremarkable. Kidneys and ureters: Unremarkable. No hydronephrosis. Stomach and bowel: Unremarkable. No mechanical obstruction. No mucosal thickening. Appendix: Unremarkable. Intraperitoneal space: Unremarkable. No free air. No significant fluid collection. Vasculature: Severe atherosclerotic changes of the aorta and its major branches. Lymph nodes: Unremarkable. Urinary bladder: Unremarkable. Reproductive: Unremarkable. Bones/joints: Mild multilevel spondylosis. Soft tissues: Unremarkable. CT/[place] [id number] IMPRESSION: No acute intrathoracic abnormality. IMPRESSION: No acute abdominopelvic abnormality.
[2024-06-21 03:50] VITALS: PULSE 91; RESP 16; O2SAT 96
--- NOTE | 2024-06-21 03:55 | ED_ITS ---
HPI - Abdominal Pain 2 General: Chief Complaint: Abdominal Pain Stated Complaint: right side pain Time Seen by Provider: 06/21/24 03:41 History of Present Illness: 48-year-old man with a history of end-st age renal disease who presents emergency room with right sided pain. He has pain in his mid right lateral abdominal wall and rib cage. He says it hurts with breathing and with movement. It has been going on for several days. He says he has hydrocodone but does not really take them. No nausea and vomiting. No fever. No tenderness to palpation of the abdomen on exam. Related Data Home Medications Medication Instructions Recorded Confirmed vitamin B complex with vit C-folic 1 tab PO DAILY 11/19/22 05/09/24 acid 800 mcg-zinc 12.5 mg tablet (RenaPlex) patiromer calcium sorbitex 8.4 8.4 g PO .4 days/week 06/22/23 05/09/24 gram oral powder packet (Veltassa) carvedilol 25 mg tablet 25 mg PO BID 04/24/24 05/09/24 diltiazem HCl 180 mg capsule,24 180 mg PO DAILY 04/24/24 05/09/24 hr,extended release ergocalciferol (vitamin D2) 1,250 50,000 unit PO Q7D 04/24/24 05/09/24 mcg (50,000 unit) capsule (Vitamin D2) hydralazine 100 mg tablet 100 mg PO TID 04/24/24 05/09/24 loratadine 10 mg tablet (Claritin) 10 mg PO BID 04/24/24 05/09/24 methocarbamol 750 mg tablet 750 mg PO Q8H PRN muscle spasms 04/24/24 05/09/24 Previous Rx's Medication Instructions Recorded blood-glucose meter #1 ea 07/16/21 blood sugar diagnostic (Blood #200 ea 11/19/22 Glucose Test strips) lancets 30 gauge (OneTouch Delica ##200 11/19/22 Plus Lancet) isosorbide dinitrate 20 mg tablet 20 mg PO TID #270 tabs 04/18/23 albuterol sulfate 90 mcg/actuation 2 puff inhalation Q4H PRN 07/06/23 aerosol inhaler (Ventolin HFA) shortness of breath or wheezing #8.5 grams amlodipine 10 mg tablet 10 mg PO DAILY #90 tabs 04/11/24 aspirin 81 mg tablet,delayed 81 mg PO DAILY #30 tabs 04/26/24 release clonidine HCl 0.2 mg tablet 0.2 mg PO TID 90 days #270 tabs 05/09/24 nifedipine 30 mg tablet,extended 30 mg PO DAILY #90 tabs 05/09/24 release 24 hr pantoprazole 40 mg tablet,delayed 40 mg PO DAILY #90 tabs 05/23/24 release escitalopram oxalate 20 mg tablet 20 mg PO DAILY #30 tabs 06/06/24 amoxicillin 875 mg-potassium 1 tab PO BID #20 tabs 06/09/24 clavulanate 125 mg tablet hydrocodone 5 mg-acetaminophen 325 1 tab PO Q6H PRN pain #15 tabs 06/09/24 mg tablet losartan 100 mg tablet 100 mg PO DAILY #90 tabs 06/14/24 cyclobenzaprine 10 mg tablet 10 mg PO Q8H PRN muscle spasm #20 06/21/24 tabs dexamethasone 6 mg tablet 6 mg PO DAILY 5 days #5 tabs 06/21/24 Allergies Allergy/AdvReac Type Severity Reaction Status Date / Time No Known Allergies Allergy Verified 06/21/24 03:50 Review of Systems 2 Narrative: Constitutional symptoms: Negative except as documented in HPI. Skin symptoms: Negative except as documented in HPI. Eye symptoms: Negative except as documented in HPI. ENMT symptoms: Negative except as documented in HPI. Respiratory symptoms: Negative except as documented in HPI. Cardiovascular symptoms: Negative except as documented in HPI. Gastrointestinal symptoms: Negative except as documented in HPI. Genitourinary symptoms: Negative except as documented in HPI. Musculoskeletal symptoms: Negative except as documented in HPI. Neurologic symptoms: Negative except as documented in HPI. Psychiatric symptoms: Negative except as documented in HPI. Endocrine symptoms: Negative except as documented in HPI. PFSH ED 2 PFSH: Medical History PND (paroxysmal nocturnal dyspnea) Pericardial effusion Thrombocytopenia Severe anemia Kidney failure HFrEF (heart failure with reduced ejection fraction) Elevated BUN Vitamin D deficiency Anemia Diabetic ulcer of left foot Peripheral vascular disease HTN (hypertension) Diabetes mellitus type 2, uncontrolled History of diabetes mellitus Peritonsillar cellulitis Surgical History History of insertion of tunneled central venous catheter (CVC) with port H/O vitrectomy No history of previous surgery Family History Other CAD (coronary artery disease) Diabetes Hypertension Lung disease Denies family history of Clotting disorder Dementia Hyperlipidemia Psychiatric illness Chronic kidney disease (CKD) Anesthesia complication Bleeding disorder Cancer Stroke Social History Smoking and tobacco/nicotine status: current every day tobacco/nicotine user cigarettes Packs smoked per day: 0.5 Years cigarettes smoked: 30 Quit status (tobacco/nicotine): considering quitting Alcohol intake: former Substance/Drug Use: never Lives independently: Yes Household members: none Housing: House Current occupational status: unemployed Special manuel needs: No Agree to transfusion: Yes Physical Exam 2 Narrative: EXAM NARRATIVE: General: Alert, no acute distress. Skin: Warm, dry. Head: Normocephalic, atraumatic. Neck: Supple, trachea midline. Eye: Extraocular movements are intact. Ears, nose, mouth and throat: mucosa moist. Cardiovascular: Regular, Normal peripheral perfusion. Respiratory: Lungs are clear to auscultation, respirations are non-labored, breath sounds are equal, Symmetrical chest wall expansion. Gastrointestinal: Soft, Nontender, Non distended Musculoskeletal: Normal ROM, no deformity. Neurological: Alert and oriented, No focal neurological deficit observed. Psychiatric: Cooperative, appropriate mood & affect. Course 2 Vital Signs: Vital signs: Vital Signs Temperature 98.9 F 06/21/24 03:40 Pulse Rate 95 06/21/24 03:40 Respiratory Rate 18 06/21/24 03:40 Blood Pressure 204/108 06/21/24 03:40 Pulse Oximetry 97 06/21/24 03:40 Oxygen Delivery Me thod Room Air 06/21/24 03:40 MDM - Abdominal Pain Medical Decision Making CT of the chest abdomen pelvis: No acute intrathoracic or intraabdominal abnormalities. This was reviewed and interpreted by myself the emergency room physician. I also reviewed the radiology report. Lab work: Mild leukocytosis. No anemia. BUN and creatinine are 63 and 10.8. Potassium is mildly elevated at 5.7. Patient has dialysis at 6 AM this morning. Assessment and plan: Back pain/musculoskeletal pain ? Decadron here in the emergency room. Home with Flexeril and dexamethasone. He has [facility] at home.. - Discharged home - Discussed plan with patient. Answered any questions. - Evaluation and treatment of this problem were appropriate in the emergency setting. Lab Data 06/21/24 04:29 06/21/24 04:29 Labs/Radiology: Radiology Impressions Chest/Abdomen/Pelvis CT 06/21/24 03:45 IMPRESSION: No acute intrathoracic abnormality. IMPRESSION: No acute abdominopelvic abnormality. Laboratory Results WBC 17.07 10^3/uL (3.29-11.43) H 06/21/24 04:29 RBC 3.66 10^6/uL (3.85-5.65) L 06/21/24 04:29 Hgb 12.20 g/dL (11.27-16.99) 06/21/24 04:29 Hct 36.4 % (37-53) L 06/21/24 04:29 MCV 99.5 fl (82-101) 06/21/24 04:29 MCH 33.3 pg (27-33) H 06/21/24 04:29 MCHC 33.5 g/dL (30-55) 06/21/24 04:29 RDW 14.6 % (12.1-15.1) 06/21/24 04:29 Plt Count 124 10^3/cmm (157-399) L 06/21/24 04:29 MPV 9.8 fL (7.4-10.4) 06/21/24 04:29 Neut % (Auto) 85.0 % 06/21/24 04:29 Lymph % (Auto) 6.4 % 06/21/24 04:29 [place] % (Auto) 6.5 % 06/21/24 04:29 Eos % (Auto) 1.1 % 06/21/24 04:29 Baso % (Auto) 0.5 % 06/21/24 04:29 Neut # (Auto) 14.52 10^3/uL (1.8-7.7) H 06/21/24 04:29 Lymph # (Auto) 1.1 10^3/uL (0.8-4.8) 06/21/24 04:29 Stafford # (Auto) 1.1 10^3/uL (0.2-0.9) H 06/21/24 04:29 Eos # (Auto) 0.2 10^3/uL (0.0-0.8) 06/21/24 04:29 Baso # (Auto) 0.1 10^3/uL (0.0-0.1) 06/21/24 04:29 Nucleated RBC % (auto) 0 % 06/21/24 04:29 Nucleated RBCs # 0.0 /100WBC 06/21/24 04:29 Sodium 133 mmol/L (136-145) L 06/21/24 04:29 Potassium 5.7 mmol/L (3.5-5.1) H 06/21/24 04:29 Chloride 91 mmol/L (98-107) L 06/21/24 04:29 Carbon Dioxide 20 mmol/L (22-29) L 06/21/24 04:29 Anion Gap 27.7 (5-19) H 06/21/24 04:29 BUN 63 mg/dL (6-20) H 06/21/24 04:29 Creatinine 10.8 mg/dL (0.7-1.2) H* 06/21/24 04:29 GFR Calculation 5.1 mL/min (90-130) L 06/21/24 04:29 Glucose 179 mg/dL (65-115) H 06/21/24 04:29 Calculated Osmolality 298 mOsm/kg (285-295) H 06/21/24 04:29 Calcium 9.4 mg/dL (8.5-10.5) 06/21/24 04:29 Total Bilirubin 0.4 mg/dL (0.15-1.2) 06/21/24 04:29 AST 9 U/L (0-40) 06/21/24 04:29 ALT 8 U/L (0-41) 06/21/24 04:29 Alkaline Phosphatase 101 U/L (40-130) 06/21/24 04:29 Total Protein 7.8 g/dL (6.6-8.7) 06/21/24 04:29 Albumin 4.2 g/dL (3.5-5.2) 06/21/24 04:29 Globulin 3.6 g/dL (1.3-4.6) 06/21/24 04:29 All radiology interpretation(s) finalized by discharge Discharge Plan Discharge Patient Disposition: Home Clinical Impression: Back pain, End stage renal disease on dialysis Condition: Stable Prescriptions: New cyclobenzaprine 10 mg tablet 10 mg PO Q8H PRN (Reason: muscle spasm) Qty: 20 0RF dexamethasone 6 mg tablet 6 mg PO DAILY 5 Days Qty: 5 0RF No Action RenaPlex 800 mcg- 12.5 mg tablet 1 tab PO DAILY (DME) lancets [OneTouch Delica Plus Lancet] 30 gauge misc See Rx Instructions .ROUTE .COMPLEX Qty: 200 3RF Dose Instruction: USE TO TEST BLOOD SUGAR TWICE A DAY Rx Instructions: USE TO TEST BLOOD SUGAR TWICE A DAY (DME) Blood Glucose Test Strip See Rx Instructions .Route Qty: 200 3RF Rx Instructions: As directed to test blood sugar BID Veltassa 8.4 gram powder in packet 8.4 g PO .4 days/week Rx Instructions: on non dialysis days Tue, Tue, and Tue albuterol sulfate [Ventolin HFA] 90 mcg/actuation HFA aerosol inhaler 2 puff inhalation Q4H PRN (Reason: shortness of breath or wheezing) Qty: 8.5 0RF isosorbide dinitrate 20 mg tablet 20 mg PO TID Qty: 270 1RF Rx Instructions: allow nitrate-free interval of 12-14 hrs per 24-hr period nifedipine 30 mg tablet extended release 24hr 30 mg PO DAILY Qty: 90 1RF clonidine HCl 0.2 mg tablet 0.2 mg PO TID 90 Days Qty: 270 1RF (DME) blood-glucose meter Misc See Rx Instructions .ROUTE .MEDSUPPLY Qty: 1 0RF Rx Instructions: As directed to test blood sugar BID amlodipine 10 mg tablet 10 mg PO DAILY Qty: 90 1RF pantoprazole 40 mg tablet,delayed release (DR/EC) 40 mg PO DAILY Qty: 90 0RF escitalopram oxalate 20 mg tablet 20 mg PO DAILY Qty: 30 1RF losartan 100 mg tablet 100 mg PO DAILY Qty: 90 0RF Vitamin D2 1,250 mcg (50,000 unit) capsule 50,000 unit PO Q7D Rx Instructions: on Tue. carvedilol 25 mg tablet 25 mg PO BID diltiazem HCl 180 mg capsule,extended release 24 hr 180 mg PO DAILY methocarbamol 750 mg tablet 750 mg PO Q8H PRN (Reason: muscle spasms) hydralazine 100 mg tablet 100 mg PO TID Claritin 10 mg Tablet 10 mg PO BID aspirin 81 mg Tablet,Delayed Release (Dr/Ec) 81 mg PO DAILY Qty: 30 0RF amoxicillin-pot clavulanate 875-125 mg tablet 1 tab PO BID Qty: 20 0RF hydrocodone-acetaminophen 5-325 mg tablet 1 tab PO Q6H PRN (Reason: pain) Qty: 15 0RF Discharge Orders: Discharge ED (Routine); Ordered 06/21/24 Ordered By: Enid Morel Referrals: Enoch Borrero MD [Primary Care Provider] - Discharge Diet: Usual diet Discharge Activity: Increase activity as tolerated Patient Instructions: Musculoskeletal Pain (ED), Opioid Safety, Pain Management Activity Restrictions/Additional Instructions: Thank you for choosing [facility] for your healthcare needs today. Please realize this is an emergency room and that we are providing you with a medical screening exam and this may not be complete and all inclusive of all the testing and or work up that you may need to determine your ailment or severity of your illness. You have been screened and evaluated and felt safe for discharge. Health conditions do change or evolve sometimes and as such it is important that you follow up with your Primary Doctor to be re checked, 3-5 days is a general good time frame for follow up. You are always welcome to return to the ED for re assessment if your symptoms are worsening or you have new concerns Coding Level of Care Code ED Wastewater Treatment Supervisor for Donta Leigh
[2024-06-21 04:20] VITALS: PULSE 94; RESP 20; O2SAT 97
[2024-06-21 04:38] LABS: Basophils # 0.1 10^3/uL (0.0-0.1); Basophils % 0.5 %; Eosinophils # 0.2 10^3/uL (0.0-0.8); Eosinophils % 1.1 %; Hematocrit 36.4 % (37-53); Lymphocytes # 1.1 10^3/uL (0.8-4.8); Lymphocytes % 6.4 %; Mean Corpuscular HGB Conc 33.5 g/dL (30-55); Mean Corpuscular Hemoglobin 33.3 pg (27-33); Mean Corpuscular Volume 99.5 fl (82-101); Mean Platelet Volume 9.8 fL (7.4-10.4); Monocytes # 1.1 10^3/uL (0.2-0.9); Monocytes % 6.5 %; Neutrophils # 14.52 10^3/uL (1.8-7.7); Nucleated Red Blood Cells % 0 %; Platelet Count 124 10^3/cmm (157-399); Red Blood Count 3.66 10^6/uL (3.85-5.65); Red Cell Distribution Width 14.6 % (12.1-15.1); White Blood Count 17.07 10^3/uL (3.29-11.43)
[2024-06-21 04:50] VITALS: BP 148/90; PULSE 89; RESP 19; O2SAT 93
[2024-06-21 04:54] LABS: Alanine Aminotransferase 8 U/L (0-41); Albumin Level 4.2 g/dL (3.5-5.2); Alkaline Phosphatase 101 U/L (40-130); Anion Gap 27.7 (5-19); Aspartate Amino Transferase 9 U/L (0-40); Blood Urea Nitrogen 63 mg/dL (6-20); Calcium 9.4 mg/dL (8.5-10.5); Carbon Dioxide 20 mmol/L (22-29); Chloride 91 mmol/L (98-107); Creatinine Clr Calc Pharmacy 9.8019; Globulin 3.6 g/dL (1.3-4.6); Glomerular Filtration Rate 5.1 mL/min (90-130); Glucose 179 mg/dL (65-115); Osmolality Calculated 298 mOsm/kg (285-295); Potassium 5.7 mmol/L (3.5-5.1); Sodium 133 mmol/L (136-145); Total Bilirubin 0.4 mg/dL (0.15-1.2); Total Protein 7.8 g/dL (6.6-8.7)
[2024-06-21] MEDS: dexamethasone 10 mg/mL INJ IM (05:08)
[2024-06-21 05:20] VITALS: BP 158/103; PULSE 98; O2SAT 99
[2024-06-21] MEDS: HYDROcodone-acetaminophen 5-325 mg Tablet 1 TAB PO (05:20)
== END 2024-06-21 05:21 | disposition home or self-care (01) ==
PROVIDERS: Emergency Provider Emergency Medicine; PCP Family Medicine
DX: I13.0 Hypertensive heart and chronic kidney disease with heart failure and stage 1 through stage 4 chronic kidney disease, or unspecified chronic kidney disease (principal); I50.30 Unspecified diastolic (congestive) heart failure; N18.9 Chronic kidney disease, unspecified; Z99.2 Dependence on renal dialysis; R06.09 Other forms of dyspnea; F17.210 Nicotine dependence, cigarettes, uncomplicated
CPT/HCPCS: 36415; 71250; 74176; 80053; 85025; 96372; 99214; J1100

== ENCOUNTER 2024-06-26 11:55 | Inpatient (IN) | payer MEDICARE, MEDICAID, SELFPAY ==
[2024-06-26] VITALS (51 sets, daily range): BP systolic 163–206; BP diastolic 91–117; PULSE 91–113; RESP 16–24; TEMP 36.9; O2SAT 90–99; BMI 27.8; BMI 29.6
--- NOTE | 2024-06-26 12:02 | ECG_ITS ---
[facility] Test Date: 2024-06-26 Pat Name: Stan Romero Department: Room: Gender: Male Dynamiter: : 1975 Requested By: Thomas Cho Order Number: [id number] Johanna MD: ANA LILIA PERAZA Measurements Intervals [place] Rate: 102 P: 48 MI: 151 QRS: 63 QRSD: 97 T: 87 QT: 331 QTc: 433 Interpretive Statements SINUS TACHYCARDIA VOLTAGE CRITERIA FOR LVH [MEETS CRITERIA IN ONE OF: R(aVL), S(V1), R(V5), R(V5/V6)+S(V1)] MINIMAL ST DEPRESSION [0.025+ mV ST DEPRESSION] Compared to ECG 04/24/2024 10:06:53 Left ventricular hypertrophy now present ST (T wave) deviation now present Sinus rhythm no longer present T-wave abnormality no longer present Electronically Signed On 06-27-2024 17:34:12 CIRCUIT MANAGER by ANA LILIA PERAZA [email or web address]
--- NOTE | 2024-06-26 13:39 | XR_ITS ---
WS: [id number] Exam: XR chest 1V portable [id number] Date/Time of Exam: 06/26/2024 1:39 PM Reason For Exam: dyspnea/cough Comparison 04/24/2024. The lungs are fully expanded and clear. Mild plaque atelectasis in the LEFT base. Normal cardiomedias tinal silhouette for technique. A double lumen right-sided dialysis catheter extends into the right a trium. No pleural effusions. Normal bony structures. XR/XR chest 1V portable [id number] IMPRESSION: 1. No acute finding. Mild plaque atelectasis in the LEFT base.
--- NOTE | 2024-06-26 13:39 | ED_ITS ---
HPI - SOB/Dyspnea 2 General: Chief Complaint: Shortness of Breath/Dyspnea Stated Complaint: SOB, FLuid on lungs Time Seen by Provider: 06/26/24 13:30 History of Present Illness: HPI Narrative: 48-year-old male presents emergency room complaining of shortness of breath patient was seen this morning at dialysis he is on end-stage dialysis due to hypertension and diabetes mellitus he got a partial run of his dialysis and became too short of breath and presented to the emergency room. He denies any chest or abdominal pain. He has been constipated recently no particular swelling legs no worsening orthopnea Associated symptoms: Deny abdominal pain, chest pain or fever(s) Related Data Home Medications Medication Instructions Recorded Confirmed vitamin B complex with vit C-folic 1 tab PO DAILY 11/19/22 06/26/24 acid 800 mcg-zinc 12.5 mg tablet (RenaPlex) patiromer calcium sorbitex 8.4 8.4 g PO .4 days/week 06/22/23 06/26/24 gram oral powder packet (Veltassa) carvedilol 25 mg tablet 25 mg PO BID 04/24/24 06/26/24 diltiazem HCl 180 mg capsule,24 180 mg PO DAILY 04/24/24 06/26/24 hr,extended release ergocalciferol (vitamin D2) 1,250 50,000 unit PO Q7D 04/24/24 06/26/24 mcg (50,000 unit) capsule (Vitamin D2) hydralazine 100 mg tablet 100 mg PO TID 04/24/24 06/26/24 loratadine 10 mg tablet (Claritin) 10 mg PO BID 04/24/24 06/26/24 Previous Rx's Medication Instructions Recorded blood-glucose meter #1 ea 07/16/21 blood sugar diagnostic (Blood #200 ea 11/19/22 Glucose Test strips) lancets 30 gauge ([facility] ##200 11/19/22 Plus Lancet) amlodipine 10 mg tablet 10 mg PO DAILY #90 tabs 04/11/24 aspirin 81 mg tablet,delayed 81 mg PO DAILY #30 tabs 04/26/24 release clonidine HCl 0.2 mg tablet 0.2 mg PO TID 90 days #270 tabs 05/09/24 nifedipine 30 mg tablet,extended 30 mg PO DAILY #90 tabs 05/09/24 release 24 hr pantoprazole 40 mg tablet,delayed 40 mg PO DAILY #90 tabs 05/23/24 release escitalopram oxalate 20 mg tablet 20 mg PO DAILY #30 tabs 06/06/24 amoxicillin 875 mg-potassium 1 tab PO BID #20 tabs 06/09/24 clavulanate 125 mg tablet hydrocodone 5 mg-acetaminophen 325 1 tab PO Q6H PRN pain #15 tabs 06/09/24 mg tablet losartan 100 mg tablet 100 mg PO DAILY #90 tabs 06/14/24 cyclobenzaprine 10 mg tablet 10 mg PO Q8H PRN muscle spasm #20 06/21/24 tabs isosorbide dinitrate 20 mg tablet 20 mg PO TID #270 tabs 06/25/24 Allergies Allergy/AdvReac Type Severity Reaction Status Date / Time No Known Allergies Allergy Verified 06/21/24 11:03 Review of Systems 2 Const: Denies: fever(s) or chills Card: Denies: chest pain Resp: Denies: dyspnea GI: Denies: abdominal pain : Denies: dysuria, urinary frequency or urinary urgency Musc: Denies: neck pain or back pain Skin/Breast: Denies: rash PFSH ED 2 PFSH: Medical History (Updated 06/29/24 @ 06:54 by Thomas Pena DO) Thrombocytopenia PND (paroxysmal nocturnal dyspnea) Pericardial effusion Severe anemia Kidney failure HFrEF (heart failure with reduced ejection fraction) Elevated BUN Vitamin D deficiency Anemia Diabetic ulcer of left foot Peripheral vascular disease HTN (hypertension) Diabetes mellitus type 2, uncontrolled History of diabetes mellitus Peritonsillar cellulitis Surgical History History of insertion of tunneled central venous catheter (CVC) with port H/O vitrectomy No history of previous surgery Family History Other CAD (coronary artery disease) Diabetes Hypertension Lung disease Denies family history of Clotting disorder Dementia Hyperlipidemia Psychiatric illness Chronic kidney disease (CKD) Anesthesia complication Bleeding disorder Cancer Stroke Social History Smoking and tobacco/nicotine status: current every day tobacco/nicotine user cigarettes Packs smoked per day: 0.5 Years cigarettes smoked: 30 Quit status (tobacco/nicotine): considering quitting Alcohol intake: former Substance/Drug Use: never Lives independently: Yes Household members: none Housing: House Current occupational status: unemployed Special manuel needs: No Agree to transfusion: Yes Physical Exam 2 Const: GENERAL APPEARANCE: cooperative ORIENTATION/CONSCIOUSNESS: Yes awake, Yes oriented to person, Yes oriented to place and Yes oriented to time HENMT: COMMON NORMALS: normocephalic, atraumatic and hearing grossly normal bilaterally HEAD & SCALP: normocephalic and atraumatic Resp: COMMON NORMALS: normal respiratory effort, No retractions and No use of accessory muscles AUSCULTATION: crackles Cardio: COMMON NORMALS: regular rate, regular rhythm and No murmurs present (Cardio) RATE: regular rate RHYTHM: regular rhythm GI: COMMON NORMALS: Soft to palpation and No hepatosplenomegaly present A USCULTATION: Yes normoactive bowel sounds PALPATION: Yes Soft to palpation, No Tenderness to palpation present (GI), No Guarding due to palpation present (GI) and Yes No hepatosplenomegaly present Extremity: COMMON NORMALS: normal to inspection, capillary refill normal, no clubbing, cyanosis or edema, no calf tenderness and no pedal edema Neuro: SENSORIUM/ORIENTATION: Yes oriented to person, Yes oriented to place and Yes oriented to time Skin: COMMON NORMALS: no rashes or lesions noted GENERAL SKIN EXAM: no rashes or lesions noted Course 2 Vital Signs: Vital signs: Vital Signs Temperature 99.1 F 06/28/24 11:25 Pulse Rate 101 H 06/28/24 12:00 Respiratory Rate 14 06/28/24 12:00 Blood Pressure 153/83 06/28/24 12:00 Pulse Oximetry 99 06/28/24 12:00 Oxygen Delivery Me thod Room Air 06/28/24 08:20 Oxygen Flow Rate 2 06/28/24 06:15 MDM - SOB/Dyspnea Medical Decision Making Acute cholecystitis with hyper glycemic hyperosmolar nonketotic state ketones negative patient given IV fluids and insulin. Started on antibiotics consult surgery nephrology discussed with hospitalist will admit orders written Medical Records I reviewed the patient's medical records. Lab Data I reviewed the patient's lab results. 06/28/24 03:40 06/28/24 03:40 Labs/Radiology: Radiology Impressions Chest X-Ray 06/26/24 13:39 IMPRESSION: 1. No acute finding. Mild plaque atelectasis in the LEFT base. Abdomen/Pelvis CT 06/26/24 15:31 IMPRESSION: 1. Findings consistent with acute cholecystitis 2. Interval development of ground-glass density involving both lung bases. I cannot exclude early pneumonia. Gallbladder Ultrasound 06/26/24 16:32 IMPRESSION: Findings consistent with acute cholecystitis Laboratory Results WBC 18.64 10^3/uL (3.29-11.43) H 06/26/24 13:48 RBC 4.11 10^6/uL (3.85-5.65) 06/26/24 13:48 Hgb 13.50 g/dL (11.27-16.99) 06/26/24 13:48 Hct 38.2 % (37-53) 06/26/24 13:48 MCV 92.9 fl (82-101) 06/26/24 13:48 MCH 32.8 pg (27-33) 06/26/24 13:48 MCHC 35.3 g/dL (30-55) 06/26/24 13:48 RDW 13.1 % (12.1-15.1) 06/26/24 13:48 Plt Count 119 10^3/cmm (157-399) L 06/26/24 13:48 MPV 10.8 fL (7.4-10.4) H 06/26/24 13:48 Neut % (Auto) 89.7 % 06/26/24 13:48 Lymph % (Auto) 5.0 % 06/26/24 13:48 [place] % (Auto) 4.5 % 06/26/24 13:48 Eos % (Auto) 0.1 % 06/26/24 13:48 Baso % (Auto) 0.1 % 06/26/24 13:48 Neut # (Auto) 16.70 10^3/uL (1.8-7.7) H 06/26/24 13:48 Lymph # (Auto) 0.9 10^3/uL (0.8-4.8) 06/26/24 13:48 [place] # (Auto) 0.8 10^3/uL (0.2-0.9) 06/26/24 13:48 Eos # (Auto) 0.0 10^3/uL (0.0-0.8) 06/26/24 13:48 Baso # (Auto) 0.0 10^3/uL (0.0-0.1) 06/26/24 13:48 Nucleated RBC % (auto) 0 % 06/26/24 13:48 Nucleated RBCs # 0.0 /100WBC 06/26/24 13:48 Sodium 130 mmol/L (136-145) L 06/26/24 17:30 Potassium 5.1 mmol/L (3.5-5.1) 06/26/24 17:30 Chloride 84 mmol/L (98-107) L 06/26/24 17:30 Carbon Dioxide 23 mmol/L (22-29) 06/26/24 17:30 Anion Gap 28.1 (5-19) H 06/26/24 17:30 BUN 72 mg/dL (6-20) H 06/26/24 17:30 Creatinine 7.8 mg/dL (0.7-1.2) H* 06/26/24 17:30 GFR Calculation 7.5 mL/min (90-130) L 06/26/24 17:30 Glucose 345 mg/dL (65-115) H 06/26/24 17:30 POC Glucose 320 mg/dL (70-110) H 06/26/24 17:20 Estimat Average Glucose 189 06/26/24 17:30 Hemoglobin A1c 8.2 % (4.0-6.0) H 06/26/24 17:30 Calculated Osmolality 305 mOsm/kg (285-295) H 06/26/24 17:30 Lactic Acid 1.2 mmol/L (0.5-2.2) 06/26/24 17:30 Calcium 9.8 mg/dL (8.5-10.5) 06/26/24 17:30 Phosphorus 7.0 mg/dL (2.5-4.5) H 06/26/24 17:30 Total Bilirubin 0.4 mg/dL (0.15-1.2) 06/26/24 13:48 AST 13 U/L (0-40) 06/26/24 13:48 ALT 9 U/L (0-41) 06/26/24 13:48 Alkaline Phosphatase 197 U/L (40-130) H 06/26/24 13:48 NT-Pro-B Natriuret Pep 35424 pg/mL (0-125) H 06/26/24 13:48 Total Protein 8.0 g/dL (6.6-8.7) 06/26/24 13:48 Albumin 4.0 g/dL (3.5-5.2) 06/26/24 13:48 Globulin 4.0 g/dL (1.3-4.6) 06/26/24 13:48 Procalcitonin 0.86 ng/mL (0-0.5) H 06/26/24 17:30 Serum Ketones Negative (Negative) 06/26/24 13:48 Coronavirus (PCR) Negative (Negative) 06/26/24 14:36 Influenza A (PCR) Negative (Negative) 06/26/24 14:36 Influenza Type B (PCR) Negative (Negative) 06/26/24 14:36 RSV (PCR) Negative (Negative) 06/26/24 14:36 All radiology interpretation(s) finalized by discharge Discharge Plan Discharge Patient Disposition: Admitted As Inpatient Admit Provider: Meeta Romano Clinical Impression: Acute cholecystitis, ESRD (end stage renal disease), Hyperosmolar hyperglycemic state (HHS) Condition: Stable Coding Level of Care Code ED [place] [employer] Supervisor for Donta Leigh
[2024-06-26] MEDS: ondansetron 2 mg/ML SDV 2 mL 4 MG IVP ×3 (13:57→19:45)
[2024-06-26 13:59] LABS: Basophils % 0.1 %; Eosinophils % 0.1 %; Hematocrit 38.2 % (37-53); Lymphocytes # 0.9 10^3/uL (0.8-4.8); Mean Corpuscular HGB Conc 35.3 g/dL (30-55); Mean Corpuscular Hemoglobin 32.8 pg (27-33); Mean Corpuscular Volume 92.9 fl (82-101); Mean Platelet Volume 10.8 fL (7.4-10.4); Monocytes # 0.8 10^3/uL (0.2-0.9); Monocytes % 4.5 %; Neutrophils % 89.7 %; Nucleated Red Blood Cells % 0 %; Platelet Count 119 10^3/cmm (157-399); Red Blood Count 4.11 10^6/uL (3.85-5.65); Red Cell Distribution Width 13.1 % (12.1-15.1); White Blood Count 18.64 10^3/uL (3.29-11.43)
[2024-06-26 14:31] LABS: Alanine Aminotransferase 9 U/L (0-41); Alkaline Phosphatase 197 U/L (40-130); Anion Gap 23.1 (5-19); Aspartate Amino Transferase 13 U/L (0-40); Blood Urea Nitrogen 68 mg/dL (6-20); Calcium 9.9 mg/dL (8.5-10.5); Carbon Dioxide 26 mmol/L (22-29); Chloride 84 mmol/L (98-107); Glomerular Filtration Rate 7.8 mL/min (90-130); NT Pro B Type Natriuretic Pept 28223 pg/mL (0-125); Osmolality Calculated 309 mOsm/kg (285-295); Potassium 5.1 mmol/L (3.5-5.1); Sodium 128 mmol/L (136-145); Total Bilirubin 0.4 mg/dL (0.15-1.2)
[2024-06-26 14:38] LABS: Creatinine Clr Calc Pharmacy 14.2693; Glucose 518 mg/dL (65-115)
[2024-06-26 15:04] LABS: Ketone (Acetest) Serum Negative (Negative)
[2024-06-26] MEDS: labetalol 5 mg/mL SDV 20mL 10 MG IVP (15:11)
[2024-06-26] MEDS: insulin regular-human 100 units/1 mL 15 UNIT IVP (15:12)
[2024-06-26] MEDS: hyDRALAzine 20 mg/mL INJ 1 mL 10 MG IVP ×2 (15:12→19:45)
--- NOTE | 2024-06-26 15:31 | CTR_ITS ---
PROCEDURE INFORMATION: Exam: CT Abdomen And Pelvis Without Contrast Exam date and time: 06/26/2024 3:59 PM Age: 48 years old Clinical indication: Abdominal pain; Generalized; Prior surgery; Surgery date: 6+ months; Surgery type: Cvc TECHNIQUE: Imaging protocol: Computed tomography of the abdomen and pelvis without contrast. Radiation optimization: All CT scans at this facility use at least one of these dose optimization techniques: automated exposure control; mA and/or kV adjustment per patient size (includes targeted exams where dose is matched to clinical indication); or iterative reconstruction. COMPARISON: [place] [id number] 06/21/2024 4:18 AM RADIATION DOSE METRICS: Total DLP (mGy-cm): 848.73 FINDINGS: Lungs: There is hazy ground-glass density scattered throughout both lung bases. Liver: Normal. No mass. Gallbladder and biliary ducts: The gallbladder is severely distended and contains multiple gallstones. The gallbladder wall appears inflamed. Pancreas: Normal. No ductal dilation. Spleen: Normal. No splenomegaly. Adrenal glands: Normal. No mass. Kidneys and ureters: Normal. No hydronephrosis. Stomach and bowel: There is a moderate amount of stool noted throughout the colon. No bowel distension. Appendix: No evidence of appendicitis. Intraperitoneal space: Unremarkable. No free air. No significant fluid collection. Vasculature: Unremarkable. No abdominal aortic aneurysm. Lymph nodes: Unremarkable. No enlarged lymph nodes. Urinary bladder: Unremarkable as visualized. Reproductive: Unremarkable as visualized. Bones/joints: Unremarkable. No acute fracture. Soft tissues: Unremarkable. CT/CT abdomen pelvis wo con [id number] IMPRESSION: 1. Findings consistent with acute cholecystitis 2. Interval development of ground-glass density involving both lung bases. I cannot exclude early pneumonia.
[2024-06-26 15:37] LABS: Covid PCR NEGATIVE (Negative); Influenza A NEGATIVE (Negative); Influenza B NEGATIVE (Negative); Respiratory Syncytial Virus Ce NEGATIVE (Negative)
--- NOTE | 2024-06-26 16:32 | USR_ITS ---
PROCEDURE INFORMATION: Exam: US Abdomen, Limited; Right Upper Quadrant Exam date and time: 06/26/2024 4:59 PM Age: 48 years old Clinical indication: Abdominal pain; Localized; Right upper quadrant (ruq); Additional info: Acute cholecystitis TECHNIQUE: Imaging protocol: Real time ultrasound of the abdomen with image documentation. Limited exam focused on the right upper quadrant. COMPARISON: US abdomen complete* [id number] 05/20/2023 8:41 AM FINDINGS: Liver: Normal. No masses. Gallbladder: The gallbladder is filled with sludge and tiny stones and there is prominent gallbladder wall thickening. The gallbladder is severely distended. Pericholecystic fluid is noted. Positive Ramos sign noted. Biliary ducts: Normal. No stones. No dilation. Pancreas: Visualized pancreas is unremarkable. Right kidney: Normal. No mass. No hydronephrosis. US/US gall bladder [id number] IMPRESSION: Findings consistent with acute cholecystitis
--- NOTE | 2024-06-26 16:58 | P.CONIM_ITS ---
Providers/Reason For Consult 2 Consulting Physician/Specialty*: Dr. Arita general surgery Reason for Consult*: Cholecystitis Primary Care Provider: Enoch Borrero MD History of Present Illness History of Present Illness Stan Romero is a 48 year old male with multiple comorbidities admitted in A, in need of dialysis, who presents with cholecystitis. Patient reports right upper quadrant pain. Postprandial. Currently on insulin drip. Systolic blood pressures up to the 200s intermittently. Medications/Allergies Home Medications Medication Instructions Recorded Confirmed Last Taken Type blood-glucose meter #1 ea 07/16/21 06/26/24 Unknown Rx blood sugar diagnostic (Blood #200 ea 11/19/22 06/26/24 Unknown Rx Glucose Test strips) lancets 30 gauge ([facility] ##200 11/19/22 06/26/24 Unknown Rx Plus Lancet) vitamin B complex with vit C-folic 1 tab PO DAILY 11/19/22 06/26/24 04/23/24 History acid 800 mcg-zinc 12.5 mg tablet (RenaPlex) patiromer calcium sorbitex 8.4 8.4 g PO .4 days/week 06/22/23 06/26/24 06/25/24 History gram oral powder packet (Veltassa) amlodipine 10 mg tablet 10 mg PO DAILY #90 tabs 04/11/24 06/26/24 06/25/24 Rx carvedilol 25 mg tablet 25 mg PO BID 04/24/24 06/26/24 06/25/24 History diltiazem HCl 180 mg capsule,24 180 mg PO DAILY 04/24/24 06/26/24 06/25/24 History hr,extended release ergocalciferol (vitamin D2) 1,250 50,000 unit PO Q7D 04/24/24 06/26/24 04/18/24 History mcg (50,000 unit) capsule (Vitamin D2) hydralazine 100 mg tablet 100 mg PO TID 04/24/24 06/26/24 06/24/24 History loratadine 10 mg tablet (Claritin) 10 mg PO BID 04/24/24 06/26/24 06/25/24 History aspirin 81 mg tablet,delayed 81 mg PO DAILY #30 tabs 04/26/24 06/26/24 06/25/24 Rx release clonidine HCl 0.2 mg tablet 0.2 mg PO TID 90 days #270 tabs 05/09/24 06/26/24 06/25/24 Rx nifedipine 30 mg tablet,extended 30 mg PO DAILY #90 tabs 05/09/24 06/26/24 06/25/24 Rx release 24 hr pantoprazole 40 mg tablet,delayed 40 mg PO DAILY #90 tabs 05/23/24 06/26/24 06/25/24 Rx release escitalopram oxalate 20 mg tablet 20 mg PO DAILY #30 tabs 06/06/24 06/26/24 06/25/24 Rx amoxicillin 875 mg-potassium 1 tab PO BID #20 tabs 06/09/24 06/26/24 06/25/24 Rx clavulanate 125 mg tablet hydrocodone 5 mg-acetaminophen 325 1 tab PO Q6H PRN pain #15 tabs 06/09/24 06/26/24 Unknown Rx mg tablet losartan 100 mg tablet 100 mg PO DAILY #90 tabs 06/14/24 06/26/24 06/25/24 Rx cyclobenzaprine 10 mg tablet 10 mg PO Q8H PRN muscle spasm #20 06/21/24 06/26/24 06/24/24 Rx tabs isosorbide dinitrate 20 mg tablet 20 mg PO TID #270 tabs 06/25/24 06/26/24 Unknown Rx Allergies Allergy/AdvReac Type Severity Reaction Status Date / Time No Known Allergies Allergy Verified 06/21/24 11:03 PFSH Acute 2 PFSH: Medical History (Updated 06/27/24 @ 08:15 by Navdeep Arita MD) Thrombocytopenia PND (paroxysmal nocturnal dyspnea) Pericardial effusion Severe anemia Kidney failure HFrEF (heart failure with reduced ejection fraction) Elevated BUN Vitamin D deficiency Anemia Diabetic ulcer of left foot Peripheral vascular disease HTN (hypertension) Diabetes mellitus type 2, uncontrolled History of diabetes mellitus Peritonsillar cellulitis Surgical History History of insertion of tunneled central venous catheter (CVC) with port H/O vitrectomy No history of previous surgery Family History Other CAD (coronary artery disease) Diabetes Hypertension Lung disease Denies family history of Clotting disorder Dementia Hyperlipidemia Psychiatric illness Chronic kidney disease (CKD) Anesthesia complication Bleeding disorder Cancer Stroke Social History Smoking and tobacco/nicotine status: current every day tobacco/nicotine user cigarettes Packs smoked per day: 0.5 Years cigarettes smoked: 30 Quit status (tobacco/nicotine): considering quitting Alcohol intake: former Substance/Drug Use: never Lives independently: Yes Household members: none Housing: House Current occupational status: unemployed Special manuel needs: No Agree to transfusion: Yes Vitals/I&O/Wt Last Vital Signs Temp 98.5 F 06/26/24 11:59 Pulse 97 06/26/24 16:26 Resp 22 H 06/26/24 16:26 BP 163/91 06/26/24 16:26 Pulse Ox 94 06/26/24 16:26 O2 Del Method Room Air 06/26/24 16:26 Weight last 48 hrs Weight 205 lb Physical Exam 2 Narrative: Chest: Unlabored breathing room air. No lymphadenopathy. Heart: Regular rate and rhythm. Abdomen: Soft, tender RUQ, nondistended. No masses or lymphadenopathy. Data 06/27/24 04:55 06/27/24 04:55 A&P Assessment and plan (1) Cholecystitis: Plan 48-year-old male with history of diabetes, chronic kidney disease, admitted with cholecystitis. Patient is in DKA on insulin drip. Systolic blood pressure is up to the 200s. Initially planned for lap bobby possible open on 06/27/2024, however discussed with the hospitalist and will defer surgery until 06/28/2024. In the meantime treating with Zosyn every 8 hours. Ideally he should be off the drip before proceeding with surgery. Coding Level of Care Code 47172 Diagnoses Cholecystitis K81.9 Time Spent (min) 30
--- NOTE | 2024-06-26 16:59 | P.HP_ITS ---
Providers/Chief Complaint 2 Primary Care Provider: Enoch Borrero MD Chief Complaint: SOB, FLuid on lungs History of Present Illness Stan Romero is a 48 year old male with past medical history of end-stage renal disease, thrombocytopenia, anemia, heart failure with reduced ejection fraction, vitamin D deficiency, diabetes mellitus type 2, hypertension, history of pericardial effusion presented to the hospital today with complaint of nausea vomiting. He states he was at dialysis this morning and felt very sick to his stomach. For the last 3 days he has been having abdominal pain. This morning at dialysis he felt short of breath and had worsening right upper quadrant pain along with nausea. He states he also vomited there. Other than that he denies any chest pain shortness of breath or any other symptoms at this time. He is actively having nausea and vomited recently. He is requesting for pain medication and nausea medication. He is not on any insulin at home. ER course: 186/106, respirate 18, pulse 107, temperature 98.5, saturating 99% on room air. Following abnormalities found: Sodium 128, anion gap 23.1, BUN 16, creatinine 7.5, glucose 518, BNP 28,000, platelets 119, WBC 18,000, CT abdomen pelvis performed showed: Acute cholecystitis, internal development of groundglass density involving both lung bases I cannot exclude early pneumonia. Gallbladder ultrasound shows findings consistent with acute cholecystitis, chest x-ray shows no acute finding, mild plaque atelectasis in left base. EKG showed mild sinus tachycardia, nonspecific T wave abnormality. Lactic acid pending. Patient was given Zosyn in ER. Patient was also given 15 units of regular insulin. Medications/Allergies Home Medications Medication Instructions Recorded Confirmed Last Taken Type blood-glucose meter #1 ea 07/16/21 06/26/24 Unknown Rx blood sugar diagnostic (Blood #200 ea 11/19/22 06/26/24 Unknown Rx Glucose Test strips) lancets 30 gauge (OneTouch Delica ##200 11/19/22 06/26/24 Unknown Rx Plus Lancet) vitamin B complex with vit C-folic 1 tab PO DAILY 11/19/22 06/26/24 04/23/24 History acid 800 mcg-zinc 12.5 mg tablet (RenaPlex) patiromer calcium sorbitex 8.4 8.4 g PO .4 days/week 06/22/23 06/26/24 06/25/24 History gram oral powder packet (Veltassa) amlodipine 10 mg tablet 10 mg PO DAILY #90 tabs 04/11/24 06/26/24 06/25/24 Rx carvedilol 25 mg tablet 25 mg PO BID 04/24/24 06/26/24 06/25/24 History diltiazem HCl 180 mg capsule,24 180 mg PO DAILY 04/24/24 06/26/24 06/25/24 History hr,extended release ergocalciferol (vitamin D2) 1,250 50,000 unit PO Q7D 04/24/24 06/26/24 04/18/24 History mcg (50,000 unit) capsule (Vitamin D2) hydralazine 100 mg tablet 100 mg PO TID 04/24/24 06/26/24 06/24/24 History loratadine 10 mg tablet (Claritin) 10 mg PO BID 04/24/24 06/26/24 06/25/24 History aspirin 81 mg tablet,delayed 81 mg PO DAILY #30 tabs 04/26/24 06/26/24 06/25/24 Rx release clonidine HCl 0.2 mg tablet 0.2 mg PO TID 90 days #270 tabs 05/09/24 06/26/24 06/25/24 Rx nifedipine 30 mg tablet,extended 30 mg PO DAILY #90 tabs 05/09/24 06/26/24 06/25/24 Rx release 24 hr pantoprazole 40 mg tablet,delayed 40 mg PO DAILY #90 tabs 05/23/24 06/26/24 06/25/24 Rx release escitalopram oxalate 20 mg tablet 20 mg PO DAILY #30 tabs 06/06/24 06/26/24 06/25/24 Rx amoxicillin 875 mg-potassium 1 tab PO BID #20 tabs 06/09/24 06/26/24 06/25/24 Rx clavulanate 125 mg tablet hydrocodone 5 mg-acetaminophen 325 1 tab PO Q6H PRN pain #15 tabs 06/09/24 06/26/24 Unknown Rx mg tablet losartan 100 mg tablet 100 mg PO DAILY #90 tabs 06/14/24 06/26/24 06/25/24 Rx cyclobenzaprine 10 mg tablet 10 mg PO Q8H PRN muscle spasm #20 06/21/24 06/26/2406/24/24 Rx tabs isosorbide dinitrate 20 mg tablet 20 mg PO TID #270 tabs 06/25/24 06/26/24 Unknown Rx Allergies Allergy/AdvReac Type Severity Reaction Status Date / Time No Known Allergies Allergy Verified 06/21/24 11:03 PFSH Acute 2 PFSH: Medical History (Updated 06/26/24 @ 18:17 by Meeta Romano MD) Thrombocytopenia PND (paroxysmal nocturnal dyspnea) Pericardial effusion Severe anemia Kidney failure HFrEF (heart failure with reduced ejection fraction) Elevated BUN Vitamin D deficiency Anemia Diabetic ulcer of left foot Peripheral vascular disease HTN (hypertension) Diabetes mellitus type 2, uncontrolled History of diabetes mellitus Peritonsillar cellulitis Surgical History History of insertion of tunneled central venous catheter (CVC) with port H/O vitrectomy No history of previous surgery Family History Other CAD (coronary artery disease) Diabetes Hypertension Lung disease Denies family history of Clotting disorder Dementia Hyperlipidemia Psychiatric illness Chronic kidney disease (CKD) Anesthesia complication Bleeding disorder Cancer Stroke Social History Smoking and tobacco/nicotine status: current every day tobacco/nicotine user cigarettes Packs smoked per day: 0.5 Years cigarettes smoked: 30 Quit status (tobacco/nicotine): considering quitting Alcohol intake: former Substance/Drug Use: never Lives independently: Yes Household members: none Housing: House Current occupational status: unemployed Special manuel needs: No Agree to transfusion: Yes Vitals/I&O/Wt Last Vital Signs Temp 98.5 F 06/26/24 11:59 Pulse 97 06/26/24 16:26 Resp 22 H 06/26/24 16:26 BP 163/91 06/26/24 16:26 Pulse Ox 94 06/26/24 16:26 O2 Del Method Room Air 06/26/24 16:26 Weight last 48 hrs Weight 92.986 kg Physical Exam 2 Narrative: General: Alert oriented x3, patient seen lying in bed holding a vomiting bag at this time. He states he is nauseous and having abdominal pain. He is requesting pain medication. HEENT: Normocephalic, atraumatic, EOMI, Cardio: Regular rate rhythm, normal S1-S2, Respiratory: Clear to auscultation bilaterally at bases. GI: Abdomen soft, mildly tender to palpation in right upper quadrant, nondistended, bowel sounds + Extremities: Trace edema bilateral lower extremities Data 06/26/24 13:48 06/26/24 17:30 A&P Assessment and plan (1) HTN (hypertension): (2) Uncontrolled hypertension: (3) (HFpEF) heart failure with preserved ejection fraction: (4) Diabetes mellitus type 2, uncontrolled: (5) GERD (gastroesophageal reflux disease): (6) ESRD (end stage renal disease): (7) Hypoxic respiratory failure: (8) Flash pulmonary edema: (9) Acute cholecystitis: (10) DKA (diabetic ketoacidosis): (11) Thrombocytopenia: Plan #Acute cholecystitis #Hyperosmolar hyperglycemia #Shortness of breath most likely secondary to hypertensive urgency #Pneumonia not excluded, possible pneumonia bilateral bases as evidenced on x- ray. #End-stage renal disease #Type 2 diabetes mellitus #Chronic anemia #Hypertension/hypertensive urgency ? Hold home antihypertensives. Placed on hydralazine 10 mg every 4 hours as needed - Hold losartan in anticipation ? Consult nephrology ? Check troponins ? Last echo April 2024 shows EF 55 to 60% no regional wall motion abnormalities. ? Placed on insulin drip DKA protocol. Anion gap elevated at this time 23.1. Blood glucose 518 ? N.p.o. placed on normal saline 75 cc/h ? Will place on Zosyn and vancomycin to cover for pneumonia and cholecystitis. Personally my suspicion for pneumonia is low at this time. Lungs are clear to auscultation no rales noted. Patient denies a cough. I believe symptoms are mostly secondary to the cholecystitis. ? General Surgery consulted. ? Check blood culture, urine culture, sputum Culture Gram stain ? Platelets 119. Patient chronically thrombocytopenic. ? BNP 28,000 which is lower than his baseline. Previous admissions he has had BNP greater than 70,000. ? Procalcitonin elevated at 0.86. ? Reports cardiac risk index: 4 points: .15% risk of major cardiac event ? Zofran for nausea Morphine 4 mg every 4 hours as needed for pain. ? Check hemoglobin A1c Full code DVT prophylaxis: Heparin subcu twice daily GI prophylaxis: Protonix 40 daily Attestations 2 Medical Necessity Statement*: Patient requires hospitalization for multitude of issues: Hyperosmolar hyperglycemia, pneumonia, hypertensive urgency, acute cholecystitis I expect hospitalization to be greater than 72 hours at this time. Diagnoses HTN (hypertension) I10 Uncontrolled hypertension I10 (HFpEF) heart failure with preserved ejection fraction I50.30 Diabetes mellitus type 2, uncontrolled E11.65 GERD (gastroesophageal reflux disease) K21.9 ESRD (end stage renal disease) N18.6 Hypoxic respiratory failure J96.91 Flash pulmonary edema J81.0 Acute cholecystitis K81.0 DKA (diabetic ketoacidosis) E11.10 Thrombocytopenia D69.6
[2024-06-26 17:23] LABS: Glucose Point of Care 320 mg/dL (70-110)
[2024-06-26] MEDS: heparin 5,000 unit/mL INJ 1 mL 5000 UNIT SUBCUT (17:27)
[2024-06-26] MEDS: piperacillin-tazobactam 3.375 GM in sodium chloride 0.9% (plus) 50 ML IV (17:27)
[2024-06-26 18:07] LABS: Procalcitonin 0.86 ng/mL (0-0.5)
[2024-06-26] MEDS: INSULIN REGULAR IN 0.9 % NACL 100 UNIT/100 ML BAG 9.5 UNIT IV (18:16)
[2024-06-26 18:21] LABS: Glucose Point of Care 350 mg/dL (70-110)
[2024-06-26 18:24] LABS: Anion Gap 28.1 (5-19); Blood Urea Nitrogen 72 mg/dL (6-20); Calcium 9.8 mg/dL (8.5-10.5); Carbon Dioxide 23 mmol/L (22-29); Chloride 84 mmol/L (98-107); Creatinine Clr Calc Pharmacy 14.1145; Glomerular Filtration Rate 7.5 mL/min (90-130); Glucose 345 mg/dL (65-115); Lactic Sepsis W/Reflex 1.2 mmol/L (0.5-2.2); Osmolality Calculated 305 mOsm/kg (285-295); Potassium 5.1 mmol/L (3.5-5.1); Sodium 130 mmol/L (136-145)
[2024-06-26] MEDS: sodium chloride 0.9% 1,000 ML 75 ML IV (19:45)
[2024-06-26 20:08] LABS: Glucose Point of Care 308 mg/dL (70-110)
[2024-06-26 20:59] LABS: Glucose Point of Care 260 mg/dL (70-110)
[2024-06-26] MEDS: HYDROmorphone 1 mg/mL INJ 1 mL 0.5 MG IVP (21:10)
[2024-06-26] MEDS: hyDRALAzine 20 mg/mL INJ 1 mL IVP (21:10)
[2024-06-26] MEDS: dextrose 5%-sod chloride 0.9% 1,000 ML 100 ML IV (21:11)
[2024-06-26 21:24] LABS: Glucose Point of Care 215 mg/dL (70-110)
[2024-06-26 22:02] LABS: Glucose Point of Care 158 mg/dL (70-110)
[2024-06-26 22:11] LABS: Anion Gap 24.7 (5-19); Calcium 8.6 mg/dL (8.5-10.5); Carbon Dioxide 26 mmol/L (22-29); Chloride 86 mmol/L (98-107); Creatinine Clr Calc Pharmacy 12.9522; Glomerular Filtration Rate 6.7 mL/min (90-130); Glucose 202 mg/dL (65-115); Osmolality Calculated 305 mOsm/kg (285-295); Potassium 4.7 mmol/L (3.5-5.1); Sodium 132 mmol/L (136-145)
[2024-06-26 22:16] LABS: Estmated Average Glucose 189; Hemoglobin A1C 8.2 % (4.0-6.0)
[2024-06-26 22:21] LABS: Blood Urea Nitrogen 82 mg/dL (6-20)
[2024-06-26 23:14] LABS: Glucose Point of Care 136 mg/dL (70-110)
[2024-06-27] VITALS (263 sets, daily range): BP systolic 149–219; BP diastolic 83–124; PULSE 0–122; RESP 19–22; TEMP 36.8–37.6; O2SAT 80–99
[2024-06-27] MEDS: HYDROmorphone 1 mg/mL INJ 1 mL 0.5 MG IVP ×4 (00:06→17:40)
[2024-06-27] MEDS: ondansetron 2 mg/ML SDV 2 mL 4 MG IVP ×3 (00:06→13:01)
[2024-06-27 00:18] LABS: Glucose Point of Care 140 mg/dL (70-110)
[2024-06-27] MEDS: amlodipine 10 mg Tablet PO (01:13)
[2024-06-27 01:18] LABS: Glucose Point of Care 161 mg/dL (70-110)
[2024-06-27 01:20] LABS: Anion Gap 24.4 (5-19); Calcium 8.5 mg/dL (8.5-10.5); Carbon Dioxide 26 mmol/L (22-29); Chloride 87 mmol/L (98-107); Creatinine Clr Calc Pharmacy 12.8016; Glomerular Filtration Rate 6.7 mL/min (90-130); Glucose 166 mg/dL (65-115); Osmolality Calculated 304 mOsm/kg (285-295); Potassium 5.4 mmol/L (3.5-5.1); Sodium 132 mmol/L (136-145)
[2024-06-27 01:24] LABS: Blood Urea Nitrogen 86 mg/dL (6-20)
[2024-06-27 02:50] LABS: Glucose Point of Care 207 mg/dL (70-110)
[2024-06-27] MEDS: labetalol 5 mg/mL SDV 20mL 20 MG IVP (02:58)
[2024-06-27] MEDS: promethazine 25 mg/mL SDV 1 mL IM (02:58)
[2024-06-27 03:12] LABS: Glucose Point of Care 232 mg/dL (70-110)
--- NOTE | 2024-06-27 03:17 | PC.NURSE ---
Patient has been hypertensive throughout shift. Administered 10 mg prn Hydralazine, and was ineffective. Spoke with Dr. Rodrigues, new order received for additional 20 mg hydralazine which was also ineffective. Spoke with Dr. Rodrigues again, new order received for 20 mg Labetalol, awaiting results following administration. Patient has had consistent vomiting and loose stools. Administered PRN zofran x2, patient continued having frequent vomiting. New order received for Phenergan IM x1. Currently resting, eyes closed, respirations unlabored.
[2024-06-27 04:11] LABS: Glucose Point of Care 242 mg/dL (70-110)
[2024-06-27 04:57] LABS: Glucose Point of Care 249 mg/dL (70-110)
[2024-06-27 05:01] LABS: Basophils % 0.1 %; Eosinophils % 0.2 %; Hematocrit 38.2 % (37-53); Lymphocytes % 5.5 %; Mean Corpuscular Hemoglobin 32.9 pg (27-33); Mean Corpuscular Volume 96.7 fl (82-101); Mean Platelet Volume 10.8 fL (7.4-10.4); Monocytes # 1.2 10^3/uL (0.2-0.9); Monocytes % 6.5 %; Neutrophils # 16.15 10^3/uL (1.8-7.7); Neutrophils % 87.1 %; Nucleated Red Blood Cells % 0 %; Platelet Count 101 10^3/cmm (157-399); Red Blood Count 3.95 10^6/uL (3.85-5.65); Red Cell Distribution Width 13.3 % (12.1-15.1); White Blood Count 18.55 10^3/uL (3.29-11.43)
[2024-06-27] MEDS: piperacillin-tazobactam 3.375 GM in sodium chloride 0.9% (plus) 50 ML IV ×2 (05:09→17:44)
[2024-06-27] MEDS: heparin 5,000 unit/mL INJ 1 mL 5000 UNIT SUBCUT ×2 (05:10→17:42)
[2024-06-27] MEDS: hyDRALAzine 20 mg/mL INJ 1 mL IVP ×2 (05:10→23:50)
[2024-06-27 05:18] LABS: Alanine Aminotransferase 38 U/L (0-41); Albumin Level 3.1 g/dL (3.5-5.2); Alkaline Phosphatase 177 U/L (40-130); Anion Gap 25.6 (5-19); Aspartate Amino Transferase 43 U/L (0-40); Calcium 8.1 mg/dL (8.5-10.5); Carbon Dioxide 25 mmol/L (22-29); Chloride 87 mmol/L (98-107); Creatinine Clr Calc Pharmacy 12.2326; Globulin 3.4 g/dL (1.3-4.6); Glomerular Filtration Rate 6.3 mL/min (90-130); Glucose 258 mg/dL (65-115); Magnesium 2.1 mg/dL (1.7-2.3); Osmolality Calculated 310 mOsm/kg (285-295); Potassium 5.6 mmol/L (3.5-5.1); Sodium 132 mmol/L (136-145); Total Bilirubin 0.4 mg/dL (0.15-1.2); Total Protein 6.5 g/dL (6.6-8.7)
[2024-06-27 05:38] LABS: Blood Urea Nitrogen 90 mg/dL (6-20)
--- NOTE | 2024-06-27 06:05 | PC.NURSE ---
Pt has continued to be hypertensive following interventions. Administered another 20 mg prn Hydralazine IV. Hypertension ongoing an hour following admin. Dr. Rodrigues notified, also relayed labs, specifically BUN, Creatnine, Anion gap, and K+ upward trend, and ongoing vomiting. New order received for Compazine 10 mg IV x1.
[2024-06-27 06:21] LABS: Glucose Point of Care 250 mg/dL (70-110)
[2024-06-27] MEDS: prochlorperazine 10 mg/2 mL Inj IVP (06:23)
--- NOTE | 2024-06-27 07:00 | PM.CONSULT ---
Providers/Reason For Consult Consulting Physician/Specialty*: [facility]/Nephrology Reason for Consult*: ESRD Attending Physician: Meeta Romano MD Primary Care Provider: Enoch Borrero MD History of Present Illness History of Present Illness Stan Romero is a 48 year old Patient is a 48-year-old male with past medical history of end-stage renal disease on dialysis. TTS schedule, chronic anemia, CHF, diabetes, hypertension, presented to the hospital due to nausea and vomiting. In the emergency department blood pressure was elevated, was tachycardic but other vitals are stable. Lab data significant sodium 128 glucose 518, elevated BNP of 28,[address] abdomen and pelvis showed acute cholecystitis Review of Systems Narrative: Negative Medications/Allergies Home Medications Medication Instructions Recorded Confirmed Last Taken Type blood-glucose meter #1 ea 07/16/21 06/26/24 Unknown Rx blood sugar diagnostic (Blood #200 ea 11/19/22 06/26/24 Unknown Rx Glucose Test strips) lancets 30 gauge (Daylight SolutionsTouch Delica ##200 11/19/22 06/26/24 Unknown Rx Plus Lancet) vitamin B complex with vit C-folic 1 tab PO DAILY 11/19/22 06/26/24 04/23/24 History acid 800 mcg-zinc 12.5 mg tablet (RenaPlex) patiromer calcium sorbitex 8.4 8.4 g PO .4 days/week 06/22/23 06/26/24 06/25/24 History gram oral powder packet (Veltassa) amlodipine 10 mg tablet 10 mg PO DAILY #90 tabs 04/11/24 06/26/24 06/25/24 Rx carvedilol 25 mg tablet 25 mg PO BID 04/24/24 06/26/24 06/25/24 History diltiazem HCl 180 mg capsule,24 180 mg PO DAILY 04/24/24 06/26/24 06/25/24 History hr,extended release ergocalciferol (vitamin D2) 1,250 50,000 unit PO Q7D 04/24/24 06/26/24 04/18/24 History mcg (50,000 unit) capsule (Vitamin D2) hydralazine 100 mg tablet 100 mg PO TID 04/24/24 06/26/24 06/24/24 History loratadine 10 mg tablet (Claritin) 10 mg PO BID 04/24/24 06/26/24 06/25/24 History aspirin 81 mg tablet,delayed 81 mg PO DAILY #30 tabs 04/26/24 06/26/24 06/25/24 Rx release clonidine HCl 0.2 mg tablet 0.2 mg PO TID 90 days #270 tabs 05/09/24 06/26/24 06/25/24 Rx nifedipine 30 mg tablet,extended 30 mg PO DAILY #90 tabs 05/09/24 06/26/24 06/25/24 Rx release 24 hr pantoprazole 40 mg tablet,delayed 40 mg PO DAILY #90 tabs 05/23/24 06/26/24 06/25/24 Rx release escitalopram oxalate 20 mg tablet 20 mg PO DAILY #30 tabs 06/06/24 06/26/24 06/25/24 Rx amoxicillin 875 mg-potassium 1 tab PO BID #20 tabs 06/09/24 06/26/24 06/25/24 Rx clavulanate 125 mg tablet hydrocodone 5 mg-acetaminophen 325 1 tab PO Q6H PRN pain #15 tabs 06/09/24 06/26/24 Unknown Rx mg tablet losartan 100 mg tablet 100 mg PO DAILY #90 tabs 06/14/24 06/26/24 06/25/24 Rx cyclobenzaprine 10 mg tablet 10 mg PO Q8H PRN muscle spasm #20 06/21/24 06/26/24 06/24/24 Rx tabs isosorbide dinitrate 20 mg tablet 20 mg PO TID #270 tabs 06/25/24 06/26/24 Unknown Rx Allergies Allergy/AdvReac Type Severity Reaction Status Date / Time No Known Allergies Allergy Verified 06/21/24 11:03 Current Medications Generic Name Dose Route Start Last Admin Trade Name Freq PRN Reason Stop Dose Admin Albuterol/Ipratropium 3 ml 06/26/24 20:00 06/26/24 20:50 Ipratropium-Albuterol 3 Ml Neb INHALATION Not Given QID.RESPIRATORY [place] Heparin Sodium (Porcine) 5,000 unit 06/26/24 17:00 06/27/24 05:10 Heparin 5,000 Unit/Ml Inj 1 Ml SUBCUT 5,000 unit Q12H [place] Administration Hydralazine HCl 20 mg 06/26/24 20:28 06/27/24 05:10 Hydralazine 20 Mg/Ml Inj 1 Ml IVP 20 mg Q4H PRN Administration HYPERTENSION Hydromorphone HCl 0.5 mg 06/26/24 20:27 06/27/24 00:06 Hydromorphone 1 Mg/Ml Inj 1 Ml IVP 0.5 mg Q2H PRN Administration SEVERE PAIN Insulin Human Regular 100 unit in 100 mls @ 0 mls/hr 06/26/24 17:00 06/27/24 05:10 Myxredlin 100 Unit/100 Ml Bag IV 1 unit/hr PROTOCOL [place] 1 mls/hr Titration Protocol Per Protocol Sodium Chloride 1,000 mls @ 75 mls/hr 06/26/24 17:00 06/26/24 21:12 Sodium Chloride 0.9% IV 0 mls/hr .[id number] PRN Infusion blood glucose greater than 250 mg/dL Piperacillin Sod/Tazobactam 50 mls @ 12.5 mls/hr 06/26/24 17:30 06/27/24 05:09 Sod 3.375 gm/ Sodium Chloride IV 12.5 mls/hr Q12H [place] Administration Dextrose/Sodium Chloride 1,000 mls @ 100 mls/hr 06/26/24 21:00 06/26/24 21:11 Dextrose 5%-Sod Chloride 0.9% IV 100 mls/hr .Q10H [place] Administration Ondansetron HCl 4 mg 06/26/24 19:08 06/27/24 00:06 Ondansetron 2 Mg/Ml Sdv 2 Ml IVP 4 mg Q4H PRN Administration NAUSEA AND VOMITING PFSH Acute PFSH: Medical History (Updated 06/27/24 @ 08:15 by Navdeep Arita MD) Thrombocytopenia PND (paroxysmal nocturnal dyspnea) Pericardial effusion Severe anemia Kidney failure HFrEF (heart failure with reduced ejection fraction) Elevated BUN Vitamin D deficiency Anemia Diabetic ulcer of left foot Peripheral vascular disease HTN (hypertension) Diabetes mellitus type 2, uncontrolled History of diabetes mellitus Peritonsillar cellulitis Surgical History History of insertion of tunneled central venous catheter (CVC) with port H/O vitrectomy No history of previous surgery Family History Other CAD (coronary artery disease) Diabetes Hypertension Lung disease Denies family history of Clotting disorder Dementia Hyperlipidemia Psychiatric illness Chronic kidney disease (CKD) Anesthesia complication Bleeding disorder Cancer Stroke Social History Smoking and tobacco/nicotine status: current every day tobacco/nicotine user cigarettes Packs smoked per day: 0.5 Years cigarettes smoked: 30 Quit status (tobacco/nicotine): considering quitting Alcohol intake: former Substance/Drug Use: never Lives independently: Yes Household members: none Housing: House Current occupational status: unemployed Special manuel needs: No Agree to transfusion: Yes Vitals/I&O/Wt Last Vital Signs Temp 99.4 F 06/27/24 04:00 Pulse 100 06/27/24 06:10 Resp 19 H 06/27/24 00:06 BP 182/100 06/27/24 06:10 Pulse Ox 96 06/27/24 06:10 O2 Del Method Room Air 06/26/24 20:29 06/26/24 06/27/24 06/27/24 22:59 06:59 14:59 Intake Total 177.675 / 177.675 119.467 / 297.142 Balance 177.675 / 177.675 119.467 / 297.142 Weight last 48 hrs Weight 98 kg Weight 99 kg Weight 92.986 kg Physical Exam Narrative: Awake, alert, no distress HEENT S1 S2 regular rate and rhythm per report Lungs clear per report No pedal edema Data 06/27/24 04:55 06/27/24 13:26 Micro: Microbiology 06/26/24 17:30 Blood Culture - Preliminary Blood SPECIMEN COLLECTED 06/26/24 17:25 Blood Culture - Preliminary Blood SPECIMEN COLLECTED A&P Assessment and plan (1) End stage renal disease on dialysis: 1. End-stage renal disease: On TTS schedule, HD today due to hyperkalemia 2. Hyperkalemia: Low K diet and HD as above 3. Hyponatremia: Mild, monitor for now 4. Acute cholecystitis, management per primary team 5. History of hypertension 6. History of diabetes type 2 Patient evaluated using audiovisual cart monitor for minutes. Consult Attestations Medical Necessity Statement: Per medicine team Coding Level of Care Code Acute Code for Chg Fwd Diagnoses End stage renal disease on dialysis N18.6; Z99.2
[2024-06-27 07:10] LABS: Glucose Point of Care 258 mg/dL (70-110)
[2024-06-27] MEDS: dextrose 5%-sod chloride 0.9% 1,000 ML 100 ML IV (07:14)
[2024-06-27 08:09] LABS: Glucose Point of Care 249 mg/dL (70-110)
--- NOTE | 2024-06-27 08:15 | P.PN_ITS ---
Subjective 2 Subjective: Complaining of right upper quadrant pain Systolics in the 200 No dialysis On insulin drip Vitals/I&O/Wt Last Vital Signs Temp 99.4 F 06/27/24 04:00 Pulse 100 06/27/24 06:10 Resp 19 H 06/27/24 00:06 BP 182/100 06/27/24 06:10 Pulse Ox 96 06/27/24 06:10 O2 Del Method Room Air 06/26/24 20:29 06/26/24 06/27/24 06/27/24 22:59 06:59 14:59 Intake Total 177.675 / 177.675 119.467 / 351.473 5706.833 / 1001.833 Balance 177.675 / 177.675 119.467 / 720.344 3504.833 / 1001.833 Weight last 48 hrs Weight 216 lb 0.848 oz Weight 218 lb 4.122 oz Weight 205 lb Physical Exam 2 Narrative: Chest: Unlabored breathing room air. No lymphadenopathy. Heart: Regular rate and rhythm. Abdomen: Soft, tender RUQ, nondistended. No masses or lymphadenopathy. Data 06/27/24 04:55 06/27/24 04:55 Micro: Microbiology 06/26/24 17:30 Blood Culture - Preliminary Blood SPECIMEN COLLECTED 06/26/24 17:25 Blood Culture - Preliminary Blood SPECIMEN COLLECTED A&P Assessment and plan (1) Cholecystitis: Plan 48-year-old male who presented with cholecystitis. Still needs dialysis. Still on insulin drip. Continue Zosyn every 8 hours to treat for cholecystitis. Will plan for lap bobby possible open 06/28/2024. Attestations 2 Medical Necessity Statement*: NA Coding Level of Care Code 42261 Diagnoses Cholecystitis K81.9 Time Spent (min) 30
[2024-06-27] MEDS: ipratropium-albuterol 3 mL Neb INHALATION ×2 (08:24→19:47)
[2024-06-27] MEDS: escitalopram 10 mg Tablet 20 MG PO (08:25)
[2024-06-27] MEDS: aspirin 81 mg EC Tablet PO (08:25)
[2024-06-27] MEDS: pantoprazole 40 mg SDV IVP (08:26)
--- NOTE | 2024-06-27 08:51 | ECG_ITS ---
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1975 Requested By: Meeta Romano Order Number: [id number] Reading MD: ANA LILIA PERAZA Measurements Intervals [place] Rate: 107 P: 26 GA: 162 QRS: 32 QRSD: 94 T: 75 QT: 332 QTc: 444 Interpretive Statements SINUS TACHYCARDIA NONSPECIFIC ST & T-WAVE ABNORMALITY ABNORMAL RHYTHM ECG Compared to ECG 06/26/2024 12:02:06 T-wave abnormality now present Left ventricular hypertrophy no longer present ST (T wave) deviation no longer present Electronically Signed On 06-27-2024 17:20:16 SIDE HEMMER by ANA LILIA PERAZA [email or web address]
[2024-06-27] MEDS: heparin, porcine 1,000 unit/mL INJ 10 mL 1000 UNIT IV (09:46)
[2024-06-27] MEDS: heparin, porcine 1,000 unit/mL INJ 10 mL 10000 UNIT INTRACATH (09:46)
[2024-06-27 09:52] LABS: Glucose Point of Care 250 mg/dL (70-110)
[2024-06-27 10:07] LABS: Anion Gap 22.8 (5-19); Calcium 8.1 mg/dL (8.5-10.5); Carbon Dioxide 25 mmol/L (22-29); Chloride 87 mmol/L (98-107); Glomerular Filtration Rate 6.7 mL/min (90-130); Glucose 257 mg/dL (65-115); Osmolality Calculated 306 mOsm/kg (285-295); Potassium 4.8 mmol/L (3.5-5.1); Sodium 130 mmol/L (136-145)
[2024-06-27 10:12] LABS: Troponin(5th) Baseline 141 ng/L (0-15)
[2024-06-27 10:24] LABS: Glucose Point of Care 203 mg/dL (70-110)
[2024-06-27 10:38] LABS: Blood Urea Nitrogen 88 mg/dL (6-20); Creatinine Clr Calc Pharmacy 12.7421
[2024-06-27 11:01] LABS: Glucose Point of Care 171 mg/dL (70-110)
[2024-06-27 12:02] LABS: Glucose Point of Care 154 mg/dL (70-110)
--- NOTE | 2024-06-27 12:34 | ECG_ITS ---
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
[2024-06-27 12:35] LABS: Troponin 5 2HR Delta -16.5 ABS# (0-10)
--- NOTE | 2024-06-27 12:36 | P.PN_ITS ---
Subjective 2 Subjective: Seen this morning. Patient still having right upper quadrant pain. Currently on insulin drip. Blood pressure elevated. Going for dialysis soon Vitals/I&O/Wt Last Vital Signs Temp 99.4 F 06/27/24 04:00 Pulse 106 H 06/27/24 12:00 Resp 20 H 06/27/24 11:21 BP 188/105 06/27/24 12:00 Pulse Ox 98 06/27/24 12:00 O2 Del Method Nasal Cannula 06/27/24 11:21 O2 Flow Rate 2 06/27/24 11:21 06/26/24 06/27/24 06/27/24 22:59 06:59 14:59 Intake Total 177.675 / 177.675 119.467 / 966.780 6797.800 / 1059.800 Balance 177.675 / 177.675 119.467 / 963.185 5200.800 / 1059.800 Weight last 48 hrs Weight 98 kg Weight 99 kg Weight 92.986 kg Physical Exam 2 Narrative: General: Alert oriented x3, HEENT: Normocephalic, atraumatic, EOMI, Cardio: Regular rate rhythm, normal S1-S2, Respiratory: Clear to auscultation bilaterally at bases. GI: Abdomen soft, mildly tender to palpation in right upper quadrant, nondistended, bowel sounds + Extremities: Trace edema bilateral lower extremities Data 06/27/24 04:55 06/27/24 09:38 Micro: Microbiology 06/26/24 17:30 Blood Culture - Preliminary Blood SPECIMEN COLLECTED 06/26/24 17:25 Blood Culture - Preliminary Blood SPECIMEN COLLECTED A&P Assessment and plan (1) HTN (hypertension): (2) Uncontrolled hypertension: (3) (HFpEF) heart failure with preserved ejection fraction: (4) Diabetes mellitus type 2, uncontrolled: (5) GERD (gastroesophageal reflux disease): (6) ESRD (end stage renal disease): (7) Hypoxic respiratory failure: (8) Flash pulmonary edema: (9) Acute cholecystitis: (10) DKA (diabetic ketoacidosis): (11) Thrombocytopenia: Plan #Acute cholecystitis #Hyperosmolar hyperglycemia #Shortness of breath most likely secondary to hypertensive urgency #Pneumonia not excluded, possible pneumonia bilateral bases as evidenced on x- ray. #End-stage renal disease #Type 2 diabetes mellitus #Chronic anemia #Hypertension/hypertensive urgency ? Hold home antihypertensives. Placed on hydralazine 10 mg every 4 hours as needed - Hold losartan in anticipation ? Consult nephrology ? Check troponins ? Last echo April 2024 shows EF 55 to 60% no regional wall motion abnormalities. ? Placed on insulin drip DKA protocol. Anion gap elevated at this time 23.1. Blood glucose 518 ? N.p.o. placed on normal saline 75 cc/h ? Will place on Zosyn and vancomycin to cover for pneumonia and cholecystitis. Personally my suspicion for pneumonia is low at this time. Lungs are clear to auscultation no rales noted. Patient denies a cough. I believe symptoms are mostly secondary to the cholecystitis. ? General Surgery consulted. ? Check blood culture, urine culture, sputum Culture Gram stain ? Platelets 119. Patient chronically thrombocytopenic. ? BNP 28,000 which is lower than his baseline. Previous admissions he has had BNP greater than 70,000. ? Procalcitonin elevated at 0.86. ? Reports cardiac risk index: 4 points: .15% risk of major cardiac event ? Zofran for nausea Morphine 4 mg every 4 hours as needed for pain. ? Check hemoglobin A1c Full code DVT prophylaxis: Heparin subcu twice daily GI prophylaxis: Protonix 40 daily 06/27/2024 - Will wean off insulin drip today ? Plan for dialysis ? N.p.o. at midnight tonight for cholecystectomy in AM. ? Discussed with general surgery today regarding plan. ? Hemoglobin A1c 8.0. ? Will restart home antihypertensives and place patient on clear liquid diet today as tolerated. ?Continue amlodipine 10, aspirin, carvedilol, nifedipine, hydralazine, losartan. ? Continue Vanco and Zosyn at this time. ? Will order Lantus 5 units Attestations 2 Medical Necessity Statement*: Patient requires hospitalization for multitude of issues: Hyperosmolar hyperglycemia, pneumonia, hypertensive urgency, acute cholecystitis I expect hospitalization to be greater than 72 hours at this time. Diagnoses HTN (hypertension) I10 Uncontrolled hypertension I10 (HFpEF) heart failure with preserved ejection fraction I50.30 Diabetes mellitus type 2, uncontrolled E11.65 GERD (gastroesophageal reflux disease) K21.9 ESRD (end stage renal disease) N18.6 Hypoxic respiratory failure J96.91 Flash pulmonary edema J81.0 Acute cholecystitis K81.0 DKA (diabetic ketoacidosis) E11.10 Thrombocytopenia D69.6
[2024-06-27 12:38] LABS: Troponin 5 2HR 124.5 ng/L (0-15)
[2024-06-27 13:01] LABS: Glucose Point of Care 168 mg/dL (70-110)
[2024-06-27] MEDS: insulin glargine 100 units/1 mL 5 UNIT SUBCUT ×2 (13:04→14:44)
[2024-06-27] MEDS: NIFEdipine ER (24 hr) 30 mg Tablet PO (13:05)
[2024-06-27 13:52] LABS: Anion Gap 20.1 (5-19); Blood Urea Nitrogen 45 mg/dL (6-20); Calcium 9.2 mg/dL (8.5-10.5); Carbon Dioxide 27 mmol/L (22-29); Chloride 91 mmol/L (98-107); Creatinine Clr Calc Pharmacy 21.0735; Glomerular Filtration Rate 11.9 mL/min (90-130); Glucose 196 mg/dL (65-115); Osmolality Calculated 295 mOsm/kg (285-295); Potassium 4.1 mmol/L (3.5-5.1); Sodium 134 mmol/L (136-145)
[2024-06-27] MEDS: hyDRALAzine 50 mg Tablet 100 MG PO ×2 (14:44→21:22)
--- NOTE | 2024-06-27 14:51 | ECG_ITS ---
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
[2024-06-27 17:29] LABS: Glucose Point of Care 228 mg/dL (70-110)
[2024-06-27] MEDS: insulin lispro 100 unit/1 mL SUBCUT (18:13)
[2024-06-27 18:31] LABS: Anion Gap 19.8 (5-19); Blood Urea Nitrogen 52 mg/dL (6-20); Calcium 9.5 mg/dL (8.5-10.5); Carbon Dioxide 26 mmol/L (22-29); Chloride 90 mmol/L (98-107); Glomerular Filtration Rate 8.7 mL/min (90-130); Glucose 240 mg/dL (65-115); Osmolality Calculated 294 mOsm/kg (285-295); Potassium 4.8 mmol/L (3.5-5.1); Sodium 131 mmol/L (136-145)
[2024-06-27] MEDS: nicardipine 20 MG/200 ML PREMIX 50 MG IV (19:54)
[2024-06-27 21:21] LABS: Glucose Point of Care 107 mg/dL (70-110)
[2024-06-27] MEDS: nicardipine 20 MG/200 ML PREMIX 75 MG IV (22:09)
[2024-06-27 22:26] LABS: Anion Gap 24.2 (5-19); Blood Urea Nitrogen 52 mg/dL (6-20); Calcium 8.5 mg/dL (8.5-10.5); Carbon Dioxide 25 mmol/L (22-29); Chloride 92 mmol/L (98-107); Creatinine Clr Calc Pharmacy 16.6034; Glucose 115 mg/dL (65-115); Osmolality Calculated 299 mOsm/kg (285-295); Potassium 4.2 mmol/L (3.5-5.1); Sodium 137 mmol/L (136-145)
[2024-06-27 23:06] LABS: Glucose Point of Care 163 mg/dL (70-110)
[2024-06-28] VITALS (51 sets, daily range): BP systolic 134–188; BP diastolic 74–107; PULSE 93–115; RESP 12–22; TEMP 36.9–37.3; O2SAT 88–99
[2024-06-28] MEDS: nicardipine 20 MG/200 ML PREMIX 125 MG IV ×3 (00:26→03:48)
[2024-06-28] MEDS: ondansetron 2 mg/ML SDV 2 mL 4 MG IVP (00:30)
[2024-06-28 01:04] LABS: Glucose Point of Care 196 mg/dL (70-110)
[2024-06-28] MEDS: labetalol 5 mg/mL SDV 20mL 20 MG IVP (02:13)
[2024-06-28 03:52] LABS: Basophils % 0.2 %; Eosinophils # 0.1 10^3/uL (0.0-0.8); Eosinophils % 0.6 %; Hematocrit 37.5 % (37-53); Lymphocytes # 1.2 10^3/uL (0.8-4.8); Lymphocytes % 6.5 %; Mean Corpuscular HGB Conc 33.3 g/dL (30-55); Mean Corpuscular Hemoglobin 33.2 pg (27-33); Mean Corpuscular Volume 99.5 fl (82-101); Mean Platelet Volume 10.5 fL (7.4-10.4); Monocytes % 5.6 %; Neutrophils # 15.18 10^3/uL (1.8-7.7); Neutrophils % 86.2 %; Nucleated Red Blood Cells % 0 %; Platelet Count 92 10^3/cmm (157-399); Red Blood Count 3.77 10^6/uL (3.85-5.65); Red Cell Distribution Width 13.7 % (12.1-15.1); White Blood Count 17.62 10^3/uL (3.29-11.43)
[2024-06-28 04:15] LABS: Alanine Aminotransferase 21 U/L (0-41); Albumin Level 3.3 g/dL (3.5-5.2); Alkaline Phosphatase 131 U/L (40-130); Anion Gap 24.1 (5-19); Aspartate Amino Transferase 15 U/L (0-40); Blood Urea Nitrogen 62 mg/dL (6-20); Calcium 9.3 mg/dL (8.5-10.5); Carbon Dioxide 23 mmol/L (22-29); Chloride 90 mmol/L (98-107); Creatinine Clr Calc Pharmacy 14.4187; Globulin 3.6 g/dL (1.3-4.6); Glomerular Filtration Rate 7.7 mL/min (90-130); Glucose 207 mg/dL (65-115); Magnesium 2.2 mg/dL (1.7-2.3); Osmolality Calculated 298 mOsm/kg (285-295); Phosphorus 6.9 mg/dL (2.5-4.5); Potassium 5.1 mmol/L (3.5-5.1); Sodium 132 mmol/L (136-145); Total Bilirubin 0.4 mg/dL (0.15-1.2); Total Protein 6.9 g/dL (6.6-8.7)
--- NOTE | 2024-06-28 05:48 | PC.NURSE ---
Late entry 06/27/241914: Received call from Dr. Romano, discussed hypertension and plan of care. Instructed to keep pt off of insulin drip and on SQ injections, start cardene drip with target bp between 160-170 systolic and try to wean in morning, NPO after midnight for cholecystectomy on 06/28/24.
[2024-06-28] MEDS: nicardipine 20 MG/200 ML PREMIX 100 MG IV (05:59)
[2024-06-28] MEDS: piperacillin-tazobactam 3.375 GM in sodium chloride 0.9% (plus) 50 ML IV (06:17)
[2024-06-28 07:46] LABS: Glucose Point of Care 237 mg/dL (70-110)
[2024-06-28] MEDS: heparin, porcine 1,000 unit/mL INJ 10 mL 1000 UNIT IV (08:10)
[2024-06-28] MEDS: nicardipine 20 MG/200 ML PREMIX 75 MG IV (08:17)
[2024-06-28] MEDS: insulin lispro 100 unit/1 mL SUBCUT (08:18)
[2024-06-28] MEDS: hyDRALAzine 50 mg Tablet 100 MG PO (08:19)
[2024-06-28] MEDS: escitalopram 10 mg Tablet 20 MG PO (08:19)
[2024-06-28] MEDS: aspirin 81 mg EC Tablet PO (08:19)
[2024-06-28] MEDS: ipratropium-albuterol 3 mL Neb INHALATION (08:19)
[2024-06-28] MEDS: losartan 50 mg Tablet 100 MG PO (08:19)
--- NOTE | 2024-06-28 08:19 | P.PN_ITS ---
Subjective 2 Subjective: plan for cholecystectomy today hd TODAY Medications: Reviewed: Yes Vitals/I&O/Wt Last Vital Signs Temp 98.4 F 06/28/24 05:45 Pulse 102 H 06/28/24 06:15 Resp 17 06/28/24 06:15 BP 151/81 06/28/24 06:15 Pulse Ox 95 06/28/24 06:15 O2 Del Method Nasal Cannula 06/28/24 06:15 O2 Flow Rate 2 06/28/24 06:15 06/27/24 06/28/24 06/28/24 22:59 06:59 14:59 Intake Total 1504.600 / 2564.400 748.75 / 3313.150 Output Total 0 / 0 Balance 1504.600 / 2564.400 748.75 / 3313.150 Weight last 48 hrs Weight 98 kg Weight 99 kg Weight 92.986 kg Physical Exam 2 Narrative: Awake, alert, no distress HEENT S1 S2 regular rate and rhythm per report Lungs clear per report No pedal edema Data 06/28/24 03:40 06/28/24 03:40 Micro: Microbiology 06/26/24 17:25 Blood Culture - Preliminary Blood NEGATIVE TO DATE 06/26/24 17:30 Blood Culture - Preliminary Blood NEGATIVE TO DATE A&P Assessment and plan (1) End stage renal disease on dialysis: 1. End-stage renal disease: On TTS schedule, HD today 2. Hyperkalemia: Low K diet and HD as above 3. Hyponatremia: Mild, monitor for now 4. Acute cholecystitis, management per primary team, PLAN FOR CHOLECYSTECTOMY TODAY 5. History of hypertension 6. History of diabetes type 2 Patient evaluated using audiovisual cart monitor for minutes. Attestations 2 Medical Necessity Statement*: PER STEPHANIE Coding Level of Care Code Acute Code for Chg Fwd Diagnoses End stage renal disease on dialysis N18.6; Z99.2
[2024-06-28] MEDS: NIFEdipine ER (24 hr) 30 mg Tablet PO (08:20)
[2024-06-28] MEDS: pantoprazole 40 mg SDV IVP (08:20)
--- NOTE | 2024-06-28 08:26 | PC.HD ---
Patient c/o nausea and vomiting prior to HD initiation. KATHYA Kelly administered IV Zofran. Patient states he left clinic on Tuesday at his EDW and also had HD yesterday. Believes he does not need much fluid off. No edema, shortness of breath noted. Dr. Us notified, verbal orders to reduce UF goal from 3000 mL to 1500 mL received. Prescription adjustments made prior to treatment initiation.
--- NOTE | 2024-06-28 10:50 | P.PN_ITS ---
Subjective 2 Subjective: Getting dialysis now Persistent right upper quadrant pain Off insulin drip On nicardipine drip Vitals/I&O/Wt Last Vital Signs Temp 99.0 F 06/28/24 08:24 Pulse 94 06/28/24 10:00 Resp 12 06/28/24 10:00 BP 152/80 06/28/24 10:00 Pulse Ox 90 06/28/24 10:00 O2 Del Method Room Air 06/28/24 08:20 O2 Flow Rate 2 06/28/24 06:15 06/27/24 06/28/24 06/28/24 22:59 06:59 14:59 Intake Total 1504.600 / 2564.400 748.75 / 3313.150 282.5 / 282.5 Output Total 0 / 0 Balance 1504.600 / 2564.400 748.75 / 3313.150 282.5 / 282.5 Weight last 48 hrs Weight 216 lb 0.848 oz Weight 218 lb 4.122 oz Weight 205 lb Physical Exam 2 Narrative: Chest: Unlabored breathing room air. No lymphadenopathy. Heart: Regular rate and rhythm. Abdomen: Soft, tender RUQ, nondistended. No masses or lymphadenopathy. Data 06/28/24 03:40 06/28/24 03:40 Micro: Microbiology 06/26/24 17:25 Blood Culture - Preliminary Blood NEGATIVE TO DATE 06/26/24 17:30 Blood Culture - Preliminary Blood NEGATIVE TO DATE A&P Assessment and plan (1) Cholecystitis: Plan 48-year-old male who presented with acute cholecystitis and DKA. Off insulin drip. Getting dialysis now. Planning for lap bobby possible open this afternoon. Discussed risk and benefits and patient agrees to proceed. Patient is aware that he is at higher risk for complications. Attestations 2 Medical Necessity Statement*: N/A Coding Level of Care Code 70772 Diagnoses Cholecystitis K81.9 Time Spent (min) 30
[2024-06-28 11:42] LABS: Glucose Point of Care 101 mg/dL (70-110)
--- NOTE | 2024-06-28 12:20 | P.ANESASSM_ITS ---
Pre-Anesthetic Assessment Height/Weight: Height 1.83 m Weight 95 kg Temp Pulse Resp BP Pulse Ox O2 Del Method O2 Flow Rate 99.1 F 101 H 14 153/83 99 Room Air 2 06/28/24 11:25 06/28/24 12:00 06/28/24 12:00 06/28/24 12:00 06/28/24 12:00 06/28/24 08:20 06/28/24 06:15 Operation Date: 06/28/24 13:00 Proposed Procedures p Laparoscopic Cholecystectomy(Not Applicable) - Navdeep Arita MD Familial anesthetic complications: NOne Was Beta Sherita taken within 24 hours: Yes Was Clonidine taken within 24 hours: N/A Last intake: > 8hrs Social Tobacco and No alcohol Exam alert, oriented x 3, clear to auscultation bilaterally and regular rate & rhythm Airway Mallampati: Class II Dentition: chipped Pulmonary ? Pneumonia CV/HEM Congestive Heart Failure (hx EF of 15% --> now 55% in 01/12/24) and Hypertension Hx flash pulmonary edema/fluid overload - patient states his lungs get wet when he lays flat; may have trouble extubating Chronic Renal Failure (Dialysis yesterday) Metabolic Diabetes Mellitus (admitted in DKA) Anesthetic Plan ASA status: 4 Anesthesia: General Risk of > 500 ml blood loss (7ml/kg in children): No Medications/Allergies Home Medications Medication Instructions Recorded Confirmed Last Taken Type blood-glucose meter #1 ea 07/16/21 06/26/24 Unknown Rx blood sugar diagnostic (Blood #200 ea 11/19/22 06/26/24 Unknown Rx Glucose Test strips) lancets 30 gauge (OneTouch Delica ##200 11/19/22 06/26/24 Unknown Rx Plus Lancet) vitamin B complex with vit C-folic 1 tab PO DAILY 11/19/22 06/26/24 04/23/24 History acid 800 mcg-zinc 12.5 mg tablet (RenaPlex) patiromer calcium sorbitex 8.4 8.4 g PO .4 days/week 06/22/23 06/26/24 06/25/24 History gram oral powder packet (Veltassa) amlodipine 10 mg tablet 10 mg PO DAILY #90 tabs 04/11/24 06/26/24 06/25/24 Rx carvedilol 25 mg tablet 25 mg PO BID 04/24/24 06/26/24 06/25/24 History diltiazem HCl 180 mg capsule,24 180 mg PO DAILY 04/24/24 06/26/24 06/25/24 History hr,extended release ergocalciferol (vitamin D2) 1,250 50,000 unit PO Q7D 04/24/24 06/26/24 04/18/24 History mcg (50,000 unit) capsule (Vitamin D2) hydralazine 100 mg tablet 100 mg PO TID 04/24/24 06/26/24 06/24/24 History loratadine 10 mg tablet (Claritin) 10 mg PO BID 04/24/24 06/26/24 06/25/24 History aspirin 81 mg tablet,delayed 81 mg PO DAILY #30 tabs 04/26/24 06/26/24 06/25/24 Rx release clonidine HCl 0.2 mg tablet 0.2 mg PO TID 90 days #270 tabs 05/09/24 06/26/24 06/25/24 Rx nifedipine 30 mg tablet,extended 30 mg PO DAILY #90 tabs 05/09/24 06/26/24 06/25/24 Rx release 24 hr pantoprazole 40 mg tablet,delayed 40 mg PO DAILY #90 tabs 05/23/24 06/26/24 06/25/24 Rx release escitalopram oxalate 20 mg tablet 20 mg PO DAILY #30 tabs 06/06/24 06/26/24 06/25/24 Rx amoxicillin 875 mg-potassium 1 tab PO BID #20 tabs 06/09/24 06/26/24 06/25/24 Rx clavulanate 125 mg tablet hydrocodone 5 mg-acetaminophen 325 1 tab PO Q6H PRN pain #15 tabs 06/09/24 06/26/24 Unknown Rx mg tablet losartan 100 mg tablet 100 mg PO DAILY #90 tabs 06/14/24 06/26/24 06/25/24 Rx cyclobenzaprine 10 mg tablet 10 mg PO Q8H PRN muscle spasm #20 06/21/24 06/26/24 06/24/24 Rx tabs isosorbide dinitrate 20 mg tablet 20 mg PO TID #270 tabs 06/25/24 06/26/24 Unknown Rx Allergies Allergy/AdvReac Type Severity Reaction Status Date / Time No Known Allergies Allergy Verified 06/21/24 11:03 Current Medications Generic Name Dose Route Start Last Admin Trade Name Freq PRN Reason Stop Dose Admin Albuterol/Ipratropium 3 ml 06/26/24 20:00 06/28/24 11:30 Ipratropium-Albuterol 3 Ml Neb INHALATION Not Given QID.RESPIRATORY CHINA Aspirin 81 mg 06/27/24 09:00 06/28/24 08:19 Aspirin 81 Mg Ec Tablet PO 81 mg DAILY CHINA Administration Escitalopram Oxalate 20 mg 06/27/24 09:00 06/28/24 08:19 Escitalopram 10 Mg Tablet PO 20 mg DAILY [place] Administration Heparin Sodium (Porcine) 5,000 unit 06/26/24 17:00 06/28/24 05:52 Heparin 5,000 Unit/Ml Inj 1 Ml SUBCUT Not Given Q12H CHINA Hydralazine HCl 20 mg 06/26/24 20:28 06/27/24 23:50 Hydralazine 20 Mg/Ml Inj 1 Ml IVP 20 mg Q4H PRN Administration HYPERTENSION Hydralazine HCl 100 mg 06/27/24 15:00 06/28/24 08:19 Hydralazine 50 Mg Tablet PO 100 mg TID [place] Administration Hydromorphone HCl 0.5 mg 06/26/24 20:27 06/27/24 17:40 Hydromorphone 1 Mg/Ml Inj 1 Ml IVP 0.5 mg Q2H PRN Administration SEVERE PAIN Insulin Human Regular 100 unit in 100 mls @ 0 mls/hr 06/26/24 17:00 06/27/24 16:00 Myxredlin 100 Unit/100 Ml Bag IV 0 unit/hr PROTOCOL CHINA 0 mls/hr Titration Protocol Per Protocol Piperacillin Sod/Tazobactam 50 mls @ 12.5 mls/hr 06/26/24 17:30 06/28/24 06:17 Sod 3.375 gm/ Sodium Chloride IV 12.5 mls/hr Q12H [place] Administration Dextrose/Sodium Chloride 1,000 mls @ 100 mls/hr 06/26/24 21:00 06/28/24 02:02 Dextrose 5%-Sod Chloride 0.9% IV Not Given .Q10H [place] Nicardipine/Sodium Chloride 20 mg in 200 mls @ 0 mls/hr 06/27/24 19:15 06/28/24 11:00 Cardene IV 5 mg/hr .Q0M [place] 50 mls/hr Titration Protocol Per Protocol Insulin Human Lispro 0 unit 06/27/24 18:00 06/28/24 11:39 Insulin Lispro 100 Unit/1 Ml SUBCUT Not Given WM&BEDTIME [place]INA Protocol Losartan Potassium 100 mg 06/28/24 09:00 06/28/24 08:19 Losartan 50 Mg Tablet PO 100 mg DAILY [place] Administration Nifedipine 30 mg 06/27/24 12:40 06/28/24 08:20 Nifedipine Er (24 Hr) 30 Mg Tablet PO 30 mg DAILY [place] Administration Ondansetron HCl 4 mg 06/26/24 19:08 06/28/24 00:30 Ondansetron 2 Mg/Ml Sdv 2 Ml IVP 4 mg Q4H PRN Administration NAUSEA AND VOMITING Pantoprazole Sodium 40 mg 06/27/24 09:00 06/28/24 08:20 Pantoprazole 40 Mg Sdv IVP 40 mg DAILY [place] Administration PFSH Anesthesia Medical History (Updated 06/27/24 @ 08:15 by Navdeep Arita MD) Thrombocytopenia PND (paroxysmal nocturnal dyspnea) Pericardial effusion Severe anemia Kidney failure HFrEF (heart failure with reduced ejection fraction) Elevated BUN Vitamin D deficiency Anemia Diabetic ulcer of left foot Peripheral vascular disease HTN (hypertension) Diabetes mellitus type 2, uncontrolled History of diabetes mellitus Peritonsillar cellulitis Surgical History History of insertion of tunneled central venous catheter (CVC) with port H/O vitrectomy No history of previous surgery Family History Other CAD (coronary artery disease) Diabetes Hypertension Lung disease Denies family history of Clotting disorder Dementia Hyperlipidemia Psychiatric illness Chronic kidney disease (CKD) Anesthesia complication Bleeding disorder Cancer Stroke Social History Smoking and tobacco/nicotine status: current every day tobacco/nicotine user cigarettes Packs smoked per day: 0.5 Years cigarettes smoked: 30 Quit status (tobacco/nicotine): considering quitting Alcohol intake: former Substance/Drug Use: never Lives independently: Yes Household members: none Housing: House Current occupational status: unemployed Special manuel needs: No Agree to transfusion: Yes Data Anesthesia 06/28/24 03:40 06/28/24 03:40 Short CBC 06/26/24 06/27/24 06/28/24 Range/Units 13:48 04:55 03:40 WBC 18.64 H 18.55 H 17.62 H (3.29-11.43) 10^3/uL Hgb 13.50 13.00 12.50 (11.27-16.99) g/dL Hct 38.2 38.2 37.5 (37-53) % MCV 92.9 96.7 99.5 (82-101) fl Plt Count 119 L 101 L 92 L (157-399) 10^3/cmm Neut % (Auto) 89.7 87.1 86.2 % Neut # (Auto) 16.70 H 16.15 H 15.18 H (1.8-7.7) 10^3/uL BMP 06/26/24 06/26/24 06/26/24 13:48 17:30 21:19 Sodium 128 L 130 L 132 L Potassium 5.1 5.1 4.7 Chloride 84 L 84 L 86 L Carbon Dioxide 26 23 26 BUN 68 H 72 H 82 H* Creatinine 7.5 H* 7.8 H* 8.5 H* Glucose 518 H* 345 H 202 H Calcium 9.9 9.8 8.6 06/27/24 06/27/24 06/27/24 00:45 04:55 09:38 Sodium 132 L 132 L 130 L Potassium 5.4 H 5.6 H 4.8 Chloride 87 L 87 L 87 L Carbon Dioxide 26 25 25 BUN 86 H* 90 H* 88 H* Creatinine 8.6 H* 9.0 H* 8.6 H* Glucose 166 H 258 H 257 H Calcium 8.5 8.1 L 8.1 L 06/27/24 06/27/24 06/27/24 13:26 17:47 21:49 Sodium 134 L 131 L 137 Potassium 4.1 4.8 4.2 Chloride 91 L 90 L 92 L Carbon Dioxide 27 26 25 BUN 45 H 52 H 52 H Creatinine 5.2 H 6.8 H* 6.6 H* Glucose 196 H 240 H 115 Calcium 9.2 9.5 8.5 06/28/24 03:40 Sodium 132 L Potassium 5.1 Chloride 90 L Carbon Dioxide 23 BUN 62 H Creatinine 7.6 H* Glucose 207 H Calcium 9.3 Cardiac Enzymes 06/26/24 06/27/24 06/27/24 Range/Units 13:48 09:38 12:05 Troponin T Baseline 141 H* (0-15) ng/L Troponin T 120 Minute 124.5 H (0-15) ng/L Delta Troponin T -16.5 L (0-10) ABS# Troponin T Hi Sens 6Hr (0-15) ng/L Troponin T Hi Sens 6Hr Delta (0-12) ng/L NT-Pro-B Natriuret Pep 40548 H (0-125) pg/mL 06/27/24 Range/Units 16:22 Troponin T Baseline (0-15) ng/L Troponin T 120 Minute (0-15) ng/L Delta Troponin T (0-10) ABS# Troponin T Hi Sens 6Hr 136.0 H (0-15) ng/L Troponin T Hi Sens 6Hr Delta -5.0 L (0-12) ng/L NT-Pro-B Natriuret Pep (0-125) pg/mL Liver Function 06/26/24 06/27/24 06/28/24 Range/Units 13:48 04:55 03:40 Total Bilirubin 0.4 0.4 0.4 (0.15-1.2) mg/dL AST 13 43 H 15 (0-40) U/L ALT 9 38 21 (0-41) U/L Alkaline Phosphatase 197 H 177 H 131 H (40-130) U/L Albumin 4.0 3.1 L 3.3 L (3.5-5.2) g/dL COVID Results 06/26/24 14:36 Coronavirus (PCR) Negative Microbiology 06/26/24 17:25 Blood Culture - Preliminary Blood NEGATIVE TO DATE 06/26/24 17:30 Blood Culture - Preliminary Blood NEGATIVE TO DATE Cardiac Studies: 2 Echocardiogram 02/01/24 Echocardiogram Limited Views 04/24/24
[2024-06-28] MEDS: nicardipine 20 MG/200 ML PREMIX 50 MG IV (12:37)
--- NOTE | 2024-06-28 13:11 | P.PN_ITS ---
Subjective 2 Subjective: Seen at bedside this morning. Denies any complaint of nausea, vomiting and abdominal pain improved since admission. Still on Cardene drip. Was having bedside HD. He is n.p.o. for possible cholecystectomy today. Medications: Reviewed: Yes Vitals/I&O/Wt Last Vital Signs Temp 99.1 F 06/28/24 11:25 Pulse 101 H 06/28/24 12:00 Resp 14 06/28/24 12:00 BP 153/83 06/28/24 12:00 Pulse Ox 99 06/28/24 12:00 O2 Del Method Room Air 06/28/24 08:20 O2 Flow Rate 2 06/28/24 06:15 06/27/24 06/28/24 06/28/24 22:59 06:59 14:59 Intake Total 1504.600 / 2564.400 748.75 / 3313.150 900.000 / 900.000 Output Total 0 / 0 1999 / 1999 Balance 1504.600 / 2564.400 748.75 / 3313.150 -1100.000 / -1100.000 Weight last 48 hrs Weight 95 kg Weight 98 kg Weight 99 kg Physical Exam 2 Narrative: General: Alert oriented x3, HEENT: Normocephalic, atraumatic, EOMI, Cardio: Regular rate rhythm, normal S1-S2, Respiratory: Clear to auscultation bilaterally at bases. GI: Abdomen soft, mildly tender to palpation in right upper quadrant, nondistended, bowel sounds + Extremities: Trace edema bilateral lower extremities Data 06/28/24 03:40 06/28/24 03:40 Micro: Microbiology 06/26/24 17:25 Blood Culture - Preliminary Blood NEGATIVE TO DATE 06/26/24 17:30 Blood Culture - Preliminary Blood NEGATIVE TO DATE A&P Assessment and plan (1) HTN (hypertension): (2) Uncontrolled hypertension: (3) (HFpEF) heart failure with preserved ejection fraction: (4) Diabetes mellitus type 2, uncontrolled: (5) GERD (gastroesophageal reflux disease): (6) ESRD (end stage renal disease): (7) Hypoxic respiratory failure: (8) Flash pulmonary edema: (9) Acute cholecystitis: (10) DKA (diabetic ketoacidosis): (11) Thrombocytopenia: Plan #Acute cholecystitis #Hyperosmolar hyperglycemia #Shortness of breath most likely secondary to hypertensive urgency #Pneumonia not excluded, possible pneumonia bilateral bases as evidenced on x- ray. #End-stage renal disease #Type 2 diabetes mellitus #Chronic anemia #Hypertension/hypertensive urgency ? Hold home antihypertensives. Placed on hydralazine 10 mg every 4 hours as needed - Hold losartan in anticipation ? Consult nephrology ? Check troponins ? Last echo April 2024 shows EF 55 to 60% no regional wall motion abnormalities. ? Placed on insulin drip DKA protocol. Anion gap elevated at this time 23.1. Blood glucose 518 ? N.p.o. placed on normal saline 75 cc/h ? Will place on Zosyn and vancomycin to cover for pneumonia and cholecystitis. Personally my suspicion for pneumonia is low at this time. Lungs are clear to auscultation no rales noted. Patient denies a cough. I believe symptoms are mostly secondary to the cholecystitis. ? General Surgery consulted. ? Check blood culture, urine culture, sputum Culture Gram stain ? Platelets 119. Patient chronically thrombocytopenic. ? BNP 28,000 which is lower than his baseline. Previous admissions he has had BNP greater than 70,000. ? Procalcitonin elevated at 0.86. ? Reports cardiac risk index: 4 points: .15% risk of major cardiac event ? Zofran for nausea Morphine 4 mg every 4 hours as needed for pain. ? Check hemoglobin A1c Full code DVT prophylaxis: Heparin subcu twice daily GI prophylaxis: Protonix 40 daily 06/27/2024 - Will wean off insulin drip today ? Plan for dialysis ? N.p.o. at midnight tonight for cholecystectomy in AM. ? Discussed with general surgery today regarding plan. ? Hemoglobin A1c 8.0. ? Will restart home antihypertensives and place patient on clear liquid diet today as tolerated. ?Continue amlodipine 10, aspirin, carvedilol, nifedipine, hydralazine, losartan. ? Continue Vanco and Zosyn at this time. ? Will order Lantus 5 units 06/28/24 Admitted for acute cholecystitis and DKA He has been off insulin drip, blood sugar trend noted. Continue lispro correction scale Will restart home medication once postsurgery WBC count trending down to 17.6. Continue IV Zosyn Hyponatremia stable at 132 Blood pressure still uncontrolled at 151/81. Continue Cardene drip, nifedipine 30 mg daily, hydralazine 100 mg 3 times daily and losartan 100 mg daily. Continue hemodialysis as per schedule Continue to monitor in ICU Attestations 2 Medical Necessity Statement*: Needs continued hospitalization for management of uncontrolled hypertension, and postop care for cholecystectomy Time Spent in Patient Care: 30 minutes Coding Level of Care Code Critical Care >/= 30 minutes Diagnoses HTN (hypertension) I10 Uncontrolled hypertension I10 (HFpEF) heart failure with preserved ejection fraction I50.30 Diabetes mellitus type 2, uncontrolled E11.65 GERD (gastroesophageal reflux disease) K21.9 ESRD (end stage renal disease) N18.6 Hypoxic respiratory failure J96.91 Flash pulmonary edema J81.0 Acute cholecystitis K81.0 DKA (diabetic ketoacidosis) E11.10 Thrombocytopenia D69.6 Time Spent (min) 30
--- NOTE | 2024-06-28 13:59 | PC.NURSE ---
Patient expressed desire to not have surgery and to leave today even if its AMA. Surgery and Dr. Hubbard spoke with patient, patient still wanting to leave AMA. Script for Levoflaxicin 750 mg daily x7 days called in to [facility] from [facility]. IV dc. Patient ao x4 and zamzam commands
--- NOTE | 2024-06-28 14:01 | PM.MISC ---
Miscellaneous Note Note: Patient does not want surgery. Recommend treating with 7 day course of antibiotics and pursuing cholecystostomy tube. IR cholangiogram in 6 weeks. If cystic duct patent at that time cholecystostomy tube can be removed by IR.
--- NOTE | 2024-06-28 14:13 | PC.NURSE ---
patient out of facility transporting self home, is to go to [facility] to strip picker script
--- NOTE | 2024-06-28 14:42 | PM.MISC ---
Miscellaneous Note Purpose of Documentation: Patient left AMA Note: 48-year-old currently being managed for acute cholecystitis, hypertensive urgency, DKA and hemodialysis. He was planned for laparoscopic cholecystectomy today but refused surgery. Patient was counseled about hypertensive urgency and being on Cardene drip for blood pressure management. But he refused further care, refused surgery at this time. Explained and counseled about risk and benefits of medical management regarding acute cholecystitis and hypertensive urgency, patient agrees to understand but still refusing further care. Signed AMA. He was given prescription for p.o. Levaquin 750 mg daily for 7 days to be followed up with PCP for further management of acute cholecystitis and hypertension.
== END 2024-06-28 14:14 | disposition left against medical advice (07) | DRG 444 ==
LOC: ER 13:43 → ICU 17:42
PROVIDERS: Admitting Provider Internal Medicine; Emergency Provider Family Medicine; PCP Family Medicine; Visit Provider Internal Medicine
DX: K81.0 Acute cholecystitis (principal); E11.10 Type 2 diabetes mellitus with ketoacidosis without coma; N18.6 End stage renal disease; J96.91 Respiratory failure, unspecified with hypoxia; J18.9 Pneumonia, unspecified organism; I13.2 Hypertensive heart and chronic kidney disease with heart failure and with stage 5 chronic kidney disease, or end stage renal disease; I50.30 Unspecified diastolic (congestive) heart failure; E87.1 Hypo-osmolality and hyponatremia; E11.22 Type 2 diabetes mellitus with diabetic chronic kidney disease; E11.51 Type 2 diabetes mellitus with diabetic peripheral angiopathy without gangrene; Z99.2 Dependence on renal dialysis; I16.0 Hypertensive urgency; D64.89 Other specified anemias; K21.9 Gastro-esophageal reflux disease without esophagitis; D69.6 Thrombocytopenia, unspecified; E55.9 Vitamin D deficiency, unspecified; F17.210 Nicotine dependence, cigarettes, uncomplicated; E87.5 Hyperkalemia; Z79.82 Long term (current) use of aspirin; Z53.29 Procedure and treatment not carried out because of patient's decision for other reasons
CPT/HCPCS: 0241U; 36415; 36416; 71045; 74176; 76705; 80048; 80053; 82009; 82962; 83036; 83605; 83735; 83880; 84100; 84145; 84484; 85025; 87040; 90935; 93005; 94640; 94664; 96365; 96367; 96372; 96375; 96376; 99285; J0360; J0780; J1100; J1171; J1644; J1815; J2405; J2470; J2543; J2550; J2704; J3010; J3490; J7030; J7042; P9045

== ENCOUNTER → 2024-07-13 07:49 | Outpatient (BNVA) | payer MEDICARE, MEDICAID, SELFPAY | PROVIDERS: PCP Family Medicine; Visit Provider Surgery | DX: R03.0 Elevated blood-pressure reading, without diagnosis of hypertension (principal); K80.10 Calculus of gallbladder with chronic cholecystitis without obstruction | CPT/HCPCS: 99204 ==

== ENCOUNTER 2024-07-31 10:53 | Emergency (ER) | payer MEDICARE, MEDICAID, SELFPAY ==
[2024-07-31 11:22] VITALS: BP 144/70; PULSE 93; RESP 18; TEMP 37.5; O2SAT 95
--- NOTE | 2024-07-31 11:26 | ECG_ITS ---
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 Measurements Intervals [place] Rate: 86 P: 30 WI: 157 QRS: 33 QRSD: 98 T: 78 QT: 368 QTc: 441 Interpretive Statements SINUS RHYTHM NONSPECIFIC ST & T-WAVE ABNORMALITY Compared to ECG 07/31/2024 09:24:57 T-wave abnormality now present Left ventricular hypertrophy no longer present ST (T wave) deviation no longer present Electronically Signed On 07-31-2024 21:24:08 AMMONIA OPERATOR by Eulogio Hsieh M.D. [id number]
--- NOTE | 2024-07-31 11:50 | ED_ITS ---
HPI - Recheck/Abnormal Lab/Rx General: Chief Complaint: Recheck/Abnormal Lab/Rx Stated Complaint: returning result for blood work Time Seen by Provider: 07/31/24 11:25 History of Present Illness: Patient was here earlier with a complaint of shortness of breath extensive workup was done he continued to complain of shortness of breath and only had gotten a BNP on which was 51,000 also got troponins on him. His baseline creatinine today was 7.2 he did have dialysis yesterday. We have tested him for oxygen needs because he was convinced that he needed oxygen he did not require any and he did not had any hypoxia while supine. Ultimately patient demanded to go and we discharged him home and I changed him from Augmentin to Levaquin. After he left a second troponin came back and had gone up with a positive delta of 13. He was contacted and asked to return he did return he denies any chest pain. From the outset he is adamant that he does not want to be admitted Related Data Home Medications Medication Instructions Recorded Confirmed patiromer calcium sorbitex 8.4 8.4 g PO .4 days/week 06/22/23 07/31/24 gram oral powder packet (Veltassa) carvedilol 25 mg tablet 25 mg PO BID 04/24/24 07/31/24 diltiazem HCl 180 mg capsule,24 180 mg PO DAILY 04/24/24 07/31/24 hr,extended release ketorolac 0.5 % eye drops 1 drp ophthalmic (eye) QID 07/31/24 07/31/24 prednisolone acetate 1 % eye 1 drp ophthalmic (eye) QID 07/31/24 07/31/24 drops,suspension sevelamer carbonate 800 mg tablet 2,400 mg PO TID 07/31/24 07/31/24 Previous Rx's Medication Instructions Recorded amlodipine 10 mg tablet 10 mg PO DAILY #90 tabs 04/11/24 nifedipine 30 mg tablet,extended 30 mg PO DAILY #90 tabs 05/09/24 release 24 hr pantoprazole 40 mg tablet,delayed 40 mg PO DAILY #90 tabs 05/23/24 release escitalopram oxalate 20 mg tablet 20 mg PO DAILY #30 tabs 06/06/24 losartan 100 mg tablet 100 mg PO DAILY #90 tabs 06/14/24 blood-glucose meter #1 ea 07/02/24 blood sugar diagnostic (Blood #200 ea 07/03/24 Glucose Test strips) lancets 30 gauge (OneTouch Delica #200 ea 07/03/24 Plus Lancet) clonidine HCl 0.2 mg tablet 0.2 mg PO TID 90 days #270 tabs 07/06/24 hydralazine 100 mg tablet 100 mg PO TID #270 tabs 07/06/24 albuterol sulfate 90 mcg/actuation 2 inh inhalation Q4H PRN shortness 07/31/24 aerosol inhaler of breath or wheezing #18 grams aspirin 81 mg tablet,delayed 81 mg PO DAILY #30 tabs 07/31/24 release clopidogrel 75 mg tablet 75 mg PO DAILY #30 tabs 07/31/24 isosorbide mononitrate 60 mg 60 mg PO DAILY #30 tabs 07/31/24 tablet,extended release 24 hr levofloxacin 500 mg tablet 500 mg PO DAILY 7 days #7 tabs 07/31/24 methylprednisolone 4 mg tablets in See Rx Instructions PO .COMPLEX 07/31/24 a dose pack (Medrol (Gerard)) #21 ea Allergies Allergy/AdvReac Type Severity Reaction Status Date / Time No Known Allergies Allergy Verified 07/31/24 06:00 Review of Systems Const: Denies: fever(s) or chills Card: Denies: chest pain Resp: Denies: dyspnea GI: Denies: abdominal pain : Denies: dysuria, urinary frequency or urinary urgency Musc: Denies: neck pain or back pain Skin/Breast: Denies: rash PFSH ED PFSH: Medical History Thrombocytopenia PND (paroxysmal nocturnal dyspnea) Pericardial effusion Severe anemia Kidney failure HFrEF (heart failure with reduced ejection fraction) Elevated BUN Vitamin D deficiency Anemia Diabetic ulcer of left foot Peripheral vascular disease HTN (hypertension) Diabetes mellitus type 2, uncontrolled History of diabetes mellitus Peritonsillar cellulitis Surgical History History of insertion of tunneled central venous catheter (CVC) with port H/O vitrectomy No history of previous surgery Family History Other CAD (coronary artery disease) Diabetes Hypertension Lung disease Denies family history of Clotting disorder Dementia Hyperlipidemia Psychiatric illness Chronic kidney disease (CKD) Anesthesia complication Bleeding disorder Cancer Stroke Social History Smoking and tobacco/nicotine status: current every day tobacco/nicotine user cigarettes Packs smoked per day: 0.5 Years cigarettes smoked: 30 Quit status (tobacco/nicotine): considering quitting Alcohol intake: former Substance/Drug Use: never Lives independently: Yes Household members: none Housing: House Current occupational status: unemployed Special manuel needs: No Agree to transfusion: Yes Physical Exam Const: COMMON NORMALS: no acute distress GENERAL APPEARANCE: cooperative and comfortable ORIENTATION/CONSCIOUSNESS: Yes awake, Yes oriented to person, Yes oriented to place and Yes oriented to time HENMT: COMMON NORMALS: normocephalic, atraumatic and hearing grossly normal bilaterally HEAD & SCALP: normocephalic and atraumatic Neuro: SENSORIUM/ORIENTATION: Yes oriented to person, Yes oriented to place and Yes oriented to time Skin: COMMON NORMALS: no rashes or lesions noted GENERAL SKIN EXAM: no rashes or lesions noted Course Vital Signs: Vital signs: Vital Signs Temperature 99.5 F 07/31/24 11:22 Pulse Rate 93 07/31/24 11:22 Respiratory Rate 18 07/31/24 11:22 Blood Pressure 144/70 07/31/24 11:22 Pulse Oximetry 95 07/31/24 11:22 Oxygen Delivery Me thod Room Air 07/31/24 11:22 MDM - Recheck/Abnormal Lab/Rx Medical Decision Making Reviewed the findings with the patient. He does have significant risk factors and while his troponins are likely to be affected by his end-stage renal disease the delta is positive and this is concerning given his risk factors. We advised him to be admitted for further evaluation and cardiology consultation. Despite this he wishes to leave. He understands that he could have a heart attack and may not be able to make it back to the hospital in time and still wishes to go. Troponin drawn when he returned for the recheckh showed a further increase in his troponin. Patient was discharged home per his request we added clopidogrel aspirin and isosorbide mononitrate to 60 mg daily had him stop his dinitrate. Encouraged him return if he has any episodes of chest pain he denies any chest pain at this time. Will make a referral for him to go to cardiology. Medical Records I reviewed the patient's medical records. Lab Data I reviewed the patient's lab results. Laboratory Results Troponin T Baseline 394 ng/L (0-15) H* 07/31/24 11:44 No radiology studies performed this visit EKG Data EKG 1: Interpretation: EKG on the patient return shows sinus rhythm. Rate of 86 with a DC interval of [address] changes noted. Discharge Plan Discharge Patient Disposition: Home Clinical Impression: Elevated troponin, ESRD (end stage renal disease), (HFpEF) heart failure with preserved ejection fraction Condition: Stable Prescriptions: New aspirin 81 mg tablet,delayed release (DR/EC) 81 mg PO DAILY Qty: 30 0RF clopidogrel 75 mg tablet 75 mg PO DAILY Qty: 30 0RF isosorbide mononitrate 60 mg tablet extended release 24 hr 60 mg PO DAILY Qty: 30 0RF Discontinued isosorbide dinitrate 20 mg tablet 20 mg PO TID Qty: 270 1RF Rx Instructions: allow nitrate-free interval of 12-14 hrs per 24-hr period No Action Veltassa 8.4 gram powder in packet 8.4 g PO .4 days/week Rx Instructions: on non dialysis days Mon, Wed, and Fri nifedipine 30 mg tablet extended release 24hr 30 mg PO DAILY Qty: 90 1RF (DME) blood-glucose meter Misc See Rx Instructions .MEDSUPPLY Qty: 1 0RF Rx Instructions: Use glucometer once to twice daily amlodipine 10 mg tablet 10 mg PO DAILY Qty: 90 1RF pantoprazole 40 mg tablet,delayed release (DR/EC) 40 mg PO DAILY Qty: 90 0RF escitalopram oxalate 20 mg tablet 20 mg PO DAILY Qty: 30 1RF losartan 100 mg tablet 100 mg PO DAILY Qty: 90 0RF (DME) Blood Glucose Test Strip See Rx Instructions .Route Qty: 200 3RF Rx Instructions: As directed to test blood sugar BID (DME) lancets [OneTouch Delica Plus Lancet] 30 gauge misc See Rx Instructions .ROUTE .COMPLEX Qty: 200 3RF Dose Instruction: USE TO TEST BLOOD SUGAR TWICE A DAY Rx Instructions: USE TO TEST BLOOD SUGAR TWICE A DAY clonidine HCl 0.2 mg tablet 0.2 mg PO TID 90 Days Qty: 270 1RF hydralazine 100 mg tablet 100 mg PO TID Qty: 270 0RF carvedilol 25 mg tablet 25 mg PO BID diltiazem HCl 180 mg capsule,extended release 24 hr 180 mg PO DAILY ketorolac 0.5 % drops 1 drp ophthalmic (eye) QID prednisolone acetate 1 % drops,suspension 1 drp ophthalmic (eye) QID sevelamer carbonate 800 mg tablet 2,400 mg PO TID levofloxacin 500 mg tablet 500 mg PO DAILY 7 Days Qty: 7 0RF methylprednisolone [Medrol (Gerard)] 4 mg tablets,dose pack See Rx Instructions .ROUTE .COMPLEX Qty: 21 0RF Rx Instructions: orally per package directions albuterol sulfate 90 mcg/actuation HFA aerosol inhaler 2 inh INHALATION Q4H PRN (Reason: shortness of breath or wheezing) Qty: 18 0RF Discharge Orders: Discharge ED (Routine); Ordered 07/31/24 Ordered By: Thomas Pena Referrals: Enoch Borrero MD [Primary Care Provider] - Patient Instructions: Opioid Safety, Pain Management Activity Restrictions/Additional Instructions: Thank you for choosing [facility] for your healthcare needs today. It is very important that you follow up as instructed or that you return to the Emergency Department should you have concerns or if your condition changes or worsens in any way. We had called back to the emergency room after you are seen earlier because you are heart enzymes are elevated. We dismissed you earlier because you are insisting on going home. We recommend at this time with the elevation in your heart enzymes that we admit you to observation and have the construction sales representative see you. You advised that she did not wish to do this and wanted to follow-up and set as an outpatient. We do strongly recommend against this since you do have risk factors for heart disease and the laboratory testing is concerning. Since you prefer to be discharged home we will discharge you home recommend you continue your aspirin daily. Will also recommend that you start clopidogrel 1 tablet daily and isosorbide mononitrate 60 mg daily. Case management will try to get you into see the construction sales representative as soon as you are able. If you have further symptoms return to the emergency room. Coding Level of Care Code ED [facility]
[2024-07-31 12:22] LABS: Troponin(5th) Baseline 394 ng/L (0-15)
--- NOTE | 2024-08-01 11:03 | DCPLANNER ---
Message sent to Cardiology for a follow up -
== END 2024-07-31 12:57 | disposition home or self-care (01) ==
PROVIDERS: Emergency Provider Family Medicine; PCP Family Medicine
DX: E11.22 Type 2 diabetes mellitus with diabetic chronic kidney disease (principal); I13.2 Hypertensive heart and chronic kidney disease with heart failure and with stage 5 chronic kidney disease, or end stage renal disease; I50.30 Unspecified diastolic (congestive) heart failure; N18.6 End stage renal disease; F17.210 Nicotine dependence, cigarettes, uncomplicated; R79.89 Other specified abnormal findings of blood chemistry
CPT/HCPCS: 36415; 84484; 93005; 99284

== ENCOUNTER 2024-10-01 15:28 | Emergency (ER) | payer MEDICARE, MEDICAID, SELFPAY ==
[2024-10-01 15:35] VITALS: BP 208/117; PULSE 90; RESP 16; TEMP 36.4; O2SAT 99
[2024-10-01 15:45] LABS: Glucose Point of Care 167 mg/dL (70-110)
--- NOTE | 2024-10-01 15:48 | ECG_ITS ---
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: : 1975 Requested By: Odalis Liu Order Number: [id number] Johanna MD: ANA LILIA PERAZA Measurements Intervals [place] Rate: 89 P: 41 TX: 204 QRS: 34 QRSD: 95 T: 97 QT: 355 QTc: 433 Interpretive Statements SINUS RHYTHM VOLTAGE CRITERIA FOR LVH [MEETS CRITERIA IN ONE OF: R(aVL), S(V1), R(V5), R(V5/V6)+S(V1)] ST DEVIATION AND MODERATE T-WAVE ABNORMALITY, CONSIDER LATERAL ISCHEMIA [-0.1+ mV T-WAVE IN I/aVL/V5/V6] Compared to ECG 07/31/2024 11:31:25 Left ventricular hypertrophy now present Possible ischemia now present T-wave abnormality still present Electronically Signed On 10-02-2024 23:35:01 WORD PROCESSING SUPERVISOR by ANA LILIA PERAZA [email or web address]
== END 2024-10-01 20:34 | disposition left against medical advice (07) ==
PROVIDERS: Emergency Provider Family Medicine; PCP Family Medicine
DX: Z53.21 Procedure and treatment not carried out due to patient leaving prior to being seen by health care provider (principal)
CPT/HCPCS: 36416; 82962; 93005